=== PATIENT | female | born 1930 | race Caucasian/White ===

== ENCOUNTER → 2016-08-23 | Outpatient (CLI) | payer MEDICARE, OTHER ==
[2016-08-23 08:15] LABS: CH 28.9; CHCM 31.5; HCT 36.3 % (34.0-46.0); HDW 2.61; HGB 11.9 gm/dL (11.4-16.0); Hypochromasia Slight; MCH 30.3 pg (25.0-35.0); MCHC 32.9 g/dL (31.0-37.0); MCV 91.9 fL (80.0-100.0); Mean Platelet Volume 6.8; RBC 3.95 m/uL (3.80-5.40); RDW 15.2 % (11.5-15.5); WBC 8.4 k/uL (3.8-10.6); WBC (Perox) 8.93
[2016-08-23 08:27] LABS: Add Differential Manual Differential
[2016-08-23 08:29] LABS: Manual Review Performed; Nucleated Red Blood Cells 0 /100 WBC (0-0); RBC Morphology Normal; Total Cells Counted 100
[2016-08-23 10:57] LABS: ALT 32 U/L (9-52); AST 32 U/L (14-36); Alkaline Phosphatase 82 U/L (38-126); Anion Gap 11 mmol/L; Blood Urea Nitrogen 17 mg/dL (7-17); Calcium 9.3 mg/dL (8.4-10.2); Carbon Dioxide 30 mmol/L (22-30); Chloride 103 mmol/L (98-107); Cholesterol 184 mg/dL (<200); Creatine Kinase 52 U/L (30-135); Glucose 97 mg/dL (74-99); HDL Cholesterol 43 mg/dL (40-60); Magnesium 2.3 mg/dL (1.6-2.3); Non-African American GFR(MDRD) >60 (>60 ml/min/1.73 sqM); Potassium 4.4 mmol/L (3.5-5.1); Sodium 144 mmol/L (137-145); Total Bilirubin 1.1 mg/dL (0.2-1.3); Total Protein 6.5 g/dL (6.3-8.2); Triglycerides 120 mg/dL (<150)
[2016-08-23 11:48] LABS: Vitamin B12 >1000 pg/mL
[2016-08-23 13:23] LABS: Hemoglobin A1C 5.9 % (4.2-6.1)
== END ==
LOC: LABWHC1 07:39
PROVIDERS: ATTEND Internal Medicine Endocrinology, Diabetes & Metabolism
DX: E06.3 Autoimmune thyroiditis (principal); R73.9 Hyperglycemia, unspecified; I48.2 Chronic atrial fibrillation; E03.9 Hypothyroidism, unspecified; E55.9 Vitamin D deficiency, unspecified; E53.8 Deficiency of other specified B group vitamins; Z13.228 Encounter for screening for other metabolic disorders
CPT/HCPCS: 36415; 80053; 80061; 82306; 82550; 82607; 83036; 83735; 84439; 84443; 85025

== ENCOUNTER → 2017-05-21 | Outpatient (CLI) | payer MEDICARE ==
--- NOTE | 2017-05-23 07:17 | MM ---
Reason for exam: screening (asymptomatic). Last mammogram was performed 3 years and 10 months ago. History: Patient is postmenopausal. Physical Findings: A clinical breast exam by your physician is recommended on an annual basis and results should be correlated with mammographic findings. MG 3D Screening Mammo W/Cad Bilateral CC and MLO view(s) were taken. Prior study comparison: July 08, 2013, bilateral digital screening mammo w/CAD. November 17, 2010, bilateral digital screening mammo w/CAD. There are scattered fibroglandular densities. No significant changes when compared with prior studies. ASSESSMENT: Benign, BI-RAD 2 RECOMMENDATION: Routine screening mammogram of both breasts in 1 year.
== END | disposition home or self-care (01) ==
LOC: RADMAMWWP 15:13
PROVIDERS: ATTEND Family Medicine
DX: Z12.31 Encounter for screening mammogram for malignant neoplasm of breast (principal); N95.1 Menopausal and female climacteric states; M89.9 Disorder of bone, unspecified
CPT/HCPCS: 77063; 77067

== ENCOUNTER → 2017-05-22 | Outpatient (CLI) | payer MEDICARE ==
--- NOTE | 2017-05-22 13:28 | BD ---
EXAMINATION TYPE: MG DEXA axial skeleton. DATE OF EXAM: 05/22/2017 COMPARISON: NONE CLINICAL HISTORY: post menopausal Height: 5'1 2 Weight: 172 FRAX RISK QUESTIONS: Alcohol (3 or more units per day): no Family History (Parent hip fracture): no Glucocorticoids (More than 3mos): no (Ex: prednisone, prednisolone, methylprednisolone, dexamethasone, and hydrocortisone). History of Fracture in Adulthood: yes Secondary Osteoporosis: 1. Type 1 Diabetes: no 2. Hyperthyroidism: no 3. Menopause before 45: no 4. Malnutrition: no 5. Chronic liver disease: no Rheumatoid Arthritis: no Current Tobacco Use: no RISK FACTORS HISTORY OF: Postmenopausal woman: MEDICATIONS: Thyroid Medications: Which medication: Synthroid How Long: age 60 Additional Medications: blood pressure, coumadin, beta lauren Additional History: pacemaker, 2017, 2 heart ablations prior, skin cancer EXAM MEASUREMENTS: Bone mineral densitometry was performed using the [employer] System. Bone mineral density as measured about the Lumbar spine is: ----- L1-L4(G/cm2): 1.558 T Score Values are as follows: ----- L2: 3.4 ----- L3: 4.0 ----- L4: 3.3 ----- L1-L4: 3.1 Bone mineral density about the R hip (g/cm2): 1.082 Bone mineral density about the L hip (g/cm2): 1.158 T Score values are as follows: -----R Neck: 0.3 -----L Neck: 0.8 -----R Total: 0.2 -----L Total: 0.5 IMPRESSION: Normal (Values between +1 and -1 indicate normal bone mass). Consider repeating this study in 5 year s or sooner if there is some new clinical indication. NOTE: T-SCORE=SD OF THE YOUNG ADULT MEAN.
== END ==
LOC: RADBDWWP 12:36
PROVIDERS: ATTEND Family Medicine
DX: N95.1 Menopausal and female climacteric states (principal); M89.9 Disorder of bone, unspecified
CPT/HCPCS: 77080

== ENCOUNTER → 2017-06-05 | Outpatient (CLI) | payer MEDICARE ==
[2017-06-05 08:39] LABS: Blood Urea Nitrogen 25 mg/dL (7-17)
--- NOTE | 2017-06-05 10:21 | CT ---
EXAMINATION TYPE: CT abdomen pelvis w con DATE OF EXAM: 06/05/2017 HISTORY: Hematuria CT DLP: 984.6mGycm Automated Exposure Control for Dose Reduction was Utilized. CONTRAST: CT scan of the abdomen and pelvis is performed with IV Contrast, patient injected with 100 mL of Omni paque 300. COMPARISON: None. FINDINGS: LUNG BASES: Minimal subsegmental bibasilar dependent atelectasis is noted. LIVER/GB: There is minimal intrahepatic biliary ductal dilatation and extra hepatic biliary ductal di latation with surgical absence of the gallbladder. This is likely postoperative in nature. PANCREAS: There is mild pancreatic parenchymal atrophy giving the appearance of ductal prominence alt samanta it only measures 2.7 cm at the pancreatic head on coronal series 7 image 35, within normal limi ts. Pancreatic parenchyma enhances homogeneously. SPLEEN: The spleen is upper limits of normal size approaching criteria for splenomegaly as it measure s 13.6 cm in longitudinal dimension and 12.2 cm in craniocaudal dimension. 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 ADRENALS: No significant abnormality is seen. KIDNEYS: Bilateral extrarenal pelvises sees, right greater than left are incidentally noted. No evide nce of hydronephrosis or ureteral calculus. No gross evidence of nephrolithiasis. The kidneys enhance and excrete symmetrically without focal lesion.. BOWEL: Numerous colonic diverticula are present without significant pericolonic fat stranding or foca l bowel wall thickening appreciated. UTERUS/ADNEXA: Uterus is surgically absent or significantly atrophy and not visualized. LYMPH NODES: No greater than 1cm abdominal or pelvic lymph nodes are appreciated. A single prominent 9 mm short axis pericaval lymph node is seen on image 26 of series 3. These scattered nonenlarged ramiro tral mesenteric lymph nodes are seen on series 3 image 54 measuring up to 5 mm in short axis. OSSEOUS STRUCTURES: Moderate multilevel degenerative changes of the visualized thoracolumbar and lumb osacral spine are noted. There is a mild dextroscoliotic curvature of the lumbar spine. Moderate to s evere bilateral femoral acetabular arthropathy is noted. IMPRESSION: 1. No renal lesion, gross evidence of nephrolithiasis, or ureteral calculus. No hydronephrosis. 2. Urinary bladder is incompletely as contrast has not extended into the urinary bladder. No focal wa ll thickening is appreciated. Ultrasound could be performed for further evaluation of the urinary isiah dder at there is further clinical concern for source of hematuria. 3. Colonic diverticulosis without evidence of diverticulitis. 4. 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
== END | disposition home or self-care (01) ==
LOC: RADCTMAIN 08:07
PROVIDERS: ATTEND Family Medicine
DX: K57.30 Diverticulosis of large intestine without perforation or abscess without bleeding (principal); I72.8 Aneurysm of other specified arteries
CPT/HCPCS: 82565; 84520; 74177; 36415; Q9967

== ENCOUNTER 2017-06-11 03:42 | Emergency (ER) | payer MEDICARE ==
--- NOTE | 2017-06-11 04:11 | ED ---
Chest Pain HPI <William Wilder - Last Filed: 06/11/17 08:43> - General Source: patient Mode of arrival: EMS Limitations: no limitations - History of Present Illness MD Complaint: chest pain Onset/Timin -: days(s) Onset: during rest Pain Location: substernal Pain Radiation: none Severity: moderate Quality: heaviness Consistency: constant Improves With: nothing Worsens With: nothing Anginal Symptoms: nausea, diaphoresis Other Symptoms: cough Treatments Prior to Arrival: aspirin <Johnathan Mckeon - Last Filed: 06/13/17 10:00> - General Chief Complaint: Chest Pain Stated Complaint: Chest pain Time Seen by Provider: 06/11/17 03:55 - Related Data Home Medications Medication Instructions Recorded Confirmed Cyanocobalamin [Vitamin B-12] 500 mcg PO DAILY 12/15/13 06/11/17 Ergocalciferol (Vitamin D2) 50,000 unit PO FR 12/15/13 06/11/17 [Drisdol] Fish Oil/Dha/Epa [Fish Oil 1,200 1 cap PO DAILY 12/15/13 06/11/17 mg Fish Oil] Irbesartan/Hydrochlorothiazide 0.5 tab PO DAILY 12/15/13 06/11/17 [Avalide 150-12.5 mg Tablet] Levothyroxine Sodium [Synthroid] 75 mcg PO DAILY 12/15/13 06/11/17 Bolivar-3 Fatty Acids [Bolivar-3] 1 tab PO DAILY 12/15/13 06/11/17 Ascorbic Acid [Vitamin C] 500 mg PO DAILY 06/11/17 06/11/17 Atenolol [Tenormin] 12.5 mg PO DAILY 06/11/17 06/11/17 Flecainide [Tambocor] 50 mg PO BID 06/11/17 06/11/17 Vit C/E/Zn/Coppr/Lutein/Zeaxan 1 cap PO DAILY 06/11/17 06/11/17 [Preservision Areds 2 Softgel] Warfarin [Coumadin] 7.5 mg PO DAILY 06/11/17 06/11/17 Allergies Allergy/AdvReac Type Severity Reaction Status Date / Time No Known Allergies Allergy Verified 06/11/17 08:11 Review of Systems ROS Other: All systems not noted in ROS Statement are negative. <William Wilder - Last Filed: 06/11/17 08:43> ROS Other: All systems not noted in ROS Statement are negative. Constitutional: Denies: fever, chills Respiratory: Reports: cough. Denies: dyspnea Cardiovascular: Reports: chest pain. Denies: edema, syncope Gastrointestinal: Reports: nausea. Denies: abdominal pain, vomiting, diarrhea Genitourinary: Denies: dysuria, hematuria Musculoskeletal: Denies: back pain Skin: Denies: rash Neurological: Denies: headache, weakness, numbness <MikeJohnathan - Last Filed: 06/13/17 10:00> ROS Statement: Those systems with pertinent positive or pertinent negative responses have been documented in the HPI. EKG Findings - EKG Comments: EKG Findings:: The 12-lead EKG appears to show an underlying rhythm of atrial fibrillation with alternate episodes of paced rhythm. 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 parotid gland removed (tumor stated not cancerous). cataracts. Bilateral knee replacements Past Anesthesia/Blood Transfusion Reactions: No Reported Reaction Past Psychological History: Depression Smoking Status: Former smoker Past Alcohol Use History: None Reported Past Drug Use History: None Reported - Past Family History Mother Family Medical History: Coronary Artery Disease (CAD), CVA/TIA Additional Family Medical History / Comment(s): age 83 of stroke Father Family Medical History: Cancer, Congestive Heart Failure (CHF) Additional Family Medical History / Comment(s): of cancer age 77 <Johnathan Mckeon - Last Filed: 06/13/17 10:00> General Exam Limitations: no limitations General appearance: alert, in no apparent distress Head exam: Present: atraumatic, normocephalic Eye exam: Present: normal appearance Neck exam: Present: normal inspection, full ROM Respiratory exam: Present: normal lung sounds bilaterally. Absent: respiratory distress, wheezes, rales, rhonchi, stridor, chest wall tenderness, accessory muscle use, decreased breath sounds Cardiovascular Exam: Present: regular rate, normal rhythm, normal heart sounds. Absent: systolic murmur, diastolic murmur, rubs, gallop GI/Abdominal exam: Present: soft. Absent: tenderness, guarding, rebound Extremities exam: Present: normal inspection, normal capillary refill. Absent: pedal edema, calf tenderness Neurological exam: Present: alert Skin exam: Present: warm, dry, intact, normal color. Absent: rash <Johnathan Mckeon - Last Filed: 06/13/17 10:00> Vital Signs 06/11/17 06/11/17 06/11/17 03:53 04:04 05:02 Temperature 98.0 F 98.3 F Pulse Rate 70 67 Pulse Rate [ 72 Refuge Worker ] Respiratory 18 18 Rate Blood Pressure 131/57 103/51 O2 Sat by Pulse 99 100 Oximetry 06/11/17 06/11/17 06/11/17 05:57 08:12 08:46 Temperature 97.5 F L Pulse Rate 70 68 83 Pulse Rate [ Refuge Worker ] Respiratory 14 16 16 Rate Blood Pressure 110/54 119/60 140/63 O2 Sat by Pulse 98 95 97 Oximetry 06/11/17 10:12 Temperature Pulse Rate 611 H Pulse Rate [ Refuge Worker ] Respiratory 8 L Rate Blood Pressure 137/63 O2 Sat by Pulse 99 Oximetry Disposition <William Wilder - Last Filed: 06/11/17 08:43> <Johnathan Mckeon - Last Filed: 06/13/17 10:00> Clinical Impression: Chest pain Disposition: HOME SELF-CARE Condition: Good Instructions: Chest Pain (ED) Referrals: Eloise Ma MD [Primary Care Provider] - 1-2 days
[2017-06-11 04:14] LABS: HCT 38.4 % (34.0-46.0); HGB 12.3 gm/dL (11.4-16.0); MCH 28.4 pg (25.0-35.0); MCHC 32.1 g/dL (31.0-37.0); MCV 88.7 fL (80.0-100.0); Mean Platelet Volume 7.1; Platelet Count 118 k/uL (150-450); RBC 4.33 m/uL (3.80-5.40); RDW 15.7 % (11.5-15.5); WBC 12.2 k/uL (3.8-10.6)
[2017-06-11 04:25] LABS: INR 1.8 (<1.2); Prothrombin Time 16.7 sec (9.0-12.0)
[2017-06-11 04:30] LABS: ALT 44 U/L (9-52); AST 41 U/L (14-36); Albumin 3.9 g/dL (3.5-5.0); Alkaline Phosphatase 84 U/L (38-126); Anion Gap 11 mmol/L; Blood Urea Nitrogen 23 mg/dL (7-17); Calcium 9.8 mg/dL (8.4-10.2); Carbon Dioxide 29 mmol/L (22-30); Chloride 101 mmol/L (98-107); Glucose 122 mg/dL (74-99); Magnesium 2.2 mg/dL (1.6-2.3); Sodium 141 mmol/L (137-145); Total Bilirubin 1.2 mg/dL (0.2-1.3); Total Protein 6.2 g/dL (6.3-8.2)
[2017-06-11 04:35] LABS: Creatine Kinase 36 U/L (30-135)
[2017-06-11 04:48] LABS: Creatine Kinase MB 0.5 ng/mL (0.0-2.4); Troponin I <0.012 ng/mL (0.000-0.034)
--- NOTE | 2017-06-11 04:51 | XR ---
INDICATION: Chest pain COMPARISON: CXR 10/19/11 FINDINGS: Single frontal view of the chest is provided. Heart size and pulmonary vascularity are normal. There has been interval placement of a left-sided dual-lead AICD-pacemaker. No airspace consolidation, pleural effusion, or pneumothorax. No evidence of acute osseous abnormality. IMPRESSION: 1. Interval placement of left-sided dual-lead AICD-pacemaker. 2. No evidence of acute cardiopulmonary disease.
[2017-06-11] MEDS ORDERED: RX INFO: IV CONTRAST WAS GIVEN 1 EACH MISC MISCELLANE PRN (06:40)
[2017-06-11 07:52] LABS: Eosinophils # (M) 0.12 k/uL (0-0.7); Lymphocytes # (M) 6.47 k/uL (1.0-4.8); Monocytes # (M) 0.49 k/uL (0-1.0); Neutrophils # (M) 5.12 k/uL (1.3-7.7); Neutrophils % (M) 42 %; Nucleated Red Blood Cells 0 /100 WBC (0-0); Total Cells Counted 100
[2017-06-11 07:53] LABS: Poikilocytosis (M) Present; Toxic Granulation Present
--- NOTE | 2017-06-11 08:15 | CT ---
EXAMINATION TYPE: CT chest angio for PE DATE OF EXAM: 06/11/2017 COMPARISON: CT chest March 17, 2011. HISTORY: Chest pains, history of pulmonary embolism. CT DLP: 580 mGycm. Automated Exposure Control for Dose Reduction was Utilized. CONTRAST: CTA scan of the thorax is performed with IV Contrast, patient injected with 80 mL of Visipaque 320, p ulmonary embolism protocol. MIP Images are created on CT scanner and reviewed. FINDINGS: LUNGS: There is mild underlying emphysematous change. There is stable calcified subpleural 5 mm nodul e superior aspect right lower lobe axial image 68. There are some scattered areas of scarring and/or atelectasis most prominent in the bases near diaphragm redemonstrated. No pleural effusion or pneumot horax is seen bilaterally. No new suspicious parenchymal nodule or mass is present. There is mild to moderate by apical pleural/parenchymal scarring with calcification. There are additional mild areas o f pleural thickening throughout the left lung. MEDIASTINUM: There is satisfactory enhancement of the pulmonary artery and its branches, there is no CT evidence for pulmonary embolism. There are no greater than 1 cm hilar or mediastinal lymph nodes . No significant pericardial effusion is seen. There is cardiomegaly with moderate right atrial dil atation. There is new dual lead pacemaker. Ascending aorta measures up to 3.6 cm in diameter on axial image 61. OTHER: There is moderate to severe multilevel spurring in the thoracic spine. Visualized spleen is up per limits of normal in size but only partially imaged and felt more prominent versus prior. 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 IMPRESSION: 1. No CT evidence for pulmonary embolism on current study. 2. Mild underlying emphysematous change and mild cardiomegaly with mild to moderate scattered fibrosi s throughout the lungs bilaterally. No suspicious acute pulmonary process is seen.
[2017-06-11 08:47] VITALS: TEMP 97.5
[2017-06-11] MEDS ORDERED: SODIUM CHLORIDE 0.9% 1,000 ML IV STA (09:10)
[2017-06-11 10:13] VITALS: BP 137/63; PULSE 611; RESP 8
== END 2017-06-11 10:13 | disposition home or self-care (01) ==
LOC: EC 03:42
DX: R07.89 Other chest pain (principal); R61 Generalized hyperhidrosis; R11.0 Nausea; R05 Cough; I10 Essential (primary) hypertension; Z87.891 Personal history of nicotine dependence; Z79.01 Long term (current) use of anticoagulants; Z79.899 Other long term (current) drug therapy; Z86.711 Personal history of pulmonary embolism; Z86.718 Personal history of other venous thrombosis and embolism; Z82.49 Family history of ischemic heart disease and other diseases of the circulatory system
CPT/HCPCS: 99285; 96360; 36415; 93005; 85379; 80053; 82550; 82553; 83735; 84484; 85025; 85610; 85730; 71045; 71275; Q9967

== ENCOUNTER 2017-06-30 21:30 | Emergency (ER) | payer MEDICARE ==
[2017-06-30 21:40] VITALS: BP 172/77; PULSE 69; RESP 18; TEMP 97.9
--- NOTE | 2017-06-30 22:47 | ED ---
General Adult HPI - General Chief complaint: GI Bleed Stated complaint: Rectal Bleeding Time Seen by Provider: 06/30/17 22:07 Source: patient, RN notes reviewed Mode of arrival: ambulatory Limitations: no limitations - History of Present Illness Initial comments: 86 yo female presents to the ER with cc of bright red blood per rectum. She states that this is happening in between bowel movements. She wipes she was just bright red blood. She states her stool is brown. She denies any pain or discomfort with this. She states happened last night she went to sleep she woke up no issues in the this started again this evening. She denies any lightheadedness or dizziness any pain or discomfort. She denies any history of this in the past. She was concerned due to the blood so she thought that she should be seen. Patient denies any recent fever, chills, shortness of breath, chest pain, back pain, abdominal pain, nausea vomiting, numbness or tingling, dysuria or hematuria, constipation or diarrhea, headaches or visual changes, or any other current symptoms. - Related Data Home Medications Medication Instructions Recorded Confirmed Cyanocobalamin [Vitamin B-12] 500 mcg PO DAILY 12/15/13 06/11/17 Ergocalciferol (Vitamin D2) 50,000 unit PO FR 12/15/13 06/11/17 [Drisdol] Fish Oil/Dha/Epa [Fish Oil 1,200 1 cap PO DAILY 12/15/13 06/11/17 mg Fish Oil] Irbesartan/Hydrochlorothiazide 0.5 tab PO DAILY 12/15/13 06/11/17 [Avalide 150-12.5 mg Tablet] Levothyroxine Sodium [Synthroid] 75 mcg PO DAILY 12/15/13 06/11/17 Drexel-3 Fatty Acids [Drexel-3] 1 tab PO DAILY 12/15/13 06/11/17 Ascorbic Acid [Vitamin C] 500 mg PO DAILY 06/11/17 06/11/17 Atenolol [Tenormin] 12.5 mg PO DAILY 06/11/17 06/11/17 Flecainide [Tambocor] 50 mg PO BID 06/11/17 06/11/17 Vit C/E/Zn/Coppr/Lutein/Zeaxan 1 cap PO DAILY 01/29/18 01/29/18 [Preservision Areds 2 Softgel] Warfarin [Coumadin] 7.5 mg PO DAILY 06/11/17 06/11/17 Previous Rx's Medication Instructions Recorded Phenyleph/Pramoxin/Glycr/W.pet 1 applic RECTAL BID #1 tube 06/30/17 [Preparation H Cream] Allergies Allergy/AdvReac Type Severity Reaction Status Date / Time No Known Allergies Allergy Verified 06/30/17 21:40 Review of Systems ROS Statement: Those systems with pertinent positive or pertinent negative responses have been documented in the HPI. ROS Other: All systems not noted in ROS Statement are negative. Past Medical History Past Medical History: Diabetes Mellitus, Deep Vein Thrombosis (DVT), Hypertension, Pulmonary Embolus (PE), Vascular Disorder Additional Past Medical History / Comment(s): Monoclonal gammopathy of undetermined significance (MGUS). Currently has brain aneurysm (states stable) History of Any Multi-Drug Resistant Organisms: None Reported Past Surgical History: Bowel Resection, Cardiac Ablation, Section, Cholecystectomy, Orthopedic Surgery Additional Past Surgical History / Comment(s): repair left leg from injury. parotid gland removed (tumor stated not cancerous). cataracts. Bilateral knee replacements Past Anesthesia/Blood Transfusion Reactions: No Reported Reaction Past Psychological History: Depression Smoking Status: Former smoker Past Alcohol Use History: Occasional Past Drug Use History: None Reported - Past Family History Mother Family Medical History: Coronary Artery Disease (CAD), CVA/TIA Additional Family Medical History / Comment(s): age 83 of stroke Father Family Medical History: Cancer, Congestive Heart Failure (CHF) Additional Family Medical History / Comment(s): of cancer age 77 General Exam Limitations: no limitations General appearance: alert, in no apparent distress ENT exam: Present: normal exam, mucous membranes moist Neck exam: Present: normal inspection. Absent: tenderness, meningismus, lymphadenopathy Respiratory exam: Present: normal lung sounds bilaterally. Absent: respiratory distress, wheezes, rales, rhonchi, stridor Cardiovascular Exam: Present: regular rate, normal rhythm, normal heart sounds. Absent: systolic murmur, diastolic murmur, rubs, gallop, clicks GI/Abdominal exam: Present: soft, normal bowel sounds. Absent: distended, tenderness, guarding, rebound, rigid Rectal exam: Present: normal rectal tone, hemorrhoids. Absent: fecal impaction , mass, tenderness Extremities exam: Present: normal inspection, full ROM, normal capillary refill. Absent: tenderness, pedal edema, joint swelling, calf tenderness Neurological exam: Present: alert, oriented X3 Psychiatric exam: Present: normal affect, normal mood Skin exam: Present: warm, dry, intact, normal color. Absent: rash Course Vital Signs 06/30/17 21:36 Temperature 97.9 F Pulse Rate 69 Respiratory 18 Rate Blood Pressure 172/77 O2 Sat by Pulse 99 Oximetry Medical Decision Making - Medical Decision Making 86-year-old female presents for what appears to be a hemorrhoid. This time we discussed care for this at home and follow-up with the surgeon. We discussed return parameters all questions. Patient stated that she understood and she is in agreement with this plan. At this time she will be discharged. Disposition Clinical Impression: Bleeding hemorrhoid Disposition: HOME SELF-CARE Condition: Stable Instructions: Hemorrhoids (ED) Additional Instructions: Please use medication as discussed. Please follow up with family doctor if symptoms have not improved over the next two days. Please return to the emergency room if your symptoms increase or worsen or for any other concerns. Prescriptions: Phenyleph/Pramoxin/Glycr/W.pet [Preparation H Cream] 1 applic RECTAL BID #1 tube Referrals: Eloise Ma MD [Primary Care Provider] - 1-2 days Time of Disposition: 22:47
== END 2017-06-30 22:52 | disposition home or self-care (01) ==
LOC: EC 21:30
DX: K64.9 Unspecified hemorrhoids (principal); I10 Essential (primary) hypertension; I67.1 Cerebral aneurysm, nonruptured; Z86.711 Personal history of pulmonary embolism; Z86.718 Personal history of other venous thrombosis and embolism; Z90.49 Acquired absence of other specified parts of digestive tract; Z96.653 Presence of artificial knee joint, bilateral; Z87.891 Personal history of nicotine dependence; Z79.01 Long term (current) use of anticoagulants; Z79.899 Other long term (current) drug therapy
CPT/HCPCS: 99283

== ENCOUNTER 2017-10-05 15:53 | Emergency (ER) | payer MEDICARE ==
[2017-10-05 16:04] VITALS: RESP 18
[2017-10-05] MEDS ORDERED: RX INFO: IV CONTRAST WAS GIVEN 1 EACH MISC MISCELLANE PRN (16:25)
--- NOTE | 2017-10-05 16:39 | ED ---
General Adult HPI - General Chief complaint: Weakness Stated complaint: GAIT OFF, EYES DIALATED PUPILS OFF Time Seen by Provider: 10/05/17 16:08 Source: patient, RN notes reviewed, old records reviewed Mode of arrival: wheelchair Limitations: no limitations - History of Present Illness Initial comments: 86 yo female presenting from primary care's office with concern for unequal pupils. Patient has history of macular degeneration and has been progressively losing sight in her right eye. It was noted over the past 3 days that her right eye became larger than the left. Patient most recently had injections in the side approximately 1-2 months ago. She has no other complaints. No headache. Vision in the left eye is unchanged. Denies slurred speech or facial droop. No extremity weakness. Patient's primary care physician did note some ataxia in the right leg and as patient is currently on Coumadin and she sent the patient for head CT and CT angiography. Patient denies chest pain or shortness of breath. Denies abdominal pain nausea or vomiting. Denies fever or chills. - Related Data Home Medications Medication Instructions Recorded Confirmed Cyanocobalamin [Vitamin B-12] 500 mcg PO DAILY 12/15/13 10/05/17 Ergocalciferol (Vitamin D2) 50,000 unit PO Q7D 12/15/13 10/05/17 [Drisdol] Fish Oil/Dha/Epa [Fish Oil 1,200 1 cap PO BID 12/15/13 10/05/17 mg Fish Oil] Irbesartan/Hydrochlorothiazide 0.5 tab PO DAILY 12/15/13 10/05/17 [Avalide 150-12.5 mg Tablet] Levothyroxine Sodium [Synthroid] 75 mcg PO DAILY 12/15/13 10/05/17 Ascorbic Acid [Vitamin C] 500 mg PO DAILY 06/11/17 10/05/17 Atenolol [Tenormin] 12.5 mg PO DAILY 06/11/17 10/05/17 Flecainide [Tambocor] 50 mg PO BID 06/11/17 10/05/17 Vit C/E/Zn/Coppr/Lutein/Zeaxan 1 cap PO BID 06/11/17 10/05/17 [Preservision Areds 2 Softgel] Warfarin [Coumadin] 7.5 mg PO SUMOTUTHFRSA 06/11/17 10/05/17 Aspirin 81 mg PO DAILY 10/05/17 10/05/17 Calcium Citrate 500 mg PO DAILY 10/05/17 10/05/17 Folic Acid 0.4 mg PO DAILY 10/05/17 10/05/17 Magnesium Oxide [Mag-Ox] 400 mg PO DAILY 10/05/17 10/05/17 Warfarin [Coumadin] 1 mg PO WE 10/05/17 10/05/17 Warfarin [Coumadin] 10 mg PO WE 10/05/17 10/05/17 metFORMIN HCL [Glucophage] 500 mg PO DAILY PRN 10/05/17 10/05/17 Allergies Allergy/AdvReac Type Severity Reaction Status Date / Time No Known Allergies Allergy Verified 10/05/17 16:45 Review of Systems ROS Statement: Those systems with pertinent positive or pertinent negative responses have been documented in the HPI. ROS Other: All systems not noted in ROS Statement are negative. Past Medical History Past Medical History: Diabetes Mellitus, Deep Vein Thrombosis (DVT), Hypertension, Pulmonary Embolus (PE), Vascular Disorder Additional Past Medical History / Comment(s): Monoclonal gammopathy of undetermined significance (MGUS). Currently has brain aneurysm (states stable) macular degneration History of Any Multi-Drug Resistant Organisms: None Reported Past Surgical History: Bowel Resection, Cardiac Ablation, Section, Cholecystectomy, Orthopedic Surgery Additional Past Surgical History / Comment(s): repair left leg from injury. parotid gland removed (tumor stated not cancerous). cataracts. Bilateral knee replacements Past Anesthesia/Blood Transfusion Reactions: No Reported Reaction Past Psychological History: Depression Smoking Status: Former smoker Past Alcohol Use History: Occasional Past Drug Use History: None Reported - Past Family History Mother Family Medical History: Coronary Artery Disease (CAD), CVA/TIA Additional Family Medical History / Comment(s): age 83 of stroke Father Family Medical History: Cancer, Congestive Heart Failure (CHF) Additional Family Medical History / Comment(s): of cancer age 77 General Exam Limitations: no limitations General appearance: alert, in no apparent distress Head exam: Present: atraumatic, normocephalic Eye exam: Present: EOMI. Absent: PERRL (Right pupil is irregular 3-4 mm and reactive. Left pupil is round and 2 mm reactive. Pupils are reactive to ipsilateral and contralateral light reflex) ENT exam: Present: normal exam. Absent: normal oropharynx, mucous membranes dry Neck exam: Present: normal inspection. Absent: tenderness, meningismus Respiratory exam: Present: normal lung sounds bilaterally. Absent: respiratory distress, wheezes Cardiovascular Exam: Present: regular rate, normal rhythm GI/Abdominal exam: Present: soft. Absent: distended, tenderness, guarding Extremities exam: Present: normal inspection, normal capillary refill. Absent: pedal edema Back exam: Present: normal inspection, full ROM Neurological exam: Present: alert, oriented X3, other ([id number] is normal bilaterally, [id number] normal bilaterally). Absent: motor sensory deficit Psychiatric exam: Present: normal affect, normal mood Skin exam: Present: warm, dry, intact. Absent: cyanosis, diaphoretic Course Vital Signs 10/05/17 10/05/17 15:57 17:44 Temperature 97.1 F L 96.9 F L Pulse Rate 62 66 Respiratory 18 18 Rate Blood Pressure 147/67 137/60 O2 Sat by Pulse 98 96 Oximetry Medical Decision Making - Medical Decision Making 86 yo female presenting with unequal pupils. Primary care physician requesting CTA and CT brain. CT brain is negative for intracranial hemorrhage or mass effect. CT angiography negative for aneurysm or acute vascular pathology. Patient's exam is otherwise unremarkable. Nonfocal neurologic exam. Case discussed with Dr. Guzman who is covering for ophthalmology. He does believe this is likely related to her macular degeneration and multiple interventions in this eye. There is no need for any further evaluation or treatment at this time. Patient can follow up with her regular sagger preparer next week as well as her retinal specialist. Patient is eager for discharge. Disposition Clinical Impression: Anisocoria Disposition: HOME SELF-CARE Condition: Fair Instructions: Age-Related Macular Degeneration (ED) Is patient prescribed a controlled substance at d/c from ED?: No Referrals: Eloise Ma MD [Primary Care Provider] - 1-2 days Franky Daniel MD [STAFF PHYSICIAN] - 1-2 days Time of Disposition: 19:32
--- NOTE | 2017-10-05 17:49 | CT ---
EXAMINATION TYPE: CT brain wo con DATE OF EXAM: 10/05/2017 COMPARISON: 10/22/2014 HISTORY: Unsteady gait CT DLP: mGycm Automated exposure control for dose reduction was used. FINDINGS: There is cerebral cortical atrophy. There is no mass effect nor midline shift. There is no sign of in tracranial hemorrhage. The calvarium is intact. IMPRESSION: CEREBRAL ATROPHY. NO ACUTE INTRACRANIAL ABNORMALITY. THERE IS CLEARING OF LEFT FRONTAL SCALP HEMATOMA COMPARED TO OLD EXAM.
--- NOTE | 2017-10-05 17:54 | CT ---
EXAMINATION TYPE: CT angio head neck DATE OF EXAM: 10/05/2017 HISTORY: Unsteady gait, unequal pupils. COMPARISON: NONE CT DLP: 316.9 mGycm. Automated Exposure Control for Dose Reduction was Utilized. TECHNIQUE: CTA scan of the neck is performed with IV Contrast, patient injected with 65 mL of Isovue 370, axial images are obtained, coronal and sagittal reformatted images are reviewed. Three-D recons tructed images are created on an independent workstation and reviewed. FINDINGS: There is normal branching pattern of the great vessels on the aortic arch. There is bilateral arteria l flow in the vertebral arteries which are fairly symmetric. There is minimal plaque formation at the carotid artery bifurcations. There is arterial flow in the vertebrobasilar artery system. There is arterial flow in the anterior m iddle and posterior cerebral arteries. I see no evidence of aneurysm or neovascularity. There is norm al contrast opacification of the venous sinuses. I see no evidence of intracranial arterial stenosis. IMPRESSION: Minimal atherosclerotic disease at the carotid artery bifurcations. Stenosis is estimated less than [address] angiogram of the brain.
[2017-10-05 19:39] VITALS: BP 133/75; PULSE 78; TEMP 97.8
== END 2017-10-05 19:39 | disposition home or self-care (01) ==
LOC: EC 15:53
DX: H57.02 Anisocoria (principal); R27.0 Ataxia, unspecified; H35.30 Unspecified macular degeneration; I10 Essential (primary) hypertension; E11.9 Type 2 diabetes mellitus without complications; Z87.891 Personal history of nicotine dependence; Z79.01 Long term (current) use of anticoagulants; Z79.82 Long term (current) use of aspirin; Z79.84 Long term (current) use of oral hypoglycemic drugs; Z79.899 Other long term (current) drug therapy; Z86.711 Personal history of pulmonary embolism; Z86.718 Personal history of other venous thrombosis and embolism; Z98.890 Other specified postprocedural states; Z96.653 Presence of artificial knee joint, bilateral
CPT/HCPCS: 70496; 70450; 70498; 99285; Q9967

== ENCOUNTER → 2018-08-12 | Outpatient (CLI) | payer MEDICARE ==
[2018-08-12 15:11] LABS: HCT 36.6 % (34.0-46.0); HGB 12.1 gm/dL (11.4-16.0); MCH 29.4 pg (25.0-35.0); Mean Platelet Volume 6.9; Platelet Count 115 k/uL (150-450); RBC 4.12 m/uL (3.80-5.40); RDW 15.2 % (11.5-15.5); WBC 8.1 k/uL (3.8-10.6)
[2018-08-12 19:25] LABS: Anion Gap 11.8 mmol/L (4.00-12.00); Calcium 9.2 mg/dL (8.7-10.3); Carbon Dioxide 27.2 mmol/L (21.6-31.8); Potassium 4.3 mmol/L (3.5-5.5)
== END | disposition home or self-care (01) ==
LOC: LABWHC1 14:07
PROVIDERS: ATTEND Internal Medicine Interventional Cardiology
DX: I10 Essential (primary) hypertension (principal); I48.2 Chronic atrial fibrillation; E11.9 Type 2 diabetes mellitus without complications
CPT/HCPCS: 36415; 80048; 85027

== ENCOUNTER 2018-09-30 11:05 | Day surgery (SDC) | payer MEDICARE ==
[2018-09-30 11:28] VITALS: BP 123/64; PULSE 65; RESP 18; TEMP 97.6
[2018-09-30 11:35] LABS: INR 1.2 (<1.2); Prothrombin Time 12.8 sec (9.0-12.0)
--- NOTE | 2018-09-30 13:15 | XR ---
EXAMINATION TYPE: XR chest 1V portable DATE OF EXAM: 09/30/2018 COMPARISON: 09/27/2018 HISTORY: Postthoracentesis TECHNIQUE: Single frontal view of the chest is obtained. FINDINGS: Bilateral consolidation and small left effusion which is reduced in size. Apical pleural t hickening and calcification along the left apex noted. No sizable pneumothorax. Cardiac device with a therosclerotic changes aorta. Arthropathy of the shoulders with diffuse osteopenia. IMPRESSION: 1. No pneumothorax. 2. Improving left-sided pleural effusion with bilateral subsegmental atelectasis or infiltrate.
--- NOTE | 2018-09-30 15:56 | PCN ---
PROCEDURE NOTE PROCEDURE PERFORMED: Thoracentesis. PREOP DIAGNOSIS: Left-sided pleural effusion. POSTOP DIAGNOSIS: Left side pleural effusion. Indication Pleural effusion. A time-out was completed verifying correct patient, procedure, site, positioning , and implant (s) or special equipment if applicable. Ultrasound guidance was used and appropriate fluid pocket was identified and marked. Patient was positioned, prepped and draped in usual sterile fashion. Lidocaine was used to anesthetize the area. A Thoracentesis catheter was introduced into the pleural space and fluid was removed. Blood loss was none. A chest x-ray was ordered to evaluate for pneumothorax. Total Fluid Removed: 1 L Color of Fluid: Pleural fluid. Fluid was/was not sent for appropriate laboratory tests. Patient tolerated the procedure well and there were no complications. Total of 1 L of pleural fluid was aspirated without any complications. Chest x-ray: No pneumothorax. MMODL / IJN: [id number] /
== END 2018-09-30 13:52 | disposition home or self-care (01) ==
LOC: PROCWHC3 11:05
PROVIDERS: ATTEND Internal Medicine Critical Care Medicine
DX: J90 Pleural effusion, not elsewhere classified (principal); I31.3 Pericardial effusion (noninflammatory); R76.11 Nonspecific reaction to tuberculin skin test without active tuberculosis; I48.91 Unspecified atrial fibrillation; I34.0 Nonrheumatic mitral (valve) insufficiency; I27.21 Secondary pulmonary arterial hypertension; Z95.0 Presence of cardiac pacemaker; I49.5 Sick sinus syndrome; I10 Essential (primary) hypertension; E78.5 Hyperlipidemia, unspecified; E66.9 Obesity, unspecified; Z68.29 Body mass index [BMI] 29.0-29.9, adult; E11.9 Type 2 diabetes mellitus without complications; Z87.891 Personal history of nicotine dependence; H91.90 Unspecified hearing loss, unspecified ear; H35.30 Unspecified macular degeneration; Z79.01 Long term (current) use of anticoagulants; Z79.84 Long term (current) use of oral hypoglycemic drugs; Z79.82 Long term (current) use of aspirin; Z79.890 Hormone replacement therapy; Z79.899 Other long term (current) drug therapy
CPT/HCPCS: 32554; 32555; 36415; 71045; 76604; 82945; 83615; 84157; 85610; 87070; 87075; 87116; 87205; 87206; 88108; 88305; 88341; 88342; 89050

== ENCOUNTER → 2018-09-30 | Outpatient (CLI) | payer MEDICARE ==
--- NOTE | 2018-09-30 11:25 | US ---
EXAMINATION TYPE: US chest DATE OF EXAM: 09/30/2018 COMPARISON: chest x ray CLINICAL HISTORY: J90 Pleural Effusion. TECHNIQUE: Targeted ultrasound of the posterior lower left hemithorax EXAM MEASUREMENTS: Left Pleural Effusion pocket size: 8.6 cm Left skin surface to fluid distance: 2.1 cm Lung seen floating at 3.8 cm. Left side marked for possible thoracentesis outside the dept. Pulmonologists are able to review the images in the patient?s EMR. IMPRESSIONS: Left pleural effusion
[2018-09-30 16:59] LABS: Appearance,BF Bloody; Color,BF Red; Mononuclear WBC,Body Fluid 97 %; Nucleated Cells, Body Fluid 7500 /uL; Polynuclear WBC,Body Fluid 3 %; RBC, Body Fluid 159400 /uL
[2018-09-30 22:01] LABS: Total Protein, Body Fluid 3100 mg/dL
== END | disposition home or self-care (01) ==
LOC: RADUSWWP 10:45
PROVIDERS: ATTEND Internal Medicine Critical Care Medicine
DX: J90 Pleural effusion, not elsewhere classified (principal)
CPT/HCPCS: 76604; 82945; 83615; 84157; 87070; 87075; 87116; 87205; 87206; 89050

== ENCOUNTER → 2018-10-16 | Outpatient (CLI) | payer MEDICARE ==
--- NOTE | 2018-10-16 11:53 | CT ---
EXAMINATION TYPE: CT ChestAbdPelvis w con DATE OF EXAM: 10/16/2018 COMPARISON: CT chest June 11, 2017. CT abdomen and pelvis June 05, 2017. HISTORY: Lymphoma-left side thorax CT DLP: 983.1 mGycm. Automated Exposure Control for Dose Reduction was Utilized. CONTRAST: CT scan of the thorax, abdomen and pelvis is performed with oral and with IV Contrast, patient inject ed with 100 mL of Isovue 300. FINDINGS: LUNGS: There is new moderate size left pleural effusion with associated compressive atelectasis in th e left lung base. Right lung remains clear. No mediastinal shift is present. Stable 5 mm subpleural c alcified nodule or granuloma axial image 34 right lung. Mild underlying emphysematous change redemons trated. Mild biapical pleural/parenchymal scarring is again seen. MEDIASTINUM: There are no greater than 1 cm hilar or mediastinal lymph nodes. No pericardial effusi on is seen. Stable mild cardiomegaly with dual lead pacemaker OTHER: No additional significant abnormality is seen. LIVER/GB: Gallbladder is surgically absent. Stable appearance of extrahepatic biliary system measured upper limits of normal. PANCREAS: No significant abnormality is seen. SPLEEN: Spleen size is persistently prominent felt slightly larger from prior measuring 14.8 cm long axis coronal image 47. There is new low dense tissue adjacent to pancreas just superiorly surrounding and encasing portions of tortuous splenic artery with stable small aneurysm in hilum axial image 66. This tissues also best seen extending anteriorly axial image 69. ADRENALS: No significant abnormality is seen. KIDNEYS: No significant abnormality is seen. BOWEL: No significant abnormality is seen. GENITAL ORGANS: No gross abnormality seen. LYMPH NODES: There are enlarging abnormal retroperitoneal lymph nodes. For reference posterior left p aracaval lymph node measures 2.4 x 1.7 cm axial image 71. There is confluent soft tissue or adenopath y encasing SMA branches in the mid to lower abdomen axial image 83 on current study measuring approxi mately 6.2 cm transversely by 3.6 cm AP diameter. There is asymmetric prominence of the right-sided g roin veins with nodularity mimicking adenopathy axial image 115, this is unchanged from prior study f avoring venous ectasia given there is no new suspicious pelvic adenopathy identified otherwise OSSEOUS STRUCTURES: Spine is straightened on sagittal images there is dextroconvex scoliosis centered L2 level on coronal images. Scoliotic curvature in thoracic spine is also noted. There is multilevel spurring in the thoracolumbar spine. There is marked disc space narrowing lumbosacral junction. Ther e is multilevel facet arthropathy in the lumbar spine effacing thecal sac. There is moderate to sever e narrowing and spurring in both hip joints.. OTHER: There is moderate plaque in abdominal aorta extending into branch vessels. 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 Increasing splenomegaly noted . Recurrence in the perisplenic tissue or hilum is identified. New moderate left-sided pleural effusion noted.
== END | disposition home or self-care (01) ==
LOC: RADCTMAIN 09:16
PROVIDERS: ATTEND Internal Medicine Hematology & Oncology
DX: C85.90 Non-Hodgkin lymphoma, unspecified, unspecified site (principal); R16.1 Splenomegaly, not elsewhere classified; J90 Pleural effusion, not elsewhere classified; C85.10 Unspecified B-cell lymphoma, unspecified site
CPT/HCPCS: 82565; 84520; 71260; 74177; 36415; Q9967 ×2

== ENCOUNTER → 2018-12-04 | Day surgery (SDC) | payer MEDICARE ==
[2018-12-04 13:03] VITALS: BP 159/79; PULSE 78; RESP 16; TEMP 97.9
[2018-12-04 13:25] LABS: INR 1.1 (<1.2); Prothrombin Time 11.4 sec (9.0-12.0)
--- NOTE | 2018-12-04 14:12 | XR ---
EXAMINATION TYPE: XR chest 1V portable DATE OF EXAM: 12/04/2018 COMPARISON: Chest x-ray November 01, 2018. CT October 16, 2018. Chest ultrasound earlier today. HISTORY: Status post left-sided thoracentesis. TECHNIQUE: Single AP portable frontal upright view of the chest is obtained. FINDINGS: There is no left-sided pneumothorax after thoracentesis. Interval improvement in left-side d effusion noted. Right lung remains clear. The cardiac silhouette size remains enlarged with dual le ad pacemaker and atherosclerotic aorta. Underlying scoliosis in lumbar spine is partially imaged. IMPRESSION: No pneumothorax after left-sided thoracentesis. Persistent small left pleural effusion w ith associated left basilar atelectasis and/or infiltrate. Underlying cardiomegaly and chronic parenc hymal change redemonstrated.
--- NOTE | 2018-12-04 18:31 | PCN ---
PROCEDURE NOTE Indication Left side pleural effusion. A time-out was completed verifying correct patient, procedure, site, positioning , and implant (s) or special equipment if applicable. Ultrasound guidance was used and appropriate fluid pocket was identified and marked. Patient was positioned, prepped and draped in usual sterile fashion. Lidocaine was used to anesthetize the area. A Thoracentesis catheter was introduced into the pleural space and fluid was removed. Blood loss was none. A chest x-ray was ordered to evaluate for pneumothorax. Total Fluid Removed: 700 mL Color of Fluid turbid dark red burgundy colored. Fluid was sent for appropriate laboratory tests. Patient tolerated the procedure well and there were no complications. MMODL / IJN: [id number] /
== END ==
LOC: PROCWHC3 12:44
PROVIDERS: ATTEND Internal Medicine Critical Care Medicine
DX: J90 Pleural effusion, not elsewhere classified (principal); I51.7 Cardiomegaly
CPT/HCPCS: 32554; 36415; 71045; 85610

== ENCOUNTER → 2018-12-04 | Outpatient (CLI) | payer MEDICARE ==
--- NOTE | 2018-12-04 11:28 | US ---
EXAMINATION TYPE: US chest DATE OF EXAM: 12/04/2018 COMPARISON: Prior chest ultrasound September 30, 2018. Prior chest CT October 16, 2018. Most recent chest x-ray November 01, 2018 CLINICAL HISTORY: J90 Pleural effusion. Pleural effusion TECHNIQUE: Targeted ultrasound of the posterior lower bilateral hemithoraces EXAM MEASUREMENTS: Right Pleural Effusion pocket size: 0 cm Left Pleural Effusion pocket size: 8.5 cm Left skin surface to fluid distance: 2.6 cm Lung seen within mid portion of fluid pocket Right side NOT MARKED for possible thoracentesis outside the dept. Left side MARKED for possible thoracentesis outside the dept. Pulmonologists are able to review the images in the patient?s EMR. IMPRESSIONS: Recurrent moderate left-sided pleural effusion is seen which correlates with recent CT a nd x-ray likely increased in size from these studies one month earlier.
== END | disposition home or self-care (01) ==
LOC: RADUSWWP 11:01
PROVIDERS: ATTEND Internal Medicine Critical Care Medicine
DX: J90 Pleural effusion, not elsewhere classified (principal)
CPT/HCPCS: 76604

== ENCOUNTER → 2019-02-14 | Outpatient (CLI) | payer MEDICARE ==
[2019-02-14 17:11] LABS: Basophils % (A) 0 %; Eosinophils # (A) 0.1 k/uL (0-0.7); Eosinophils % (A) 1 %; HCT 39.6 % (34.0-46.0); HGB 12.5 gm/dL (11.4-16.0); Lymphocytes # (A) 3.2 k/uL (1.0-4.8); Lymphocytes % (A) 36 %; MCH 29.3 pg (25.0-35.0); MCHC 31.6 g/dL (31.0-37.0); MCV 92.8 fL (80.0-100.0); Mean Platelet Volume 6.9; Monocytes # (A) 0.3 k/uL (0-1.0); Monocytes % (A) 4 %; Neutrophils % (A) 56 %; Platelet Count 116 k/uL (150-450); RBC 4.26 m/uL (3.80-5.40); RDW 15.8 % (11.5-15.5); WBC 8.9 k/uL (3.8-10.6)
[2019-02-14 23:22] LABS: African American GFR (CKD) 76.3 (60.0-200.0); Albumin 4.1 g/dL (3.80-4.90); Albumin/Globulin Ratio 2.73 (1.60-3.17); Globulin 1.5 g/dL (1.6-3.3); Non-African American GFR(CKD) 65.8 (60.0-200.0); Potassium 4.2 mmol/L (3.5-5.5); Total Bilirubin 0.9 mg/dL (0.3-1.2); Total Protein 5.6 g/dL (6.2-8.2)
[2019-02-14 23:30] LABS: T4, Free (Free Thyroxine) 1.5 ng/dL (0.80-1.80)
[2019-02-15 00:31] LABS: Hemoglobin A1C 5.7 % (4.0-6.0)
== END | disposition home or self-care (01) ==
LOC: LABWHC1 16:30
PROVIDERS: ATTEND Internal Medicine Endocrinology, Diabetes & Metabolism
DX: E03.9 Hypothyroidism, unspecified (principal); E78.5 Hyperlipidemia, unspecified; E55.9 Vitamin D deficiency, unspecified; R73.03 Prediabetes
CPT/HCPCS: 36415; 80053; 82306; 83036; 84439; 84443; 85025

== ENCOUNTER → 2019-03-17 | Outpatient (CLI) | payer MEDICARE ==
--- NOTE | 2019-03-17 14:26 | CT ---
EXAMINATION TYPE: CT ChestAbdPelvis w con DATE OF EXAM: 03/17/2019 COMPARISON: 10/16/2018, 06/11/2017, 06/05/2017 HISTORY: 88-year-old female Follow up lymphoma. TECHNIQUE: Contiguous axial scanning of the chest, abdomen, and pelvis performed with IV Contrast, pa tient injected with 100 mL of Isovue 300. Delayed images through the kidneys were obtained. Coronal/s agittal reconstructions performed. CT DLP: 984.6 mGycm Automated exposure control for dose reduction was used. FINDINGS: CHEST: Left anterior chest wall pacemaker generator with right atrial and right ventricular leads. Heart borderline enlarged without pericardial effusion. Mildly ectatic ascending aorta 3.6 cm with mild atherosclerotic arch calcifications and conventional arch vessel branching anatomy. No thoracic lymphadenopathy by CT size criteria. Calcified granuloma peripheral right lower lobe. Patchy posterior right basilar density, probably atelectasis. Continued moderate left pleural effusio n with adjacent atelectasis. Large caliber to the main right and the pulmonary arteries measuring up to 3.0 cm suggesting underlyi ng pulmonary hypertension. ABDOMEN: Mild intrahepatic and extra hepatic biliary ductal dilatation similar to prior with normal distal tap ering. No focal liver lesion. Portal venous system is patent. Gallbladder surgically absent. Adrenal glands, kidneys, and pancreas appear within normal limits. Spleen measures 12.9 cm versus 13.8 cm, previously. Stable 1 cm splenic artery aneurysm. Residual mild soft tissue thickening in the splenic hilum, decreased from prior exam. Retroperitoneal left periaortic lymphadenopathy measuring up to 2.2 x 1.6 cm versus 2.4 x 1.7 cm, pre viously. Soft tissue thickening along the mesenteric vessels extending inferiorly to the mid to lower abdomen similar to minimally improved. Oral contrast progressed to the splenic flexure. Left hemicolonic diverticulosis. No pericolonic infl ammatory change. PELVIS: Bladder distended. Uterus surgically absent. Mild pelvic free fluid. No pelvic lymphadenopathy. BONES: Degenerative changes of the hips. Degenerative disc disease mid to lower lumbar spine with facet art hropathy. Anterior endplate spondylosis mid and lower thoracic spine. IMPRESSION: 1. Relatively stable disease with areas of involvement slightly decreased in size: 2. Left para-aortic lymphadenopathy measuring 2.2 x 1.6 cm (versus 2.4 x 1.7 cm, previously), spleen 12.9 cm (versus 13.8 cm, previously), persistent splenic hilar soft tissue minimally decreased, and p ersistent infiltrative mid and lower mesenteric soft tissue also minimally decreased. 3. Continued moderate left pleural effusion with adjacent atelectasis. 4. Incidental: Borderline heart size, prior granulomatous disease, and underlying pulmonary arterial hypertension.
== END | disposition home or self-care (01) ==
LOC: RADCTMAIN 10:58
PROVIDERS: ATTEND Internal Medicine Medical Oncology
DX: J90 Pleural effusion, not elsewhere classified (principal); J98.11 Atelectasis; I27.20 Pulmonary hypertension, unspecified; M79.89 Other specified soft tissue disorders; R59.0 Localized enlarged lymph nodes
CPT/HCPCS: 71260; 74177; Q9967 ×2

== ENCOUNTER 2019-04-14 16:17 | Inpatient (IN) | payer MEDICARE ==
[2019-04-14] MEDS ORDERED: SODIUM CHLORIDE 0.9% 1,000 ML IV STA ×2 (17:06→18:52)
--- NOTE | 2019-04-14 17:23 | ED ---
General Adult HPI - General Chief complaint: Recheck/Abnormal Lab/Rx Stated complaint: dehydration Time Seen by Provider: 04/14/19 16:56 Source: patient Mode of arrival: ambulatory Limitations: no limitations - History of Present Illness Initial comments: Dictation was produced using [employer] dictation software. please excuse any grammatical, word or spelling errors. Chief Complaint: 88-year-old female past medical history of non-Hodgkin's lymphoma stage IV presents with dry mouth and dehydration. History of Present Illness: Patient is an 80-year-old female. She has multiple comorbidities including atrial fibrillation. Since this morning she's been feeling her mouth is very dry that she is dehydrated. Patient also complaining of sinus infections that she is positive is an adverse effect from the current cancer medication she is taking. She takes Ibrutinib. Her oncologist is out of [place]. She states she is had symptoms like this in the past. Denies any nausea vomiting or diarrhea. She has no pain complaints at this time. She also reports having outpatient By ENT doctor in the area for sinus complaints. The ROS documented in this emergency department record has been reviewed and confirmed by me. Those systems with pertinent positive or negative responses have been documented in the HPI. All other systems are other negative and/or noncontributory. PHYSICAL EXAM: General Impression: Alert and oriented x3, not in acute distress HEENT: Normocephalic atraumatic, extra-ocular movements intact, pupils equal and reactive to light bilaterally, dry mucous membranes Cardiovascular: Heart regular rate and rhythm, S1&S2 audible, no murmurs, rubs or gallops Chest: Lungs clear to auscultation bilaterally, no rhonchi, no wheeze, no rales Abdomen: Bowel sounds present, abdomen soft, non-tender, non-distended, no organomegaly Musculoskeletal: Pulses present and equal in all extremities, no peripheral edema Motor: no focal deficits noted Neurological: CN II-XII grossly intact, no focal motor or sensory deficits noted Skin: Intact with no visualized rashes Psych: Normal affect and mood ED course: 88 old female with chief complaint of dehydration. Signs upon arrival are within acceptable limits. Medications were reviewed. EKGs benign. Physical examination is grossly benign. Laboratory evaluation obtained. Leukocytosis of 11.9, hemoglobin 10.5. Coag panel unremarkable. Metabolic panel shows sodium 127. Lactic acidosis 3.7. Chest x-rays obtained showing no left-sided opacity which may represent effusion versus pneumonia. Patient started on antibiotics. Patient given intravenous fluids. Hemodynamics continued to be stable. Patient's well-appearing. Patient's clinical presentation concerning for early sepsis. Patient given multiple boluses of fluid and started on antibiotics. Discussed patient case with Dr. Galdamez was went except patient's care. EKG interpretation: Ventricular rate 77, A. fib, QRS 90, QTC 42. No FL prolongation, no QTC prolongation, no ST or T-wave changes noted. EKG compared to 06/11/2017 showing no changes. Overall, this EKG is unremarkable - Related Data Home Medications Medication Instructions Recorded Confirmed Cyanocobalamin [Vitamin B-12] 500 mcg PO DAILY 12/15/13 10/05/17 Ergocalciferol (Vitamin D2) 50,000 unit PO Q7D 12/15/13 10/05/17 [Drisdol] Fish Oil/Dha/Epa [Fish Oil 1,200 1 cap PO BID 12/15/13 10/05/17 mg Fish Oil] Irbesartan/Hydrochlorothiazide 0.5 tab PO DAILY 12/15/13 10/05/17 [Avalide 150-12.5 mg Tablet] Levothyroxine Sodium [Synthroid] 75 mcg PO DAILY 12/15/13 10/05/17 Ascorbic Acid [Vitamin C] 500 mg PO DAILY 06/11/17 10/05/17 Atenolol [Tenormin] 12.5 mg PO DAILY 06/11/17 10/05/17 Flecainide [Tambocor] 50 mg PO BID 06/11/17 10/05/17 Vit C/E/Zn/Coppr/Lutein/Zeaxan 1 cap PO BID 06/11/17 10/05/17 [Preservision Areds 2 Softgel] Warfarin [Coumadin] 7.5 mg PO SUMOTUTHFRSA 06/11/17 09/30/18 Aspirin 81 mg PO DAILY 10/05/17 09/30/18 Calcium Citrate 500 mg PO DAILY 10/05/17 10/05/17 Folic Acid 0.4 mg PO DAILY 10/05/17 10/05/17 Magnesium Oxide [Mag-Ox] 400 mg PO DAILY 10/05/17 10/05/17 Warfarin [Coumadin] 2.5 mg PO WE 10/05/17 10/05/17 Warfarin [Coumadin] 5 mg PO WE 10/05/17 10/05/17 metFORMIN HCL [Glucophage] 500 mg PO DAILY PRN 10/05/17 10/05/17 Citalopram Hydrobromide [CeleXA] 10 mg PO DAILY 09/30/18 09/30/18 Furosemide [Lasix] 20 mg PO DAILY 09/30/18 09/30/18 Irbesartan/Hydrochlorothiazide 1 each PO 09/30/18 [Avalide 150-12.5 mg Tablet] Metoprolol Tartrate [Lopressor] 25 mg PO DAILY 09/30/18 09/30/18 Ibrutinib [Imbruvica] 420 mg PO DAILY 12/04/18 12/04/18 Allergies Allergy/AdvReac Type Severity Reaction Status Date / Time No Known Allergies Allergy Verified 04/14/19 16:23 Review of Systems ROS Statement: Those systems with pertinent positive or pertinent negative responses have been documented in the HPI. ROS Other: All systems not noted in ROS Statement are negative. Past Medical History Past Medical History: Cancer, Diabetes Mellitus, Deep Vein Thrombosis (DVT), Hypertension, Pulmonary Embolus (PE), Vascular Disorder Additional Past Medical History / Comment(s): Monoclonal gammopathy of undetermined significance (MGUS). Currently has brain aneurysm (states stable) macular degneration, non hodkins lymphoma History of Any Multi-Drug Resistant Organisms: None Reported Past Surgical History: Bowel Resection, Cardiac Ablation, Section, Chol ecystectomy, Orthopedic Surgery Additional Past Surgical History / Comment(s): repair left leg from injury. parotid gland removed (tumor stated not cancerous). cataracts. Bilateral knee replacements Past Anesthesia/Blood Transfusion Reactions: No Reported Reaction Past Psychological History: Depression Smoking Status: Former smoker Past Alcohol Use History: Occasional Past Drug Use History: None Reported - Past Family History Mother Family Medical History: Coronary Artery Disease (CAD), CVA/TIA Additional Family Medical History / Comment(s): age 83 of stroke Father Family Medical History: Cancer, Congestive Heart Failure (CHF) Additional Family Medical History / Comment(s): of cancer age 77 General Exam Limitations: no limitations Course Vital Signs 04/14/19 16:23 Temperature 99.1 F Pulse Rate 75 Respiratory 18 Rate Blood Pressure 152/66 O2 Sat by Pulse 97 Oximetry Medical Decision Making - Lab Data Result diagrams: 04/14/19 17:15 04/14/19 17:15 Lab Results 04/14/19 04/14/19 04/14/19 Range/Units 17:15 17:15 17:15 WBC 11.9 H (3.8-10.6) k/uL RBC 3.48 L (3.80-5.40) m/uL Hgb 10.5 L (11.4-16.0) gm/dL Hct 31.2 L (34.0-46.0) % MCV 89.5 (80.0-100.0) fL MCH 30.2 (25.0-35.0) pg MCHC 33.8 (31.0-37.0) g/dL RDW 14.7 (11.5-15.5) % Plt Count 100 L (150-450) k/uL Neutrophils % 75 % Lymphocytes % 18 % Monocytes % 6 % Eosinophils % 1 % Basophils % 0 % Neutrophils # 8.9 H (1.3-7.7) k/uL Lymphocytes # 2.2 (1.0-4.8) k/uL Monocytes # 0.7 (0-1.0) k/uL Eosinophils # 0.1 (0-0.7) k/uL Basophils # 0.0 (0-0.2) k/uL PT (9.0-12.0) sec INR (<1.2) APTT (22.0-30.0) sec Sodium 127 L (137-145) mmol/L Potassium 4.2 (3.5-5.1) mmol/L Chloride 91 L (98-107) mmol/L Carbon Dioxide 26 (22-30) mmol/L Anion Gap 10 mmol/L BUN 15 (7-17) mg/dL Creatinine 0.74 (0.52-1.04) mg/dL Est GFR (CKD-EPI)AfAm 84 (>60 ml/min/1.73 sqM) Est GFR (CKD-EPI)NonAf 73 (>60 ml/min/1.73 sqM) Glucose 173 H (74-99) mg/dL Plasma Lactic Acid Amanuel 3.7 H* (0.7-2.0) mmol/L Calcium 8.1 L (8.4-10.2) mg/dL Magnesium 1.7 (1.6-2.3) mg/dL Total Bilirubin 3.4 H (0.2-1.3) mg/dL AST 32 (14-36) U/L ALT 26 (9-52) U/L Alkaline Phosphatase 50 (38-126) U/L Total Protein 5.4 L (6.3-8.2) g/dL Albumin 3.2 L (3.5-5.0) g/dL 04/14/19 Range/Units 17:15 WBC (3.8-10.6) k/uL RBC (3.80-5.40) m/uL Hgb (11.4-16.0) gm/dL Hct (34.0-46.0) % MCV (80.0-100.0) fL MCH (25.0-35.0) pg MCHC (31.0-37.0) g/dL RDW (11.5-15.5) % Plt Count (150-450) k/uL Neutrophils % % Lymphocytes % % Monocytes % % Eosinophils % % Basophils % % Neutrophils # (1.3-7.7) k/uL Lymphocytes # (1.0-4.8) k/uL Monocytes # (0-1.0) k/uL Eosinophils # (0-0.7) k/uL Basophils # (0-0.2) k/uL PT 10.9 (9.0-12.0) sec INR 1.0 (<1.2) APTT 24.4 (22.0-30.0) sec Sodium (137-145) mmol/L Potassium (3.5-5.1) mmol/L Chloride (98-107) mmol/L Carbon Dioxide (22-30) mmol/L Anion Gap mmol/L BUN (7-17) mg/dL Creatinine (0.52-1.04) mg/dL Est GFR (CKD-EPI)AfAm (>60 ml/min/1.73 sqM) Est GFR (CKD-EPI)NonAf (>60 ml/min/1.73 sqM) Glucose (74-99) mg/dL Plasma Lactic Acid Amanuel (0.7-2.0) mmol/L Calcium (8.4-10.2) mg/dL Magnesium (1.6-2.3) mg/dL Total Bilirubin (0.2-1.3) mg/dL AST (14-36) U/L ALT (9-52) U/L Alkaline Phosphatase (38-126) U/L Total Protein (6.3-8.2) g/dL Albumin (3.5-5.0) g/dL Disposition Clinical Impression: Pneumonia Disposition: ADMITTED IP TO THIS [facility] Condition: Fair Referrals: Akosua Apple III, MD [Primary Care Provider] - 1-2 days Decision Time: 18:54
[2019-04-14 17:35] LABS: Basophils % (A) 0 %; Eosinophils # (A) 0.1 k/uL (0-0.7); Eosinophils % (A) 1 %; HCT 31.2 % (34.0-46.0); HGB 10.5 gm/dL (11.4-16.0); Lymphocytes # (A) 2.2 k/uL (1.0-4.8); Lymphocytes % (A) 18 %; MCH 30.2 pg (25.0-35.0); MCHC 33.8 g/dL (31.0-37.0); MCV 89.5 fL (80.0-100.0); Mean Platelet Volume 7.6; Monocytes # (A) 0.7 k/uL (0-1.0); Monocytes % (A) 6 %; Neutrophils # (A) 8.9 k/uL (1.3-7.7); Neutrophils % (A) 75 %; Platelet Count 100 k/uL (150-450); RBC 3.48 m/uL (3.80-5.40); RDW 14.7 % (11.5-15.5); WBC 11.9 k/uL (3.8-10.6)
[2019-04-14 17:44] LABS: Partial Thromboplastin Time 24.4 sec (22.0-30.0); Prothrombin Time 10.9 sec (9.0-12.0)
[2019-04-14 17:51] LABS: Albumin 3.2 g/dL (3.5-5.0); Calcium 8.1 mg/dL (8.4-10.2); Magnesium 1.7 mg/dL (1.6-2.3); Potassium 4.2 mmol/L (3.5-5.1); Total Bilirubin 3.4 mg/dL (0.2-1.3); Total Protein 5.4 g/dL (6.3-8.2)
--- NOTE | 2019-04-14 18:44 | XR ---
EXAMINATION TYPE: XR chest 2V DATE OF EXAM: 04/14/2019 COMPARISON: 12/04/2018 HISTORY: Cough and dehydration TECHNIQUE: Frontal and lateral views of the chest are obtained. FINDINGS: There is a new retrocardiac opacity and patchy right basilar opacity. Cardia mediastinal s ilhouette is obscured. Osseous demineralization is seen. Dual lead cardiac device is noted in the lef t. IMPRESSION: New left-sided opacity likely represents a small left pleural effusion and pneumonia in the proper clinical setting. Patchy right basilar opacity may also represent pneumonia.
[2019-04-14] MEDS ORDERED: PNEUMONIA PROTOCOL UTILIZED 1 EACH MISC PO PRN (18:50)
[2019-04-14] MEDS ORDERED: AZITHROMYCIN 500 MG in SODIUM CHLORIDE 0.9% 250 ML IVPB STA (18:50)
[2019-04-14 19:54] LABS: Appearance,Urine Clear (Clear); Bacteria,Urine Rare /hpf; Bilirubin,Urine Negative (Negative); Blood,Urine Moderate (Negative); Color,Urine Yellow; Glucose,Urine (UA) Negative (Negative); Ketones,Urine Negative (Negative); Leukocyte Esterase,Urine Trace (Negative); Nitrite,Urine Negative (Negative); Protein,Urine Negative (Negative); RBC,Urine 10 /hpf (0-5); Specific Gravity,Urine 1.004 (1.001-1.035); Squamous Epithelial Cell,Urine <1 /hpf (0-4); WBC,Urine 13 /hpf (0-5)
[2019-04-14] MEDS: SODIUM CHLORIDE 0.9% 1,000 ML IV SCH (22:11)
[2019-04-14] MEDS ORDERED: metFORMIN 500 MG TAB PO PRN (22:34)
[2019-04-14] MEDS ORDERED: IPRATROPIUM-ALBUTEROL 3 ML NEB INHALATION PRN (22:35)
[2019-04-14] MEDS ORDERED: ALPRAZolam 0.25 MG TAB PO PRN (22:36)
[2019-04-14] MEDS ORDERED: HYDROcodone/APAP 5-325MG 1 EACH TAB PO PRN (22:36)
[2019-04-14] MEDS ORDERED: ACETAMINOPHEN TAB 500 MG TAB PO PRN (22:36)
--- NOTE | 2019-04-14 23:14 | HP ---
HISTORY AND PHYSICAL DATE OF SERVICE: 04/14/2019 CHIEF COMPLAINT: Shortness of breath and as well as dehydration. HISTORY OF PRESENT ILLNESS: This 88-year-old woman with a past medical history of multiple medical problems including history of diabetes, DVT, pulmonary embolism, history of bowel resection, history of cardiac ablation, being followed by Dr. Apple in the outpatient setting was recently found to have non-Hodgkin lymphoma. The patient was seeing Dr. Cruz in the [place] area. The patient was apparently taking Ibrutinib. The patient currently complains of cough and sputum and shortness of breath for the last couple of days. The illness started on Sunday and increased on Sunday and when the patient spent the whole day in [employer] according to her and because of lack of improvement, increased difficulty, the patient came to [facility] and was admitted for further evaluation and treatment. Chest x-ray showed possible left-sided pneumonia, which is a new opacity. The patient also did have a left pleural effusion which was aspirated by Dr. Pires recently. There is no history of any headache, loss of consciousness, no history any hematochezia or melena at this time. PAST MEDICAL HISTORY: History of non-Hodgkin lymphoma and recently diagnosed diabetes type 2, DVT, hypertension, history of pulmonary embolism, history of bowel resection. History of cardiac ablation, depression. MEDICATIONS: Prior to admission include home medications are: 1. Drisdol [id number] p.o. Sunday. 2. PreserVision 1 p.o. b.i.d. 3. Magnesium oxide 400 mg p.o. daily. 4. Folic acid 0.4 mg daily. 5. Fish oil 1 capsule p.o. b.i.d. 6. Vitamin B12 500 mcg p.o. daily. 7. Calcium citrate 500 mg p.o. daily. 8. Vitamin C 500 mg p.o. daily. 9. Synthroid 75 mcg p.o. daily. 10.Imbruvica 420 mg p.o. daily. 11.Glucophage 500 mg daily p.r.n. 12.Lopressor 50 mg p.o. b.i.d. 13.Avalide 150/12.5 mg 0.5 daily. 14.Lasix 20 mg p.o. daily. ALLERGIES: None. FAMILY HISTORY: History of CAD, CVA, TIA. SOCIAL HISTORY: Previous history of smoking. No history of alcohol intake. REVIEW OF SYSTEMS: ENT: No diminished vision. No diminished hearing. CARDIOVASCULAR: No angina or palpitations. RESPIRATORY: As mentioned earlier. GI no nausea or vomiting. no dysuria. NERVOUS SYSTEM: No numbness or weakness. ALLERGY/IMMUNOLOGY: No asthma or hayfever. MUSCULOSKELETAL as mentioned earlier. HEMATOLOGY/ONCOLOGY: As mentioned earlier. ENDOCRINE as mention earlier. CONSTITUTIONAL: As mentioned earlier. DERMATOLOGY: Negative. RHEUMATOLOGY: As mentioned earlier. PSYCHIATRY: As mentioned earlier. PHYSICAL EXAMINATION: Patient is alert and oriented times three. Pulse 75, blood pressure 158/88, respiration 20, temperature 99.1, pulse ox 97% on 2 L HEENT is conjunctivae normal. Oral mucosa moist. Neck is no jugular venous distention. No lymph nodes. Cardiovascular S1-S2 muffled. Respirations: Breathing efforts are markedly increased. Bilateral scattered rhonchi and crackles. Expiratory wheezing also present. Breathing: The breath sounds are diminished on the respiration in the bases on the left side. ABDOMEN: Soft, nontender. No mass palpable. LEGS: No edema. No swelling. NERVOUS SYSTEM: Higher functions as mentioned earlier. Moves all 4 limbs. No focal motor or sensory deficits. Lymphatics: No lymph nodes palpable in the neck, axillae or groin. SKIN: No ulcer, no rash and no bleeding. JOINTS: No active deforming arthropathy. LABS: WBC 11.2, hemoglobin 10.5, platelets 100. Sodium 127, potassium 4.2. Lactic acid 3.7. ASSESSMENT: 1. Acute left lower pneumonia possibly gram-negative possibly community-acquired, with sepsis present on admission. 2. Increased WBC. 3. Anemia, normocytic secondary to malignancy. 4. Thrombocytopenia secondary to non-Hodgkin's lymphoma and chemotherapy. 5. Hyponatremia. 6. Elevated bilirubin. 7. Diabetes mellitus type 2. 8. History of deep vein thrombosis. 9. Hypertension. 10.History of pulmonary embolism. 11.History of vascular disorder. 12.History of monoclonal gammopathy of undetermined significance. 13.History of brain aneurysm, stable. 14.History of macular degeneration. 15.History of bowel resection. 16.History of cardiac ablation. 17.History of degenerative joint disease. 18.History of depression. 19.Remote history of nicotine dependence. RECOMMENDATIONS AND DISCUSSION: This 88-year-old woman who presented with multiple complex medical issues, we will monitor the patient closely. Continue the current medications, management and symptomatic treatment. Recommend continue the course of bronchodilators, empiric antibiotics, broad-spectrum antibiotics. Obtain the cultures. I would also recommend infectious disease evaluation. Otherwise we will continue to monitor. Guarded prognosis because of multiple complex medical issues. A copy of dictation being forwarded to Dr. Apple who is the primary physician. JIAN / DAVID: [id number] /
[2019-04-14] MEDS: TOBRA-DEXAMET 0.3-0.1% OPHTH DROPS 2.5 ML BTL RIGHT EYE SCH (23:29)
[2019-04-14] MEDS: HEPARIN SODIUM,PORCINE 5,000 UNIT/ML 1 ML VIAL SQ SCH (23:30)
[2019-04-14] MEDS: CEFEPIME 2 GM in SODIUM CHLORIDE 0.9% 100 ML IVPB SCH (23:30)
[2019-04-15 02:24] LABS: VBG PH 7.34 (7.31-7.41)
[2019-04-15] MEDS: TOBRA-DEXAMET 0.3-0.1% OPHTH DROPS 2.5 ML BTL RIGHT EYE SCH ×5 (04:06→21:15)
[2019-04-15] MEDS: LEVOTHYROXINE 75 MCG TAB PO SCH (06:17)
[2019-04-15] MEDS: PANTOPRAZOLE 40 MG TABLET PO SCH (08:07)
[2019-04-15] MEDS: IPRATROPIUM-ALBUTEROL 3 ML NEB INHALATION SCH ×3 (08:16→21:49)
[2019-04-15 08:49] LABS: African American GFR (CKD) >90 (>60 ml/min/1.73 sqM); Anion Gap 5 mmol/L; Blood Urea Nitrogen 12 mg/dL (7-17); Calcium 8.1 mg/dL (8.4-10.2); Carbon Dioxide 30 mmol/L (22-30); Chloride 101 mmol/L (98-107); Glucose 102 mg/dL (74-99); Non-African American GFR(CKD) 79 (>60 ml/min/1.73 sqM); Potassium 3.5 mmol/L (3.5-5.1); Sodium 136 mmol/L (137-145)
[2019-04-15] MEDS ORDERED: NON FORMULARY DRUG (Vit C/E/Zn/Coppr/Lutein/Zeaxan [Preservision Areds 2 Softgel] 1 CAP) PO SCH (09:00)
[2019-04-15] MEDS ORDERED: CALCIUM CITRATE 500 MG PO SCH (09:00)
[2019-04-15] MEDS ORDERED: NON FORMULARY DRUG (Folic Acid [Folic Acid] 0.4 MG) PO SCH (09:00)
[2019-04-15] MEDS ORDERED: NON FORMULARY DRUG (Fish Oil/Dha/Epa [Fish Oil 1,200 Mg Fish Oil] 1 CAP) PO SCH (09:00)
[2019-04-15 09:04] LABS: Basophils % (A) 0 %; Eosinophils # (A) 0.1 k/uL (0-0.7); Eosinophils % (A) 1 %; HGB 9.4 gm/dL (11.4-16.0); Lymphocytes # (A) 1.7 k/uL (1.0-4.8); Lymphocytes % (A) 26 %; MCHC 33.4 g/dL (31.0-37.0); MCV 89.8 fL (80.0-100.0); Mean Platelet Volume 7.1; Monocytes # (A) 0.4 k/uL (0-1.0); Monocytes % (A) 5 %; Neutrophils # (A) 4.4 k/uL (1.3-7.7); Neutrophils % (A) 66 %; RBC 3.12 m/uL (3.80-5.40); RDW 14.5 % (11.5-15.5); WBC 6.7 k/uL (3.8-10.6)
[2019-04-15] MEDS: ASCORBIC ACID 500 MG TAB PO SCH (09:35)
[2019-04-15] MEDS: CYANOCOBALAMIN 500 MCG TAB PO SCH (09:35)
[2019-04-15] MEDS: LOSARTAN 25 MG TAB PO SCH (09:35)
[2019-04-15] MEDS: MAGNESIUM OXIDE 400 MG TAB PO SCH (09:35)
[2019-04-15] MEDS: HYDROCHLOROTHIAZIDE 25 MG TAB PO SCH (09:35)
[2019-04-15] MEDS: FUROSEMIDE 20 MG TAB PO SCH (09:35)
[2019-04-15] MEDS: METOPROLOL TARTRATE 50 MG TAB PO SCH ×2 (09:35→21:16)
[2019-04-15] MEDS: HEPARIN SODIUM,PORCINE 5,000 UNIT/ML 1 ML VIAL SQ SCH ×2 (09:36→21:15)
--- NOTE | 2019-04-15 09:41 | US ---
EXAMINATION TYPE: US chest DATE OF EXAM: 04/15/2019 COMPARISON: Chest x-ray from yesterday. CLINICAL HISTORY: Markings for thoracentesis by pulmonary staff. Left pleural effusion. TECHNIQUE: Targeted ultrasound of the posterior lower left hemithorax EXAM MEASUREMENTS: Left Pleural Effusion pocket size: 10.6 cm lung tissue seen at 4.4cm in fluid pocket. Left skin surface to fluid distance: 2.3 cm Left side marked for possible thoracentesis outside the dept. Pulmonologists are able to review the images in the patient?s EMR. Recurrent moderate size left pleural effusion without significant right pleural effusion noted on 6 i mages saved which correlates with recent x-ray. IMPRESSIONS: As above.
[2019-04-15 11:32] LABS: Platelet Count 81 k/uL (150-450); Poikilocytosis (M) Present
[2019-04-15 11:43] LABS: LDH 388 U/L (313-618); Total Protein 4.8 g/dL (6.3-8.2)
--- NOTE | 2019-04-15 12:31 | XR ---
EXAMINATION TYPE: XR chest 1V portable DATE OF EXAM: 04/15/2019 CLINICAL HISTORY: Status post left-sided thoracentesis. TECHNIQUE: Single AP portable upright view of the chest is obtained. COMPARISON: Chest x-ray from yesterday and older studies. CT chest March 17, 2019 FINDINGS: There is improvement in left-sided effusion after thoracentesis. No pneumothorax is eviden t. Persistent cardiomegaly without sclerotic aorta and dual-lead pacemaker. Background chronic Parenchymal change. Osseous structures are intact. Stable patchy right basilar opacity. IMPRESSION: Persistent but improved left-sided effusion after thoracentesis. No pneumothorax is evide nt.
--- NOTE | 2019-04-15 12:34 | P.CNPUL ---
History of Present Illness Consult date: 04/15/19 Requesting physician: Gemini Galdamez Reason for consult: pleural effusion Chief complaint: Dry mouth and dehydration History of present illness: This is an 88-year-old female with history of stage IV non-Hodgkin's lymphoma, history of chronic and recurrent left-sided pleural effusion, chronic atrial fibrillation, presented to the ER mostly complaining of dry mouth, and felt extremely dehydrated. Patient had a chest x-ray, and it showed a good sized left-sided pleural effusion, hence the patient was admitted, and this consult was initiated. Her last thoracentesis done by Dr. Pires on 11/30/2018, showed positive fluid for lymphoma. Back in September of 2018, patient also had a thoracentesis were in 1 L of fluid was drained. On those 2 separate occasions, patient had positive fluid 4 monotypic B-cell population consistent with CD5 negative B-cell non-Hodgkin's lymphoma. In addition to her non-Hodgkin's lymphoma, patient is known to have history of pacemaker implantation, sick sinus syndrome, monoclonal gammopathy, degenerative disorder of the macula, dyslipidemia, hypertension, chronic atrial fibrillation, recurrent pleural effusion, and type 2 diabetes. Patient denies any cough wheezing, denies any fever or chills, denies any hemoptysis. Denies any chest pain. Review of Systems Patient reports no fever, no night sweats, no significant weight gain, no significant weight loss, and no exercise intolerance; no fever. She reports no frequent nosebleeds, no nose problems, and no sinus problems; nasal drainange. She reports no sore throat but reports no bleeding gums, no snoring, no dry mouth, no mouth ulcers, and no teeth problems; hoarseness. She denies shortness of breath, reports no cough, no wheezing, no coughing up blood, and no sleep apnea. She reports no dry eyes, no vision change, and no irritation. She reports no difficulty hearing and no ear pain. She reports no chest pain, no arm pain on exertion, no shortness of breath when walking, no shortness of breath when lying down, no palpitations, and no known heart murmur. She reports no abdominal pain, no nausea, no vomiting, no constipation, normal appetite, no diarrhea, not vomiting blood, no dyspepsia, and no GERD. She reports no incontinence, no difficulty urinating, no hematuria, and no increased frequency. She reports no muscle aches, no muscle weakness, no arthralgias/joint pain, no back pain, and no swelling in the extremities. She reports no abnormal mole, no jaundice, no rashes, and no laceration. She reports no loss of consciousness, no weakness, no numbness, no seizures, no dizziness, no migraines, no headaches, and no tremor. She reports no depression, no sleep disturbances, feeling safe in a relationship, no alcohol abuse, no anxiety, no hallucinations, and no suicidal thoughts. She reports no fatigue. She reports no swollen glands, no bruising, and no excessive bleeding. She reports no runny nose, no sinus pressure, no itching, no hives, and no frequent sneezing. Past Medical History Past Medical History: Atrial Fibrillation, Cancer, Diabetes Mellitus, Deep Vein Thrombosis (DVT), Hypertension, Pulmonary Embolus (PE), Vascular Disorder Additional Past Medical History / Comment(s): Monoclonal gammopathy of undetermined significance (MGUS). Currently has brain aneurysm (states stable) macular degneration, non hodkins lymphoma History of Any Multi-Drug Resistant Organisms: None Reported Past Surgical History: Bowel Resection, Cardiac Ablation, Section, Cholecystectomy, Orthopedic Surgery Additional Past Surgical History / Comment(s): repair left leg from injury. parotid gland removed (tumor stated not cancerous). cataracts. Bilateral knee replacements Past Anesthesia/Blood Transfusion Reactions: No Reported Reaction Past Psychological History: Depression Additional Psychological History / Comment(s): Situational depression. Takes celexa with improvement. Smoking Status: Former smoker Past Alcohol Use History: Occasional Past Drug Use History: None Reported - Past Family History Mother Family Medical History: Coronary Artery Disease (CAD), CVA/TIA Additional Family Medical History / Comment(s): age 83 of stroke Father Family Medical History: Cancer, Congestive Heart Failure (CHF) Additional Family Medical History / Comment(s): of cancer age 77 Medications and Allergies Home Medications Medication Instructions Recorded Confirmed Type Cyanocobalamin [Vitamin B-12] 500 mcg PO DAILY 12/15/13 04/14/19 History Ergocalciferol (Vitamin D2) 50,000 unit PO FR 12/15/13 04/14/19 History [Drisdol] Fish Oil/Dha/Epa [Fish Oil 1,200 1 cap PO BID 12/15/13 04/14/19 History mg Fish Oil] Irbesartan/Hydrochlorothiazide 0.5 tab PO DAILY 12/15/13 04/14/19 History [Avalide 150-12.5 mg Tablet] Levothyroxine Sodium [Synthroid] 75 mcg PO DAILY 12/15/13 04/14/19 History Ascorbic Acid [Vitamin C] 500 mg PO DAILY 06/11/17 04/14/19 History Vit C/E/Zn/Coppr/Lutein/Zeaxan 1 cap PO BID 06/11/17 04/14/19 History [Preservision Areds 2 Softgel] Calcium Citrate 500 mg PO DAILY 10/05/17 04/14/19 History Folic Acid 0.4 mg PO DAILY 10/05/17 04/14/19 History Magnesium Oxide [Mag-Ox] 400 mg PO DAILY 10/05/17 04/14/19 History metFORMIN HCL [Glucophage] 500 mg PO DAILY PRN 10/05/17 04/14/19 History Furosemide [Lasix] 20 mg PO DAILY 09/30/18 04/14/19 History Ibrutinib [Imbruvica] 420 mg PO DAILY 12/04/18 04/14/19 History Metoprolol Tartrate [Lopressor] 50 mg PO BID 04/14/19 04/14/19 History Allergies Allergy/AdvReac Type Severity Reaction Status Date / Time No Known Allergies Allergy Verified 04/14/19 19:17 Physical Exam Vitals: Vital Signs Temp Pulse Pulse Resp BP BP Pulse Ox 04/15/19 11:48 72 18 121/61 94 L 04/15/19 11:30 68 18 116/58 95 04/15/19 00:00 18 04/14/19 23:00 98.6 F 77 18 132/68 96 04/14/19 20:58 75 20 158/88 97 04/14/19 19:05 80 20 155/60 98 04/14/19 16:23 99.1 F 75 18 152/66 97 Intake and Output 04/14/19 04/15/19 04/15/19 22:59 06:59 14:59 Intake Total 1958 360 Balance 1958 360 Intake: Intake, IV Titration 1479 120 Amount Azithromycin 500 mg In 250 Sodium Chloride 0.9% 250 ml @ 250 mls/hr IVPB ONCE [facility] Rx#:[id number] Cefepime 2 gm In Sodium 100 Chloride 0.9% 100 ml @ 200 mls/hr IVPB Q24H [facility] Rx#:[id number] Sodium Chloride 0.9% 1, 80 120 000 ml @ 20 mls/hr IV . Q24H [facility] Rx#:[id number] Sodium Chloride 0.9% 1, 999 000 ml @ 999 mls/hr IV . Q1H1M [facility] Rx#:[id number] cefTRIAXone 1 gm In 50 Sodium Chloride 0.9% 50 ml @ 100 mls/hr IVPB ONCE [facility] Rx#:[id number] Oral 480 240 Other: # Voids 3 1 Weight 69.853 kg Physical Exam: Revealed 88-year-old female, pleasant, in no distress. Head: Atraumatic normocephalic. HEENT:[Neck is supple.] [No neck masses.] [No thyromegaly.] [No JVD.] Dry mucous membranes. Throat is clear. Chest: [Diminished breath sound on dullness at the left base, right side is relatively clear..] Cardiac Exam: Irregular irregular rhythm. [Normal S1 and S2, no S3 gallop, 2/6 systolic murmur thought the precordium..] Abdomen: [Soft, nontender, no megaly, no rebound, no guarding, normal bowel sounds.] Extremities: [No clubbing, trace of bipedal edema., no cyanosis.] Neurological Exam: [No focal neurologic deficit.] Alert and oriented 3. Psychiatric: Normal mood affect and normal mental status examination. Skin: No rashes. Results - Laboratory Findings CBC and BMP: 04/15/19 07:45 04/15/19 07:45 PT/INR, D-dimer PT 10.9 sec (9.0-12.0) 04/14/19 17:15 INR 1.0 (<1.2) 04/14/19 17:15 Abnormal lab findings: Abnormal Labs 04/14/19 04/14/19 04/14/19 17:15 17:15 17:15 WBC 11.9 H RBC 3.48 L Hgb 10.5 L Hct 31.2 L Plt Count 100 L Neutrophils # 8.9 H Sodium 127 L Chloride 91 L Glucose 173 H Plasma Lactic Acid Amanuel 3.7 H* Calcium 8.1 L Total Bilirubin 3.4 H Total Protein 5.4 L Albumin 3.2 L Urine Blood Ur Leukocyte Esterase Urine RBC Urine WBC Urine Bacteria 04/14/19 04/15/19 04/15/19 19:40 07:45 07:45 WBC RBC 3.12 L Hgb 9.4 L Hct 28.0 L Plt Count 81 L Neutrophils # Sodium 136 L Chloride Glucose 102 H Plasma Lactic Acid Amanuel Calcium 8.1 L Total Bilirubin Total Protein 4.8 L Albumin Urine Blood Moderate H Ur Leukocyte Esterase Trace H Urine RBC 10 H Urine WBC 13 H Urine Bacteria Rare H - Diagnostic Findings Chest x-ray: image reviewed (Left pleural effusion and left lower lobe atelectasis is suspected.) Assessment and Plan Assessment: Impression: Recurrent left-sided pleural effusion secondary to non-Hodgkin's lymphoma. Patient may benefit from therapeutic thoracentesis today. Hence I will arrange for thoracentesis to be done by interventional radiology, since the marketing was placed earlier by ultrasound laterally,, is not the most ideal location to place a thoracentesis catheter. Hence I prefer that is done with direct ultrasound visualization, and I will defer that to radiology. Multiple comorbidities including chronic lymphoid leukemia, history of sick sinus syndrome, history of mitral valve regurgitation, history of secondary pulmonary hypertension, history of pericardial effusion, history of chronic atrial fibrillation, Recommendation: I fully agree with the present treatment plan, we'll arrange for ultrasound-guided thoracentesis by interventional radiology, we will sign off and see the patient on when necessary basis. Consider discharge planning in the next 24 hours. And the patient could have follow-up with Dr. Pires. Time with Patient: Greater than 30
--- NOTE | 2019-04-15 14:15 | US ---
Ultrasound-guided therapeutic and diagnostic thoracentesis DATE OF EXAM: 04/15/2019 CLINICAL HISTORY: Left pleural effusion The procedure was discussed with the patient. The risks, complications, benefits, and alternatives we re discussed and any questions were answered. Informed consent was obtained. The patient was placed supine on the ultrasound table and prepped and draped in the usual sterile fas hion. All elements of maximal barrier and sterile technique were utilized. Under ultrasound guidance, access into the pleural space was obtained, via the thoracentesis catheter system and direct ultrasound guidance. Ap proximately 1.3 liters of serous fluid was removed. The patient was stable throughout the procedure and remained stable upon discharge from Department of Radiology. IMPRESSION: 1. Successful therapeutic and diagnostic thoracentesis under ultrasound guidance.
--- NOTE | 2019-04-15 17:41 | PN ---
PROGRESS NOTE DATE OF SERVICE: 04/15/2019 This 88-year-old woman who was admitted with possible acute pneumonia also had significant pleural effusion. The patient underwent ultrasound-guided thoracocentesis by Radiology on the left side for about 1.3 L. The patient is feeling slightly better. The post-procedure chest x-ray, which was reviewed by me personally, showed significant improvement. Bilateral infiltrates were also suspected. Dr. Izaguirre is following the patient closely. Past medical history reviewed. REVIEW OF SYSTEMS: CARDIOVASCULAR SYSTEM: No angina, palpitations. RESPIRATORY SYSTEM: As mentioned earlier. GI: As mentioned earlier. : No dysuria or retention. NERVOUS SYSTEM: No numbness, weakness. CURRENT MEDICATIONS: Reviewed. They include: 1. Tylenol 500 mg q.6 p.r.n. 2. [place] 5 mg q.6 p.r.n. 3. DuoNeb q.i.d. and p.r.n. 4. Xanax 0.25 t.i.d. 5. Vitamin C 500 mg p.o. daily. 6. Cefepime 2 grams IV daily. 7. Vitamin B12. 8. Lasix. 9. Heparin. 10.HydroDIURIL. 11.Cozaar. 12.Magnesium oxide. 13.Glucophage. 14.Lopressor. 15.Protonix. 16.Tobradex eyedrops. The doses are reviewed. PHYSICAL EXAMINATION: Alert and oriented x3. Pulse 72, blood pressure 121/61, respiration 18, temperature normal, pulse ox 94% on room air. HEENT: Conjunctivae normal. Oral mucosa moist. NECK: No jugular venous distention. No carotid bruit. No lymph node enlargement. CARDIOVASCULAR SYSTEM: S1, S2 muffled. RESPIRATORY SYSTEM: Breath sounds diminished at the bases. A few scattered rhonchi and crackles. Breath sounds are markedly diminished on the left side. ABDOMEN: Soft, nontender. No mass palpable. LEGS: No edema. No swelling. NERVOUS SYSTEM: Higher functions as mentioned earlier. Moves all 4 limbs. No focal motor or sensory deficit. LYMPHATICS: No lymph node palpable in neck, axillae or groin. SKIN: No ulcer, rash, bleeding. JOINTS: No active deforming arthropathy. LABS: WBC 6.7, hemoglobin 9.4, platelets 81. Sodium 136. Influenza is negative. ASSESSMENT: 1. Acute left lower pneumonia, possibly Gram-negative, possibly community-acquired, with sepsis, present on admission. 2. Increased white count. 3. Left pleural effusion, status post thoracocentesis with 1300 mL of hemorrhagic fluid. 4. Anemia, normocytic, secondary to malignancy. 5. Thrombocytopenia secondary to non-Hodgkin lymphoma and chemotherapy. 6. Hyponatremia. 7. Elevated bilirubin. 8. Diabetes mellitus, type 2. 9. History of deep venous thrombosis. 10.Hypertension. 11.History of pulmonary embolism. 12.History of vascular disorder. 13.History of monoclonal gammopathy of undetermined significance. 14.History of brain aneurysm, stable. 15.History of macular degeneration. 16.History of bowel resection. 17.History of cardiac ablation. 18.History of degenerative joint disease. 19.History of depression. 20.Remote history of nicotine dependence. RECOMMENDATIONS AND DISCUSSION: I recommend to continue current medications, continue with the monitoring, symptomatic treatment. Continue the antibiotic. Continue the bronchodilators. I would also recommend following closely with Infectious Disease as well as Pulmonary. Guarded prognosis. Further recommendations to follow. MMODL / IJN: [id number] /
[2019-04-15 17:49] LABS: Appearance,BF Bloody; Color,BF Red; Nucleated Cells, Body Fluid 7800 /uL; RBC, Body Fluid 78200 /uL
[2019-04-15 20:36] LABS: Mononuclear WBC,Body Fluid 87 %; Polynuclear WBC,Body Fluid 13 %
[2019-04-15] MEDS: MELATONIN 3 MG TABLET PO SCH (21:15)
[2019-04-15] MEDS: CEFEPIME 2 GM in SODIUM CHLORIDE 0.9% 100 ML IVPB SCH (22:35)
[2019-04-16] MEDS: TOBRA-DEXAMET 0.3-0.1% OPHTH DROPS 2.5 ML BTL RIGHT EYE SCH ×6 (00:13→21:23)
[2019-04-16] MEDS: SODIUM CHLORIDE 0.9% 1,000 ML IV SCH (00:14)
[2019-04-16 00:54] LABS: Total Protein, Body Fluid 2890 mg/dL
[2019-04-16 01:11] LABS: Glucose, BF Source Pleural Fluid; Glucose, Body Fluid 114 mg/dL; LDH, Body Fluid Source Pleural Fluid
[2019-04-16] MEDS: LEVOTHYROXINE 75 MCG TAB PO SCH (04:59)
[2019-04-16] MEDS: PANTOPRAZOLE 40 MG TABLET PO SCH (08:09)
[2019-04-16] MEDS: ASCORBIC ACID 500 MG TAB PO SCH (08:09)
[2019-04-16] MEDS: CYANOCOBALAMIN 500 MCG TAB PO SCH (08:09)
[2019-04-16] MEDS: FUROSEMIDE 20 MG TAB PO SCH (08:10)
[2019-04-16] MEDS: HYDROCHLOROTHIAZIDE 25 MG TAB PO SCH (08:10)
[2019-04-16] MEDS: MAGNESIUM OXIDE 400 MG TAB PO SCH (08:10)
[2019-04-16] MEDS: METOPROLOL TARTRATE 50 MG TAB PO SCH ×2 (08:10→21:23)
[2019-04-16] MEDS: LOSARTAN 25 MG TAB PO SCH (08:10)
[2019-04-16] MEDS: HEPARIN SODIUM,PORCINE 5,000 UNIT/ML 1 ML VIAL SQ SCH ×2 (08:13→21:23)
[2019-04-16] MEDS: IPRATROPIUM-ALBUTEROL 3 ML NEB INHALATION SCH ×3 (08:49→21:01)
[2019-04-16 10:06] LABS: Basophils % (A) 0 %; Eosinophils # (A) 0.1 k/uL (0-0.7); Eosinophils % (A) 1 %; HCT 29.7 % (34.0-46.0); HGB 9.6 gm/dL (11.4-16.0); Lymphocytes # (A) 1.7 k/uL (1.0-4.8); Lymphocytes % (A) 23 %; MCH 29.2 pg (25.0-35.0); MCHC 32.3 g/dL (31.0-37.0); MCV 90.5 fL (80.0-100.0); Mean Platelet Volume 8.1; Monocytes # (A) 0.4 k/uL (0-1.0); Monocytes % (A) 5 %; Neutrophils # (A) 5.1 k/uL (1.3-7.7); Neutrophils % (A) 70 %; RBC 3.28 m/uL (3.80-5.40); RDW 14.8 % (11.5-15.5); WBC 7.3 k/uL (3.8-10.6)
[2019-04-16 10:08] LABS: Platelet Count 87 k/uL (150-450)
[2019-04-16 10:21] LABS: Calcium 8.2 mg/dL (8.4-10.2); Potassium 3.3 mmol/L (3.5-5.1)
--- NOTE | 2019-04-16 12:38 | P.PN ---
Subjective Progress Note Date: 04/16/19 Principal diagnosis: Recurrent left pleural effusion secondary to non-Hodgkin's lymphoma. This is an 88-year-old female with history of stage IV non-Hodgkin's lymphoma, history of chronic and recurrent left-sided pleural effusion, chronic atrial fibrillation, presented to the ER mostly complaining of dry mouth, and felt extremely dehydrated. Patient had a chest x-ray, and it showed a good sized left-sided pleural effusion, hence the patient was admitted, and this consult wa s initiated. Her last thoracentesis done by Dr. Pires on 11/30/2018, showed positive fluid for lymphoma. Back in September of 2018, patient also had a thoracentesis were in 1 L of fluid was drained. On those 2 separate occasions, patient had positive fluid 4 monotypic B-cell population consistent with CD5 negative B-cell non-Hodgkin's lymphoma. In addition to her non-Hodgkin's lymphoma, patient is known to have history of pacemaker implantation, sick sinus syndrome, monoclonal gammopathy, degenerative disorder of the macula, dyslipidemia, hypertension, chronic atrial fibrillation, recurrent pleural effusion, and type 2 diabetes. Patient denies any cough wheezing, denies any fever or chills, denies any hemoptysis. Denies any chest pain. Patient was reevaluated today on 04/16/2019, underwent uneventful thoracentesis by interventional radiology, patient did well, asymptomatic today, and as far as I'm concerned the patient could be considered for discharge home. She did not have pneumonia, she had mostly pleural effusion and atelectasis. Her clinical history did not point to pneumonia. WBC count today is 7.3 hemoglobin is 9.6, electrolytes were noted low potassium of 3.3 being corrected as per protocol. Objective - Vital Signs Vital signs: Vital Signs Temp 97.8 F 04/16/19 11:30 Pulse 63 04/16/19 11:30 Resp 20 04/16/19 11:30 BP 119/58 04/16/19 11:30 Pulse Ox 92 L 04/16/19 11:30 Intake & Output 04/15/19 04/16/19 04/16/19 18:59 06:59 18:59 Intake Total 240 Balance 240 Intake: Intake, IV Titration 240 Amount Sodium Chloride 0.9% 1, 240 000 ml @ 20 mls/hr IV . Q24H [facility] Rx#:[id number] Other: # Voids 1 1 - Exam Physical Exam: Revealed 88-year-old female, pleasant, in no distress. Head: Atraumatic normocephalic. HEENT:[Neck is supple.] [No neck masses.] [No thyromegaly.] [No JVD.] Dry mucous membranes. Throat is clear. Chest: [Clear bilaterally, no rhonchi and no wheezes. Cardiac Exam: Irregular irregular rhythm. [Normal S1 and S2, no S3 gallop, 2/6 systolic murmur thought the precordium..] Abdomen: [Soft, nontender, no megaly, no rebound, no guarding, normal bowel sounds.] Extremities: [No clubbing, trace of bipedal edema., no cyanosis.] Neurological Exam: [No focal neurologic deficit.] Alert and oriented 3. Psychiatric: Normal mood affect and normal mental status examination. Skin: No rashes - Labs CBC & Chem 7: 04/16/19 09:35 04/16/19 09:35 Labs: Abnormal Lab Results - Last 24 Hours (Table) 04/16/19 04/16/19 Range/Units 09:35 09:35 RBC 3.28 L (3.80-5.40) m/uL Hgb 9.6 L (11.4-16.0) gm/dL Hct 29.7 L (34.0-46.0) % Plt Count 87 L (150-450) k/uL Sodium 133 L (137-145) mmol/L Potassium 3.3 L (3.5-5.1) mmol/L Glucose 171 H (74-99) mg/dL Calcium 8.2 L (8.4-10.2) mg/dL Microbiology - Last 24 Hours (Table) 04/15/19 12:15 Gram Stain - Preliminary Pleural Fluid Body Fluid Culture - Preliminary 04/14/19 14:59 Blood Culture - Preliminary Blood No Growth after 24 hours Assessment and Plan Assessment: Impression: Recurrent left-sided pleural effusion secondary to non-Hodgkin's lymphoma. Status post uneventful left sided thoracentesis. Multiple comorbidities including chronic lymphoid leukemia, history of sick sinus syndrome, history of mitral valve regurgitation, history of secondary pulmonary hypertension, history of pericardial effusion, history of chronic atrial fibrillation, Recommendation: cleared from my perspective for discharge home, follow-up with Dr. Pires on outpatient basis. Time with Patient: Less than 30
[2019-04-16] MEDS ORDERED: LACTULOSE 20 GM/30 ML CUP PO PRN (15:03)
[2019-04-16] MEDS ORDERED: Potassium Replacement Protocol 1 EACH MISC MISCELLANE PRN (18:08)
--- NOTE | 2019-04-16 20:24 | PN ---
PROGRESS NOTE DATE OF SERVICE: 04/16/2019 This 88-year-old woman who was admitted with acute left lower pneumonia, possibly Gram- negative, possibly community-acquired, is being closely monitored. Patient is on broad- spectrum IV antibiotics. Dr. Izaguirre is following the patient. Patient is improving significantly. No chest pain. No palpitation. PHYSICAL EXAMINATION: Alert and oriented x3. The pulse is 63, blood pressure 119/58, respiration 20, temperature 97.8, pulse ox 98% on room air. HEENT: Conjunctivae normal. NECK: No jugular venous distention. CARDIOVASCULAR SYSTEM: S1, S2 muffled. RESPIRATORY SYSTEM: Breath sounds diminished at the bases. Scattered rhonchi and crackles. ABDOMEN: Soft, non-tender. LEGS: No edema. No swelling. NERVOUS SYSTEM: No focal deficit. LAB STUDIES: WBC 7.3, hemoglobin 9.6, sodium 133, potassium 3.3. ASSESSMENT: 1. Acute left lower pneumonia, possibly Gram-negative, possibly community-acquired, with sepsis, present on admission. 2. Increased white count. 3. Left pleural effusion, status post thoracocentesis with 1300 mL hemorrhagic fluid. 4. Anemia, normocytic, secondary to malignancy. 5. Hyponatremia. 6. Hypokalemia. 7. Thrombocytopenia secondary non-Hodgkin lymphoma and chemotherapy. 8. Elevated bilirubin. 9. Diabetes mellitus, type 2. 10.History of deep venous thrombosis. 11.Hypertension. 12.History of pulmonary embolism. 13.History of vascular disorder. 14.History of monoclonal gammopathy of undetermined significance. 15.History of brain aneurysm, stable. 16.History of macular degeneration. 17.History of bowel resection. 18.History of cardiac ablation. 19.History of degenerative joint disease. 20.History of depression. 21.Remote history of nicotine dependence. RECOMMENDATIONS AND DISCUSSION: At this time I recommend to continue current medications, continue with the monitoring, symptomatic treatment. Supplement potassium. Otherwise, we will continue with bronchodilators as well as IV antibiotics. The patient is on IV cefepime. The cultures are negative so far. Guarded prognosis. Further recommendations to follow. Discussed with the patient, who understands and agrees. MMODL / IJN: [id number] /
[2019-04-16] MEDS: DOCUSATE 100 MG CAP PO SCH (21:23)
[2019-04-16] MEDS: MELATONIN 3 MG TABLET PO SCH (21:23)
[2019-04-16] MEDS: CEFEPIME 2 GM in SODIUM CHLORIDE 0.9% 100 ML IVPB SCH (21:30)
[2019-04-17] MEDS: TOBRA-DEXAMET 0.3-0.1% OPHTH DROPS 2.5 ML BTL RIGHT EYE SCH ×5 (00:24→16:28)
[2019-04-17] MEDS: SODIUM CHLORIDE 0.9% 1,000 ML IV SCH (00:26)
[2019-04-17 05:03] VITALS: RESP 18
[2019-04-17] MEDS: LEVOTHYROXINE 75 MCG TAB PO SCH (05:10)
[2019-04-17] MEDS: IPRATROPIUM-ALBUTEROL 3 ML NEB INHALATION SCH ×2 (07:59→12:30)
[2019-04-17] MEDS: HEPARIN SODIUM,PORCINE 5,000 UNIT/ML 1 ML VIAL SQ SCH (09:08)
[2019-04-17] MEDS: METOPROLOL TARTRATE 50 MG TAB PO SCH (09:08)
[2019-04-17] MEDS: DOCUSATE 100 MG CAP PO SCH (09:08)
[2019-04-17] MEDS: PANTOPRAZOLE 40 MG TABLET PO SCH (09:08)
[2019-04-17] MEDS: LOSARTAN 25 MG TAB PO SCH (09:09)
[2019-04-17] MEDS: CYANOCOBALAMIN 500 MCG TAB PO SCH (09:09)
[2019-04-17] MEDS: MAGNESIUM OXIDE 400 MG TAB PO SCH (09:09)
[2019-04-17] MEDS: HYDROCHLOROTHIAZIDE 25 MG TAB PO SCH (09:09)
[2019-04-17] MEDS: FUROSEMIDE 20 MG TAB PO SCH (09:09)
[2019-04-17] MEDS: ASCORBIC ACID 500 MG TAB PO SCH (09:09)
[2019-04-17 09:52] LABS: African American GFR (CKD) >90 (>60 ml/min/1.73 sqM); Anion Gap 7 mmol/L; Blood Urea Nitrogen 11 mg/dL (7-17); Carbon Dioxide 23 mmol/L (22-30); Chloride 108 mmol/L (98-107); Glucose 103 mg/dL (74-99); Non-African American GFR(CKD) 83 (>60 ml/min/1.73 sqM); Potassium 2.8 mmol/L (3.5-5.1); Sodium 138 mmol/L (137-145)
[2019-04-17 09:57] LABS: Basophils % (A) 1 %; Eosinophils # (A) 0.1 k/uL (0-0.7); Eosinophils % (A) 1 %; HCT 27.7 % (34.0-46.0); HGB 8.9 gm/dL (11.4-16.0); Hypochromasia Moderate; Lymphocytes # (A) 1.5 k/uL (1.0-4.8); Lymphocytes % (A) 25 %; MCH 30.1 pg (25.0-35.0); MCHC 32.1 g/dL (31.0-37.0); MCV 93.8 fL (80.0-100.0); Mean Platelet Volume 7.2; Monocytes # (A) 0.2 k/uL (0-1.0); Monocytes % (A) 4 %; Neutrophils % (A) 68 %; RBC 2.95 m/uL (3.80-5.40); RDW 14.3 % (11.5-15.5); WBC 5.9 k/uL (3.8-10.6)
[2019-04-17 10:20] LABS: Platelet Count 80 k/uL (150-450)
[2019-04-17] MEDS ORDERED: POTASSIUM CHLORIDE ER 20 MEQ TAB.ER PO STA (11:32)
[2019-04-17] MEDS ORDERED: POTASSIUM CHLORIDE ER 20 MEQ TAB.ER PO SCH (12:00)
[2019-04-17 12:11] VITALS: BP 103/67; PULSE 61; TEMP 97.5
[2019-04-17] MEDS: POTASSIUM CHLORIDE 10 MEQ in WATER FOR INJECTION 1 100ML.BAG IVPB SCH ×3 (13:06→16:24)
[2019-04-17] MEDS: POTASSIUM CHLORIDE ER 20 MEQ TAB.ER PO SCH ×2 (14:35→16:23)
--- NOTE | 2019-04-18 07:06 | DS ---
DISCHARGE SUMMARY DATE OF SERVICE: 04/17/2019. FINAL DIAGNOSES: 1. Acute left lower lobe pneumonia possibly gram-negative, possibly community- acquired, with sepsis present on admission. 2. Increased WBC. 3. Left pleural effusion status post thoracocentesis with 1300 mL hemorrhagic fluid. 4. Anemia, normocytic and secondary to malignancy. 5. Hyponatremia. 6. Hypokalemia. 7. Thrombocytopenia secondary to non-Hodgkin lymphoma and chemotherapy. 8. Elevated bilirubin. 9. Diabetes mellitus type 2. 10.History of deep vein thrombosis. 11.Hypertension. 12.History of pulmonary embolism. 13.History of vascular disorder. 14.History of monoclonal gammopathy of undetermined significance. 15.History of brain aneurysm, stable. 16.History of macular degeneration. 17.History of bowel resection. 18.History of cardiac ablation. 19.History of degenerative joint disease. 20.History of depression. 21.Remote history of nicotine dependence. DISCHARGE DISPOSITION: The patient will be discharged in stable condition with guarded prognosis. Total time taken 35 minutes. HISTORY OF PRESENT ILLNESS: This 88-year-old woman with a past medical history of multiple medical problems, being followed by Dr. Apple in the outpatient setting was admitted with pneumonia and multiple other medical issues as stated above. Patient treated with antibiotics. Patient improved significantly. Patient also on bronchodilators as well. Patient was seen by Dr. Izaguirre during the hospitalization. Care was coordinated. On exam, vitals are stable. Cardiovascular: S1, S2 [id number]. Respiratory: A few scattered rhonchi. Abdomen soft. Nervous system: No focal deficits. Hemoglobin is 8.9. Potassium is 2.8. Being corrected. Once the potassium is corrected, patient could be discharged home with the following advice and medication: 1. Diet is cardiac diet. 2. Activity limited until followup. 3. Follow up with Dr. Apple 2-3 days. DISCHARGE MEDICATIONS: 1. Avalide 150/12.5 mg daily. 2. Calcium citrate 500 mg p.o. daily. 3. Drisdol [id number] p.o. Sunday. 4. Fish oil 1.2 p.o. b.i.d. 5. Folic acid 0.4 daily. 6. Glucophage 500 mg daily p.r.n. 7. Lasix 20 mg p.o. daily. 8. Lopressor 50 mg p.o. b.i.d. 9. Magnesium oxide 400 mg p.o. daily. 10.PreserVision 1 capsule p.o. b.i.d. 11.Synthroid 75 mcg p.o. daily. 12.Vitamin B12 500 mcg p.o. daily. 13.Vitamin C 500 mg p.o. daily. 14.Augmentin 875 mg 1 p.o. b.i.d. 15.Lactulose 30 g p.o. b.i.d. 16.Colace 100 mg p.o. b.i.d. 17.Ibrutinib per Oncology. 18.ProAir 2 puffs q.8h. 19.Protonix 40 mg. 20.Tobrex eye drops. 21.Tylenol p.r.n. Once again the patient is being discharged in stable condition with guarded prognosis. MMODL / IJN: [id number] /
[2019-04-18] MEDS ORDERED: ERGOCALCIFEROL 50,000 UNIT CAP PO SCH (09:00)
== END 2019-04-17 18:40 | disposition home or self-care (01) | DRG 871 ==
LOC: EC 16:17 → 3NMEDONC 18:50
PROVIDERS: ADMIT Hospitalist; ATTEND Hospitalist
PROC: 0W9B3ZX Drainage of Left Pleural Cavity, Percutaneous Approach, Diagnostic (ICD-10-PCS; principal; 2019-04-15)
DX: A41.9 Sepsis, unspecified organism (principal); J15.6 Pneumonia due to other Gram-negative bacteria; E87.2 Acidosis; I48.20 Chronic atrial fibrillation, unspecified; C85.10 Unspecified B-cell lymphoma, unspecified site; J91.0 Malignant pleural effusion; E87.1 Hypo-osmolality and hyponatremia; C91.10 Chronic lymphocytic leukemia of B-cell type not having achieved remission; I67.1 Cerebral aneurysm, nonruptured; D69.59 Other secondary thrombocytopenia; I27.29 Other secondary pulmonary hypertension; E86.0 Dehydration; I49.5 Sick sinus syndrome; D47.2 Monoclonal gammopathy; D63.0 Anemia in neoplastic disease; I34.0 Nonrheumatic mitral (valve) insufficiency; E11.9 Type 2 diabetes mellitus without complications; E87.6 Hypokalemia; E80.7 Disorder of bilirubin metabolism, unspecified; I10 Essential (primary) hypertension; F43.21 Adjustment disorder with depressed mood; E78.5 Hyperlipidemia, unspecified; H35.30 Unspecified macular degeneration; M19.90 Unspecified osteoarthritis, unspecified site; Z79.890 Hormone replacement therapy; Z79.84 Long term (current) use of oral hypoglycemic drugs; Z79.899 Other long term (current) drug therapy; Z86.79 Personal history of other diseases of the circulatory system; Z87.891 Personal history of nicotine dependence; Z86.718 Personal history of other venous thrombosis and embolism; Z86.711 Personal history of pulmonary embolism; Z90.49 Acquired absence of other specified parts of digestive tract; Z98.891 History of uterine scar from previous surgery; Z98.890 Other specified postprocedural states; Z98.42 Cataract extraction status, left eye; Z98.41 Cataract extraction status, right eye; Z96.653 Presence of artificial knee joint, bilateral; Z95.0 Presence of cardiac pacemaker; Z82.3 Family history of stroke; Z82.49 Family history of ischemic heart disease and other diseases of the circulatory system; Z80.9 Family history of malignant neoplasm, unspecified
CPT/HCPCS: 32555; 36415; 71045; 71046; 76604; 80048; 80053; 81001; 82803; 82945; 83605; 83615; 83735; 84132; 84155; 84157; 85025; 85610; 85730; 87040; 87070; 87205; 87502; 88108; 88305; 89050; 93005; 94640; 96360; 96361; 99285

== ENCOUNTER 2019-06-09 11:48 | Day surgery (SDC) | payer MEDICARE ==
[2019-06-09 12:11] VITALS: RESP 20; TEMP 97.3
[2019-06-09 12:53] VITALS: BP 141/68; PULSE 71
--- NOTE | 2019-06-09 13:18 | XR ---
EXAMINATION TYPE: XR chest 1V portable DATE OF EXAM: 06/09/2019 COMPARISON: 04/15/2019 HISTORY: Status post left-sided thoracentesis TECHNIQUE: Single frontal view of the chest is obtained. FINDINGS: The pleural calcification along the left lung apex appears unchanged from 04/15/2019. No ne w displacement. Trace residual left pleural effusion layers dependently. Associated left basilar airs pace disease is likely atelectasis. Right lung is well aerated. Cardiomediastinal silhouette is enlar ged with dual lead left-sided cardiac device. Diffuse osseous demineralization. IMPRESSION: Stable left apical calcific pleural plaquing. No new displacement to suggest postprocedu re pneumothorax. Trace residual left pleural effusion and probable left basilar atelectasis.
--- NOTE | 2019-06-09 13:35 | PCN ---
PROCEDURE NOTE PROCEDURE: Thoracentesis. PREOPERATIVE DIAGNOSIS: Left-sided pleural effusion. POSTOPERATIVE DIAGNOSIS: Left-sided pleural effusion. Indication Pleural effusion. A time-out was completed verifying correct patient, procedure, site, positioning , and implant (s) or special equipment if applicable. Ultrasound guidance was not used and appropriate fluid pocket was identified and marked. Patient was positioned, prepped and draped in usual sterile fashion. Lidocaine was used to anesthetize the area. A Thoracentesis catheter was introduced into the pleural space and fluid was removed. Blood loss was none. A chest x-ray was ordered to evaluate for pneumothorax. Total Fluid Removed: 1.2 L Color of Fluid: Turbid, dark yellowish pleural effusion. Fluid was not sent for appropriate laboratory tests. Patient tolerated the procedure well and there were no complications. Chest x-rays to follow. MMODL / IJN: [id number] / MTDD
== END 2019-06-09 16:28 | disposition home or self-care (01) ==
LOC: PROCWHC3 11:48
PROVIDERS: ATTEND Internal Medicine Critical Care Medicine
DX: J90 Pleural effusion, not elsewhere classified (principal)
CPT/HCPCS: 32554; 71045

== ENCOUNTER → 2019-08-04 | Day surgery (SDC) | payer MEDICARE ==
[2019-08-04 11:45] VITALS: RESP 16; TEMP 97.8
[2019-08-04 12:14] VITALS: BP 108/53; PULSE 68
--- NOTE | 2019-08-04 12:31 | XR ---
EXAMINATION TYPE: XR chest 1V portable DATE OF EXAM: 08/04/2019 COMPARISON: 06/09/2019 HISTORY: Status post left-sided thoracentesis. TECHNIQUE: Single frontal view of the chest is obtained. FINDINGS: Left apical pleural calcifications are unchanged in position in comparison to the prior of 06/09/2019. Skinfold overlies the more medial left lung. Cardiomediastinal silhouette is enlarged. Du al lead left-sided cardiac device is seen. Minimal pulmonary vascular congestion is present. Improved left pleural effusion, now trace blunting the costophrenic angle with associated left basilar airspa ce disease. Diffuse osseous demineralization is seen. IMPRESSION: No sizable pneumothorax status post left-sided thoracentesis. Improved left pleural effu kamaljit, now trace with associated left basilar airspace disease. Normal pulmonary vascular congestion i s also seen.
--- NOTE | 2019-08-04 12:53 | PCN ---
PROCEDURE NOTE PROCEDURE: Thoracentesis. PREOPERATIVE DIAGNOSIS: Recurrent left-sided pleural effusion. POSTOPERATIVE DIAGNOSIS: Recurrent left-sided pleural effusion. Indication Pleural effusion. A time-out was completed verifying correct patient, procedure, site, positioning, and implant (s) or special equipment if applicable. Ultrasound guidance was not used and appropriate fluid pocket was identified and marked. Patient was positioned, prepped and draped in usual sterile fashion. Lidocaine was used to anesthetize the area. A Thoracentesis catheter was introduced into the pleural space and fluid was removed. Blood loss was none. A chest x-ray was ordered to evaluate for pneumothorax. Total Fluid Removed: 1.1 L Color of Fluid: Burgundy, it was cloudy. Fluid was sent for appropriate laboratory tests. Patient tolerated the procedure well and there were no complications. No ultrasound markings were obtained. The fluid was burgundy in color. It was cloudy. Total amount of fluid drained was 1.1 liters. No bedside complications. Chest x-ray is to follow. MMODL / IJN: [id number] / MTDMackenzie
== END ==
LOC: PROCWHC3 11:34
PROVIDERS: ATTEND Internal Medicine Critical Care Medicine
DX: J90 Pleural effusion, not elsewhere classified (principal); C91.10 Chronic lymphocytic leukemia of B-cell type not having achieved remission; D63.0 Anemia in neoplastic disease; D69.6 Thrombocytopenia, unspecified; Z87.898 Personal history of other specified conditions; I49.5 Sick sinus syndrome; Z95.0 Presence of cardiac pacemaker; I34.0 Nonrheumatic mitral (valve) insufficiency; I27.21 Secondary pulmonary arterial hypertension; I31.3 Pericardial effusion (noninflammatory); I48.20 Chronic atrial fibrillation, unspecified; D47.2 Monoclonal gammopathy; H35.30 Unspecified macular degeneration; E78.5 Hyperlipidemia, unspecified; I10 Essential (primary) hypertension; E11.9 Type 2 diabetes mellitus without complications; H91.90 Unspecified hearing loss, unspecified ear; E66.9 Obesity, unspecified; Z68.29 Body mass index [BMI] 29.0-29.9, adult; Z79.899 Other long term (current) drug therapy; Z79.84 Long term (current) use of oral hypoglycemic drugs; Z79.890 Hormone replacement therapy; Z87.891 Personal history of nicotine dependence; Z98.890 Other specified postprocedural states; Z90.89 Acquired absence of other organs
CPT/HCPCS: 32554; 71045

== ENCOUNTER → 2019-10-17 | Outpatient (CLI) | payer MEDICARE ==
--- NOTE | 2019-10-17 15:26 | CT ---
EXAMINATION TYPE: CT ChestAbdPelvis w con DATE OF EXAM: 10/17/2019 COMPARISON: Prior CT March 27, 2019 and older CTs HISTORY: non hodgkins lymphoma progress study. CT DLP: 1844 mGycm. Automated Exposure Control for Dos e Reduction was Utilized. CONTRAST: CT scan of the thorax, abdomen and pelvis is performed with IV Contrast, patient injected with 100 ml mL of Isovue 300. FINDINGS: Slightly suboptimal study as twice as twice I asked for coronal reconstructed images and t echnologist unable to provide. LUNGS: Persistent small to moderate-sized left pleural effusion with associated compressive atelectas is. Scattered right basilar linear and dependent atelectasis. Stable calcified 6 mm subpleural nodule or granuloma axial image 36. The tracheobronchial tree is patent. No pneumothorax bilaterally. No n ew suspicious noncalcified nodules or masses. MEDIASTINUM: There are no greater than 1 cm hilar or mediastinal lymph nodes. No pericardial effusi on is seen. Poor enhancement of pulmonary arteries which remain enlarged, CT findings consistent wit h underlying pulmonary hypertension. Heart size stable and upper limits of normal with multi lead pac emaker device. Suspect some pericardial calcification along the posterior aspect of the left atrium s imilar to prior OTHER: Thyroid gland atrophic or small in size. LIVER/GB: Gallbladder not seen and presumed surgically absent. PANCREAS: No significant abnormality is seen. SPLEEN: Persistent mild splenomegaly at 13.0 cm long axis axial image 68. Persistent calcified spleni c artery aneurysms. Persistent increased soft tissue in the hilum axial image 66 for reference ADRENALS: No significant abnormality is seen. KIDNEYS: No significant abnormality is seen. BOWEL: Diverticula throughout the left colon redemonstrated. Mild adjacent fluid again seen. No new i nflammatory change. Colonic fecal prominence. Oral contrast only reaches level of the right colon. No suspicious small bowel dilatation. GENITAL ORGANS: Uterus surgically absent or markedly atrophic. Oral contrast extends to level of the cecum. No suspicious small or large bowel dilatation.. LYMPH NODES: Persistent abnormal retroperitoneal lymph nodes. For reference posterior left periaortic lymph node measures 1.9 x 1.2 cm upper pole left kidney axial image 71 versus 1.9 x 1.4 cm prior claire dy axial image 35. There is persistent abnormal confluent soft tissue surrounding smaller mesenteric vessels in the mid to lower abdomen difficult to actually measure as appears isodense relative to adj acent bowel loops but reference seen axial image 83 extending inferiorly past the iliac bifurcation. OSSEOUS STRUCTURES: No significant abnormality is seen. OTHER: Aneurysmal change right groin at common femoral artery bifurcation. IMPRESSION: Suboptimal study, no significant interval change is present. Stable mild splenomegaly and intra-abdominal and upper pelvic lymphoma involvement.
== END | disposition home or self-care (01) ==
LOC: RADCTMAIN 11:22
PROVIDERS: ATTEND Internal Medicine Medical Oncology
DX: C85.90 Non-Hodgkin lymphoma, unspecified, unspecified site (principal); R16.1 Splenomegaly, not elsewhere classified; C95.90 Leukemia, unspecified not having achieved remission; J90 Pleural effusion, not elsewhere classified; R07.0 Pain in throat
CPT/HCPCS: 71260; 74177; Q9967

== ENCOUNTER 2019-11-03 14:44 | Emergency (ER) | payer MEDICARE ==
[2019-11-03 14:51] VITALS: TEMP 98.2
[2019-11-03] MEDS ORDERED: SODIUM CHLORIDE 0.9% 1,000 ML IV STA (15:17)
--- NOTE | 2019-11-03 15:23 | ED ---
General Adult HPI - General Chief complaint: Syncope Stated complaint: Syncope Time Seen by Provider: 11/03/19 14:47 Source: patient, EMS, RN notes reviewed Mode of arrival: EMS Limitations: no limitations - History of Present Illness Initial comments: Patient is a pleasant 88-year-old female presenting to the emergency department with syncopal episode 2. Patient did go for thoracentesis this morning. Patient has non-Hodgkin's lymphoma and has this done every couple of months. Patient's blood pressure was low and they did give some fluids. Patient had a syncopal episode prior to arrival and a second one when EMS arrived. Each episode lasted around 15 seconds. Patient states she felt lightheaded before injuring. EMS reported blood pressure of 80/40. Patient is symptom-free at this time and has no complaints. No headache or confusion. No chest pain or dyspnea. No abdominal pain. - Related Data Home Medications Medication Instructions Recorded Confirmed Ergocalciferol (Vitamin D2) 50,000 unit PO FR 12/15/13 11/03/19 [Drisdol] Irbesartan/Hydrochlorothiazide 1 tab PO DAILY 12/15/13 11/03/19 [Avalide 150-12.5 mg Tablet] Levothyroxine Sodium [Synthroid] 75 mcg PO DAILY 12/15/13 11/03/19 Ascorbic Acid [Vitamin C] 500 mg PO DAILY 06/11/17 11/03/19 Vit C/E/Zn/Coppr/Lutein/Zeaxan 1 cap PO BID 06/11/17 11/03/19 [Preservision Areds 2 Softgel] Magnesium Oxide [Mag-Ox] 500 mg PO DAILY 10/05/17 11/03/19 metFORMIN HCL [Glucophage] 500 mg PO BID 10/05/17 11/03/19 Furosemide [Lasix] 20 mg PO DAILY 09/30/18 11/03/19 Metoprolol Tartrate [Lopressor] 25 mg PO BID 04/14/19 11/03/19 Citalopram Hydrobromide [CeleXA] 10 mg PO DAILY 06/09/19 11/03/19 Multivit-Min/FA/Lycopen/Lutein 1 each PO DAILY 11/03/19 11/03/19 [Centrum Silver Tablet] Previous Rx's Medication Instructions Recorded Acetaminophen Tab [Tylenol] 500 mg PO Q6HR PRN tab 04/17/19 Albuterol Sulfate [Proair Hfa] 2 puff INHALATION Q8HR #1 inhaler 04/17/19 Ibrutinib [Imbruvica] 420 mg PO DAILY #0 04/17/19 Allergies Allergy/AdvReac Type Severity Reaction Status Date / Time No Known Allergies Allergy Verified 11/03/19 14:51 Review of Systems ROS Statement: Those systems with pertinent positive or pertinent negative responses have been documented in the HPI. ROS Other: All systems not noted in ROS Statement are negative. Constitutional: Denies: fever Eyes: Denies: eye pain ENT: Denies: ear pain Respiratory: Denies: cough, dyspnea Cardiovascular: Denies: chest pain Endocrine: Denies: fatigue Gastrointestinal: Denies: abdominal pain Genitourinary: Denies: dysuria Musculoskeletal: Denies: back pain Skin: Denies: rash Neurological: Denies: headache, weakness, confusion Past Medical History Past Medical History: Atrial Fibrillation, Cancer, Diabetes Mellitus, Deep Vein Thrombosis (DVT), Hypertension, Pulmonary Embolus (PE), Vascular Disorder Additional Past Medical History / Comment(s): Monoclonal gammopathy of undetermined significance (MGUS). Currently has brain aneurysm (states stable) macular degneration, non hodkins lymphoma History of Any Multi-Drug Resistant Organisms: None Reported Past Surgical History: Bowel Resection, Cardiac Ablation, Section, Cholecystectomy, Orthopedic Surgery Additional Past Surgical History / Comment(s): repair left leg from injury. parotid gland removed (tumor stated not cancerous). cataracts. Bilateral knee replacements Past Anesthesia/Blood Transfusion Reactions: No Reported Reaction Past Psychological History: Depression Smoking Status: Former smoker Past Alcohol Use History: Occasional Past Drug Use History: None Reported - Past Family History Mother Family Medical History: Coronary Artery Disease (CAD), CVA/TIA Additional Family Medical History / Comment(s): age 83 of stroke Father Family Medical History: Cancer, Congestive Heart Failure (CHF) Additional Family Medical History / Comment(s): of cancer age 77 General Exam Limitations: no limitations General appearance: alert, in no apparent distress Head exam: Present: normocephalic Eye exam: Present: normal appearance, EOMI, other (Right pupil sluggish, patient has had previous cataract surgery) ENT exam: Present: normal oropharynx Neck exam: Present: normal inspection Respiratory exam: Present: normal lung sounds bilaterally Cardiovascular Exam: Present: regular rate, normal rhythm GI/Abdominal exam: Present: soft. Absent: tenderness Extremities exam: Present: normal inspection Neurological exam: Present: alert, oriented X3, CN II-XII intact. Absent: motor sensory deficit Expanded Neurological exam: Present: protecting the airway Patient oriented to: Present: person, place, time Speech: Present: fluid speech Cranial nerves: EOM's Intact: Normal Motor strength exam: RUE: 5, LUE: 5, RLE: 5, LLE: 5 Eye Response: (4) open spontaneously Motor Response: (6) obeys commands Verbal Response: (5) oriented Psychiatric exam: Present: normal affect, normal mood Course Vital Signs 11/03/19 11/03/19 11/03/19 14:45 16:00 16:30 Temperature 98.2 F Pulse Rate 60 61 61 Respiratory 16 14 29 H Rate Blood Pressure 124/72 124/81 113/61 O2 Sat by Pulse 95 95 96 Oximetry 11/03/19 17:00 Temperature Pulse Rate 59 L Respiratory 15 Rate Blood Pressure 123/60 O2 Sat by Pulse 96 Oximetry EKG Findings - EKG Comments: EKG Findings:: Paced rhythm with rate of 61. QRS 164. QT 516. QTC 519. Left axis. Wide QRS complex limb leads. No acute ST change. Medical Decision Making - Medical Decision Making Patient reevaluated and resting comfortably in bed. Patient remained symptom- free at this time. Patient did get up and use the restroom without any difficulty. Dr. Pires did come evaluate the patient. Case was discussed with Dr. Pink who is agreeable for admission. Patient is made aware of lab abnormalities including change with hemoglobin and dehydration. Patient is made aware also of concern for possible arrhythmia. Despite this patient refuses admission and will leave AGAINST MEDICAL ADVICE. Patient does demonstrate medical decision making. Son is present. Patient denies any black or tarry stools or any bleeding. - Lab Data Result diagrams: 11/03/19 15:17 11/03/19 15:17 Lab Results 11/03/19 11/03/19 11/03/19 Range/Units 15:17 15:17 15:17 WBC 6.6 (3.8-10.6) k/uL RBC 3.38 L (3.80-5.40) m/uL Hgb 9.9 L D (11.4-16.0) gm/dL Hct 29.8 L (34.0-46.0) % MCV 88.2 (80.0-100.0) fL MCH 29.4 (25.0-35.0) pg MCHC 33.4 (31.0-37.0) g/dL RDW 15.6 H (11.5-15.5) % Plt Count 75 L (150-450) k/uL Neutrophils % 72 % Lymphocytes % 20 % Monocytes % 5 % Eosinophils % 1 % Basophils % 0 % Neutrophils # 4.7 (1.3-7.7) k/uL Lymphocytes # 1.3 (1.0-4.8) k/uL Monocytes # 0.3 (0-1.0) k/uL Eosinophils # 0.1 (0-0.7) k/uL Basophils # 0.0 (0-0.2) k/uL Hypochromasia Slight PT 10.9 (9.0-12.0) sec INR 1.1 (<1.2) APTT 22.1 (22.0-30.0) sec Sodium 134 L (137-145) mmol/L Potassium 3.9 (3.5-5.1) mmol/L Chloride 98 (98-107) mmol/L Carbon Dioxide 26 (22-30) mmol/L Anion Gap 10 mmol/L BUN 31 H (7-17) mg/dL Creatinine 0.86 (0.52-1.04) mg/dL Est GFR (CKD-EPI)AfAm 70 (>60 ml/min/1.73 sqM) Est GFR (CKD-EPI)NonAf 61 (>60 ml/min/1.73 sqM) Glucose 141 H (74-99) mg/dL Calcium 8.6 (8.4-10.2) mg/dL Magnesium 2.1 (1.6-2.3) mg/dL Total Bilirubin 1.5 H (0.2-1.3) mg/dL AST 24 (14-36) U/L ALT 14 (4-34) U/L Alkaline Phosphatase 46 (38-126) U/L Creatine Kinase 22 L (30-135) U/L Troponin I (0.000-0.034) ng/mL Total Protein 5.3 L (6.3-8.2) g/dL Albumin 3.2 L (3.5-5.0) g/dL 11/03/19 Range/Units 15:17 WBC (3.8-10.6) k/uL RBC (3.80-5.40) m/uL Hgb (11.4-16.0) gm/dL Hct (34.0-46.0) % MCV (80.0-100.0) fL MCH (25.0-35.0) pg MCHC (31.0-37.0) g/dL RDW (11.5-15.5) % Plt Count (150-450) k/uL Neutrophils % % Lymphocytes % % Monocytes % % Eosinophils % % Basophils % % Neutrophils # (1.3-7.7) k/uL Lymphocytes # (1.0-4.8) k/uL Monocytes # (0-1.0) k/uL Eosinophils # (0-0.7) k/uL Basophils # (0-0.2) k/uL Hypochromasia PT (9.0-12.0) sec INR (<1.2) APTT (22.0-30.0) sec Sodium (137-145) mmol/L Potassium (3.5-5.1) mmol/L Chloride (98-107) mmol/L Carbon Dioxide (22-30) mmol/L Anion Gap mmol/L BUN (7-17) mg/dL Creatinine (0.52-1.04) mg/dL Est GFR (CKD-EPI)AfAm (>60 ml/min/1.73 sqM) Est GFR (CKD-EPI)NonAf (>60 ml/min/1.73 sqM) Glucose (74-99) mg/dL Calcium (8.4-10.2) mg/dL Magnesium (1.6-2.3) mg/dL Total Bilirubin (0.2-1.3) mg/dL AST (14-36) U/L ALT (4-34) U/L Alkaline Phosphatase (38-126) U/L Creatine Kinase (30-135) U/L Troponin I <0.012 (0.000-0.034) ng/mL Total Protein (6.3-8.2) g/dL Albumin (3.5-5.0) g/dL - Radiology Data Radiology results: report reviewed (Computed tomography scan of the brain reveals no acute process), image reviewed (Chest x-ray shows left pleural effusion/infiltrate unchanged or slightly increased compared to exam 3 hours prior. Tiny left apical pneumothorax unchanged.) Disposition Clinical Impression: Syncope Disposition: Left Against Medical Advice Instructions (If sedation given, give patient instructions): Syncope (ED) Additional Instructions: Please follow-up with primary care physician in the next day or 2 for recheck. Return for passing out, chest pain or difficulty breathing, weakness, confusion, worsening symptoms or any other concerns. You are leaving AGAINST MEDICAL ADVICE. You should have blood work including hemoglobin rechecked within the next couple of days as well. Is patient prescribed a controlled substance at d/c from ED?: No Referrals: Satish Pink MD [Primary Care Provider] - 1-2 days Time of Disposition: 17:37
[2019-11-03 15:52] LABS: Basophils % (A) 0 %; Eosinophils # (A) 0.1 k/uL (0-0.7); Eosinophils % (A) 1 %; HCT 29.8 % (34.0-46.0); Hypochromasia Slight; Lymphocytes # (A) 1.3 k/uL (1.0-4.8); Lymphocytes % (A) 20 %; MCH 29.4 pg (25.0-35.0); MCHC 33.4 g/dL (31.0-37.0); MCV 88.2 fL (80.0-100.0); Mean Platelet Volume 8.6; Monocytes # (A) 0.3 k/uL (0-1.0); Monocytes % (A) 5 %; Neutrophils # (A) 4.7 k/uL (1.3-7.7); Neutrophils % (A) 72 %; RBC 3.38 m/uL (3.80-5.40); RDW 15.6 % (11.5-15.5); WBC 6.6 k/uL (3.8-10.6)
[2019-11-03 15:55] LABS: Albumin 3.2 g/dL (3.5-5.0); Calcium 8.6 mg/dL (8.4-10.2); Magnesium 2.1 mg/dL (1.6-2.3); Potassium 3.9 mmol/L (3.5-5.1); Total Bilirubin 1.5 mg/dL (0.2-1.3); Total Protein 5.3 g/dL (6.3-8.2)
[2019-11-03 15:57] LABS: HGB 9.9 gm/dL (11.4-16.0)
[2019-11-03 15:59] LABS: Platelet Count 75 k/uL (150-450)
--- NOTE | 2019-11-03 16:00 | P.PCN ---
Date of Procedure: 11/03/19 Preoperative Diagnosis: Left-sided pleural effusion Postoperative Diagnosis: Left-sided pleural effusion Procedure(s) Performed: Thoracentesis Anesthesia: local Surgeon: Jenniffer Pires Estimated Blood Loss (ml): 0 Pathology: none sent Condition: stable Disposition: same day Operative Findings: A time out was performed and the chest x-ray was reviewed, the appropriate side was confirmed and marked. My hands were washed immediately prior to the procedure. I wore a surgical cap, mask with protective eyewear, sterile gown and sterile gloves throughout the procedure. The patient was prepped and draped in a sterile manner using chlorhexidine scrub after the appropriate level was percussed and confirmed by ultrasound. 1% lidocaine was used to anesthesize the skin, subcutaneous tissue, superior aspect of the rib periosteum and parietal pleura. A finder needle was then introduced over the superior aspect of the rib to locate the pleural fluid; DARK YELLOW colored fluid was aspirated at a depth of approximately 2 cm. A 10-blade scalpel was used to yony the skin at the inse rtion site. The Mcof-z-[id number] needle was then introduced through the skin incision into the pleural space using negative aspiration pressure and the red colometric indicator to confirm appropriate positioning of the needle. The thoracentesis catheter was then threaded without difficulty. 900 ml of DARK YELLOWcolored fluid was removed without difficulty. The catheter was then removed. No immediate complications were noted during the procedure. A post- procedure chest x-ray is pending at the time of this note. The fluid will be sent for studies. Estimated blood loss is 0ml.
[2019-11-03 16:09] LABS: INR 1.1 (<1.2); Partial Thromboplastin Time 22.1 sec (22.0-30.0); Prothrombin Time 10.9 sec (9.0-12.0)
--- NOTE | 2019-11-03 16:26 | CT ---
EXAMINATION TYPE: CT brain wo con DATE OF EXAM: 11/03/2019 COMPARISON: 10/05/2017 INDICATION: syncope DLP: 1066.4 mGycm, Automated exposure control for dose reduction was used. CONTRAST: None CT of the brain is performed utilizing 3 mm thick sections through the posterior fossa and 3 mm thick sections through the remaining calvarium. Study is performed within 24 hours of arrival to the hosp ital. No abnormal hyperdensity is present to suggest an acute intracranial hemorrhage. No mass lesion is evident. No acute infarcts are evident. Minimal periventricular white matter hypodensity is present, likely on the basis of chronic white matter ischemic changes. Ventricles and sulci are mildly prominent for the patient age. Paranasal sinuses and mastoid air cells within the [id number] are clear. IMPRESSIONS: 1. No acute intracranial process.
--- NOTE | 2019-11-03 16:42 | XR ---
EXAMINATION TYPE: XR chest 2V DATE OF EXAM: 11/03/2019 COMPARISON: 11/03/2019 HISTORY: Left-sided thoracentesis. Syncope. TECHNIQUE: 2 views FINDINGS: There is blunting left costophrenic angle and infiltrate left lower lobe. Right lung is rel atively clear. There is no heart failure. Thoracic aorta is atheromatous. There are chest leads. Ther e is left axillary pacemaker. There is evidence of a tiny apical pneumothorax less than 3%. IMPRESSION: Left pleural effusion and left lower lobe infiltrate unchanged or slightly increased comp ared to exam 3 hours no pneumothorax. Ago. Tiny left apical pneumothorax unchanged.
[2019-11-03 18:25] VITALS: BP 124/68; PULSE 63; RESP 14
== END 2019-11-03 18:25 | disposition left against medical advice (07) ==
LOC: EC 14:44
DX: R55 Syncope and collapse (principal); J90 Pleural effusion, not elsewhere classified; I48.91 Unspecified atrial fibrillation; E11.9 Type 2 diabetes mellitus without complications; I10 Essential (primary) hypertension; F32.9 Major depressive disorder, single episode, unspecified; Z79.84 Long term (current) use of oral hypoglycemic drugs; Z79.899 Other long term (current) drug therapy; Z79.890 Hormone replacement therapy; Z96.653 Presence of artificial knee joint, bilateral; Z87.891 Personal history of nicotine dependence; Z86.718 Personal history of other venous thrombosis and embolism; Z86.711 Personal history of pulmonary embolism
CPT/HCPCS: 32554; 36415; 70450; 71046; 80053; 82550; 83735; 84484; 85025; 85610; 85730; 93005; 96360; 96361; 99285

== ENCOUNTER → 2019-11-03 | Day surgery (SDC) | payer MEDICARE ==
[~2019-11-03] MED LIST: SODIUM CHLORIDE 0.9% 500 ML 500 ML in EMPTY BAG 1 BAG IV PRN
[2019-11-03 12:10] VITALS: RESP 16; TEMP 98.4
--- NOTE | 2019-11-03 13:18 | XR ---
EXAMINATION TYPE: XR chest 1V portable DATE OF EXAM: 11/03/2019 COMPARISON: NONE HISTORY: thoracentesis. TECHNIQUE: Single frontal view of the chest is obtained. FINDINGS: Cardiac device seen. Bibasilar infiltrate and small effusion. Biapical pleural thickening. Atherosclerotic change aorta. Hyperinflation suggests COPD. There is a small left apical pneumothora x. IMPRESSION: 1. Small left apical pneumothorax similar to the prior exam measuring approximately 5% 2. Bibasilar infiltrate with small effusion greater on the left. 3. Cardiomegaly.
[2019-11-03 15:23] VITALS: BP 114/79; PULSE 61
--- NOTE | 2019-11-06 12:13 | P.PCN ---
Date of Procedure: 11/03/19 Preoperative Diagnosis: Left-sided pleural effusion Postoperative Diagnosis: Left-sided pleural effusion Procedure(s) Performed: Thoracentesis Anesthesia: local Surgeon: Jenniffer Pires Estimated Blood Loss (ml): 0 Pathology: none sent Condition: stable Disposition: same day Operative Findings: A time out was performed and the chest x-ray was reviewed, the appropriate side was confirmed and marked. My hands were washed immediately prior to the procedure. I wore a surgical cap, mask with protective eyewear, sterile gown and sterile gloves throughout the procedure. The patient was prepped and draped in a sterile manner using chlorhexidine scrub after the appropriate level was percussed and confirmed by ultrasound. 1% lidocaine was used to anesthesize the skin, subcutaneous tissue, superior aspect of the rib periosteum and parietal pleura. A finder needle was then introduced over the superior aspect of the rib to locate the pleural fluid; DARK YELLOW colored fluid was aspirated at a depth of approximately 2 cm. A 10-blade scalpel was used to yony the skin at the inse rtion site. The [id number]-Piccdncf needle was then introduced through the skin incision into the pleural space using negative aspiration pressure and the red colometric indicator to confirm appropriate positioning of the needle. The thoracentesis catheter was then threaded without difficulty. 900 ml of DARK YELLOWcolored fluid was removed without difficulty. The catheter was then removed. No immediate complications were noted during the procedure. A post- procedure chest x-ray is pending at the time of this note. The fluid will be sent for studies. Estimated blood loss is 0ml.
== END ==
LOC: PROCWHC3 11:39
PROVIDERS: ATTEND Internal Medicine Critical Care Medicine
DX: J90 Pleural effusion, not elsewhere classified (principal)
CPT/HCPCS: 32554; 71045

== ENCOUNTER 2019-11-05 02:04 | Inpatient (IN) | payer MEDICARE ==
[2019-11-05] MEDS ORDERED: SODIUM CHLORIDE 0.9% 500 ML 500 ML IV STA (02:09)
[2019-11-05] MEDS ORDERED: SODIUM CHLORIDE 0.9% 1,000 ML IV STA (02:09)
--- NOTE | 2019-11-05 02:11 | ED ---
Weakness HPI - General Stated complaint: Dizziness Time Seen by Provider: 11/05/19 02:09 Source: EMS, RN notes reviewed, old records reviewed Mode of arrival: EMS Limitations: no limitations - History of Present Illness Initial comments: This is a 89-year-old female DF for evaluation patient Dese for evaluation regards to recurrent syncopal event. Patient is syncopal event yesterday came to the emergency room with yesterday was evaluated had left pleural effusion evacuated felt better went home patient had another syncopal event at home tonight is complaints of mild chest pain. MD Complaint: generalized weakness -: days(s) Location: generalized Severity: moderate Quality: aching Consistency: constant Improves with: none Context: recent surgery (Left thoracentesis), history of similar Associated Symptoms: chest pain - Related Data Home Medications Medication Instructions Recorded Confirmed Ergocalciferol (Vitamin D2) 50,000 unit PO FR 12/15/13 11/05/19 [Drisdol] Irbesartan/Hydrochlorothiazide 0.5 tab PO HS 12/15/13 11/05/19 [Avalide 150-12.5 mg Tablet] Levothyroxine Sodium [Synthroid] 75 mcg PO DAILY 12/15/13 11/05/19 Vit C/E/Zn/Coppr/Lutein/Zeaxan 1 cap PO BID 06/11/17 11/05/19 [Preservision Areds 2 Softgel] Magnesium Oxide [Mag-Ox] 500 mg PO DAILY 10/05/17 11/05/19 metFORMIN HCL [Glucophage] 500 mg PO DAILY 10/05/17 11/05/19 Furosemide [Lasix] 20 mg PO DAILY 09/30/18 11/05/19 Citalopram Hydrobromide [CeleXA] 10 mg PO DAILY 06/09/19 11/05/19 Multivit-Min/FA/Lycopen/Lutein 1 tab PO DAILY 11/03/19 11/05/19 [Centrum Silver Tablet] Albuterol Sulfate [Proair Hfa] 2 puff INHALATION RT-TID PRN 11/05/19 11/05/19 Diphenoxylate HCl/Atropine 1 tab PO QID PRN 11/05/19 11/05/19 [Lomotil 2.5-0.025 mg Tablet] Fluticasone Nasal [place] [Flonase 1 spray EA NOSTRIL BID PRN 11/05/19 11/05/19 Nasal Turin] Ibrutinib [Imbruvica] 280 mg PO DAILY 11/05/19 11/05/19 Metoprolol Tartrate 25 mg PO BID 11/05/19 11/05/19 Tobramycin/Dexamethasone [Tobradex 1 drop BOTH EYES Q6H PRN 11/05/19 11/05/19 Ophth Susp] Previous Rx's Medication Instructions Recorded Acetaminophen Tab [Tylenol] 500 mg PO Q6HR PRN tab 04/17/19 Allergies Allergy/AdvReac Type Severity Reaction Status Date / Time No Known Allergies Allergy Verified 11/05/19 07:52 Review of Systems ROS Statement: Those systems with pertinent positive or pertinent negative responses have been documented in the HPI. ROS Other: All systems not noted in ROS Statement are negative. Past Medical History Past Medical History: Atrial Fibrillation, Cancer, Diabetes Mellitus, Deep Vein Thrombosis (DVT), Hypertension, Pulmonary Embolus (PE), Vascular Disorder Additional Past Medical History / Comment(s): Monoclonal gammopathy of undetermined significance (MGUS). Currently has brain aneurysm (states stable) macular degneration, non hodkins lymphoma History of Any Multi-Drug Resistant Organisms: None Reported Past Surgical History: Bowel Resection, Cardiac Ablation, Section, Cholecystectomy, Orthopedic Surgery Additional Past Surgical History / Comment(s): repair left leg from injury. parotid gland removed (tumor stated not cancerous). cataracts. Bilateral knee replacements Past Anesthesia/Blood Transfusion Reactions: No Reported Reaction Past Psychological History: Depression Smoking Status: Former smoker Past Alcohol Use History: Occasional Past Drug Use History: None Reported - Past Family History Mother Family Medical History: Coronary Artery Disease (CAD), CVA/TIA Additional Family Medical History / Comment(s): age 83 of stroke Father Family Medical History: Cancer, Congestive Heart Failure (CHF) Additional Family Medical History / Comment(s): of cancer age 77 Brother(s) Additional Family Medical History / Comment(s): Patient had 1 brother that passed from a stroke. She does not have any sisters. Patient has 3 children 2 girls and one son. Son has history of hypertension. Other children have no major medical problems. General Exam Limitations: no limitations General appearance: alert, in no apparent distress, anxious Head exam: Present: atraumatic, normocephalic, normal inspection Eye exam: Present: normal appearance, PERRL, EOMI. Absent: scleral icterus, conjunctival injection, periorbital swelling ENT exam: Present: normal exam, mucous membranes moist Neck exam: Present: normal inspection. Absent: tenderness, meningismus, lymphadenopathy Respiratory exam: Present: normal lung sounds bilaterally, other (Diminished breath sounds left side). Absent: respiratory distress, wheezes, rales, rhonchi, stridor Cardiovascular Exam: Present: regular rate, normal rhythm, normal heart sounds. Absent: systolic murmur, diastolic murmur, rubs, gallop, clicks GI/Abdominal exam: Present: soft, normal bowel sounds. Absent: distended, tend erness, guarding, rebound, rigid Extremities exam: Present: normal inspection, full ROM, normal capillary refill. Absent: tenderness, pedal edema, joint swelling, calf tenderness Back exam: Present: normal inspection Neurological exam: Present: alert, oriented X3, CN II-XII intact Psychiatric exam: Present: normal affect, normal mood Skin exam: Present: warm, dry, intact, normal color. Absent: rash Course Vital Signs 11/05/19 11/05/19 11/05/19 02:06 06:47 08:43 Temperature 97.8 F Pulse Rate 66 68 78 Pulse Rate [ Pulse Oximetery ] Respiratory 17 16 20 Rate Blood Pressure 106/60 127/62 114/67 Blood Pressure [Left Arm] O2 Sat by Pulse 95 92 L 97 Oximetry 11/05/19 11/05/19 11/05/19 10:14 11:34 13:05 Temperature Pulse Rate 65 73 63 Pulse Rate [ Pulse Oximetery ] Respiratory 16 16 16 Rate Blood Pressure 117/57 140/76 163/72 Blood Pressure [Left Arm] O2 Sat by Pulse 98 98 99 Oximetry 11/05/19 11/05/19 11/05/19 13:54 16:00 16:06 Temperature Pulse Rate 68 Pulse Rate [ 70 78 Pulse Oximetery ] Respiratory 16 16 20 Rate Blood Pressure 163/87 Blood Pressure 121/69 135/77 [Left Arm] O2 Sat by Pulse 99 96 96 Oximetry 11/05/19 11/05/19 11/05/19 16:35 16:45 17:00 Temperature Pulse Rate Pulse Rate [ 71 70 68 Pulse Oximetery ] Respiratory 16 16 16 Rate Blood Pressure Blood Pressure 131/79 132/50 115/63 [Left Arm] O2 Sat by Pulse 95 95 95 Oximetry 11/05/19 11/05/19 11/05/19 17:15 17:30 17:45 Temperature Pulse Rate Pulse Rate [ 71 70 66 Pulse Oximetery ] Respiratory 16 16 Rate Blood Pressure Blood Pressure 107/70 93/51 121/42 [Left Arm] O2 Sat by Pulse 100 100 Oximetry 11/05/19 11/05/19 11/05/19 17:55 18:26 18:36 Temperature 98.3 F 98.4 F Pulse Rate 70 68 Pulse Rate [ 68 Pulse Oximetery ] Respiratory 16 16 16 Rate Blood Pressure 112/87 109/44 Blood Pressure [Left Arm] O2 Sat by Pulse 100 100 Oximetry 11/05/19 11/05/19 18:48 18:53 Temperature 97.4 F L 98.4 F Pulse Rate 69 70 Pulse Rate [ Pulse Oximetery ] Respiratory 16 16 Rate Blood Pressure 115/43 121/66 Blood Pressure [Left Arm] O2 Sat by Pulse 99 100 Oximetry - Reevaluation(s) Reevaluation #1: Medical records reviewed Patient having some chest pain weakness dizziness and did have another syncopal episode today - Consultations Consultation #1: Spoke with Dr. Pires he is aware, patient will be admitted EKG Findings - EKG Comments: EKG Findings:: EKG shows rhythm of 63, QRS 96 QTc 413 Medical Decision Making - Medical Decision Making 89 female DF for evaluation significantly early recurrent pleural effusion likely hemothorax, patient will be admitted that she is losing hemoglobin weak and dizzy at a syncopal event. Patient be admitted for likely need for transfusion - Lab Data Result diagrams: 11/07/19 04:40 11/07/19 04:40 Lab Results 11/05/19 11/05/19 11/05/19 Range/Units 02:21 02:22 02:22 WBC 8.7 (3.8-10.6) k/uL RBC 2.89 L (3.80-5.40) m/uL Hgb 8.4 L D (11.4-16.0) gm/dL Hct 25.2 L (34.0-46.0) % MCV 87.3 (80.0-100.0) fL MCH 29.0 (25.0-35.0) pg MCHC 33.3 (31.0-37.0) g/dL RDW 15.9 H (11.5-15.5) % Plt Count 77 L (150-450) k/uL Neutrophils % 80 % Lymphocytes % 13 % Monocytes % 5 % Eosinophils % 1 % Basophils % 0 % Neutrophils # 6.9 (1.3-7.7) k/uL Lymphocytes # 1.1 (1.0-4.8) k/uL Monocytes # 0.5 (0-1.0) k/uL Eosinophils # 0.1 (0-0.7) k/uL Basophils # 0.0 (0-0.2) k/uL Manual Slide Review Performed Polychromasia Present Anisocytosis (manual) Present PT 10.8 (9.0-12.0) sec INR 1.0 (<1.2) APTT 23.8 (22.0-30.0) sec Sodium (137-145) mmol/L Potassium (3.5-5.1) mmol/L Chloride (98-107) mmol/L Carbon Dioxide (22-30) mmol/L Anion Gap mmol/L BUN (7-17) mg/dL Creatinine (0.52-1.04) mg/dL Est GFR (CKD-EPI)AfAm (>60 ml/min/1.73 sqM) Est GFR (CKD-EPI)NonAf (>60 ml/min/1.73 sqM) Glucose (74-99) mg/dL Plasma Lactic Acid Amanuel (0.7-2.0) mmol/L Calcium (8.4-10.2) mg/dL Phosphorus (2.5-4.5) mg/dL Magnesium (1.6-2.3) mg/dL Total Bilirubin (0.2-1.3) mg/dL AST (14-36) U/L ALT (4-34) U/L Alkaline Phosphatase (38-126) U/L Creatine Kinase (30-135) U/L Troponin I (0.000-0.034) ng/mL Total Protein (6.3-8.2) g/dL Albumin (3.5-5.0) g/dL Urine Color Urine Appearance (Clear) Urine pH (5.0-8.0) Ur Specific Dalton (1.001-1.035) Urine Protein (Negative) Urine Glucose (UA) (Negative) Urine Ketones (Negative) Urine Blood (Negative) Urine Nitrite (Negative) Urine Bilirubin (Negative) Urine Urobilinogen (<2.0) mg/dL Ur Leukocyte Esterase (Negative) Urine RBC (0-5) /hpf Urine WBC (0-5) /hpf Ur Squamous Epith Cells (0-4) /hpf Hyaline Casts (0-2) /lpf Blood Type O Positive Blood Type Confirm Blood Type Recheck No Previous Record Bld Type Recheck Status CABO Indicated Antibody Screen NEGATIVE Crossmatch See Detail Spec Expiration Date 11/08/2019 - 232011/05/19 11/05/19 11/05/19 Range/Units 02:22 02:22 02:22 WBC (3.8-10.6) k/uL RBC (3.80-5.40) m/uL Hgb (11.4-16.0) gm/dL Hct (34.0-46.0) % MCV (80.0-100.0) fL MCH (25.0-35.0) pg MCHC (31.0-37.0) g/dL RDW (11.5-15.5) % Plt Count (150-450) k/uL Neutrophils % % Lymphocytes % % Monocytes % % Eosinophils % % Basophils % % Neutrophils # (1.3-7.7) k/uL Lymphocytes # (1.0-4.8) k/uL Monocytes # (0-1.0) k/uL Eosinophils # (0-0.7) k/uL Basophils # (0-0.2) k/uL Manual Slide Review Polychromasia Anisocytosis (manual) PT (9.0-12.0) sec INR (<1.2) APTT (22.0-30.0) sec Sodium 128 L (137-145) mmol/L Potassium 3.8 (3.5-5.1) mmol/L Chloride 95 L (98-107) mmol/L Carbon Dioxide 25 (22-30) mmol/L Anion Gap 8 mmol/L BUN 24 H (7-17) mg/dL Creatinine 0.76 (0.52-1.04) mg/dL Est GFR (CKD-EPI)AfAm 82 (>60 ml/min/1.73 sqM) Est GFR (CKD-EPI)NonAf 71 (>60 ml/min/1.73 sqM) Glucose 149 H (74-99) mg/dL Plasma Lactic Acid Amanuel 1.3 (0.7-2.0) mmol/L Calcium 8.1 L (8.4-10.2) mg/dL Phosphorus 3.6 (2.5-4.5) mg/dL Magnesium 2.1 (1.6-2.3) mg/dL Total Bilirubin 1.5 H (0.2-1.3) mg/dL AST 22 (14-36) U/L ALT 11 (4-34) U/L Alkaline Phosphatase 45 (38-126) U/L Creatine Kinase 27 L (30-135) U/L Troponin I <0.012 (0.000-0.034) ng/mL Total Protein 5.1 L (6.3-8.2) g/dL Albumin 3.0 L (3.5-5.0) g/dL Urine Color Urine Appearance (Clear) Urine pH (5.0-8.0) Ur Specific Dalton (1.001-1.035) Urine Protein (Negative) Urine Glucose (UA) (Negative) Urine Ketones (Negative) Urine Blood (Negative) Urine Nitrite (Negative) Urine Bilirubin (Negative) Urine Urobilinogen (<2.0) mg/dL Ur Leukocyte Esterase (Negative) Urine RBC (0-5) /hpf Urine WBC (0-5) /hpf Ur Squamous Epith Cells (0-4) /hpf Hyaline Casts (0-2) /lpf Blood Type Blood Type Confirm Blood Type Recheck Bld Type Recheck Status Antibody Screen Crossmatch Spec Expiration Date 11/05/19 11/05/19 Range/Units 02:22 02:44 WBC (3.8-10.6) k/uL RBC (3.80-5.40) m/uL Hgb (11.4-16.0) gm/dL Hct (34.0-46.0) % MCV (80.0-100.0) fL MCH (25.0-35.0) pg MCHC (31.0-37.0) g/dL RDW (11.5-15.5) % Plt Count (150-450) k/uL Neutrophils % % Lymphocytes % % Monocytes % % Eosinophils % % Basophils % % Neutrophils # (1.3-7.7) k/uL Lymphocytes # (1.0-4.8) k/uL Monocytes # (0-1.0) k/uL Eosinophils # (0-0.7) k/uL Basophils # (0-0.2) k/uL Manual Slide Review Polychromasia Anisocytosis (manual) PT (9.0-12.0) sec INR (<1.2) APTT (22.0-30.0) sec Sodium (137-145) mmol/L Potassium (3.5-5.1) mmol/L Chloride (98-107) mmol/L Carbon Dioxide (22-30) mmol/L Anion Gap mmol/L BUN (7-17) mg/dL Creatinine (0.52-1.04) mg/dL Est GFR (CKD-EPI)AfAm (>60 ml/min/1.73 sqM) Est GFR (CKD-EPI)NonAf (>60 ml/min/1.73 sqM) Glucose (74-99) mg/dL Plasma Lactic Acid Amanuel (0.7-2.0) mmol/L Calcium (8.4-10.2) mg/dL Phosphorus (2.5-4.5) mg/dL Magnesium (1.6-2.3) mg/dL Total Bilirubin (0.2-1.3) mg/dL AST (14-36) U/L ALT (4-34) U/L Alkaline Phosphatase (38-126) U/L Creatine Kinase (30-135) U/L Troponin I (0.000-0.034) ng/mL Total Protein (6.3-8.2) g/dL Albumin (3.5-5.0) g/dL Urine Color Yellow Urine Appearance Clear (Clear) Urine pH 5.5 (5.0-8.0) Ur Specific Dalton 1.018 (1.001-1.035) Urine Protein Negative (Negative) Urine Glucose (UA) Negative (Negative) Urine Ketones Negative (Negative) Urine Blood Small H (Negative) Urine Nitrite Negative (Negative) Urine Bilirubin Negative (Negative) Urine Urobilinogen <2.0 (<2.0) mg/dL Ur Leukocyte Esterase Trace H (Negative) Urine RBC 4 (0-5) /hpf Urine WBC 4 (0-5) /hpf Ur Squamous Epith Cells <1 (0-4) /hpf Hyaline Casts 1 (0-2) /lpf Blood Type Blood Type Confirm O Positive Blood Type Recheck Bld Type Recheck Status Antibody Screen Crossmatch Spec Expiration Date - Radiology Data Radiology results: report reviewed (Chest x-ray shows significant left pleural effusion CT chest does show likely hemothorax), image reviewed Critical Care Time Critical Care Time: Yes Total Critical Care Time: 31 Disposition Clinical Impression: Dehydration, Syncope, Anemia, Pleural effusion, left, Hemothorax, left Disposition: ADMITTED IP TO THIS HOSP Condition: Serious Is patient prescribed a controlled substance at d/c from ED?: No
--- NOTE | 2019-11-05 03:06 | XR ---
EXAMINATION TYPE: XR chest 2V DATE OF EXAM: 11/05/2019 COMPARISON: 11/03/2019 HISTORY: Syncope short of breath TECHNIQUE: FINDINGS: The heart is enlarged. There is no obvious heart failure. There is large left pleural effus ion. The right lung is fairly clear. There is left axillary pacemaker. IMPRESSION: Cardiomegaly with left lower lobe consolidation and left pleural effusion increased jeff red to recent exam. There is no obvious heart failure.
[2019-11-05 03:12] LABS: Appearance,Urine Clear (Clear); Bilirubin,Urine Negative (Negative); Blood,Urine Small (Negative); Color,Urine Yellow; Glucose,Urine (UA) Negative (Negative); Hyaline Casts,Urine 1 /lpf (0-2); Ketones,Urine Negative (Negative); Leukocyte Esterase,Urine Trace (Negative); Nitrite,Urine Negative (Negative); PH, Urine 5.5 (5.0-8.0); Protein,Urine Negative (Negative); RBC,Urine 4 /hpf (0-5); Specific Gravity,Urine 1.018 (1.001-1.035); Squamous Epithelial Cell,Urine <1 /hpf (0-4); Urobilinogen,Urine <2.0 mg/dL (<2.0); WBC,Urine 4 /hpf (0-5)
[2019-11-05 03:21] LABS: Basophils % (A) 0 %; Eosinophils # (A) 0.1 k/uL (0-0.7); Eosinophils % (A) 1 %; HCT 25.2 % (34.0-46.0); Lymphocytes # (A) 1.1 k/uL (1.0-4.8); Lymphocytes % (A) 13 %; MCHC 33.3 g/dL (31.0-37.0); MCV 87.3 fL (80.0-100.0); Mean Platelet Volume 8.4; Monocytes # (A) 0.5 k/uL (0-1.0); Monocytes % (A) 5 %; Neutrophils # (A) 6.9 k/uL (1.3-7.7); Neutrophils % (A) 80 %; Partial Thromboplastin Time 23.8 sec (22.0-30.0); Prothrombin Time 10.8 sec (9.0-12.0); RBC 2.89 m/uL (3.80-5.40); RDW 15.9 % (11.5-15.5); WBC 8.7 k/uL (3.8-10.6)
[2019-11-05 03:33] LABS: Calcium 8.1 mg/dL (8.4-10.2); Magnesium 2.1 mg/dL (1.6-2.3); Phosphorus 3.6 mg/dL (2.5-4.5); Potassium 3.8 mmol/L (3.5-5.1); Total Bilirubin 1.5 mg/dL (0.2-1.3); Total Protein 5.1 g/dL (6.3-8.2)
[2019-11-05 03:40] LABS: HGB 8.4 gm/dL (11.4-16.0)
[2019-11-05] MEDS ORDERED: PANTOPRAZOLE 40 MG/10 ML VIAL IVP STA (04:01)
[2019-11-05 04:07] LABS: Anisocytosis (M) Present; Polychromasia Present
[2019-11-05 04:08] LABS: Platelet Count 77 k/uL (150-450)
[2019-11-05] MEDS ORDERED: RX INFO: IV CONTRAST WAS GIVEN 1 EACH MISC MISCELLANE PRN (07:21)
--- NOTE | 2019-11-05 08:36 | CT ---
EXAMINATION TYPE: CT chest w con DATE OF EXAM: 11/05/2019 COMPARISON: 10/17/2019 HISTORY: 88-year-old female pleural effusion TECHNIQUE: Contiguous axial scanning of the chest after the administration of 100 mL of Isovue 300. Coronal/sagittal reconstructions performed. CT DLP: 326.2mGycm. Automatic exposure control utilized for a dose reduction. FINDINGS: Heart upper limits of normal in size without pericardial effusion. Left anterior chest wall pacemaker generator with right atrial and right ventricular leads. Aorta normal caliber with mild atherosclerotic arch calcifications and conventional branching anatomy . Large caliber to the main right and left pulmonary arteries at 3.1 and 2.6 cm, respectively, suggesti ng underlying pulmonary arterial hypertension. Couple lymph nodes right subcarinal and right infrahilar measuring 1.3 and 0.9 cm appear slightly lar [place] from 1.0 and 0.4 cm, previously. These may be reactive or could represent lymphomatous involvemen t. A calcified pleural plaque posterior right upper lung. Dependent atelectasis on the right side with s ome reticular changes dorsal right lung base with mild bronchiolectasis. There is now a large left pleural effusion. The superior segment of the left lower lobe remains aerat ed. There is compressive atelectasis of the lingula. Patchy opacity within the superior lingula and l eft upper lobe. Areas of admixed high density are present within the large pleural effusion with attenuation of up to 60 Hounsfield units. There are also foci of air within the effusion towards the lung base. The effus ion has mass effect pushing the hemidiaphragm inferiorly. Visualized upper abdomen shows trace perisplenic ascites and some soft tissue encasement remains gem g the splenic vasculature at its hilum. Bones: Mild to moderate degenerative disc disease throughout. IMPRESSION: 1. Now a large left pleural effusion that shows admixed high density material suggestive of hemothora x. Query any recent procedure. There are also foci of air within the effusion towards the lung base. Correlate for iatrogenic air from a recent procedure versus superinfection. 2. Note that the large left pleural effusion has mass effect pressing down on the left hemidiaphragm and also collapsing the basilar left lower lobe and inferior lingula. Patchy opacity throughout the r emaining left lung could represent additional areas of atelectasis or developing pneumonia. Clinicall y correlate. 3. A couple lymph nodes right infrahilar and right subcarinal are slightly larger from 10/17/2019, [place] uring up to 1.3 cm. These may be reactive or could reflect lymphomatous involvement. 4. Pulmonary arterial hypertension, new trace perisplenic ascites.
[2019-11-05] MEDS: INSULIN ASPART (NovoLOG) 100 UNIT/ML VIAL SQ SCH ×4 (09:09→21:06)
[2019-11-05 10:05] LABS: Anisocytosis Slight; Basophils % (A) 0 %; Eosinophils % (A) 0 %; HCT 23.6 % (34.0-46.0); HGB 7.4 gm/dL (11.4-16.0); Lymphocytes # (A) 0.9 k/uL (1.0-4.8); Lymphocytes % (A) 15 %; MCH 27.9 pg (25.0-35.0); MCHC 31.3 g/dL (31.0-37.0); MCV 88.9 fL (80.0-100.0); Mean Platelet Volume 9.5; Monocytes # (A) 0.4 k/uL (0-1.0); Monocytes % (A) 6 %; Neutrophils # (A) 4.7 k/uL (1.3-7.7); Neutrophils % (A) 78 %; RBC 2.66 m/uL (3.80-5.40); RDW 16.1 % (11.5-15.5); WBC 6.1 k/uL (3.8-10.6)
[2019-11-05] MEDS: SODIUM CHLORIDE 0.9% 1,000 ML IV SCH (10:12)
[2019-11-05] MEDS ORDERED: FLUTICASONE 50MCG/SPRAY NASAL 16GM EA NOSTRIL PRN (10:22)
[2019-11-05] MEDS ORDERED: ALBUTEROL NEBULIZED 2.5 MG/3 ML INHALATION PRN (10:22)
[2019-11-05] MEDS ORDERED: TOBRA-DEXAMET 0.3-0.1% OPHTH DROPS 2.5 ML BTL BOTH EYES PRN (10:22)
[2019-11-05] MEDS ORDERED: DIPHENOX-ATROP 2.5-0.025 MG 1 EACH TAB PO PRN (10:22)
[2019-11-05 10:31] LABS: Platelet Count 65 k/uL (150-450)
--- NOTE | 2019-11-05 10:31 | P.HPIM ---
History of Present Illness H&P Date: 11/05/19 Chief Complaint: Difficulty breathing This is an 88-year-old female patient of Dr. Pink with past medical history of stage IV non-Hodgkin's lymphoma, history of chronic and recurrent left-sided pleural effusion, chronic atrial fibrillation PE and DVT, history of brain aneurysm, macular degeneration. The patient has recurrent left-sided pleural effusions. She had last thoracentesis in June 09. She states she usually can go 2-3 months before refills and it Needs to be done. On November 02, she came into third floor [facility] underwent a left thoracentesis with Dr. Pires with removal of 900 mL of fluid at 9 in the morning. She then presented to [facility] emergency center for evaluation after having 2 syncopal episodes. Performed in the emergency center showed cardiomegaly with left lower lobe consolidation and left pleural effusion increased compared to recent exam. No obvious heart failure. CAT scan of the chest revealed a large left pleural effusion that shows admixed high-density material suggestive hemothorax. There is also foci of air within the effusion towards the lung bases. Correlate for iatrogenic air from recent procedure versus superinfection. Large left pleural effusion has mass effect pressing down on the left diaphragm and also collapsing the basilar left lower lobe and inferior lingula. Patchy opacities throughout the remaining left lung could represent additional areas of atelectasis and/or developing pneumonia. A couple lymph nodes right infrahilar and right subcarinal are slightly larger from October 16 measuring up to 1.3 cm. These may be reactive or could reflect lymphomatosis involvement. Pulmonary artery hypertension due to trace. Splenic ascites. She was afebrile, heart rate 78, blood pressure 114/67, pulse ox 97% on 2 L nasal cannula. WBC 8.7, hemoglobin 8.4, platelet count 77. Sodium 128, potassium 3.8, chloride 95, CO2 25, BUN 24 and creatinine 0.67. Blood sugar 149. Patient complains of significant shortness of breath with very minimal moving such itching as sitting up on the stretcher. She denies having any fevers but she states she feels clammy. She states she was to see a physician at [facility] for catheter placement for the left pleural effusion on November 26. Patient admitted to the hospital and consult with Dr. Pires. Review of Systems Constitutional: Reports fatigue, Reports poor appetite, Reports sweats, Reports weakness, Denies chills, Denies fever, Denies malaise Eyes: denies blurred vision, denies pain Ears, nose, mouth and throat: Denies dysphagia, Denies nasal congestion, Denies nasal discharge, Denies vertigo Cardiovascular: Reports decreased exercise tolerance, Reports dyspnea on exertion, Reports syncope, Denies chest pain, Denies edema, Denies leg edema, Denies shortness of breath Respiratory: Reports dyspnea, Denies cough, Denies cough with sputum, Denies excessive sputum, Denies hemoptysis, Denies home oxygen, Denies respiratory infections, Denies wheezing Gastrointestinal: Denies abdominal pain, Denies diarrhea, Denies nausea, Denies vomiting Genitourinary: Denies dysuria, Denies hematuria, Denies urgency, Denies urinary frequency Musculoskeletal: Reports muscle weakness, Denies frequent falls, Denies gait dysfunction, Denies myalgias Integumentary: Denies pruritus, Denies rash, Denies wounds Neurological: Denies change in mentation, Denies change in speech, Denies numbness, Denies seizures, Denies weakness Psychiatric: Denies anxiety, Denies depression Endocrine: Denies fatigue, Denies weight change Past Medical History Past Medical History: Atrial Fibrillation, Cancer, Diabetes Mellitus, Deep Vein Thrombosis (DVT), Hypertension, Pulmonary Embolus (PE), Vascular Disorder Additional Past Medical History / Comment(s): Monoclonal gammopathy of undetermined significance (MGUS). Currently has brain aneurysm (states stable) macular degneration, non hodkins lymphoma History of Any Multi-Drug Resistant Organisms: None Reported Past Surgical History: Bowel Resection, Cardiac Ablation, Section, Cholecystectomy, Orthopedic Surgery Additional Past Surgical History / Comment(s): repair left leg from injury. parotid gland removed (tumor stated not cancerous). cataracts. Bilateral knee replacements Past Anesthesia/Blood Transfusion Reactions: No Reported Reaction Past Psychological History: Depression Smoking Status: Former smoker Past Alcohol Use History: Occasional Additional Past Alcohol Use History / Comment(s): Patient was a smoker for 20 years and quit at age 40. She denies any alcohol use, marijuana or street drug use. Past Drug Use History: None Reported - Past Family History Mother Family Medical History: Coronary Artery Disease (CAD), CVA/TIA Additional Family Medical History / Comment(s): Mother age 83 of stroke. Father Family Medical History: Cancer, Congestive Heart Failure (CHF) Additional Family Medical History / Comment(s): of cancer age 77 Brother(s) Additional Family Medical History / Comment(s): Patient had 1 brother that passed from a stroke. She does not have any sisters. Patient has 3 children 2 girls and one son. Son has history of hypertension. Other children have no major medical problems. Medications and Allergies Home Medications Medication Instructions Recorded Confirmed Type Ergocalciferol (Vitamin D2) 50,000 unit PO FR 12/15/13 11/05/19 History [Drisdol] Irbesartan/Hydrochlorothiazide 0.5 tab PO HS 12/15/13 11/05/19 History [Avalide 150-12.5 mg Tablet] Levothyroxine Sodium [Synthroid] 75 mcg PO DAILY 12/15/13 11/05/19 History Vit C/E/Zn/Coppr/Lutein/Zeaxan 1 cap PO BID 06/11/17 11/05/19 History [Preservision Areds 2 Softgel] Magnesium Oxide [Mag-Ox] 500 mg PO DAILY 10/05/17 11/05/19 History metFORMIN HCL [Glucophage] 500 mg PO DAILY 10/05/17 11/05/19 History Furosemide [Lasix] 20 mg PO DAILY 09/30/18 11/05/19 History Acetaminophen Tab [Tylenol] 500 mg PO Q6HR PRN tab 04/17/19 11/05/19 Rx Citalopram Hydrobromide [CeleXA] 10 mg PO DAILY 06/09/19 11/05/19 History Multivit-Min/FA/Lycopen/Lutein 1 tab PO DAILY 11/03/19 11/05/19 History [Centrum Silver Tablet] Albuterol Sulfate [Proair Hfa] 2 puff INHALATION RT-TID PRN 11/05/19 11/05/19 History Diphenoxylate HCl/Atropine 1 tab PO QID PRN 11/05/19 11/05/19 History [Lomotil 2.5-0.025 mg Tablet] Fluticasone Nasal [place] [Flonase 1 spray EA NOSTRIL BID PRN 11/05/19 11/05/19 History Nasal [place]] Ibrutinib [Imbruvica] 280 mg PO DAILY 11/05/19 11/05/19 History Metoprolol Tartrate 25 mg PO BID 11/05/19 11/05/19 History Tobramycin/Dexamethasone [Tobradex 1 drop BOTH EYES Q6H PRN 11/05/19 11/05/19 History Ophth Susp] Allergies Allergy/AdvReac Type Severity Reaction Status Date / Time No Known Allergies Allergy Verified 11/05/19 07:52 Physical Exam Vitals: Vital Signs Temp Pulse Resp BP Pulse Ox 11/05/19 06:47 68 16 127/62 92 L 11/05/19 02:06 97.8 F 66 17 106/60 95 Intake and Output 11/04/19 11/05/19 11/05/19 22:59 06:59 14:59 Other: Weight 73.936 kg Physical Examination Gen: This is an 88-year-old obese female. She is resting on the ER stretcher. Dyspneic with minimal movement on stretcher. Daughter is at bedside HEENT: Head is atraumatic, normocephalic. Pupils equal, round. Sclerae is anicteric. NECK: Supple. No JVD. No lymphadenopathy. No thyromegaly. LUNGS: Diminished with dullness on half of left side. Mild intercostal retractions. HEART: Irregularly irregular rhythm. 2/6 murmur. ABDOMEN: Soft. Bowel sounds are present. No masses. No tenderness. EXTREMITIES: Trace pedal edema. No calf tenderness. Dorsalis pedis +2 bilaterally. NEUROLOGICAL: Patient is awake, alert and oriented x3. Cranial nerves 2 through 12 are grossly intact. Results CBC & Chem 7: 11/05/19 09:42 11/05/19 02:22 Labs: Abnormal Lab Results - Last 24 Hours (Table) 11/05/19 11/05/19 11/05/19 Range/Units 02:22 02:22 02:44 RBC 2.89 L (3.80-5.40) m/uL Hgb 8.4 L D (11.4-16.0) gm/dL Hct 25.2 L (34.0-46.0) % RDW 15.9 H (11.5-15.5) % Plt Count 77 L (150-450) k/uL Sodium 128 L (137-145) mmol/L Chloride 95 L (98-107) mmol/L BUN 24 H (7-17) mg/dL Glucose 149 H (74-99) mg/dL Calcium 8.1 L (8.4-10.2) mg/dL Total Bilirubin 1.5 H (0.2-1.3) mg/dL Creatine Kinase 27 L (30-135) U/L Total Protein 5.1 L (6.3-8.2) g/dL Albumin 3.0 L (3.5-5.0) g/dL Urine Blood Small H (Negative) Ur Leukocyte Esterase Trace H (Negative) Thrombosis Risk Factor Assmnt - DVT/VTE Prophylaxis DVT/VTE Prophylaxis: Pharmacologic Prophylaxis ordered Assessment and Plan Plan: 1. Recurring left-sided pleural effusion secondary to non-Hodgkin's lymphoma. Consult with Dr. Pires. Patient does have an appointment November 23 at [facility] for catheter placement. Patient may need evaluation by cardiothoracic surgery while here. IV fluids to KVO. Continue Lasix at home dose 20 mg daily. 2. Chronic atrial fibrillation. Continue Lopressor 25 mg twice daily. 3. Diabetes mellitus type 2. Hold metformin. Continue NovoLog scale before meals and at bedtime. 4. Hypertension. Continue Lopressor, Lasix. 5. Hypothyroidism. Continue levothyroxine 75 g daily. 6. Hyponatremia. Monitor lab work. 7. Anemia of chronic disease. 8. History of PE and DVT, stable. 9. Macular degeneration. Continue eyedrops and vitamins. 10. Sick sinus syndrome Status post pacemaker. 11. DVT prophylaxis. SCDs and ESTHER hose. 12. GI prophylaxis. Protonix. 13. COVID-19 testing in process. Patient will be admitted to the hospital for a minimum of 2 night stay. Discharge plan: To be determined. Impression and plan of care have been directed as dictated by the signing physician. Zeny Perez nurse practitioner acting as scribe for signing physician.
[2019-11-05] MEDS: FUROSEMIDE 20 MG TAB PO SCH (11:25)
[2019-11-05] MEDS: LEVOTHYROXINE 75 MCG TAB PO SCH (11:28)
[2019-11-05] MEDS: METOPROLOL TARTRATE 25 MG TAB PO SCH ×2 (11:28→21:06)
[2019-11-05] MEDS: PANTOPRAZOLE 40 MG/10 ML VIAL IVP SCH (11:30)
--- NOTE | 2019-11-05 15:32 | P.CNPUL ---
History of Present Illness Consult date: 11/05/19 Reason for consult: dyspnea, pleural effusion History of present illness: An 88-year-old female patient with known history of non-Hodgkin's lymphoma/CLL is currently receiving Imbruvica. The patient has had recurrent malignant left- sided pleural effusion requiring episodic thoracentesis. Note that we were seeking also a Pleurx catheter insertion in this patient and she has an appointment with a thoracic surgeon off [facility] to undergo this. She came to my office and she was requesting another thoracentesis for palliative reasons the patient was getting short of breath. At that point, I performed the procedure yesterday and a total of 900 mL of fluid was removed without any major difficulties. She came briefly an hour after the procedure to the emergency department having some dizziness and presyncope. Her x-ray was s table and there was no evidence of any pneumothorax. She was hemodynamically stable. She was released home. She came back this morning with similar symptoms of feeling weak and tired and short of breath and having another episode of presyncope. The patient at that point had a chest x-ray that showed a reaccumulation of the left-sided pleural effusion. The hemoglobin had dropped down to 8.4 and a CAT scan of the chest was done that showed a left-sided pleural effusion, possibly a pneumothorax postthoracentesis. Note that the subsequent hemoglobin dropped down to 7.4. The patient has a thrombocytopenia with a platelet count of 65. Her sodium level is up down to 128. At this point the patient is hospitalized. I discussed the case with thoracic surgery. We thought with better off with draining this patient with a pigtail catheter to evaluate the left-sided pleural effusion prior to making further commitment regarding either chest tube or later on a Pleurx catheter insertion. The patient opted to stay in the hospital for the above-mentioned reasons. Based on underlying thrombocytopenia, I'm going to give her a platelet transfusion followed by a interventional radiology to insert a pigtail catheter into the left hemithorax to optimize her breathing status. She is currently on 2 L of oxygen by nasal cannula. She is normotensive. BP is 160/87. No significant tachycardia. No chest pain. She is experiencing some slight worsening shortness of breath on clinical basis. No trauma. No fall. No trauma to the chest area. Review of Systems Constitutional: Reports fatigue, Reports poor appetite, Reports sweats, Reports weakness, Denies chills, Denies fever, Denies malaise Eyes: denies blurred vision, denies pain Ears, nose, mouth and throat: Denies dysphagia, Denies nasal congestion, Denies nasal discharge, Denies vertigo Cardiovascular: Reports decreased exercise tolerance, Reports dyspnea on exertion, Reports syncope, Denies chest pain, Denies edema, Denies leg edema, Denies shortness of breath Respiratory: Reports dyspnea, Denies cough, Denies cough with sputum, Denies excessive sputum, Denies hemoptysis, Denies home oxygen, Denies respiratory infections, Denies wheezing Gastrointestinal: Denies abdominal pain, Denies diarrhea, Denies nausea, Denies vomiting Genitourinary: Denies dysuria, Denies hematuria, Denies urgency, Denies urinary frequency Musculoskeletal: Reports muscle weakness, Denies frequent falls, Denies gait dysfunction, Denies myalgias Integumentary: Denies pruritus, Denies rash, Denies wounds Neurological: Denies change in mentation, Denies change in speech, Denies numbness, Denies seizures, Denies weakness Psychiatric: Denies anxiety, Denies depression Endocrine: Denies fatigue, Denies weight change Past Medical History Past Medical History: Atrial Fibrillation, Cancer, Diabetes Mellitus, Deep Vein Thrombosis (DVT), Hypertension, Pulmonary Embolus (PE), Vascular Disorder Additional Past Medical History / Comment(s): Monoclonal gammopathy of undetermined significance (MGUS). Currently has brain aneurysm (states stable) macular degneration, non hodkins lymphoma/CLL, recurrent left-sided pleural effusion, previous history of pulmonary embolism, diabetes mellitus, previous history of DVT, hypertension, chronic atrial fibrillation, degenerative arthritis History of Any Multi-Drug Resistant Organisms: None Reported Past Surgical History: Bowel Resection, Cardiac Ablation, Section, Cholecystectomy, Orthopedic Surgery Additional Past Surgical History / Comment(s): repair left leg from injury. parotid gland removed (tumor stated not cancerous). cataracts. Bilateral knee replacements Past Anesthesia/Blood Transfusion Reactions: No Reported Reaction Past Psychological History: Depression Smoking Status: Former smoker Past Alcohol Use History: Occasional Additional Past Alcohol Use History / Comment(s): Patient was a smoker for 20 years and quit at age 40. She denies any alcohol use, marijuana or street drug use. Past Drug Use History: None Reported - Past Family History Mother Family Medical History: Coronary Artery Disease (CAD), CVA/TIA Additional Family Medical History / Comment(s): Mother age 83 of stroke. Father Family Medical History: Cancer, Congestive Heart Failure (CHF) Additional Family Medical History / Comment(s): of cancer age 77 Brother(s) Additional Family Medical History / Comment(s): Patient had 1 brother that passed from a stroke. She does not have any sisters. Patient has 3 children 2 girls and one son. Son has history of hypertension. Other children have no major medical problems. Medications and Allergies Home Medications Medication Instructions Recorded Confirmed Type Ergocalciferol (Vitamin D2) 50,000 unit PO FR 12/15/13 11/05/19 History [Drisdol] Irbesartan/Hydrochlorothiazide 0.5 tab PO HS 12/15/13 11/05/19 History [Avalide 150-12.5 mg Tablet] Levothyroxine Sodium [Synthroid] 75 mcg PO DAILY 12/15/13 11/05/19 History Vit C/E/Zn/Coppr/Lutein/Zeaxan 1 cap PO BID 06/11/17 11/05/19 History [Preservision Areds 2 Softgel] Magnesium Oxide [Mag-Ox] 500 mg PO DAILY 10/05/17 11/05/19 History metFORMIN HCL [Glucophage] 500 mg PO DAILY 10/05/17 11/05/19 History Furosemide [Lasix] 20 mg PO DAILY 09/30/18 11/05/19 History Acetaminophen Tab [Tylenol] 500 mg PO Q6HR PRN tab 04/17/19 11/05/19 Rx Citalopram Hydrobromide [CeleXA] 10 mg PO DAILY 06/09/19 11/05/19 History Multivit-Min/FA/Lycopen/Lutein 1 tab PO DAILY 11/03/19 11/05/19 History [Centrum Silver Tablet] Albuterol Sulfate [Proair Hfa] 2 puff INHALATION RT-TID PRN 11/05/19 11/05/19 History Diphenoxylate HCl/Atropine 1 tab PO QID PRN 11/05/19 11/05/19 History [Lomotil 2.5-0.025 mg Tablet] Fluticasone Nasal [place] [Flonase 1 spray EA NOSTRIL BID PRN 11/05/19 11/05/19 History Nasal [place]] Ibrutinib [Imbruvica] 280 mg PO DAILY 11/05/19 11/05/19 History Metoprolol Tartrate 25 mg PO BID 11/05/19 11/05/19 History Tobramycin/Dexamethasone [Tobradex 1 drop BOTH EYES Q6H PRN 11/05/19 11/05/19 History Ophth Susp] Allergies Allergy/AdvReac Type Severity Reaction Status Date / Time No Known Allergies Allergy Verified 11/05/19 07:52 Physical Exam Vitals: Vital Signs Temp Pulse Resp BP Pulse Ox 11/05/19 13:54 68 16 163/87 99 11/05/19 13:05 63 16 163/72 99 11/05/19 11:34 73 16 140/76 98 11/05/19 10:14 65 16 117/57 98 11/05/19 08:43 78 20 114/67 97 11/05/19 06:47 68 16 127/62 92 L 11/05/19 02:06 97.8 F 66 17 106/60 95 Intake and Output 11/05/19 11/05/19 11/05/19 06:59 14:59 22:59 Other: Weight 73.936 kg Gen: This is an 88-year-old obese female. She is resting on the ER stretcher. Dyspneic with minimal movement on stretcher. Daughter is at bed side. She is not using accessory muscles of breathing. She is able to speak in full sentences. Head exam was generally normal. There was no scleral icterus or corneal arcus. Mucous membranes were moist. Neck was supple and without jugular venous distension, thyromegaly, or carotid bruits. Carotids were easily palpable bilaterally. There was no adenopathy. LUNGS: Diminished with dullness on half of left side. Mild intercostal retractions. HEART: Irregularly irregular rhythm. 2/6 murmur. ABDOMEN: Soft. Bowel sounds are present. No masses. No tenderness. EXTREMITIES: Trace pedal edema. No calf tenderness. Dorsalis pedis +2 bilaterally. NEUROLOGICAL: Patient is awake, alert and oriented x3. Cranial nerves 2 through 12 are grossly intact. Results - Laboratory Findings CBC and BMP: 11/05/19 09:42 11/05/19 02:22 PT/INR, D-dimer PT 10.8 sec (9.0-12.0) 11/05/19 02:22 INR 1.0 (<1.2) 11/05/19 02:22 Abnormal lab findings: Abnormal Labs 11/05/19 11/05/19 11/05/19 02:22 02:22 02:44 RBC 2.89 L Hgb 8.4 L D Hct 25.2 L RDW 15.9 H Plt Count 77 L Lymphocytes # Sodium 128 L Chloride 95 L BUN 24 H Glucose 149 H Calcium 8.1 L Total Bilirubin 1.5 H Creatine Kinase 27 L Total Protein 5.1 L Albumin 3.0 L Urine Blood Small H Ur Leukocyte Esterase Trace H 11/05/19 09:42 RBC 2.66 L Hgb 7.4 L Hct 23.6 L RDW 16.1 H Plt Count 65 L Lymphocytes # 0.9 L Sodium Chloride BUN Glucose Calcium Total Bilirubin Creatine Kinase Total Protein Albumin Urine Blood Ur Leukocyte Esterase - Diagnostic Findings Chest x-ray: image reviewed CT scan - chest: image reviewed Assessment and Plan Plan: 1 chronic and recurrent left-sided pleural effusion post multiple thoracentesis, last procedure was done on 11/01/2019 with possible complication including either a bloody pleural effusion development or hemothorax as the patient has developed hemoglobin down to 7.4 and she had rapid a combination of the left- sided pleural effusion following thoracentesis. CAT scan also indicates possibility of bloody pleural effusion/pneumothorax. 2 shortness of breath secondary to above 3 history of non-Hodgkin's lymphoma/chronic lymphocytic leukemia maintained on Imbruvica 4 chronic thrombocytopenia 5 chronic edema with interval drop in hemoglobin down to 7.4, probably secondary to above and a hemoglobin needs to be monitored 6 chronic atrial fibrillation 7 diabetes mellitus 8 hypertension 9 hypothyroidism 10 previous history of DVT and pulmonary embolism 11 history of macular degeneration 12 history of sick sinus syndrome post pacemaker insertion Plan Monitor hemoglobin Discussed the case with cardiac surgery and discussed the case with interventional radiology. We'll try to put in a pigtail catheter drain the left-sided pleural effusion and we'll analyze the characteristics of the fluids. I'm hoping that she may not need a thoracoscopy or VATS and will be able to d rain this bloody effusion with a pigtail catheter. Ultimately plan is still to give this patient a Pleurx catheter. Meanwhile, we'll give the patient platelet transfusion. He will possibly the effect of the transfusion depending on her hemoglobin. Give the patient incentive spirometer. We'll continue to follow.
[2019-11-05 17:00] LABS: Glucose,Whole Blood 135 mg/dL (75-99)
--- NOTE | 2019-11-05 18:26 | P.GSCN ---
History of Present Illness Consult date: 11/05/19 Reason for Consult: Recurrent left malignant pleural effusion Requesting physician: Jenniffer Pires History of present illness: This is an 88-year-old female patient who is followed by Dr. Satish Pink on an outpatient basis. She has a past medical history significant for non-Hodgkin's lymphoma/CLL which she is currently receiving treatment of Imbruvica, recurrent left sided malignant pleural effusions, hypothyroidism, chronic atrial fibrillation with history of 2 heart ablations, sick sinus syndrome status post pacemaker placement type 2 diabetes mellitus, history of deep vein thrombosis, hypertension, history of pulmonary embolus, history of skin cancer, remote history of tobacco abuse, brain aneurysm and peripheral vascular disease. The patient underwent a left-sided thoracentesis on 11/03/2019 with 900 mL of dark yellow-colored fluid drained. The patient was discharged home and presented back to the emergency department later that day with complaints of syncopal episode. A repeat chest x-ray at that time was completed which demonstrated a tiny left apical pneumothorax. She was hemodynamically stable and subsequently discharged home and was to follow-up with her primary care physician over the next couple of days. This morning around 1:30 AM the patient reports that she was getting up to go to to use the restroom and complained of lightheadedness, felt like she was going to pass out and was short of breath. She denies any fever, chills, nausea, vomiting, diarrhea, recent trauma, headache or syncope. In the emergency room a chest x-ray was completed which demonstrated cardiomegaly with left lower lobe consolidation and recurrent left pleural effusion. A 12-lead EKG was completed which demonstrated atrial fibrillation with a heart rate of 63 BPM. For further evaluation a computed tomography scan of her chest was completed which showed a left-sided pleural effusion with admixed high-density material suggestive of hemothorax, a couple lymph nodes right infrahilar and right subcarinal measuring up to 1.3 cm and a trace parasplenic ascites. The patient's initial laboratory results showed a WBC count 8.7, hemoglobin 8.4, hematocrit 25.2, platelets 77, BUN 24 and crea tinine 0.76. A repeat CBC showed her hemoglobin trending down at 7.4. Due to the patient's recurrent left malignant pleural effusion and suspected hemothorax a consult was placed to interventional radiology and she underwent a pigtail catheter insertion. The left pigtail catheter is to low continuous wall suction -20 cm H2O. Small air leak is present and it is draining serosanguineous drainage with 2 L of output since the pigtail catheter has been placed. A consult was also placed to Dr. Morgan Price from cardiothoracic surgery to follow for a possible Pleurx catheter placement. Review of Systems A 14 point review of systems was completed and was negative except as mentioned in the HPI. Past Medical History Past Medical History: Atrial Fibrillation, Cancer, Diabetes Mellitus, Deep Vein Thrombosis (DVT), Hypertension, Pulmonary Embolus (PE), Vascular Disorder Additional Past Medical History / Comment(s): Monoclonal gammopathy of undetermined significance (MGUS). Currently has brain aneurysm (states stable) macular degneration, non hodkins lymphoma/CLL, recurrent left-sided pleural effusion, previous history of pulmonary embolism, diabetes mellitus, previous history of DVT, hypertension, chronic atrial fibrillation, degenerative arthritis History of Any Multi-Drug Resistant Organisms: None Reported Past Surgical History: Bowel Resection, Cardiac Ablation, Section, Cholecystectomy, Orthopedic Surgery, Pacemaker Additional Past Surgical History / Comment(s): repair left leg from injury. parotid gland removed (tumor stated not cancerous). cataracts. Bilateral knee replacements Past Anesthesia/Blood Transfusion Reactions: No Reported Reaction Type of Cardiac Device: Permanent Pacemaker (Placed for sick sinus syndrome) Past Psychological History: Depression Smoking Status: Former smoker Past Alcohol Use History: Occasional Additional Past Alcohol Use History / Comment(s): Patient was a smoker for 20 years and quit at age 40. She denies any alcohol use, marijuana or street drug use. Past Drug Use History: None Reported - Past Family History Mother Family Medical History: Coronary Artery Disease (CAD), CVA/TIA Additional Family Medical History / Comment(s): Mother age 83 of stroke. Father Family Medical History: Cancer, Congestive Heart Failure (CHF) Additional Family Medical History / Comment(s): of cancer age 77 Brother(s) Additional Family Medical History / Comment(s): Patient had 1 brother that passed from a stroke. She does not have any sisters. Patient has 3 children 2 girls and one son. Son has history of hypertension. Other children have no major medical problems. Medications and Allergies Home Medications Medication Instructions Recorded Confirmed Type Ergocalciferol (Vitamin D2) 50,000 unit PO FR 12/15/13 11/05/19 History [Drisdol] Irbesartan/Hydrochlorothiazide 0.5 tab PO HS 12/15/13 11/05/19 History [Avalide 150-12.5 mg Tablet] Levothyroxine Sodium [Synthroid] 75 mcg PO DAILY 12/15/13 11/05/19 History Vit C/E/Zn/Coppr/Lutein/Zeaxan 1 cap PO BID 06/11/17 11/05/19 History [Preservision Areds 2 Softgel] Magnesium Oxide [Mag-Ox] 500 mg PO DAILY 10/05/17 11/05/19 History metFORMIN HCL [Glucophage] 500 mg PO DAILY 10/05/17 11/05/19 History Furosemide [Lasix] 20 mg PO DAILY 09/30/18 11/05/19 History Acetaminophen Tab [Tylenol] 500 mg PO Q6HR PRN tab 04/17/19 11/05/19 Rx Citalopram Hydrobromide [CeleXA] 10 mg PO DAILY 06/09/19 11/05/19 History Multivit-Min/FA/Lycopen/Lutein 1 tab PO DAILY 11/03/19 11/05/19 History [Centrum Silver Tablet] Albuterol Sulfate [Proair Hfa] 2 puff INHALATION RT-TID PRN 11/05/19 11/05/19 History Diphenoxylate HCl/Atropine 1 tab PO QID PRN 11/05/19 11/05/19 History [Lomotil 2.5-0.025 mg Tablet] Fluticasone Nasal Patrick [Flonase 1 spray EA NOSTRIL BID PRN 11/05/19 11/05/19 History Nasal Patrick] Ibrutinib [Imbruvica] 280 mg PO DAILY 11/05/19 11/05/19 History Metoprolol Tartrate 25 mg PO BID 11/05/19 11/05/19 History Tobramycin/Dexamethasone [Tobradex 1 drop BOTH EYES Q6H PRN 11/05/19 11/05/19 History Ophth Susp] Allergies Allergy/AdvReac Type Severity Reaction Status Date / Time No Known Allergies Allergy Verified 11/05/19 07:52 Surgical - Exam Vital Signs Temp Pulse Resp BP Pulse Ox 97.8 F 66 17 106/60 95 11/05/19 02:06 11/05/19 02:06 11/05/19 02:06 11/05/19 02:06 11/05/19 02:06 This is a pleasant 88-year-old female patient who is resting comfortably in bed in the emergency department. She is awake, alert and oriented 3 and is in no apparent acute distress. Oxygen saturations are 100% on 2 L nasal cannula. - General well developed, well nourished, no distress, no pain, chronically ill, obese - Eyes PERRL, normal ocular movement - ENT normal pinna, normal nares, normal mucosa, no hearing loss, no congestion - Neck Neck is supple, no lymphadenopathy. no masses, no bruits, trachea midline, no venous distension - Respiratory Lungs sounds essentially clear to her bilateral upper lobes, few scattered crackles to her bilateral bases left greater than right. Respirations are symmetrical and nonlabored. Oxygen saturation is 100% on 2 L nasal cannula. Achieving 1000 mL on her incentive spirometry. Left pleural chest pigtail catheter in place to low continuous wall suction -20 cm H2O. Intermittent air leak is present. Draining serosanguineous drainage with 2 L of fluid drained since insertion. - Cardiovascular Irregular rhythm with controlled rate. S1 and S2 present, negative for S3 or gallop. Positive 2/6 systolic murmur heard best to her left sternal border. No edema present. - Abdomen Abdomen is soft, nontender and nondistended. Normal bowel sounds. No guarding or rigidity. No organomegaly appreciated. - Genitourinary Deferred - Rectum Deferred - Integumentary no rash, no growths - Neurologic normal coordination, normal sensation - Musculoskeletal Generalized weakness. Strength equal bilaterally. - Psychiatric oriented to time, oriented to person, oriented to place, speech is normal, memory intact Results - Labs 11/05/19 09:42 11/05/19 02:22 Abnormal Lab Results - Last 24 Hours (Table) 11/05/19 11/05/19 11/05/19 Range/Units 02:21 02:22 02:22 RBC 2.89 L (3.80-5.40) m/uL Hgb 8.4 L D (11.4-16.0) gm/dL Hct 25.2 L (34.0-46.0) % RDW 15.9 H (11.5-15.5) % Plt Count 77 L (150-450) k/uL Lymphocytes # (1.0-4.8) k/uL Sodium 128 L (137-145) mmol/L Chloride 95 L (98-107) mmol/L BUN 24 H (7-17) mg/dL Glucose 149 H (74-99) mg/dL POC Glucose (mg/dL) (75-99) mg/dL Calcium 8.1 L (8.4-10.2) mg/dL Total Bilirubin 1.5 H (0.2-1.3) mg/dL Creatine Kinase 27 L (30-135) U/L Total Protein 5.1 L (6.3-8.2) g/dL Albumin 3.0 L (3.5-5.0) g/dL Urine Blood (Negative) Ur Leukocyte Esterase (Negative) Crossmatch See Detail 11/05/19 11/05/19 11/05/19 Range/Units 02:44 09:42 16:57 RBC 2.66 L (3.80-5.40) m/uL Hgb 7.4 L (11.4-16.0) gm/dL Hct 23.6 L (34.0-46.0) % RDW 16.1 H (11.5-15.5) % Plt Count 65 L (150-450) k/uL Lymphocytes # 0.9 L (1.0-4.8) k/uL Sodium (137-145) mmol/L Chloride (98-107) mmol/L BUN (7-17) mg/dL Glucose (74-99) mg/dL POC Glucose (mg/dL) 135 H (75-99) mg/dL Calcium (8.4-10.2) mg/dL Total Bilirubin (0.2-1.3) mg/dL Creatine Kinase (30-135) U/L Total Protein (6.3-8.2) g/dL Albumin (3.5-5.0) g/dL Urine Blood Small H (Negative) Ur Leukocyte Esterase Trace H (Negative) Crossmatch Diabetes panel 11/05/19 Range/Units 02:22 Sodium 128 L (137-145) mmol/L Potassium 3.8 (3.5-5.1) mmol/L Chloride 95 L (98-107) mmol/L Carbon Dioxide 25 (22-30) mmol/L BUN 24 H (7-17) mg/dL Creatinine 0.76 (0.52-1.04) mg/dL Glucose 149 H (74-99) mg/dL Calcium 8.1 L (8.4-10.2) mg/dL AST 22 (14-36) U/L ALT 11 (4-34) U/L Alkaline Phosphatase 45 (38-126) U/L Total Protein 5.1 L (6.3-8.2) g/dL Albumin 3.0 L (3.5-5.0) g/dL Calcium panel 11/05/19 Range/Units 02:22 Calcium 8.1 L (8.4-10.2) mg/dL Phosphorus 3.6 (2.5-4.5) mg/dL Albumin 3.0 L (3.5-5.0) g/dL Pituitary panel 11/05/19 Range/Units 02:22 Sodium 128 L (137-145) mmol/L Potassium 3.8 (3.5-5.1) mmol/L Chloride 95 L (98-107) mmol/L Carbon Dioxide 25 (22-30) mmol/L BUN 24 H (7-17) mg/dL Creatinine 0.76 (0.52-1.04) mg/dL Glucose 149 H (74-99) mg/dL Calcium 8.1 L (8.4-10.2) mg/dL Adrenal panel 11/05/19 Range/Units 02:22 Sodium 128 L (137-145) mmol/L Potassium 3.8 (3.5-5.1) mmol/L Chloride 95 L (98-107) mmol/L Carbon Dioxide 25 (22-30) mmol/L BUN 24 H (7-17) mg/dL Creatinine 0.76 (0.52-1.04) mg/dL Glucose 149 H (74-99) mg/dL Calcium 8.1 L (8.4-10.2) mg/dL Total Bilirubin 1.5 H (0.2-1.3) mg/dL AST 22 (14-36) U/L ALT 11 (4-34) U/L Alkaline Phosphatase 45 (38-126) U/L Total Protein 5.1 L (6.3-8.2) g/dL Albumin 3.0 L (3.5-5.0) g/dL - Imaging Chest x-ray: report reviewed, image reviewed CT scan - chest: report reviewed, image reviewed EKG: report reviewed Assessment and Plan Assessment: 1. Recurrent left-sided malignant pleural effusion, status post multiple thoracentesis, status post left pigtail pleural catheter placement 2. Acute blood loss anemia, secondary to hemothorax hemoglobin is 7.4 3. Shortness of breath secondary to above 4. History of non-Hodgkin's lymphoma/chronic lymphocytic leukemia currently treated with Imbruvica 5. Chronic thrombocytopenia, current platelet count 65,000 6. Type 2 diabetes mellitus 7. Hypertension 8. Hypothyroidism 9. History of DVT 10. History of pulmonary embolism 11. History of sick sinus syndrome status post pacemaker insertion 12. History of chronic atrial fibrillation, status post multiple ablations 13. History of macular degeneration Plan: Patient was seen and examined at her bedside in the emergency department. Her chart and diagnostic were reviewed. Dr. Price reviewed the results of the chest x-ray and computed tomography scan of her chest. Dr. Price also discussed and reviewed the findings on the computed tomography scan of the chest with Dr. Pires. Recommendations are for interventional radiology to place a left pigtail catheter which has already been completed. Type and screen. Encourage use of her incentive spirometry 10 times every hour while awake. We will continue to follow the patient and further recommendations to follow regarding timing of placement of the Pleurx catheter. Medical management per primary care service and pulmonary critical care. We will continue to follow her daily chest x-rays. Keep left pleural chest tube to low continuous wall suction -20 cm H2O. Thank you Dr. Pires for this consult and we will look forward to working with you in the care of this patient. Time with Patient: Greater than 30
[2019-11-05] MEDS: ACETAMINOPHEN TAB 500 MG TAB PO PRN (18:40)
[2019-11-05 19:06] LABS: Glucose,Whole Blood 166 mg/dL (75-99)
--- NOTE | 2019-11-05 19:37 | XR ---
EXAMINATION TYPE: XR chest 1V portable DATE OF EXAM: 11/05/2019 CLINICAL HISTORY: Post chest tube insertion for pleural effusion.. TECHNIQUE: Single AP portable frontal view of the chest is obtained. COMPARISON: Chest x-ray and Chest CT from earlier today. FINDINGS: New left midlung pigtail pleural drainage catheter with improved left lung opacification. Background chronic emphysematous change. Right lung remains clear. Persisting cardiomegaly with dual lead pacemaker. Osseous structures remain demineralized. IMPRESSION: Improved left lung aeration and pleural effusion after pleural pigtail drainage catheter insertion.
[2019-11-05 20:52] LABS: Glucose,Whole Blood 176 mg/dL (75-99)
[2019-11-05] MEDS: MELATONIN 5 MG TABLET PO SCH (21:06)
[2019-11-05] MEDS: VIT A,C & E-LUTEIN-MINERALS 1 EACH TAB PO SCH (22:07)
[2019-11-06 03:00] LABS: Anisocytosis Slight; Basophils % (A) 0 %; Eosinophils # (A) 0.1 k/uL (0-0.7); Eosinophils % (A) 1 %; HCT 24.1 % (34.0-46.0); HGB 7.9 gm/dL (11.4-16.0); Lymphocytes # (A) 0.8 k/uL (1.0-4.8); Lymphocytes % (A) 19 %; MCH 28.4 pg (25.0-35.0); MCHC 32.6 g/dL (31.0-37.0); MCV 87.2 fL (80.0-100.0); Mean Platelet Volume 8.8; Monocytes # (A) 0.3 k/uL (0-1.0); Monocytes % (A) 7 %; Neutrophils # (A) 3.2 k/uL (1.3-7.7); Neutrophils % (A) 72 %; RBC 2.77 m/uL (3.80-5.40); RDW 16.1 % (11.5-15.5); WBC 4.4 k/uL (3.8-10.6)
[2019-11-06 03:03] LABS: Platelet Count 85 k/uL (150-450)
[2019-11-06 03:17] LABS: Calcium 7.8 mg/dL (8.4-10.2); Potassium 3.4 mmol/L (3.5-5.1)
[2019-11-06] MEDS: POTASSIUM CHLORIDE ER 20 MEQ TAB.ER PO SCH ×2 (03:59→06:58)
[2019-11-06 06:57] LABS: Glucose,Whole Blood 106 mg/dL (75-99)
[2019-11-06] MEDS: INSULIN ASPART (NovoLOG) 100 UNIT/ML VIAL SQ SCH ×4 (06:57→21:05)
[2019-11-06] MEDS: SODIUM CHLORIDE 0.9% 1,000 ML IV SCH (06:58)
[2019-11-06] MEDS: LEVOTHYROXINE 75 MCG TAB PO SCH (06:58)
--- NOTE | 2019-11-06 07:40 | XR ---
EXAMINATION TYPE: XR chest 1V portable DATE OF EXAM: 11/06/2019 COMPARISON: 11/05/2019 INDICATION: Recurrent left malignant pleural effusions TECHNIQUE: Single frontal view of the chest is obtained. FINDINGS: The heart size is normal. The pulmonary vasculature is normal. Small left pleural effusion is present. This is diminished from comparison left lower lobe infiltrate is present. Pacemaker overlies left chest. IMPRESSION: 1. Diminished left pleural effusion with left lower lobe infiltrate.
[2019-11-06] MEDS ORDERED: MAGNESIUM OXIDE 400 MG TAB PO SCH (09:00)
--- NOTE | 2019-11-06 09:03 | CT ---
EXAMINATION TYPE: CT chest tube insertion DATE OF EXAM: 11/05/2019 COMPARISON: 11/05/2019 HISTORY: chest tube placement by dr liudmila SCHAEFER DLP: 808 mGycm The procedure is discussed with the patient, the risks, complications, benefits and alternatives, wer e discussed and any questions were answered. Informed consent was obtained. The patient is placed b ilateral on the CT table, prepped and draped in the usual sterile fashion. Utilizing a 22-gauge Chiba needle access into the left pleural space was achieved and there was passa ge of an open 18 guidewire. There was conversion to 0.035 system, subsequent serial dilation 8 Stateless and placement of an 8.5 Stateless drainage catheter. Repeat imaging demonstrated ideal placement of cat heter. All elements of maximal barrier technique were utilized. The patient remained stable throughout the procedure with no immediate postprocedural complication. IMPRESSION: 1. Successful CT guided fine chest tube insertion for pneumothorax
[2019-11-06] MEDS: FUROSEMIDE 20 MG TAB PO SCH (09:59)
[2019-11-06] MEDS: METOPROLOL TARTRATE 25 MG TAB PO SCH ×2 (10:00→20:07)
[2019-11-06] MEDS: VIT A,C & E-LUTEIN-MINERALS 1 EACH TAB PO SCH ×2 (10:00→20:07)
[2019-11-06] MEDS: MULTIVITAMINS, THERA 1 EACH TAB PO SCH (10:00)
[2019-11-06] MEDS: PANTOPRAZOLE 40 MG/10 ML VIAL IVP SCH (10:00)
--- NOTE | 2019-11-06 10:18 | P.PN ---
Subjective Progress Note Date: 11/06/19 This is an 88-year-old female patient of Dr. Pink with past medical history of stage IV non-Hodgkin's lymphoma, history of chronic and recurrent left-sided pleural effusion, chronic atrial fibrillation PE and DVT, history of brain aneurysm, macular degeneration. The patient has recurrent left-sided pleural effusions. She had last thoracentesis in June 09. She states she usually can go 2-3 months before refills and it Needs to be done. On November 02, she came into third floor [facility] underwent a left thoracentesis with Dr. Pires with removal of 900 mL of fluid at 9 in the morning. She then presented to [facility] emergency center for evaluation after having 2 syncopal episodes. Performed in the emergency center showed cardiomegaly with left lower lobe consolidation and left pleural effusion increased compared to recent exam. No obvious heart failure. CAT scan of the chest revealed a large left pleural effusion that shows admixed high-density material suggestive hemothorax. There is also foci of air within the effusion towards the lung bases. Correlate for iatrogenic air from recent procedure versus superinfection. Large left pleural effusion has mass effect pressing down on the left diaphragm and also collapsing the basilar left lower lobe and inferior lingula. Patchy opacities throughout the remaining left lung could represent additional areas of atelectasis and/or developing pneumonia. A couple lymph nodes right infrahilar and right subcarinal are slightly larger from October 16 measuring up to 1.3 cm. These may be reactive or could reflect lymphomatosis involvement. Pulmonary artery hypertension due to trace. Splenic ascites. She was afebrile, heart rate 78, blood pressure 114/67, pulse ox 97% on 2 L nasal cannula. WBC 8.7, hemoglobin 8.4, platelet count 77. Sodium 128, potassium 3.8, chloride 95, CO2 25, BUN 24 and creatinine 0.67. Blood sugar 149. Patient complains of significant shortness of breath with very minimal moving such itching as sitting up on the stretcher. She denies having any fevers but she states she feels clammy. She states she was to see a physician at [facility] for catheter placement for the left pleural effusion on November 26. Patient admitted to the hospital and consult with Dr. Pires. 11/05: Yesterday, patient underwent pigtail catheter insertion by interventional radiologist, currently too low continuous suction. There has been return of serosanguineous drainage initially 2 L and patient is status post 1 unit packed RBCs and 2 units of platelets. As morning, lab work reveals WBC 4.4, hemoglobin 7.9, platelet count 85. Sodium 139, potassium 3.9, BUN 17 and creatinine 0.76. Blood sugars running between 92 and 176. Repeat chest x-ray this morning reveals diminished left pleural effusion with left lower lobe infiltrate. Patient has been seen by cardiothoracic surgery following for Pleurx catheter placement. patient monitor is atrial fibrillation with ventricular pacing. Patient is afebrile, heart rate 69, blood pressure 116/99, pulse ox and 94% on room air. Patient states that she is feeling much better from yesterday. Breathing is stable. Her mood is improved. The patient is very comfortable while at rest. Patient has had a good appetite and eating well. No nausea vomiting. She is passing gas but has not had a bowel movement. She plans to ge t up to the bathroom today and expects to have a bowel movement. Objective - Vital Signs Vital signs: Vital Signs Temp 98.5 F 11/06/19 04:00 Pulse 70 11/06/19 07:00 Resp 13 11/06/19 07:00 BP 105/63 11/06/19 07:00 Pulse Ox 94 L 11/06/19 07:00 Intake & Output 11/05/19 11/06/19 11/06/19 18:59 06:59 18:59 Intake Total 291 527 Output Total 1999 1865 60 Balance -4339 -2258 -60 Weight 73.936 kg 78.3 kg Intake: Blood Product 291 527 Platelet Irr Pheresis 2 291 Acda Unit [id number] Platelet Irr Pheresis 3 0 217 Acda Unit [id number] Rc Pheresis 2 As3 Unit 310 [id number] Output: Chest Tube Drainage 1999 740 60 Chest Tube Left 1999 740 60 Urine 1125 Other: Voiding Method Bedpan - Exam Review of Systems Constitutional: Reports fatigue, Reports poor appetite, denies sweats, Reports weakness, Denies chills, Denies fever, Denies malaise Eyes: denies blurred vision, denies pain Ears, nose, mouth and throat: Denies dysphagia, Denies nasal congestion, Denies nasal discharge, Denies vertigo Cardiovascular: Reports decreased exercise tolerance, denies dyspnea on exertion, denies syncope, Denies chest pain, Denies edema, Denies leg edema, Denies shortness of breath Respiratory: denies dyspnea, Denies cough, Denies cough with sputum, Denies excessive sputum, Denies hemoptysis, Denies home oxygen, Denies respiratory i nfections, Denies wheezing Gastrointestinal: Denies abdominal pain, Denies diarrhea, Denies nausea, Denies vomiting Genitourinary: Denies dysuria, Denies hematuria, Denies urgency, Denies urinary frequency Musculoskeletal: Reports muscle weakness, Denies frequent falls, Denies gait dysfunction, Denies myalgias Integumentary: Denies pruritus, Denies rash, Denies wounds Neurological: Denies change in mentation, Denies change in speech, Denies numbness, Denies seizures, Denies weakness Psychiatric: Denies anxiety, Denies depression Endocrine: Denies fatigue, Denies weight change Physical Examination Gen: This is an 88-year-old obese female. She is resting in the ICU bed. At rest, patient appears to be comfortable and in no acute distress. HEENT: Head is atraumatic, normocephalic. Pupils equal, round. Sclerae is anicteric. NECK: Supple. No JVD. No lymphadenopathy. No thyromegaly. LUNGS: Diminished left lower lobe. No intercostal retractions. HEART: Irregularly irregular rhythm. 2/6 systolic murmur. ABDOMEN: Soft. Bowel sounds are present. No masses. No tenderness. EXTREMITIES: Trace pedal edema. No calf tenderness. Dorsalis pedis +2 bilaterally. NEUROLOGICAL: Patient is awake, alert and oriented x3. Cranial nerves 2 through 12 are grossly intact. - Labs CBC & Chem 7: 11/06/19 02:39 11/06/19 08:10 Labs: Abnormal Lab Results - Last 24 Hours (Table) 11/05/19 11/05/19 11/05/19 Range/Units 02:21 09:42 16:57 RBC 2.66 L (3.80-5.40) m/uL Hgb 7.4 L (11.4-16.0) gm/dL Hct 23.6 L (34.0-46.0) % RDW 16.1 H (11.5-15.5) % Plt Count 65 L (150-450) k/uL Lymphocytes # 0.9 L (1.0-4.8) k/uL Sodium (137-145) mmol/L Potassium (3.5-5.1) mmol/L POC Glucose (mg/dL) 135 H (75-99) mg/dL Calcium (8.4-10.2) mg/dL Crossmatch See Detail 11/05/19 11/05/19 11/06/19 Range/Units 19:05 20:50 02:39 RBC 2.77 L (3.80-5.40) m/uL Hgb 7.9 L (11.4-16.0) gm/dL Hct 24.1 L (34.0-46.0) % RDW 16.1 H (11.5-15.5) % Plt Count 85 L (150-450) k/uL Lymphocytes # 0.8 L (1.0-4.8) k/uL Sodium (137-145) mmol/L Potassium (3.5-5.1) mmol/L POC Glucose (mg/dL) 166 H 176 H (75-99) mg/dL Calcium (8.4-10.2) mg/dL Crossmatch 11/06/19 11/06/19 Range/Units 02:39 06:56 RBC (3.80-5.40) m/uL Hgb (11.4-16.0) gm/dL Hct (34.0-46.0) % RDW (11.5-15.5) % Plt Count (150-450) k/uL Lymphocytes # (1.0-4.8) k/uL Sodium 129 L (137-145) mmol/L Potassium 3.4 L (3.5-5.1) mmol/L POC Glucose (mg/dL) 106 H (75-99) mg/dL Calcium 7.8 L (8.4-10.2) mg/dL Crossmatch Assessment and Plan Plan: 1. Recurring left-sided pleural effusion secondary to non-Hodgkin's lymphoma. Consult with Dr. Pires. Status post pigtail catheter placement. Cardiothoracic surgery consult appreciated. IV fluids to KVO. Continue Lasix 20 mg daily. 2. Hemothorax status post pigtail catheter placement. Patient is status post transfusion 1 unit packed RBCs and 2 units of platelets. 3. Chronic thrombocytopenia secondary to non-Hodgkin's lymphoma. Patient is status post transfusion of 2 units platelets. 4. Chronic atrial fibrillation. Continue Lopressor 25 mg twice daily. 5. Diabetes mellitus type 2. Hold metformin. Continue NovoLog scale before meals and at bedtime. Consistent carb diet. 6. Hypertension. Continue Lopressor, Lasix. 7. Hypothyroidism. Continue levothyroxine 75 g daily. 8. Hyponatremia. Monitor lab work. 9. Anemia of chronic disease. 10. History of PE and DVT, stable. 11. Macular degeneration. Continue eyedrops and vitamins. 12. Sick sinus syndrome Status post pacemaker. 13. DVT prophylaxis. SCDs and ESTHER hose. 14. GI prophylaxis. Protonix. 15. COVID-19 infection not present. Discharge plan: To be determined. PT consult added. Impression and plan of care have been directed as dictated by the signing physician. Zeny Perez nurse practitioner acting as scribe for signing ph ysician.
[2019-11-06] MEDS: ACETAMINOPHEN TAB 500 MG TAB PO PRN ×2 (10:40→19:17)
[2019-11-06] MEDS: CITALOPRAM HYDROBROMIDE 10 MG TAB PO SCH (10:41)
[2019-11-06 11:50] LABS: Anisocytosis Slight; Basophils % (A) 0 %; Eosinophils # (A) 0.1 k/uL (0-0.7); Eosinophils % (A) 1 %; HCT 26.3 % (34.0-46.0); HGB 8.4 gm/dL (11.4-16.0); Hypochromasia Slight; Lymphocytes # (A) 0.7 k/uL (1.0-4.8); Lymphocytes % (A) 14 %; MCH 28.5 pg (25.0-35.0); MCV 89.1 fL (80.0-100.0); Mean Platelet Volume 9.2; Monocytes # (A) 0.3 k/uL (0-1.0); Monocytes % (A) 5 %; Neutrophils # (A) 3.9 k/uL (1.3-7.7); Neutrophils % (A) 79 %; RBC 2.95 m/uL (3.80-5.40); RDW 16.3 % (11.5-15.5); WBC 4.9 k/uL (3.8-10.6)
[2019-11-06 11:51] LABS: Platelet Count 78 k/uL (150-450)
--- NOTE | 2019-11-06 12:07 | P.PN ---
Subjective Progress Note Date: 11/06/19 An 88-year-old female patient with known history of non-Hodgkin's lymphoma/CLL is currently receiving Imbruvica. The patient has had recurrent malignant left- sided pleural effusion requiring episodic thoracentesis. Note that we were seeking also a Pleurx catheter insertion in this patient and she has an appointment with a thoracic surgeon off [facility] to undergo this. She came to my office and she was requesting another thoracentesis for palliative reasons the patient was getting short of breath. At that point, I performed the procedure yesterday and a total of 900 mL of fluid was removed without any major difficulties. She came briefly an hour after the procedure to the emergency department having some dizziness and presyncope. Her x-ray was stable and there was no evidence of any pneumothorax. She was hemodynamically stable. She was released home. She came back this morning with similar symptoms of feeling weak and tired and short of breath and having another episode of presyncope. The patient at that point had a chest x-ray that showed a reaccumulation of the left-sided pleural effusion. The hemoglobin had dropped down to 8.4 and a CAT scan of the chest was done that showed a left-sided pleural effusion, possibly a pneumothorax postthoracentesis. Note that the subsequent hemoglobin dropped down to 7.4. The patient has a thrombocytopenia with a platelet count of 65. Her sodium level is up down to 128. At this point the patient is hospitalized. I discussed the case with thoracic surgery. We thought with better off with draining this patient with a pigtail catheter to evaluate the left-sided pleural effusion prior to making further commitment regarding either chest tube or later on a Pleurx catheter insertion. The patien t opted to stay in the hospital for the above-mentioned reasons. Based on underlying thrombocytopenia, I'm going to give her a platelet transfusion followed by a interventional radiology to insert a pigtail catheter into the left hemithorax to optimize her breathing status. She is currently on 2 L of oxygen by nasal cannula. She is normotensive. BP is 160/87. No significant tachycardia. No chest pain. She is experiencing some slight worsening shortness of breath on clinical basis. No trauma. No fall. No trauma to the chest area. On today's evaluation of 11/06/2019, I'm seeing the patient for a follow-up. She is doing well and she is less short of breath compared to yesterday. A pigtail catheter was inserted yesterday and immediately there was approximately 2 L of bloody effusion. Overnight the patient is a 700 mL an slowed down and output is being monitored very closely. The patient received a total of 2 units of platelets and 1 unit of packed RBC. No significant air leak around the chest tube. She is using incentive spirometer. CBC is being monitored and the patien t was given a unit of packed RBC for hemoglobin of 7.4. No tachycardia. No hypotension. She is hemodynamically stable. She is not having any chest pain cough sputum production chest tightness or wheezing. No confusion. No altered mentation. Objective - Vital Signs Vital signs: Vital Signs Temp 98.3 F 11/06/19 08:00 Pulse 70 11/06/19 11:00 Resp 11 L 11/06/19 11:00 BP 124/79 11/06/19 11:00 Pulse Ox 94 L 11/06/19 11:00 Intake & Output 11/05/19 11/06/19 11/06/19 18:59 06:59 18:59 Intake Total 291 527 250 Output Total 1999 1865 290 Balance -1709 -1338 -40 Weight 73.936 kg 78.3 kg Intake: Oral 250 Blood Product 291 527 Platelet Irr Pheresis 2 291 Acda Unit [id number] Platelet Irr Pheresis 3 0 217 Acda Unit [id number] Rc Pheresis 2 As3 Unit 310 [id number] Output: Chest Tube Drainage 2000 740 290 Chest Tube Left 1999 740 290 Urine 1125 0 Other: Voiding Method Bedpan Bedside Commode # Voids 1 - Exam Gen: This is an 88-year-old obese female. She is resting on the ER stretcher. Dyspneic with minimal movement on stretcher. Daughter is at bedside. She is not using accessory muscles of breathing. She is able to speak in full sentences. Head exam was generally normal. There was no scleral icterus or corneal arcus. Mucous membranes were moist. Neck was supple and without jugular venous distension, thyromegaly, or carotid bruits. Carotids were easily palpable bilaterally. There was no adenopathy. LUNGS: Diminished with dullness on half of left side. Mild intercostal retractions. The patient has a pigtail catheter in her left chest area and output is being monitored very closely. HEART: Irregularly irregular rhythm. 2/6 murmur. ABDOMEN: Soft. Bowel sounds are present. No masses. No tenderness. EXTREMITIES: Trace pedal edema. No calf tenderness. Dorsalis pedis +2 bilaterally. NEUROLOGICAL: Patient is awake, alert and oriented x3. Cranial nerves 2 through 12 are grossly intact. - Labs CBC & Chem 7: 11/06/19 08:10 11/06/19 08:10 Labs: Abnormal Lab Results - Last 24 Hours (Table) 11/05/19 11/05/19 11/05/19 Range/Units 02:21 16:57 19:05 RBC (3.80-5.40) m/uL Hgb (11.4-16.0) gm/dL Hct (34.0-46.0) % RDW (11.5-15.5) % Plt Count (150-450) k/uL Lymphocytes # (1.0-4.8) k/uL Sodium (137-145) mmol/L Potassium (3.5-5.1) mmol/L POC Glucose (mg/dL) 135 H 166 H (75-99) mg/dL Calcium (8.4-10.2) mg/dL Crossmatch See Detail 11/05/19 11/06/19 11/06/19 Range/Units 20:50 02:39 02:39 RBC 2.77 L (3.80-5.40) m/uL Hgb 7.9 L (11.4-16.0) gm/dL Hct 24.1 L (34.0-46.0) % RDW 16.1 H (11.5-15.5) % Plt Count 85 L (150-450) k/uL Lymphocytes # 0.8 L (1.0-4.8) k/uL Sodium 129 L (137-145) mmol/L Potassium 3.4 L (3.5-5.1) mmol/L POC Glucose (mg/dL) 176 H (75-99) mg/dL Calcium 7.8 L (8.4-10.2) mg/dL Crossmatch 11/06/19 11/06/19 Range/Units 06:56 08:10 RBC 2.95 L (3.80-5.40) m/uL Hgb 8.4 L (11.4-16.0) gm/dL Hct 26.3 L (34.0-46.0) % RDW 16.3 H (11.5-15.5) % Plt Count 78 L (150-450) k/uL Lymphocytes # 0.7 L (1.0-4.8) k/uL Sodium (137-145) mmol/L Potassium (3.5-5.1) mmol/L POC Glucose (mg/dL) 106 H (75-99) mg/dL Calcium (8.4-10.2) mg/dL Crossmatch Assessment and Plan Plan: 1 chronic and recurrent left-sided pleural effusion post multiple thoracentesis, last procedure was done on 11/01/2019 subsequent complication of a hemorrhagic left-sided pleural effusion and drop in hemoglobin down to 7.4. The patient a pigtail catheter inserted yesterday and approximately 3 L of pleural fluid was drained from the left lung and the output was bloody. Hemoglobin minimal dropped onto as low as 7.4 and the patient was given a unit of packed RBC. The patient was also given 2 units of platelets. 2 shortness of breath secondary to above, improved 3 history of non-Hodgkin's lymphoma/chronic lymphocytic leukemia maintained on Imbruvica 4 chronic thrombocytopenia 5 chronic edema with interval drop in hemoglobin down to 7.4, and the patient was transfused with a subsequent hemoglobin level up to 8.4 6 chronic atrial fibrillation 7 diabetes mellitus 8 hypertension 9 hypothyroidism 10 previous history of DVT and pulmonary embolism 11 history of macular degeneration 12 history of sick sinus syndrome post pacemaker insertion Plan Monitor hemoglobin Monitor platelet count Monitor the output from the left-sided pigtail catheter Chest x-ray from today shows adequate expansion of the left lung and there is no evidence of any pneumothorax. There is near complete drainage of the left-sided pleural effusion. Cardiothoracic surgery is on the case. Ultimately plan is to put the Pleurx catheter in this patient regarding her recurrent left-sided pleural effusion and this will be done later stage I the catheter was removed and possibly on outpatient basis. We'll continue to follow.
--- NOTE | 2019-11-06 12:20 | P.PN ---
Subjective Progress Note Date: 11/06/19 Principal diagnosis: This is an 88-year-old female patient who is followed by Dr. Satish Pink on an outpatient basis. She has a past medical history significant for non-Hodgkin's lymphoma/CLL which she is currently receiving treatment of Imbruvica, recurrent left sided malignant pleural effusions, hypothyroidism, chronic atrial fibrillation with history of 2 heart ablations, sick sinus syndrome status post pacemaker placement type 2 diabetes mellitus, history of deep vein thrombosis, hypertension, history of pulmonary embolus, history of skin cancer, remote history of tobacco abuse, brain aneurysm and peripheral vascular disease. The patient underwent a left-sided thoracentesis on 11/03/2019 with 900 mL of dark yellow-colored fluid drained. The patient was discharged home and presented back to the emergency department later that day with complaints of syncopal episode. A repeat chest x-ray at that time was completed which demonstrated a tiny left apical pneumothorax. She was hemodynamically stable and subsequently discharged home and was to follow-up with her primary care physician over the next couple of days. This morning around 1:30 AM the patient reports that she was getting up to go to to use the restroom and complained of lightheadedness, felt like she was going to pass out and was short of breath. She denies any fever, chills, nausea, vomiting, diarrhea, recent trauma, headache or syncope. In the emergency room a chest x-ray was completed which demonstrated cardiomegaly with left lower lobe consolidation and recurrent left pleural effusion. A 12-lead EKG was completed which demonstrated atrial fibrillation with a heart rate of 63 BPM. For further evaluation a computed tomography scan of her chest was completed which showed a left-sided pleural effusion with admixed high-density material suggestive of hemothorax, a couple lymph nodes right infrahilar and right subcarinal measuring up to 1.3 cm and a trace parasplenic ascites. The patient's initial laboratory results showed a WBC count 8.7, hemoglobin 8.4, hematocrit 25.2, platelets 77, BUN 24 and creatinine 0.76. A repeat CBC showed her hemoglobin trending down at 7.4. Due to the patient's recurrent left malignant pleural effusion and suspected hemothorax a consult was placed to interventional radiology and she underwent a pigtail catheter insertion. The left pigtail catheter is to low continuous wall suction -20 cm H2O. Small air leak is present and it is draining serosanguineous drainage with 2 L of output since the pigtail catheter has been placed. A consult was also placed to Dr. Morgan Price from cardiothoracic surgery to follow for a possible Pleurx catheter placement. The patient's currently sitting up in a recliner in no acute distress. Denies pain, shortness of breath. Left-sided pigtail catheter present with serosanguineous drainage still present. The patient is wanting to go home so she is anxious to have this catheter removed. She has been ambulatory in her room. No new concerns. Objective - Vital Signs Vital signs: Vital Signs Temp 98.3 F 11/06/19 08:00 Pulse 70 11/06/19 11:00 Resp 11 L 11/06/19 11:00 BP 124/79 11/06/19 11:00 Pulse Ox 94 L 11/06/19 11:00 Intake & Output 11/05/19 11/06/19 11/06/19 18:59 06:59 18:59 Intake Total 291 527 250 Output Total 1999 1865 290 Balance -1709 -1338 -40 Weight 73.936 kg 78.3 kg Intake: Oral 250 Blood Product 291 527 Platelet Irr Pheresis 2 291 Acda Unit [id number] Platelet Irr Pheresis 3 0 217 Acda Unit [id number] Rc Pheresis 2 As3 Unit 310 [id number] Output: Chest Tube Drainage 1999 740 290 Chest Tube Left 1999 740 290 Urine 1125 0 Other: Voiding Method Bedpan Bedside Commode # Voids 1 - Constitutional General appearance: Present: cooperative, no acute distress, obese - Respiratory Details: Lungs sounds diminished bilaterally, fine scattered crackles at the bases. Respirations even, nonlabored. Currently on room air with oxygen saturation 94%. Left pleural pigtail catheter present to wall suction, 555 mL serosanguineous drainage overnight, 800 mL last 24 hours, no air leak present. - Cardiovascular Details: S1, S2 present. Regular rate and rhythm, atrial fibrillation on telemetry. Palpable peripheral pulses bilaterally. No edema present. No calf pain or tenderness noted. - Gastrointestinal Gastrointestinal Comment(s): Abdomen soft, nontender, nondistended. Active bowel sounds present 4 quadrants. Tolerating diet. - Genitourinary Genitourinary Comment(s): Continues to void - Integumentary Integumentary Comment(s): Skin is warm and dry with evidence of good perfusion - Neurologic Neurologic: Present: CNII-XII intact - Musculoskeletal Musculoskeletal: Present: gait normal, strength equal bilaterally - Psychiatric Psychiatric: Present: A&O x's 3, appropriate affect, intact judgment & insight - Allied health notes Allied health notes reviewed: nursing - Labs CBC & Chem 7: 11/06/19 08:10 11/06/19 08:10 Labs: Abnormal Lab Results - Last 24 Hours (Table) 11/05/19 11/05/19 11/05/19 Range/Units 02:21 16:57 19:05 RBC (3.80-5.40) m/uL Hgb (11.4-16.0) gm/dL Hct (34.0-46.0) % RDW (11.5-15.5) % Plt Count (150-450) k/uL Lymphocytes # (1.0-4.8) k/uL Sodium (137-145) mmol/L Potassium (3.5-5.1) mmol/L POC Glucose (mg/dL) 135 H 166 H (75-99) mg/dL Calcium (8.4-10.2) mg/dL Crossmatch See Detail 11/05/19 11/06/19 11/06/19 Range/Units 20:50 02:39 02:39 RBC 2.77 L (3.80-5.40) m/uL Hgb 7.9 L (11.4-16.0) gm/dL Hct 24.1 L (34.0-46.0) % RDW 16.1 H (11.5-15.5) % Plt Count 85 L (150-450) k/uL Lymphocytes # 0.8 L (1.0-4.8) k/uL Sodium 129 L (137-145) mmol/L Potassium 3.4 L (3.5-5.1) mmol/L POC Glucose (mg/dL) 176 H (75-99) mg/dL Calcium 7.8 L (8.4-10.2) mg/dL Crossmatch 11/06/19 11/06/19 Range/Units 06:56 08:10 RBC 2.95 L (3.80-5.40) m/uL Hgb 8.4 L (11.4-16.0) gm/dL Hct 26.3 L (34.0-46.0) % RDW 16.3 H (11.5-15.5) % Plt Count 78 L (150-450) k/uL Lymphocytes # 0.7 L (1.0-4.8) k/uL Sodium (137-145) mmol/L Potassium (3.5-5.1) mmol/L POC Glucose (mg/dL) 106 H (75-99) mg/dL Calcium (8.4-10.2) mg/dL Crossmatch - Imaging and Cardiology Chest x-ray: report reviewed, image reviewed Assessment and Plan Assessment: 1. Recurrent left-sided malignant pleural effusion, status post multiple thoracentesis, status post left pigtail pleural catheter placement 2. Acute blood loss anemia, secondary to hemothorax 3. Shortness of breath secondary to above 4. History of non-Hodgkin's lymphoma/chronic lymphocytic leukemia currently treated with Imbruvica 5. Chronic thrombocytopenia 6. Type 2 diabetes mellitus 7. Hypertension 8. Hypothyroidism 9. History of DVT 10. History of pulmonary embolism 11. History of sick sinus syndrome status post pacemaker insertion 12. History of chronic atrial fibrillation, status post multiple ablations 13. History of macular degeneration Plan: 1. Continue to monitor drainage from pigtail catheter 2. Will monitor daily chest x-rays 3. Encourage incentive spirometry use 10 times every hour while awake 4. Increase activity, ambulate as tolerated 5. Pain control per medication regimen 6. Management of other comorbidities per primary care service 7. We will be happy to place Pleurx catheter for patient when appropriate and patient is agreeable 8. More recommendations to follow Time with Patient: Greater than 30
[2019-11-06 12:37] LABS: Glucose,Whole Blood 113 mg/dL (75-99)
[2019-11-06 15:44] LABS: Anisocytosis Slight; HCT 26.1 % (34.0-46.0); HGB 8.7 gm/dL (11.4-16.0); Hypochromasia Slight; MCHC 33.3 g/dL (31.0-37.0); MCV 89.9 fL (80.0-100.0); Mean Platelet Volume 8.7; Poikilocytosis Slight; RDW 16.3 % (11.5-15.5); WBC 5.1 k/uL (3.8-10.6)
[2019-11-06 15:47] LABS: Platelet Count 83 k/uL (150-450)
[2019-11-06 17:01] LABS: Glucose,Whole Blood 127 mg/dL (75-99)
[2019-11-06 20:03] LABS: Glucose,Whole Blood 175 mg/dL (75-99)
[2019-11-06] MEDS: MELATONIN 5 MG TABLET PO SCH (20:07)
[2019-11-06] MEDS: MAGNESIUM OXIDE 400 MG TAB PO SCH (20:07)
[2019-11-06 21:02] LABS: Glucose,Whole Blood 135 mg/dL (75-99)
[2019-11-07 05:23] LABS: Anisocytosis Slight; Basophils % (A) 0 %; Eosinophils # (A) 0.1 k/uL (0-0.7); Eosinophils % (A) 1 %; HCT 25.8 % (34.0-46.0); HGB 8.5 gm/dL (11.4-16.0); Lymphocytes # (A) 0.7 k/uL (1.0-4.8); Lymphocytes % (A) 16 %; MCH 29.2 pg (25.0-35.0); MCHC 32.9 g/dL (31.0-37.0); MCV 88.6 fL (80.0-100.0); Mean Platelet Volume 7.8; Monocytes # (A) 0.3 k/uL (0-1.0); Monocytes % (A) 7 %; Neutrophils # (A) 3.2 k/uL (1.3-7.7); Neutrophils % (A) 74 %; RBC 2.92 m/uL (3.80-5.40); RDW 16.4 % (11.5-15.5); WBC 4.3 k/uL (3.8-10.6)
[2019-11-07 05:33] LABS: Platelet Count 79 k/uL (150-450)
[2019-11-07 05:55] LABS: Calcium 8.2 mg/dL (8.4-10.2)
[2019-11-07] MEDS: INSULIN ASPART (NovoLOG) 100 UNIT/ML VIAL SQ SCH ×5 (06:00→21:09)
[2019-11-07] MEDS: LEVOTHYROXINE 75 MCG TAB PO SCH (06:29)
[2019-11-07] MEDS: SODIUM CHLORIDE 0.9% 1,000 ML IV SCH (06:29)
--- NOTE | 2019-11-07 07:37 | XR ---
EXAMINATION TYPE: XR chest 1V portable DATE OF EXAM: 11/07/2019 COMPARISON: 11/06/2019 INDICATION: Effusion TECHNIQUE: Single frontal view of the chest is obtained. FINDINGS: The heart size is normal. The pulmonary vasculature is normal. Small left pleural effusion may be present. Mild adjacent infiltrate is present. Findings are worseni ng over the interval. This may be overlies left chest. Left-sided chest tube is present. A very subtl e left apical pneumothorax may be present. IMPRESSION: 1. Slight increase in small left pleural effusion. 2. Very subtle stable left apical pneumothorax.
--- NOTE | 2019-11-07 08:22 | P.PN ---
Subjective Progress Note Date: 11/07/19 Principal diagnosis: Recurrent left-sided malignant pleural effusion, status post multiple thoracentesis, status post left pigtail pleural catheter placement, acute blood loss anemia, shortness of breath. Previous medical history of non-Hodgkin's lymphoma/chronic lymphocytic leukemia currently treated with Imbruvica, chronic thrombocytopenia, type 2 diabetes mellitus, hypertension, hypothyroidism, DVT, pulmonary embolism, sick sinus syndrome status post pacemaker insertion, chronic atrial fibrillation status post multiple ablations, and macular degeneration The patient's currently sitting up in bed in no acute distress. Denies pain, shortness of breath. Left-sided pigtail catheter present with present with 550 mL thin serosanguineous drainage in the last 24 hours. She has been ambulatory in her room, and was up in the chair most of yesterday. No new concerns. Objective - Vital Signs Vital signs: Vital Signs Temp 97.4 F L 11/07/19 04:00 Pulse 66 11/07/19 07:00 Resp 18 11/07/19 07:00 BP 129/55 11/07/19 07:00 Pulse Ox 95 11/07/19 07:00 Intake & Output 11/06/19 11/07/19 11/07/19 18:59 06:59 18:59 Intake Total 700 600 480 Output Total 510 1330 Balance 190 -730 480 Weight 78 kg Intake: Oral 500 600 480 Blood Product 200 Output: Chest Tube Drainage 510 55 Chest Tube Left 510 55 Urine 0 1275 Other: Voiding Method Bedside Commode Bedside Commode # Voids 1 1 # Bowel Movements 1 - Constitutional General appearance: Present: cooperative, no acute distress, obese - Respiratory Details: Lungs sounds diminished bilaterally. Respirations even, nonlabored. Currently on room air with oxygen saturation 96%. Able to achieve 1000 mL on her incentive spirometer. Left pleural pigtail catheter present to waterseal, 85 mL thin serosanguineous drainage overnight, 550 mL last 24 hours, no air leak present. - Cardiovascular Details: S1, S2 present. Irregular rate and rhythm, atrial fibrillation on telemetry. Palpable peripheral pulses bilaterally. No edema present. No calf pain or tenderness noted. - Gastrointestinal Gastrointestinal Comment(s): Abdomen soft, nontender, nondistended. Active bowel sounds present 4 quad rants. Tolerating diet. - Genitourinary Genitourinary Comment(s): Continues to void - Integumentary Integumentary Comment(s): Skin is warm and dry with evidence of good perfusion - Neurologic Neurologic: Present: CNII-XII intact - Musculoskeletal Musculoskeletal: Present: gait normal, strength equal bilaterally - Psychiatric Psychiatric: Present: A&O x's 3, appropriate affect, intact judgment & insight - Allied health notes Allied health notes reviewed: nursing - Labs CBC & Chem 7: 11/07/19 04:40 11/07/19 04:40 Labs: Abnormal Lab Results - Last 24 Hours (Table) 11/06/19 11/06/19 11/06/19 Range/Units 08:10 12:35 15:20 RBC 2.95 L 2.90 L (3.80-5.40) m/uL Hgb 8.4 L 8.7 L (11.4-16.0) gm/dL Hct 26.3 L 26.1 L (34.0-46.0) % RDW 16.3 H 16.3 H (11.5-15.5) % Plt Count 78 L 83 L (150-450) k/uL Lymphocytes # 0.7 L (1.0-4.8) k/uL Sodium (137-145) mmol/L POC Glucose (mg/dL) 113 H (75-99) mg/dL Calcium (8.4-10.2) mg/dL 11/06/19 11/06/19 11/06/19 Range/Units 17:00 20:02 21:01 RBC (3.80-5.40) m/uL Hgb (11.4-16.0) gm/dL Hct (34.0-46.0) % RDW (11.5-15.5) % Plt Count (150-450) k/uL Lymphocytes # (1.0-4.8) k/uL Sodium (137-145) mmol/L POC Glucose (mg/dL) 127 H 175 H 135 H (75-99) mg/dL Calcium (8.4-10.2) mg/dL 11/07/19 11/07/19 Range/Units 04:40 04:40 RBC 2.92 L (3.80-5.40) m/uL Hgb 8.5 L (11.4-16.0) gm/dL Hct 25.8 L (34.0-46.0) % RDW 16.4 H (11.5-15.5) % Plt Count 79 L (150-450) k/uL Lymphocytes # 0.7 L (1.0-4.8) k/uL Sodium 132 L (137-145) mmol/L POC Glucose (mg/dL) (75-99) mg/dL Calcium 8.2 L (8.4-10.2) mg/dL - Imaging and Cardiology Chest x-ray: report reviewed, image reviewed Assessment and Plan Assessment: 1. Recurrent left-sided malignant pleural effusion, status post multiple thor acentesis, status post left pigtail pleural catheter placement 2. Acute blood loss anemia, secondary to hemothorax 3. Shortness of breath secondary to above 4. History of non-Hodgkin's lymphoma/chronic lymphocytic leukemia currently treated with Imbruvica 5. Chronic thrombocytopenia 6. Type 2 diabetes mellitus 7. Hypertension 8. Hypothyroidism 9. History of DVT 10. History of pulmonary embolism 11. History of sick sinus syndrome status post pacemaker insertion 12. History of chronic atrial fibrillation, status post multiple ablations 13. History of macular degeneration Plan: 1. Continue to monitor drainage from pigtail catheter, catheter to waterseal 2. Will monitor daily chest x-rays 3. Encourage incentive spirometry use 10 times every hour while awake 4. Increase activity, ambulate as tolerated 5. Pain control per medication regimen 6. Management of other comorbidities per primary care service 7. We will be happy to place Pleurx catheter for patient when appropriate and patient is agreeable 8. More recommendations to follow Time with Patient: Greater than 30
[2019-11-07] MEDS: PANTOPRAZOLE 40 MG/10 ML VIAL IVP SCH (10:01)
[2019-11-07] MEDS: MAGNESIUM OXIDE 400 MG TAB PO SCH (10:01)
[2019-11-07] MEDS: METOPROLOL TARTRATE 25 MG TAB PO SCH ×2 (10:02→21:06)
[2019-11-07] MEDS: MULTIVITAMINS, THERA 1 EACH TAB PO SCH (10:02)
[2019-11-07] MEDS: FUROSEMIDE 20 MG TAB PO SCH (10:02)
[2019-11-07] MEDS: VIT A,C & E-LUTEIN-MINERALS 1 EACH TAB PO SCH ×2 (10:03→21:09)
[2019-11-07] MEDS: CITALOPRAM HYDROBROMIDE 10 MG TAB PO SCH (10:03)
--- NOTE | 2019-11-07 11:07 | P.PN ---
Subjective Progress Note Date: 11/07/19 This is an 88-year-old female patient of Dr. Pink with past medical history of stage IV non-Hodgkin's lymphoma, history of chronic and recurrent left-sided pleural effusion, chronic atrial fibrillation PE and DVT, history of brain aneurysm, macular degeneration. The patient has recurrent left-sided pleural effusions. She had last thoracentesis in June 09. She states she usually can go 2-3 months before refills and it Needs to be done. On November 02, she came into third floor [facility] underwent a left thoracentesis with Dr. Pires with removal of 900 mL of fluid at 9 in the morning. She then presented to [facility] emergency center for evaluation after having 2 syncopal episodes. Performed in the emergency center showed cardiomegaly with left lower lobe consolidation and left pleural effusion increased compared to recent exam. No obvious heart failure. CAT scan of the chest revealed a large left pleural effusion that shows admixed high-density material suggestive hemothorax. There is also foci of air within the effusion towards the lung bases. Correlate for iatrogenic air from recent procedure versus superinfection. Large left pleural effusion has mass effect pressing down on the left diaphragm and also collapsing the basilar left lower lobe and inferior lingula. Patchy opacities throughout the remaining left lung could represent additional areas of atelectasis and/or developing pneumonia. A couple lymph nodes right infrahilar and right subcarinal are slightly larger from October 16 measuring up to 1.3 cm. These may be reactive or could reflect lymphomatosis involvement. Pulmonary artery hypertension due to trace. Splenic ascites. She was afebrile, heart rate 78, blood pressure 114/67, pulse ox 97% on 2 L nasal cannula. WBC 8.7, hemoglobin 8.4, platelet count 77. Sodium 128, potassium 3.8, chloride 95, CO2 25, BUN 24 and creatinine 0.67. Blood sugar 149. Patient complains of significant shortness of breath with very minimal moving such itching as sitting up on the stretcher. She denies having any fevers but she states she feels clammy. She states she was to see a physician at [facility] for catheter placement for the left pleural effusion on November 26. Patient admitted to the hospital and consult with Dr. Pires. 11/05: Yesterday, patient underwent pigtail catheter insertion by interventional radiologist, currently too low continuous suction. There has been return of serosanguineous drainage initially 2 L and patient is status post 1 unit packed RBCs and 2 units of platelets. As morning, lab work reveals WBC 4.4, hemoglobin 7.9, platelet count 85. Sodium 139, potassium 3.9, BUN 17 and creatinine 0.76. Blood sugars running between 92 and 176. Repeat chest x-ray this morning reveals diminished left pleural effusion with left lower lobe infiltrate. Patient has been seen by cardiothoracic surgery following for Pleurx catheter placement. budder is atrial fibrillation with ventricular pacing. Patient is afebrile, heart rate 69, blood pressure 116/99, pulse ox and 94% on room air. Patient states that she is feeling much better from yesterday. Breathing is stable. Her mood is improved. The patient is very comfortable while at rest. Patient has had a good appetite and eating well. No nausea vomiting. She is passing gas but has not had a bowel movement. She plans to ge t up to the bathroom today and expects to have a bowel movement. 11/06: Patient states that last night was the first night that she slept well and has been up since 4:30 this morning. Her breathing remains improved. She does have some pain in the left chest area. She states that she has decided that she will see Dr. Bartlett at [facility] perform permanent catheter placement. She continues to have a sailors drainage from the chest tube with 550 ML's with past 24 hours. She has been afebrile, heart rate in the 60s, blood pressure 129/55, pulse ox 95% on room air. Repeat blood work reveals WBC 4.3, hemoglobin 8.5, platelet count 79. Sodium 132, creatinine 0.84. Blood sugar running between 93 and 175. Repeat chest x-ray reveals slight increase and small left pleural effusion. Subtle stable left apical pneumothorax. Objective - Vital Signs Vital signs: Vital Signs Temp 97.4 F L 11/07/19 04:00 Pulse 66 11/07/19 07:00 Resp 18 11/07/19 07:00 BP 129/55 11/07/19 07:00 Pulse Ox 95 11/07/19 07:00 Intake & Output 11/06/19 11/07/19 11/07/19 18:59 06:59 18:59 Intake Total 700 600 480 Output Total 510 1330 Balance 190 -730 480 Weight 78 kg Intake: Oral 500 600 480 Blood Product 200 Output: Chest Tube Drainage 510 55 Chest Tube Left 510 55 Urine 0 1275 Other: Voiding Method Bedside Commode Bedside Commode # Voids 1 1 # Bowel Movements 1 - Exam Review of Systems Constitutional: Reports fatigue, denies poor appetite, denies sweats, Reports weakness, Denies chills, Denies fever, Denies malaise Eyes: denies blurred vision, denies pain Ears, nose, mouth and throat: Denies dysphagia, Denies nasal congestion, Denies nasal discharge, Denies vertigo Cardiovascular: Reports decreased exercise tolerance, denies dyspnea on exertion, denies syncope, Denies chest pain, Denies edema, Denies leg edema, Denies shortness of breath Respiratory: denies dyspnea, Denies cough, Denies cough with sputum, Denies excessive sputum, Denies hemoptysis, Denies home oxygen, Denies respiratory infections, Denies wheezing Gastrointestinal: Denies abdominal pain, Denies diarrhea, Denies nausea, Denies vomiting Genitourinary: Denies dysuria, Denies hematuria, Denies urgency, Denies urinary frequency Musculoskeletal: Reports muscle weakness, Denies frequent falls, Denies gait dysfunction, Denies myalgias Integumentary: Denies pruritus, Denies rash, Denies wounds Neurological: Denies change in mentation, Denies change in speech, Denies num bness, Denies seizures, Denies weakness Psychiatric: Denies anxiety, Denies depression Endocrine: Denies fatigue, Denies weight change Physical Examination Gen: This is an 88-year-old obese female. She is resting in the ICU bed. At rest, patient appears to be comfortable and in no acute distress. HEENT: Head is atraumatic, normocephalic. Pupils equal, round. Sclerae is anicteric. NECK: Supple. No JVD. No lymphadenopathy. No thyromegaly. LUNGS: Diminished left lower lobe. No intercostal retractions. Left-sided pigtail chest tube in place attached to waterseal with continuous suction. HEART: Irregularly irregular rhythm. 2/6 systolic murmur. ABDOMEN: Soft. Bowel sounds are present. No masses. No tenderness. EXTREMITIES: Trace pedal edema. No calf tenderness. Dorsalis pedis +2 bilaterally. NEUROLOGICAL: Patient is awake, alert and oriented x3. Cranial nerves 2 through 12 are grossly intact. - Labs CBC & Chem 7: 11/07/19 04:40 11/07/19 04:40 Labs: Abnormal Lab Results - Last 24 Hours (Table) 11/06/19 11/06/19 11/06/19 Range/Units 08:10 12:35 15:20 RBC 2.95 L 2.90 L (3.80-5.40) m/uL Hgb 8.4 L 8.7 L (11.4-16.0) gm/dL Hct 26.3 L 26.1 L (34.0-46.0) % RDW 16.3 H 16.3 H (11.5-15.5) % Plt Count 78 L 83 L (150-450) k/uL Lymphocytes # 0.7 L (1.0-4.8) k/uL Sodium (137-145) mmol/L POC Glucose (mg/dL) 113 H (75-99) mg/dL Calcium (8.4-10.2) mg/dL 11/06/19 11/06/19 11/06/19 Range/Units 17:00 20:02 21:01 RBC (3.80-5.40) m/uL Hgb (11.4-16.0) gm/dL Hct (34.0-46.0) % RDW (11.5-15.5) % Plt Count (150-450) k/uL Lymphocytes # (1.0-4.8) k/uL Sodium (137-145) mmol/L POC Glucose (mg/dL) 127 H 175 H 135 H (75-99) mg/dL Calcium (8.4-10.2) mg/dL 11/07/19 11/07/19 Range/Units 04:40 04:40 RBC 2.92 L (3.80-5.40) m/uL Hgb 8.5 L (11.4-16.0) gm/dL Hct 25.8 L (34.0-46.0) % RDW 16.4 H (11.5-15.5) % Plt Count 79 L (150-450) k/uL Lymphocytes # 0.7 L (1.0-4.8) k/uL Sodium 132 L (137-145) mmol/L POC Glucose (mg/dL) (75-99) mg/dL Calcium 8.2 L (8.4-10.2) mg/dL Assessment and Plan Plan: 1. Recurring left-sided pleural effusion secondary to non-Hodgkin's lymphoma. Consult with Dr. Pires appreciated. Status post pigtail catheter placement. Cardiothoracic surgery consult appreciated. IV fluids to KVO. Continue Lasix 20 mg daily. 2. Hemothorax status post pigtail catheter placement. Patient is status post transfusion 1 unit packed RBCs and 2 units of platelets. 3. Acute blood loss anemia secondary to hemothorax status post transfusion of 1 unit of packed RBCs. 4. Chronic thrombocytopenia secondary to non-Hodgkin's lymphoma. Patient is status post transfusion of 2 units platelets. 5. Chronic atrial fibrillation. Continue Lopressor 25 mg twice daily. 6. Diabetes mellitus type 2. Hold metformin. Continue NovoLog scale before meals and at bedtime. Consistent carb diet. 7. Hypertension. Continue Lopressor, Lasix. 8. Hypothyroidism. Continue levothyroxine 75 g daily. 9. Hyponatremia. Monitor lab work. 10. Anemia of chronic disease. 11. History of PE and DVT, stable. 12. Macular degeneration. Continue eyedrops and vitamins. 13. Sick sinus syndrome Status post pacemaker. 14. DVT prophylaxis. SCDs and ESTHER hose. 15. GI prophylaxis. Protonix. 16. COVID-19 infection not present. Discharge plan: Home with [facility]NA. PT consult added. Impression and plan of care have been directed as dictated by the signing physician. Zeny Perez nurse practitioner acting as scribe for signing physician.
--- NOTE | 2019-11-07 13:12 | P.PN ---
Subjective Progress Note Date: 11/07/19 Principal diagnosis: Chronic and recurrent left-sided pleural effusion post multiple thoracentesis status post pigtail chest tube insertion An 88-year-old female patient with known history of non-Hodgkin's lymphoma/CLL is currently receiving Imbruvica. The patient has had recurrent malignant left- sided pleural effusion requiring episodic thoracentesis. Note that we were seek ing also a Pleurx catheter insertion in this patient and she has an appointment with a thoracic surgeon off [facility] to undergo this. She came to my office and she was requesting another thoracentesis for palliative reasons the patient was getting short of breath. At that point, I performed the procedure yesterday and a total of 900 mL of fluid was removed without any major difficulties. She came briefly an hour after the procedure to the emergency department having some dizziness and presyncope. Her x-ray was stable and there was no evidence of any pneumothorax. She was hemodynamically stable. She was released home. She came back this morning with similar symptoms of feeling weak and tired and short of breath and having another episode of presyncope. The patient at that point had a chest x-ray that showed a reaccumulation of the left-sided pleural effusion. The hemoglobin had dropped down to 8.4 and a CAT scan of the chest was done that showed a left-sided pleural effusion, possibly a pneumothorax postthoracentesis. Note that the subsequent hemoglobin dropped do wn to 7.4. The patient has a thrombocytopenia with a platelet count of 65. Her sodium level is up down to 128. At this point the patient is hospitalized. I discussed the case with thoracic surgery. We thought with better off with draining this patient with a pigtail catheter to evaluate the left-sided pleural effusion prior to making further commitment regarding either chest tube or later on a Pleurx catheter insertion. The patient opted to stay in the hospital for the above-mentioned reasons. Based on underlying thrombocytopenia, I'm going to give her a platelet transfusion followed by a interventional radiology to insert a pigtail catheter into the left hemithorax to optimize her breathing status. She is currently on 2 L of oxygen by nasal cannula. She is normotensive. BP is 160/87. No significant tachycardia. No chest pain. She is experiencing some slight worsening shortness of breath on clinical basis. No trauma. No fall. No trauma to the chest area. On today's evaluation of 11/06/2019, I'm seeing the patient for a follow-up. She is doing well and she is less short of breath compared to yesterday. A pigtail catheter was inserted yesterday and immediately there was approximately 2 L of bloody effusion. Overnight the patient is a 700 mL an slowed down and ou tput is being monitored very closely. The patient received a total of 2 units of platelets and 1 unit of packed RBC. No significant air leak around the chest tube. She is using incentive spirometer. CBC is being monitored and the patient was given a unit of packed RBC for hemoglobin of 7.4. No tachycardia. No hypotension. She is hemodynamically stable. She is not having any chest pain cough sputum production chest tightness or wheezing. No confusion. No altered mentation. On 11/07/2019 patient seen in follow-up in the intensive care unit, she is awake and alert, in no acute distress, left-sided pigtail chest tube catheter put out 550 ML of serosanguineous output in the last 24 hours, and 55 ML in the last 12 hours, today's chest x-ray shows slight increase in small left plural effusion. Subtle stable left apical pneumothorax, CT surgery is following, and case was discussed with them, possible removal of the pigtail chest tube catheter tomorrow, and discharge home after, with outpatient follow-up for follow-up chest x-ray in the office with Dr. Osei. Patient will likely need placement of a Pleurx catheter. Otherwise patient has remained stable, no specific complaints, today's hemoglobin is 8.5, no signs are stable, renal profile within normal limits, sodium has improved to 132, the rest of electrolytes are within normal limits. Objective - Vital Signs Vital signs: Vital Signs Temp 98.8 F 11/07/19 08:00 Pulse 71 11/07/19 11:00 Resp 21 11/07/19 11:00 BP 130/61 11/07/19 11:00 Pulse Ox 96 11/07/19 11:00 Intake & Output 11/06/19 11/07/19 11/07/19 18:59 06:59 18:59 Intake Total 700 600 820 Output Total 510 1330 500 Balance 190 -730 320 Weight 78 kg Intake: Oral 500 600 820 Blood Product 200 Output: Chest Tube Drainage 510 55 Chest Tube Left 510 55 Urine 0 1275 500 Other: Voiding Method Bedside Commode Bedside Commode Bedside Commode # Voids 1 1 1 # Bowel Movements 1 - Exam GENERAL EXAM: Alert, very pleasant, 88-year-old white female comfortable in no apparent distress. HEAD: Normocephalic/atraumatic. EYES: Normal reaction of pupils, equal size. Conjunctiva pink, sclera white. NOSE: Clear with pink turbinates. THROAT: No erythema or exudates. NECK: No masses, no JVD, no thyroid enlargement, no adenopathy. CHEST: No chest wall deformity. Symmetrical expansion. Left chest pigtail chest tube connected to Pleur-evac, with serosanguineous thin output LUNGS: Equal air entry with no crackles, wheeze, rhonchi or dullness. CVS: Regular rate and rhythm, normal S1 and S2, no gallops, no murmurs, no rubs ABDOMEN: Soft, nontender. No hepatosplenomegaly, normal bowel sounds, no guarding or rigidity. EXTREMITIES: No clubbing, no edema, no cyanosis, 2+ pulses and upper and lower extremities. MUSCULOSKELETAL: Muscle strength and tone normal. SPINE: No scoliosis or deformity SKIN: No rashes CENTRAL NERVOUS SYSTEM: Alert and oriented -3. No focal deficits, tone is normal in all 4 extremities. PSYCHIATRIC: Alert and oriented -3. Appropriate affect. Intact judgment and insight. - Labs CBC & Chem 7: 11/07/19 04:40 11/07/19 04:40 Labs: Abnormal Lab Results - Last 24 Hours (Table) 11/06/19 11/06/19 11/06/19 Range/Units 15:20 17:00 20:02 RBC 2.90 L (3.80-5.40) m/uL Hgb 8.7 L (11.4-16.0) gm/dL Hct 26.1 L (34.0-46.0) % RDW 16.3 H (11.5-15.5) % Plt Count 83 L (150-450) k/uL Lymphocytes # (1.0-4.8) k/uL Sodium (137-145) mmol/L POC Glucose (mg/dL) 127 H 175 H (75-99) mg/dL Calcium (8.4-10.2) mg/dL 11/06/19 11/07/19 11/07/19 Range/Units 21:01 04:40 04:40 RBC 2.92 L (3.80-5.40) m/uL Hgb 8.5 L (11.4-16.0) gm/dL Hct 25.8 L (34.0-46.0) % RDW 16.4 H (11.5-15.5) % Plt Count 79 L (150-450) k/uL Lymphocytes # 0.7 L (1.0-4.8) k/uL Sodium 132 L (137-145) mmol/L POC Glucose (mg/dL) 135 H (75-99) mg/dL Calcium 8.2 L (8.4-10.2) mg/dL Assessment and Plan Plan: Assessment: 1 chronic and recurrent left-sided pleural effusion post multiple thoracentesis, last procedure was done on 11/01/2019 subsequent complication of a hemorrhagic left-sided pleural effusion and drop in hemoglobin down to 7.4. The patient a pigtail catheter inserted yesterday and approximately 3 L of pleural fluid was d rained from the left lung and the output was bloody. Hemoglobin minimal dropped onto as low as 7.4 and the patient was given a unit of packed RBC. The patient was also given 2 units of platelets. 2 shortness of breath secondary to above, improved 3 history of non-Hodgkin's lymphoma/chronic lymphocytic leukemia maintained on Imbruvica 4 chronic thrombocytopenia 5 chronic edema with interval drop in hemoglobin down to 7.4, and the patient was transfused with a subsequent hemoglobin level up to 8.4 6 chronic atrial fibrillation 7 diabetes mellitus 8 hypertension 9 hypothyroidism 10 previous history of DVT and pulmonary embolism 11 history of macular degeneration 12 history of sick sinus syndrome post pacemaker insertion Plan: Keep the pigtail catheter another 24 hours, there has been 550 mL of output from the chest tube in the last 24 hours, hemodynamically stable, no dyspnea, patient is on room air, today's chest x-ray has been reviewed showing small left pleural effusion. No acute events overnight, encourage deep breathing and coughing, may transfer out of intensive care unit, anticipate discontinuing the pigtail catheter tomorrow at the bedside. Will likely discharge home in the next 24 hours with outpatient follow-up with Dr. Pires in the office for follow-up chest x-ray next week, and if there is significant fluid buildup in the left lung, will have patient follow up with Dr. Ma for placement of Pleurx catheter I performed a history & physical examination of the patient and discussed their management with my nurse practitioner, Kristan Castillo. I reviewed the nurse practitioner's note and agree with the documented findings and plan of care. Patrizia ng sounds are positive for diminished breath sounds. The findings and the impression was discussed with the patient. I attest to the documentation by the nurse practitioner. Time with Patient: Less than 30
[2019-11-07 13:27] LABS: Glucose,Whole Blood 99 mg/dL (75-99)
[2019-11-07 16:50] LABS: Glucose,Whole Blood 134 mg/dL (75-99)
[2019-11-07 20:05] LABS: Glucose,Whole Blood 132 mg/dL (75-99)
[2019-11-07] MEDS: MELATONIN 5 MG TABLET PO SCH (21:06)
[2019-11-08 01:37] VITALS: RESP 18
[2019-11-08] MEDS: LEVOTHYROXINE 75 MCG TAB PO SCH (06:19)
[2019-11-08 07:25] VITALS: BP 109/65; PULSE 66; TEMP 98.2
[2019-11-08 07:25] LABS: Glucose,Whole Blood 104 mg/dL (75-99)
[2019-11-08] MEDS: INSULIN ASPART (NovoLOG) 100 UNIT/ML VIAL SQ SCH ×2 (07:33→12:45)
[2019-11-08] MEDS: PANTOPRAZOLE 40 MG/10 ML VIAL IVP SCH (08:25)
[2019-11-08] MEDS: MULTIVITAMINS, THERA 1 EACH TAB PO SCH (08:26)
[2019-11-08] MEDS: CITALOPRAM HYDROBROMIDE 10 MG TAB PO SCH (08:27)
[2019-11-08] MEDS: FUROSEMIDE 20 MG TAB PO SCH (08:27)
[2019-11-08] MEDS: SODIUM CHLORIDE 0.9% 1,000 ML IV SCH (08:27)
[2019-11-08] MEDS: MAGNESIUM OXIDE 400 MG TAB PO SCH (08:27)
[2019-11-08] MEDS: VIT A,C & E-LUTEIN-MINERALS 1 EACH TAB PO SCH (08:27)
[2019-11-08] MEDS: METOPROLOL TARTRATE 25 MG TAB PO SCH (08:27)
--- NOTE | 2019-11-08 09:43 | P.PN ---
Subjective Progress Note Date: 11/08/19 This is an 88-year-old female patient of Dr. Pink with past medical history of stage IV non-Hodgkin's lymphoma, history of chronic and recurrent left-sided pleural effusion, chronic atrial fibrillation PE and DVT, history of brain aneurysm, macular degeneration. The patient has recurrent left-sided pleural effusions. She had last thoracentesis in June 09. She states she usually can go 2-3 months before refills and it Needs to be done. On November 02, she came into third floor [facility] underwent a left thoracentesis with Dr. Pires with removal of 900 mL of fluid at 9 in the morning. She then presented to [facility] emergency center for evaluation after having 2 syncopal episodes. Performed in the emergency center showed cardiomegaly with left lower lobe consolidation and left pleural effusion increased compared to recent exam. No obvious heart failure. CAT scan of the chest revealed a large left pleural effusion that shows admixed high-density material suggestive hemothorax. There is also foci of air within the effusion towards the lung bases. Correlate for iatrogenic air from recent procedure versus superinfection. Large left pleural effusion has mass effect pressing down on the left diaphragm and also collapsing the basilar left lower lobe and inferior lingula. Patchy opacities throughout the remaining left lung could represent additional areas of atelectasis and/or developing pneumonia. A couple lymph nodes right infrahilar and right subcarinal are slightly larger from October 16 measuring up to 1.3 cm. These may be reactive or could reflect lymphomatosis involvement. Pulmonary artery hypertension due to trace. Splenic ascites. She was afebrile, heart rate 78, blood pressure 114/67, pulse ox 97% on 2 L nasal cannula. WBC 8.7, hemoglobin 8.4, platelet count 77. Sodium 128, potassium 3.8, chloride 95, CO2 25, BUN 24 and creatinine 0.67. Blood sugar 149. Patient complains of significant shortness of breath with very minimal moving such itching as sitting up on the stretcher. She denies having any fevers but she states she feels clammy. She states she was to see a physician at [facility] for catheter placement for the left pleural effusion on November 26. Patient admitted to the hospital and consult with Dr. Pires. 11/05: Yesterday, patient underwent pigtail catheter insertion by interventional radiologist, currently too low continuous suction. There has been return of serosanguineous drainage initially 2 L and patient is status post 1 unit packed RBCs and 2 units of platelets. As morning, lab work reveals WBC 4.4, hemoglobin 7.9, platelet count 85. Sodium 139, potassium 3.9, BUN 17 and creatinine 0.76. Blood sugars running between 92 and 176. Repeat chest x-ray this morning reveals diminished left pleural effusion with left lower lobe infiltrate. Patient has been seen by cardiothoracic surgery following for Pleurx catheter placement. box person is atrial fibrillation with ventricular pacing. Patient is afebrile, heart rate 69, blood pressure 116/99, pulse ox and 94% on room air. Patient states that she is feeling much better from yesterday. Breathing is stable. Her mood is improved. The patient is very comfortable while at rest. Patient has had a good appetite and eating well. No nausea vomiting. She is passing gas but has not had a bowel movement. She plans to ge t up to the bathroom today and expects to have a bowel movement. 11/06: Patient states that last night was the first night that she slept well and has been up since 4:30 this morning. Her breathing remains improved. She does have some pain in the left chest area. She states that she has decided that she will see Dr. Bartlett at [facility] perform permanent catheter placement. She continues to have a sailors drainage from the chest tube with 550 ML's with past 24 hours. She has been afebrile, heart rate in the 60s, blood pressure 129/55, pulse ox 95% on room air. Repeat blood work reveals WBC 4.3, hemoglobin 8.5, platelet count 79. Sodium 132, creatinine 0.84. Blood sugar running between 93 and 175. Repeat chest x-ray reveals slight increase and small left pleural effusion. Subtle stable left apical pneumothorax. 11/07: Patient is sitting up in a recliner and apparent distress she complains of some soreness where the pigtail catheter is in, she has not had increased drainage from the chest tube site, she has no fever or chills, she has no abdominal pain, she has a very good appetite, she seems to be doing very well. Objective - Vital Signs Vital signs: Vital Signs Temp 98.2 F 11/08/19 05:00 Pulse 66 11/08/19 05:00 Resp 18 11/08/19 05:00 BP 109/65 11/08/19 05:00 Pulse Ox 95 11/08/19 05:00 Intake & Output 11/07/19 11/08/19 11/08/19 18:59 06:59 18:59 Intake Total 1900 500 Output Total 1000 100 Balance 900 500 -100 Intake: Intake, IV Titration 120 Amount Sodium Chloride 0.9% 1, 120 000 ml @ 20 mls/hr IV . Q24H [facility] Rx#:[id number] Oral 1780 500 Output: Chest Tube Drainage 100 Chest Tube Left 100 Urine 1000 Other: Voiding Method Bedside Commode Bedside Commode # Voids 4 2 # Bowel Movements 1 0 - Exam - Exam Review of Systems Constitutional: Reports fatigue, denies poor appetite, denies sweats, Reports weakness, Denies chills, Denies fever, Denies malaise Eyes: denies blurred vision, denies pain Ears, nose, mouth and throat: Denies dysphagia, Denies nasal congestion, Denies nasal discharge, Denies vertigo Cardiovascular: Reports decreased exercise tolerance, denies dyspnea on exertion, denies syncope, Denies chest pain, Denies edema, Denies leg edema, Denies shortness of breath Respiratory: denies dyspnea, Denies cough, Denies cough with sputum, Denies excessive sputum, Denies hemoptysis, Denies home oxygen, Denies respiratory infections, Denies wheezing Gastrointestinal: Denies abdominal pain, Denies diarrhea, Denies nausea, Denies vomiting Genitourinary: Denies dysuria, Denies hematuria, Denies urgency, Denies urinary frequency Musculoskeletal: Reports muscle weakness, Denies frequent falls, Denies gait dysfunction, Denies myalgias Integumentary: Denies pruritus, Denies rash, Denies wounds Neurological: Denies change in mentation, Denies change in speech, Denies numbness, Denies seizures, Denies weakness Psychiatric: Denies anxiety, Denies depression Endocrine: Denies fatigue, Denies weight change Physical Examination Gen: This is an 88-year-old obese female. She is resting in the ICU bed. At rest, patient appears to be comfortable and in no acute distress. HEENT: Head is atraumatic, normocephalic. Pupils equal, round. Sclerae is anic teric. NECK: Supple. No JVD. No lymphadenopathy. No thyromegaly. LUNGS: Diminished left lower lobe. No intercostal retractions. Left-sided pigtail chest tube in place attached to waterseal with continuous suction. HEART: Irregularly irregular rhythm. 2/6 systolic murmur. ABDOMEN: Soft. Bowel sounds are present. No masses. No tenderness. EXTREMITIES: Trace pedal edema. No calf tenderness. Dorsalis pedis +2 bilaterally. NEUROLOGICAL: Patient is awake, alert and oriented x3. Cranial nerves 2 through 12 are grossly intact. - Labs CBC & Chem 7: 11/07/19 04:40 11/07/19 04:40 Labs: Abnormal Lab Results - Last 24 Hours (Table) 11/07/19 11/07/19 11/08/19 Range/Units 16:49 20:03 07:23 POC Glucose (mg/dL) 134 H 132 H 104 H (75-99) mg/dL Assessment and Plan Assessment: Assessment and Plan Plan: 1. Recurring left-sided pleural effusion secondary to non-Hodgkin's lymphoma. Consult with Dr. Pires appreciated. Status post pigtail catheter placement. Cardiothoracic surgery consult appreciated. IV fluids to KVO. Continue Lasix 20 mg daily. 2. Hemothorax status post pigtail catheter placement. Patient is status post transfusion 1 unit packed RBCs and 2 units of platelets. 3. Acute blood loss anemia secondary to hemothorax status post transfusion of 1 unit of packed RBCs. 4. Chronic thrombocytopenia secondary to non-Hodgkin's lymphoma. Patient is status post transfusion of 2 units platelets. 5. Chronic atrial fibrillation. Continue Lopressor 25 mg twice daily. 6. Diabetes mellitus type 2. Hold metformin. Continue NovoLog scale before meals and at bedtime. Consistent carb diet. 7. Hypertension. Continue Lopressor, Lasix. 8. Hypothyroidism. Continue levothyroxine 75 g daily. 9. Hyponatremia. Monitor lab work. 10. Anemia of chronic disease. 11. History of PE and DVT, stable. 12. Macular degeneration. Continue eyedrops and vitamins. 13. Sick sinus syndrome Status post pacemaker. 14. DVT prophylaxis. SCDs and ESTHER hose. 15. GI prophylaxis. Protonix. 16. COVID-19 infection not present. Discharge plan: Home with [facility]. PT consult added.
--- NOTE | 2019-11-08 10:12 | P.PN ---
Subjective Progress Note Date: 11/08/19 Principal diagnosis: Recurrent left-sided malignant pleural effusion, status post multiple thoracentesis, status post left pigtail pleural catheter placement, acute blood loss anemia, shortness of breath. Previous medical history of non-Hodgkin's lymphoma/chronic lymphocytic leukemia currently treated with Imbruvica, chronic thrombocytopenia, type 2 diabetes mellitus, hypertension, hypothyroidism, DVT, pulmonary embolism, sick sinus syndrome status post pacemaker insertion, chronic atrial fibrillation status post multiple ablations, and macular degeneration The patient's currently sitting up in a recliner on the medical oncology unit in no acute distress. Denies pain, shortness of breath. Left-sided pigtail catheter present with present with 200 mL thin serosanguineous drainage in the last 24 hours. She has been ambulatory in her room without difficulty. No new concerns. Objective - Vital Signs Vital signs: Vital Signs Temp 98.2 F 11/08/19 05:00 Pulse 66 11/08/19 05:00 Resp 18 11/08/19 05:00 BP 109/65 11/08/19 05:00 Pulse Ox 95 11/08/19 05:00 Intake & Output 11/07/19 11/08/19 11/08/19 18:59 06:59 18:59 Intake Total 1900 500 Output Total 1000 100 Balance 900 500 -100 Intake: Intake, IV Titration 120 Amount Sodium Chloride 0.9% 1, 120 000 ml @ 20 mls/hr IV . Q24H [facility] Rx#:[id number] Oral 1780 500 Output: Chest Tube Drainage 100 Chest Tube Left 100 Urine 1000 Other: Voiding Method Bedside Commode Bedside Commode Bedside Commode # Voids 4 2 # Bowel Movements 1 0 - Constitutional General appearance: Present: cooperative, no acute distress - Respiratory Details: Lungs sounds diminished bilaterally. Respirations even, nonlabored. Currently on room air with oxygen saturation 95%. Able to achieve 1000 mL on her incentive spirometer. Left pleural pigtail catheter present to waterseal, 200 mL thin serosanguineous drainage in the last 24 hours, no air leak present. - Cardiovascular Details: S1, S2 present. Irregular rate and rhythm. Palpable peripheral pulses bilaterally. No edema present. No calf pain or tenderness noted. - Gastrointestinal Gastrointestinal Comment(s): Abdomen soft, nontender, nondistended. Active bowel sounds present 4 quadrants. Tolerating diet. - Genitourinary Genitourinary Comment(s): Continues to void - Integumentary Integumentary Comment(s): Skin is warm and dry with evidence of good perfusion - Neurologic Neurologic: Present: CNII-XII intact - Musculoskeletal Musculoskeletal: Present: gait normal, strength equal bilaterally - Psychiatric Psychiatric: Present: A&O x's 3, appropriate affect, intact judgment & insight - Allied health notes Allied health notes reviewed: nursing - Labs CBC & Chem 7: 11/07/19 04:40 11/07/19 04:40 Labs: Abnormal Lab Results - Last 24 Hours (Table) 11/07/19 11/07/19 11/08/19 Range/Units 16:49 20:03 07:23 POC Glucose (mg/dL) 134 H 132 H 104 H (75-99) mg/dL Assessment and Plan Assessment: 1. Recurrent left-sided malignant pleural effusion, status post multiple thoracentesis, status post left pigtail pleural catheter placement 2. Acute blood loss anemia, secondary to hemothorax 3. Shortness of breath secondary to above 4. History of non-Hodgkin's lymphoma/chronic lymphocytic leukemia currently treated with Imbruvica 5. Chronic thrombocytopenia 6. Type 2 diabetes mellitus 7. Hypertension 8. Hypothyroidism 9. History of DVT 10. History of pulmonary embolism 11. History of sick sinus syndrome status post pacemaker insertion 12. History of chronic atrial fibrillation, status post multiple ablations 13. History of macular degeneration Plan: 1. Pigtail catheter removed. 2. Encourage incentive spirometry use 10 times every hour while awake 3. Increase activity, ambulate as tolerated 4. Pain control per medication regimen 5. Management of other comorbidities per primary care service 6. Patient may be discharged to home from cardiothoracic surgery standpoint. She should follow up in the pulmonology office this week for chest x-ray, once there is enough effusion built back up we will schedule patient for Pleurx catheter placement. This plan has been discussed in detail with the patient and the pulmonology and all are in agreement. Time with Patient: Greater than 30
--- NOTE | 2019-11-08 12:13 | P.PN ---
Subjective Progress Note Date: 11/08/19 Principal diagnosis: Chronic and recurrent left-sided pleural effusion post multiple thoracentesis status post pigtail chest insertion and subsequent removal The patient is seen today 11/08/2019 in follow-up on the regular medical floor. She is sitting up in a chair at the bedside. Awake and alert in no acute distress. Breathing easier today compared to yesterday. Left-sided pigtail catheter removed this morning. She's been up ambulating with assistance in no acute distress. She is maintaining good O2 saturation in the mid 90s on room air. She's been afebrile. Hemodynamically stable. Objective - Vital Signs Vital signs: Vital Signs Temp 98.2 F 11/08/19 05:00 Pulse 66 11/08/19 05:00 Resp 18 11/08/19 05:00 BP 109/65 11/08/19 05:00 Pulse Ox 95 11/08/19 05:00 Intake & Output 11/07/19 11/08/19 11/08/19 18:59 06:59 18:59 Intake Total 1900 500 Output Total 1000 100 Balance 900 500 -100 Intake: Intake, IV Titration 120 Amount Sodium Chloride 0.9% 1, 120 000 ml @ 20 mls/hr IV . Q24H [facility] Rx#:[id number] Oral 1780 500 Output: Chest Tube Drainage 100 Chest Tube Left 100 Urine 1000 Other: Voiding Method Bedside Commode Bedside Commode Bedside Commode # Voids 4 2 # Bowel Movements 1 0 - Exam GENERAL EXAM: Alert, very pleasant, 88-year-old white female, on room air, comfortable in no apparent distress. HEAD: Normocephalic/atraumatic. EYES: Normal reaction of pupils, equal size. Conjunctiva pink, sclera white. NOSE: Clear with pink turbinates. THROAT: No erythema or exudates. NECK: No masses, no JVD, no thyroid enlargement, no adenopathy. CHEST: No chest wall deformity. Symmetrical expansion. Left chest pigtail catheter discontinued LUNGS: Equal air entry with crackles in left base, diminished CVS: Regular rate and rhythm, normal S1 and S2, no gallops, no murmurs, no rubs ABDOMEN: Soft, nontender. No hepatosplenomegaly, normal bowel sounds, no guarding or rigidity. EXTREMITIES: No clubbing, no edema, no cyanosis, 2+ pulses and upper and lower extremities. MUSCULOSKELETAL: Muscle strength and tone normal. SPINE: No scoliosis or deformity SKIN: No rashes CENTRAL NERVOUS SYSTEM: No focal deficits, tone is normal in all 4 extremities. PSYCHIATRIC: Alert and oriented -3. Appropriate affect. Intact judgment and insight. - Labs CBC & Chem 7: 11/07/19 04:40 11/07/19 04:40 Labs: Abnormal Lab Results - Last 24 Hours (Table) 11/07/19 11/07/19 11/08/19 Range/Units 16:49 20:03 07:23 POC Glucose (mg/dL) 134 H 132 H 104 H (75-99) mg/dL Assessment and Plan Assessment: 1 chronic and recurrent left-sided pleural effusion post multiple thoracentesis, last procedure was done on 11/01/2019 subsequent complication of a hemorrhagic left-sided pleural effusion and drop in hemoglobin down to 7.4. The patient a pigtail catheter inserted yesterday and approximately 3 L of pleural fluid was drained from the left lung and the output was bloody. Hemoglobin minimal dropped onto as low as 7.4 and the patient was given a unit of packed RBC. The patient was also given 2 units of platelets. Left-sided pigtail catheter removed on 11/08/2019. 2 shortness of breath secondary to above, improved, on room air 3 history of non-Hodgkin's lymphoma/chronic lymphocytic leukemia maintained on Imbruvica 4 chronic thrombocytopenia 5 chronic edema with interval drop in hemoglobin down to 7.4, and the patient was transfused with a subsequent hemoglobin level up to 8.4 6 chronic atrial fibrillation 7 diabetes mellitus 8 hypertension 9 hypothyroidism 10 previous history of DVT and pulmonary embolism 11 history of macular degeneration 12 history of sick sinus syndrome post pacemaker insertion Plan: The patient was seen and evaluated by Dr. Pires Pigtail catheter removed Cleared for discharge from pulmonary standpoint Follow-up in the office on November 10 for repeat chest x-ray If fluid re-accumulates in the future the plan is for Pleurx catheter placement by CT services I, the cosigning physician, performed a history & physical examination of the patient. Lungs sounds are clear. Maintaining good O2 saturations in the 90s on room air. I discussed the assessment and plan of care with my nurse practitioner, Sandra Saravia. I attest to the above note as dictated by her.
[2019-11-08 12:54] LABS: Glucose,Whole Blood 105 mg/dL (75-99)
--- NOTE | 2019-11-09 10:05 | P.DS ---
Providers Date of admission: 11/05/19 04:03 Expected date of discharge: 11/08/19 Attending physician: Satish Pink Consults: 11/05/19 03:59 Consult Physician Routine Consulting Provider: Jenniffer Pires Consult Reason/Comments: known Do you want consulting provider notified?: Yes 11/05/19 14:15 Consult Physician Routine Consulting Provider: Morgan Price Consult Reason/Comments: recurrent right pleural effusion, possible hemothor ax Do you want consulting provider notified?: Yes Primary care physician: Satish Pink [facility] Course: This is an 88-year-old female patient of Dr. Pink with past medical history of stage IV non-Hodgkin's lymphoma, history of chronic and recurrent left-sided pleural effusion, chronic atrial fibrillation PE and DVT, history of brain aneurysm, macular degeneration. The patient has recurrent left-sided pleural effusions. She had last thoracentesis in June 09. She states she usually can go 2-3 months before refills and it Needs to be done. On November 02, she came into third floor [facility] underwent a left thoracentesis with Dr. Pires with removal of 900 mL of fluid at 9 in the morning. She then presented to [facility] emergency center for evaluation after having 2 syncopal episodes. Performed in the emergency center showed cardiomegaly with left lower lobe consolidation and left pleural effusion increased compared to recent exam. No obvious heart failure. CAT scan of the chest revealed a large left pleural effusion that shows admixed high-density material suggestive hemothorax. There is also foci of air within the effusion towards the lung bases. Correlate for iatrogenic air from recent procedure versus superinfection. Large left pleural effusion has mass effect pressing down on the left diaphragm and also collapsing the basilar left lower lobe and inferior lingula. Patchy opacities throughout the remaining left lung could represent additional areas of atelectasis and/or developing pneumonia. A couple lymph nodes right infrahilar and right subcarinal are slightly larger from October 16 measuring up to 1.3 cm. These may be reactive or could reflect lymphomatosis involvement. Pulmonary artery hypertension due to trace. Splenic ascites. She was afebrile, heart rate 78, blood pressure 114/67, pulse ox 97% on 2 L nasal cannula. WBC 8.7, hemoglobin 8.4, platelet count 77. Sodium 128, potassium 3.8, chloride 95, CO2 25, BUN 24 and creatinine 0.67. Blood sugar 149. Patient complains of significant shortness of breath with very minimal moving such itching as sitting up on the stretcher. She denies having any fevers but she states she feels clammy. She states she was to see a physician at [facility] for catheter placement for the left pleural effusion on November 26. Patient admitted to the hospital and consult with Dr. Pires. 11/05: Yesterday, patient underwent pigtail catheter insertion by interventional radiologist, currently too low continuous suction. There has been return of serosanguineous drainage initially 2 L and patient is status post 1 unit packed RBCs and 2 units of platelets. As morning, lab work reveals WBC 4.4, hemoglobin 7.9, platelet count 85. Sodium 139, potassium 3.9, BUN 17 and creatinine 0.76. Blood sugars running between 92 and 176. Repeat chest x-ray this morning reveals diminished left pleural effusion with left lower lobe infiltrate. Patient has been seen by cardiothoracic surgery following for Pleurx catheter placement. quality assurance monitor final is atrial fibrillation with ventricular pacing. Patient is afebrile, heart rate 69, blood pressure 116/99, pulse ox and 94% on room air. Patient states that she is feeling much better from yesterday. Breathing is stable. Her mood is improved. The patient is very comfortable while at rest. Patient has had a good appetite and eating well. No nausea vomiting. She is passing gas but has not had a bowel movement. She plans to get up to the bathroom today and expects to have a bowel movement. 11/06: Patient states that last night was the first night that she slept well and has been up since 4:30 this morning. Her breathing remains improved. She does have some pain in the left chest area. She states that she has decided that she will see Dr. Bartlett at [facility] perform permanent catheter placement. She continues to have a sailors drainage from the chest tube with 550 ML's with past 24 hours. She has been afebrile, heart rate in the 60s, blood pressure 129/55, pulse ox 95% on room air. Repeat blood work reveals WBC 4.3, hemoglobin 8.5, platelet count 79. Sodium 132, creatinine 0.84. Blood sugar running between 93 and 175. Repeat chest x-ray reveals slight increase and small left pleural effusion. Subtle stable left apical pneumothorax. 11/07: Patient is sitting up in a recliner and apparent distress she complains of some soreness where the pigtail catheter is in, she has not had increased drainage from the chest tube site, she has no fever or chills, she has no abdominal pain, she has a very good appetite, she seems to be doing very well. discharge diagnoses: 1. Recurring left-sided pleural effusion secondary to non-Hodgkin's lymphoma. Consult with Dr. Lexis carter. Status post pigtail catheter placement and removal. 2. Hemothorax status post pigtail catheter placement. Patient is status post transfusion 1 unit packed RBCs and 2 units of platelets. 3. Acute blood loss anemia secondary to hemothorax status post transfusion of 1 unit of packed RBCs. 4. Chronic thrombocytopenia secondary to non-Hodgkin's lymphoma. 5. Chronic atrial fibrillation. 6. Diabetes mellitus type 2. 7. Hypertension. 8. Hypothyroidism. 9. Hyponatremia. 10. Anemia of chronic disease. 11. History of PE and DVT. 12. Macular degeneration. 13. Sick sinus syndrome Status post pacemaker. Patient Condition at Discharge: Serious Plan - Discharge Summary Discharge Rx Participant: No New Discharge Prescriptions: No Action Levothyroxine Sodium [Synthroid] 75 mcg PO DAILY Irbesartan/Hydrochlorothiazide [Avalide 150-12.5 mg Tablet] 0.5 tab PO HS Ergocalciferol (Vitamin D2) [Drisdol] 50,000 unit PO FR Vit C/E/Zn/Coppr/Lutein/Zeaxan [Preservision Areds 2 Softgel] 1 cap PO BID Magnesium Oxide [Mag-Ox] 500 mg PO DAILY metFORMIN HCL [Glucophage] 500 mg PO DAILY Furosemide [Lasix] 20 mg PO DAILY Acetaminophen Tab [Tylenol] 500 mg PO Q6HR PRN tab PRN Reason: Fever And/ Or Pain Citalopram Hydrobromide [CeleXA] 10 mg PO DAILY Multivit-Min/FA/Lycopen/Lutein [Centrum Silver Tablet] 1 tab PO DAILY Albuterol Sulfate [Proair Hfa] 2 puff INHALATION RT-TID PRN PRN Reason: Shortness Of Breath Tobramycin/Dexamethasone [Tobradex Ophth Susp] 1 drop BOTH EYES Q6H PRN PRN Reason: PINK EYE Fluticasone Nasal [place] [Flonase Nasal [place]] 1 spray EA NOSTRIL BID PRN PRN Reason: Allergy Symptoms Diphenoxylate HCl/Atropine [Lomotil 2.5-0.025 mg Tablet] 1 tab PO QID PRN PRN Reason: Diarrhea Ibrutinib [Imbruvica] 280 mg PO DAILY Metoprolol Tartrate 25 mg PO BID Discharge Medication List Ergocalciferol (Vitamin D2) [Drisdol] 50,000 unit PO FR 12/15/13 [History] Irbesartan/Hydrochlorothiazide [Avalide 150-12.5 mg Tablet] 0.5 tab PO HS 12/15/13 [History] Levothyroxine Sodium [Synthroid] 75 mcg PO DAILY 12/15/13 [History] Vit C/E/Zn/Coppr/Lutein/Zeaxan [Preservision Areds 2 Softgel] 1 cap PO BID 06/11/17 [History] Magnesium Oxide [Mag-Ox] 500 mg PO DAILY 10/05/17 [History] metFORMIN HCL [Glucophage] 500 mg PO DAILY 10/05/17 [History] Furosemide [Lasix] 20 mg PO DAILY 09/30/18 [History] Acetaminophen Tab [Tylenol] 500 mg PO Q6HR PRN tab 04/17/19 [Rx] Citalopram Hydrobromide [CeleXA] 10 mg PO DAILY 06/09/19 [History] Multivit-Min/FA/Lycopen/Lutein [Centrum Silver Tablet] 1 tab PO DAILY 11/03/19 [History] Albuterol Sulfate [Proair Hfa] 2 puff INHALATION RT-TID PRN 11/05/19 [History] Diphenoxylate HCl/Atropine [Lomotil 2.5-0.025 mg Tablet] 1 tab PO QID PRN 11/05/19 [History] Fluticasone Nasal [place] [Flonase Nasal [place]] 1 spray EA NOSTRIL BID PRN 11/05/19 [History] Ibrutinib [Imbruvica] 280 mg PO DAILY 11/05/19 [History] Metoprolol Tartrate 25 mg PO BID 11/05/19 [History] Tobramycin/Dexamethasone [Tobradex Ophth Susp] 1 drop BOTH EYES Q6H PRN 11/05/19 [History] Follow up Appointment(s)/Referral(s): Satish Pink MD [Primary Care Provider] - 1 Week (Patient to make own appt. Office closed at time of discharge. ) Morgan Price MD [STAFF PHYSICIAN] - 1 Week (Follow Dr. Chapman recommendations about follow-up appt. with Dr. Price for insertion of Pigtail catheter for recurrent Pleural Effusion. ) Jenniffer Pires MD [STAFF PHYSICIAN] - 11/12/19 (Patient to make own appt for Tuesday November 12, 2019. Office closed at time of discharge. ) [facility] Visiting Nurse, [NON-STAFF] - 1-2 Days Patient Instructions/Handouts: Type 2 Diabetes in Adults: New Diagnosis (DC), Pleural Effusion (DC), Anemia (DC) Activity/Diet/Wound Care/Special Instructions: Activity limited until follow-up appt. Consistent Carbohydrate diet.
== END 2019-11-08 14:05 | disposition home health service (06) | DRG 841 ==
LOC: EC 02:04 → 1SOBS 04:03 → OBSVTOIN 04:03 → 3SCARD 11:42 → 2SICU 16:48 → 5NMEDONC 11-07 12:24
PROVIDERS: ADMIT Internal Medicine; ATTEND Internal Medicine
PROC: 0W9B30Z Drainage of Left Pleural Cavity with Drainage Device, Percutaneous Approach (ICD-10-PCS; principal; 2019-11-05)
PROC: 30233R1 Transfusion of Nonautologous Platelets into Peripheral Vein, Percutaneous Approach (ICD-10-PCS; 2019-11-05)
PROC: 30233N1 Transfusion of Nonautologous Red Blood Cells into Peripheral Vein, Percutaneous Approach (ICD-10-PCS; 2019-11-05)
DX: C85.90 Non-Hodgkin lymphoma, unspecified, unspecified site (principal); J91.0 Malignant pleural effusion; J95.830 Postprocedural hemorrhage of a respiratory system organ or structure following a respiratory system procedure; D62 Acute posthemorrhagic anemia; E87.1 Hypo-osmolality and hyponatremia; I48.20 Chronic atrial fibrillation, unspecified; J93.82 Other air leak; R18.8 Other ascites; C91.10 Chronic lymphocytic leukemia of B-cell type not having achieved remission; J94.2 Hemothorax; I67.1 Cerebral aneurysm, nonruptured; I27.21 Secondary pulmonary arterial hypertension; I49.5 Sick sinus syndrome; D63.8 Anemia in other chronic diseases classified elsewhere; D69.59 Other secondary thrombocytopenia; E03.9 Hypothyroidism, unspecified; E11.9 Type 2 diabetes mellitus without complications; E86.0 Dehydration; F32.9 Major depressive disorder, single episode, unspecified; Z11.59 Encounter for screening for other viral diseases; H35.30 Unspecified macular degeneration; I10 Essential (primary) hypertension; D47.2 Monoclonal gammopathy; E66.9 Obesity, unspecified; Z68.31 Body mass index [BMI] 31.0-31.9, adult; M19.90 Unspecified osteoarthritis, unspecified site; Z79.84 Long term (current) use of oral hypoglycemic drugs; Z79.890 Hormone replacement therapy; Z79.899 Other long term (current) drug therapy; Z87.891 Personal history of nicotine dependence; Z86.718 Personal history of other venous thrombosis and embolism; Z95.0 Presence of cardiac pacemaker; Z86.711 Personal history of pulmonary embolism; Z96.653 Presence of artificial knee joint, bilateral; Z85.828 Personal history of other malignant neoplasm of skin; Z98.42 Cataract extraction status, left eye; Z98.41 Cataract extraction status, right eye; Z82.3 Family history of stroke; Z82.49 Family history of ischemic heart disease and other diseases of the circulatory system; Y84.4 Aspiration of fluid as the cause of abnormal reaction of the patient, or of later complication, without mention of misadventure at the time of the procedure
CPT/HCPCS: 32551; 36415; 71045; 71046; 71260; 77012; 80048; 80053; 81001; 82550; 83605; 83735; 84100; 84132; 84484; 85025; 85027; 85610; 85730; 86850; 86900; 86901; 86920; 93005; 96361; 96374; 96376; 99285

== ENCOUNTER → 2019-11-12 | Outpatient (CLI) | payer MEDICARE ==
[2019-11-12 11:46] LABS: Anisocytosis Slight; Basophils % (A) 0 %; Eosinophils # (A) 0.1 k/uL (0-0.7); Eosinophils % (A) 1 %; HCT 28.4 % (34.0-46.0); HGB 9.1 gm/dL (11.4-16.0); Hypochromasia Moderate; Lymphocytes # (A) 0.9 k/uL (1.0-4.8); Lymphocytes % (A) 14 %; MCH 28.9 pg (25.0-35.0); MCHC 31.9 g/dL (31.0-37.0); MCV 90.6 fL (80.0-100.0); Mean Platelet Volume 7.6; Monocytes # (A) 0.3 k/uL (0-1.0); Monocytes % (A) 5 %; Neutrophils # (A) 4.7 k/uL (1.3-7.7); Neutrophils % (A) 78 %; Platelet Count 114 k/uL (150-450); Poikilocytosis Slight; RBC 3.14 m/uL (3.80-5.40); WBC 6.1 k/uL (3.8-10.6)
[2019-11-12 11:55] LABS: ALT 24 U/L (4-34); AST 38 U/L (14-36); African American GFR (CKD) 90 (>60 ml/min/1.73 sqM); Albumin 3.1 g/dL (3.5-5.0); Albumin/Globulin Ratio 1.2; Alkaline Phosphatase 68 U/L (38-126); Anion Gap 8 mmol/L; Blood Urea Nitrogen 14 mg/dL (7-17); Calcium 8.6 mg/dL (8.4-10.2); Carbon Dioxide 28 mmol/L (22-30); Chloride 93 mmol/L (98-107); Globulin 2.5 g/dL; Glucose 113 mg/dL (74-99); Non-African American GFR(CKD) 78 (>60 ml/min/1.73 sqM); Potassium 4.2 mmol/L (3.5-5.1); Sodium 129 mmol/L (137-145); Total Protein 5.6 g/dL (6.3-8.2)
== END | disposition home or self-care (01) ==
LOC: LABWHC1 09:47
PROVIDERS: ATTEND Internal Medicine Critical Care Medicine
DX: J90 Pleural effusion, not elsewhere classified (principal)
CPT/HCPCS: 36415; 80053; 85025

== ENCOUNTER 2019-11-17 12:28 | Day surgery (SDC) | payer MEDICARE ==
[2019-11-13 11:16] VITALS: BMI 30.7
[~2019-11-17 12:28] MED LIST changes: +HEPARIN SODIUM,PORCINE 5,000 UNIT/ML 1 ML VIAL SQ ONE; -SODIUM CHLORIDE 0.9% 500 ML 500 ML in EMPTY BAG 1 BAG IV PRN
[2019-11-17] MEDS ORDERED: LACTATED RINGERS 1,000 ML IV ONE (12:40)
[2019-11-17] MEDS ORDERED: LIDOCAINE 1% (10MG/ML) FOR IV START INTRADERMA ONE (12:40)
[2019-11-17] MEDS ORDERED: HEPARIN SODIUM,PORCINE 5,000 UNIT/ML 1 ML VIAL ONE (12:42)
[2019-11-17 12:44] VITALS: TEMP 98
[2019-11-17 12:51] LABS: Glucose,Whole Blood 96 mg/dL (75-99)
[2019-11-17] MEDS ORDERED: MIDAZOLAM 2 MG/2 ML VIAL ONE (12:54)
[2019-11-17] MEDS ORDERED: fentaNYL (PF) 50 MCG/ML 2 ML AMP ONE (12:54)
[2019-11-17] MEDS ORDERED: LIDOCAINE 1% INJ 10MG/ML (20 ML MDV) SQ ONE (13:11)
[2019-11-17] MEDS ORDERED: LIDOCAINE 1% INJ 10MG/ML (10 ML MDV) SQ ONE ×2 (13:11)
[2019-11-17] MEDS ORDERED: LIDOCAINE 2% (PF) 20 MG/ML 5 ML VIAL SQ ONE (13:11)
--- NOTE | 2019-11-17 13:32 | P.OP ---
Date of Procedure: 11/17/19 Preoperative Diagnosis: Recurrent left pleural effusion Postoperative Diagnosis: Same Procedure(s) Performed: Insertion left Pleurx catheter with fluoroscopy Implants: Pleurx catheter Anesthesia: MAC Surgeon: Kevin Laura Police Captain Senior #1: Hernan Ford Estimated Blood Loss (ml): 1 IV fluids (ml): 700 Pathology: other (Left pleural fluid for cytology) Condition: stable Disposition: PACU Indications for Procedure: 89-year-old female with recurrent left pleural effusion and shortness of breath Operative Findings: Over 1 L of serous fluid was drained from the left pleural space Description of Procedure: The patient was brought to the operating room, placed supine on the operating table, IV sedation was administered. The left anterior and lateral chest and left upper quadrant were sterilely prepped and draped. One percent lidocaine was used to anesthetize an area overlying the seventh rib in the anterior axillary line and skinny needle used to confirm pleural fluid beneath this. Pleural space was then punctured with an 18-gauge needle and a guidewire threaded under fluoroscopic guidance into the pleural space. Entry incision was made at below the costal verge in the adjacent area of the left upper quadrant after administration of further local anesthesia. This was less than a centimeter. The wire puncture site was enlarged to just over a centimeter incision. Pleurx catheter was tunneled from the left upper quadrant incision to the left chest incision and the cuff left just under the skin. Introducer and dilator were placed over the wire under fluoroscopy. Dilator and wire were removed and the catheter introduced into the left pleural space through the introducer sheath. Catheter was connected to suction and pleural fluid collected. Catheter was secured at the exit site with a 2-0 silk. The entry site incision was closed with 2 layers of 4-0 Vicryl. Once we had complete finish draining the left pleural space, catheter was capped and a standard Pleurx dressing applied. Skin glue was applied at the entry site and a Band-Aid dressing applied there. Patient was transferred to recovery in stable condition. Plan - Discharge Summary Discharge Rx Participant: No New Discharge Prescriptions: No Action Levothyroxine Sodium [Synthroid] 75 mcg PO DAILY Irbesartan/Hydrochlorothiazide [Avalide 150-12.5 mg Tablet] 0.5 tab PO HS Ergocalciferol (Vitamin D2) [Drisdol] 50,000 unit PO FR Vit C/E/Zn/Coppr/Lutein/Zeaxan [Preservision Areds 2 Softgel] 1 cap PO BID Magnesium Oxide [Mag-Ox] 500 mg PO DAILY Furosemide [Lasix] 20 mg PO DAILY Acetaminophen Tab [Tylenol] 500 mg PO Q6HR PRN tab PRN Reason: Fever And/ Or Pain Citalopram Hydrobromide [CeleXA] 10 mg PO DAILY Multivit-Min/FA/Lycopen/Lutein [Centrum Silver Tablet] 1 tab PO DAILY Albuterol Sulfate [Proair Hfa] 2 puff INHALATION RT-TID PRN PRN Reason: Shortness Of Breath Fluticasone Nasal [place] [Flonase Nasal [place]] 1 spray EA NOSTRIL BID PRN PRN Reason: Allergy Symptoms Diphenoxylate HCl/Atropine [Lomotil 2.5-0.025 mg Tablet] 1 tab PO QID PRN PRN Reason: Diarrhea Ibrutinib [Imbruvica] 280 mg PO DAILY Metoprolol Tartrate 25 mg PO BID Discharge Medication List Ergocalciferol (Vitamin D2) [Drisdol] 50,000 unit PO FR 12/15/13 [History] Irbesartan/Hydrochlorothiazide [Avalide 150-12.5 mg Tablet] 0.5 tab PO HS 12/15/13 [History] Levothyroxine Sodium [Synthroid] 75 mcg PO DAILY 12/15/13 [History] Vit C/E/Zn/Coppr/Lutein/Zeaxan [Preservision Areds 2 Softgel] 1 cap PO BID 06/11/17 [History] Magnesium Oxide [Mag-Ox] 500 mg PO DAILY 10/05/17 [History] Furosemide [Lasix] 20 mg PO DAILY 09/30/18 [History] Acetaminophen Tab [Tylenol] 500 mg PO Q6HR PRN tab 04/17/19 [Rx] Citalopram Hydrobromide [CeleXA] 10 mg PO DAILY 06/09/19 [History] Multivit-Min/FA/Lycopen/Lutein [Centrum Silver Tablet] 1 tab PO DAILY 11/03/19 [History] Albuterol Sulfate [Proair Hfa] 2 puff INHALATION RT-TID PRN 11/05/19 [History] Diphenoxylate HCl/Atropine [Lomotil 2.5-0.025 mg Tablet] 1 tab PO QID PRN 11/05/19 [History] Fluticasone Nasal [place] [Flonase Nasal [place]] 1 spray EA NOSTRIL BID PRN 11/05/19 [History] Ibrutinib [Imbruvica] 280 mg PO DAILY 11/05/19 [History] Metoprolol Tartrate 25 mg PO BID 11/05/19 [History]
[2019-11-17] MEDS ORDERED: ACETAMINOPHEN TAB 500 MG TAB PO PRN (13:34)
[2019-11-17 13:58] VITALS: RESP 18
[2019-11-17 14:03] VITALS: BP 101/67; PULSE 68
--- NOTE | 2019-11-17 14:11 | XR ---
EXAMINATION TYPE: XR chest 1V portable DATE OF EXAM: 11/07/2019 HISTORY: Pleural Catheter placement COMPARISON: None. TECHNIQUE: Single view of the chest is submitted. FINDINGS: Left basilar chest tube noted. No evidence for pneumothorax. Left basilar infiltrate or atelectasis persists with small effusion. The heart is stable. Hilar and mediastinal structures are within normal limits. Degenerative changes are seen of the dorsal spine. IMPRESSION: 1. Left basilar chest tube noted. No evidence for pneumothorax. Left basilar infiltrate or atelectasis persists with small effusion.
--- NOTE | 2019-11-17 14:13 | FL ---
Fluoroscopy History: PLEURX CATH LEFT SIDE 23 SEC FLUORO. PLEURX CATH. DR. SYED.
== END 2019-11-17 15:07 | disposition home health service (06) ==
LOC: OR 12:28
PROVIDERS: ATTEND Thoracic Surgery (Cardiothoracic Vascular Surgery)
DX: C85.90 Non-Hodgkin lymphoma, unspecified, unspecified site (principal); J91.0 Malignant pleural effusion; I48.20 Chronic atrial fibrillation, unspecified; I49.5 Sick sinus syndrome; D69.6 Thrombocytopenia, unspecified; D62 Acute posthemorrhagic anemia; I73.9 Peripheral vascular disease, unspecified; I67.1 Cerebral aneurysm, nonruptured; E03.9 Hypothyroidism, unspecified; E11.9 Type 2 diabetes mellitus without complications; D47.2 Monoclonal gammopathy; F32.9 Major depressive disorder, single episode, unspecified; Z95.0 Presence of cardiac pacemaker; Z85.828 Personal history of other malignant neoplasm of skin; Z87.891 Personal history of nicotine dependence; Z86.711 Personal history of pulmonary embolism; Z98.49 Cataract extraction status, unspecified eye; Z96.653 Presence of artificial knee joint, bilateral; Z98.890 Other specified postprocedural states; Z90.49 Acquired absence of other specified parts of digestive tract; Z86.718 Personal history of other venous thrombosis and embolism; Z82.49 Family history of ischemic heart disease and other diseases of the circulatory system; Z80.9 Family history of malignant neoplasm, unspecified; Z82.3 Family history of stroke; Z79.890 Hormone replacement therapy; Z79.84 Long term (current) use of oral hypoglycemic drugs; Z79.899 Other long term (current) drug therapy
CPT/HCPCS: 32550; 88108; 88305; 71045; J2250; J1644; J0690; J2001; J3010

== ENCOUNTER 2020-02-06 16:01 | Inpatient (IN) | payer MEDICARE ==
--- NOTE | 2020-02-06 16:27 | ED ---
General Adult HPI - General Chief complaint: Weakness Stated complaint: Dehydrated Time Seen by Provider: 02/06/20 16:09 Source: patient, RN notes reviewed, old records reviewed Mode of arrival: ambulatory Limitations: no limitations - History of Present Illness Initial comments: 89-year-old female presenting for evaluation generalized weakness, fatigue, dyspnea. Patient has history of stage IV non-Hodgkin's lymphoma. She was concerned that she may be dehydrated. She's had 2 episodes of diarrhea, first episode was on Sunday of this week, second episode was today. There is no rectal bleeding or blood in her diarrhea. No vomiting. She has been eating and drinking. No reported fevers. She does report significant dyspnea has history of recurrent left-sided pleural effusion. She does have left-sided chest wall catheter for drainage which is treated by home care nursing. She's had 0 output over the past one month. - Related Data Home Medications Medication Instructions Recorded Confirmed Ergocalciferol (Vitamin D2) 50,000 unit PO FR 12/15/13 02/06/20 [Drisdol] Levothyroxine Sodium [Synthroid] 75 mcg PO DAILY 12/15/13 02/06/20 Vit C/E/Zn/Coppr/Lutein/Zeaxan 1 cap PO BID 06/11/17 02/06/20 [Preservision Areds 2 Softgel] Furosemide [Lasix] 20 mg PO DAILY 09/30/18 02/06/20 Citalopram Hydrobromide [CeleXA] 10 mg PO DAILY 06/09/19 02/06/20 Multivit-Min/FA/Lycopen/Lutein 1 tab PO DAILY 11/03/19 02/06/20 [Centrum Silver Tablet] Albuterol Sulfate [Proair Hfa] 2 puff INHALATION RT-TID PRN 11/05/19 02/06/20 Diphenoxylate HCl/Atropine 1 tab PO BID PRN 11/05/19 02/06/20 [Lomotil 2.5-0.025 mg Tablet] Ibrutinib [Imbruvica] 280 mg PO DAILY 11/05/19 02/06/20 Metoprolol Tartrate 50 mg PO DAILY 11/05/19 02/06/20 Cyanocobalamin (Vitamin B-12) 1,000 mcg PO DAILY 02/06/20 02/06/20 [Vitamin B-12] Ferrous Sulfate [Feosol] 325 mg PO HS 02/06/20 02/06/20 Magnesium Oxide [Mag-Ox] 250 mg PO HS 02/06/20 02/06/20 Metoprolol Tartrate [Lopressor] 25 mg PO HS 02/06/20 02/06/20 metFORMIN HCL [Glucophage] 500 mg PO DAILY 02/06/20 02/06/20 Previous Rx's Medication Instructions Recorded Acetaminophen Tab [Tylenol] 500 mg PO Q6HR PRN tab 04/17/19 Allergies Allergy/AdvReac Type Severity Reaction Status Date / Time No Known Allergies Allergy Verified 02/06/20 17:11 Review of Systems ROS Statement: Those systems with pertinent positive or pertinent negative responses have been documented in the HPI. ROS Other: All systems not noted in ROS Statement are negative. Past Medical History Past Medical History: Atrial Fibrillation, Cancer, Diabetes Mellitus, Deep Vein Thrombosis (DVT), Eye Disorder, Hypertension, Pulmonary Embolus (PE), Thyroid Disorder, Vascular Disorder Additional Past Medical History / Comment(s): Monoclonal gammopathy of undetermined significance (MGUS). Currently has brain aneurysm lt posterior eye (states stable), macular degneration - gets injections, non hodkins lymphoma stage IV - on po chemo 11/2018. Incontinance. Varicose veins. Pleural effusion, recurrent History of Any Multi-Drug Resistant Organisms: None Reported Past Surgical History: Bowel Resection, Cardiac Ablation, Section, Cholecystectomy, Hysterectomy, Orthopedic Surgery, Pacemaker Additional Past Surgical History / Comment(s): Colostomy, later reversal. Cardiac ablation x2. C-S x3, Repair left leg injury. 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 Cataracts. Bilateral knee replacements. Past Anesthesia/Blood Transfusion Reactions: No Reported Reaction Type of Cardiac Device: Permanent Pacemaker Device Placement Date:: 2015 Past Psychological History: Depression Smoking Status: Never smoker Past Alcohol Use History: Rare Past Drug Use History: None Reported - Past Family History Mother Family Medical History: Coronary Artery Disease (CAD), CVA/TIA Additional Family Medical History / Comment(s): age 83 of stroke Father Family Medical History: Cancer, Congestive Heart Failure (CHF) Additional Family Medical History / Comment(s): of cancer age 77 (colon cancer, bone cancer) Brother(s) Family Medical History: Congestive Heart Failure (CHF), CVA/TIA Additional Family Medical History / Comment(s): Patient had 1 brother that passed from a stroke. She does not have any sisters. Patient has 3 children 2 girls and one son. Son has history of hypertension. Other children have no major medical problems. General Exam Limitations: no limitations General appearance: alert, in distress (Mild respiratory distress) Head exam: Present: atraumatic, normocephalic Eye exam: Present: normal appearance, PERRL ENT exam: Present: normal exam Neck exam: Present: normal inspection. Absent: tenderness, meningismus Respiratory exam: Present: respiratory distress, rales, decreased breath sounds Cardiovascular Exam: Present: regular rate, normal rhythm GI/Abdominal exam: Present: soft. Absent: distended, tenderness, guarding, rebound Extremities exam: Present: pedal edema (trace) Neurological exam: Present: alert, oriented X3, CN II-XII intact. Absent: motor sensory deficit Psychiatric exam: Present: normal affect, normal mood Skin exam: Present: warm, dry, intact. Absent: cyanosis, diaphoretic Course Vital Signs 02/06/20 02/06/20 02/06/20 16:04 16:39 17:52 Temperature 98.2 F Pulse Rate 64 66 60 Respiratory 20 22 16 Rate Blood Pressure 159/100 175/89 142/87 O2 Sat by Pulse 97 98 Oximetry EKG Findings - EKG Comments: EKG Findings:: EKG: Atrial fibrillation with demand pacer, narrow complex intr insic rhythm, no ST segment elevation, rate of 67, QRS complex is 90, QTC 407 Medical Decision Making - Medical Decision Making 89-year-old female presenting for concerns of dehydration, diarrhea, and dyspnea. Patient is dyspneic on exam, unable to speak in complete sentences. She has decreased breath sounds on the left as well as bilateral Rales. She did have 2 episodes of diarrhea however this was over the course of 4 days. She has chronic anemia which is improved from baseline at 11.1. She has from cytopenia 77. She has normal kidney function, normal lactic acid, relatively normal electrolytes. She does have a mildly elevated BNP at 2000. Chest x-ray showing a left-sided pleural effusion, and some perihilar and left lower inf iltrate. She does report a cough although she states this is chronic. There is no fever. Case is discussed with Dr. Pink who is familiar with this patient. She will be admitted for consultation with both cardiothoracic surgery given her left-sided pleural catheter. Pulmonology placed on consult. She is covered with antibiotics in the emergency department. - Lab Data Result diagrams: 02/06/20 16:36 02/06/20 16:36 Lab Results 02/06/20 02/06/20 02/06/20 Range/Units 16:36 16:36 16:36 WBC 5.8 (3.8-10.6) k/uL RBC 4.07 (3.80-5.40) m/uL Hgb 11.1 L (11.4-16.0) gm/dL Hct 35.1 (34.0-46.0) % MCV 86.1 (80.0-100.0) fL MCH 27.3 (25.0-35.0) pg MCHC 31.7 (31.0-37.0) g/dL RDW 18.1 H (11.5-15.5) % Plt Count 77 L (150-450) k/uL Neutrophils % 74 % Lymphocytes % 17 % Monocytes % 6 % Eosinophils % 1 % Basophils % 0 % Neutrophils # 4.4 (1.3-7.7) k/uL Lymphocytes # 1.0 (1.0-4.8) k/uL Monocytes # 0.3 (0-1.0) k/uL Eosinophils # 0.1 (0-0.7) k/uL Basophils # 0.0 (0-0.2) k/uL Manual Slide Review Performed Polychromasia Present Hypochromasia Moderate Poikilocytosis (manual Present Anisocytosis Slight Stomatocytes Present PT 10.5 (9.0-12.0) sec INR 1.0 (<1.2) APTT 23.9 (22.0-30.0) sec Sodium 131 L (137-145) mmol/L Potassium 4.1 (3.5-5.1) mmol/L Chloride 96 L (98-107) mmol/L Carbon Dioxide 26 (22-30) mmol/L Anion Gap 9 mmol/L BUN 14 (7-17) mg/dL Creatinine 0.85 (0.52-1.04) mg/dL Est GFR (CKD-EPI)AfAm 71 (>60 ml/min/1.73 sqM) Est GFR (CKD-EPI)NonAf 61 (>60 ml/min/1.73 sqM) Glucose 122 H (74-99) mg/dL Plasma Lactic Acid Amanuel (0.7-2.0) mmol/L Calcium 8.5 (8.4-10.2) mg/dL Magnesium 2.2 (1.6-2.3) mg/dL Total Bilirubin 2.4 H (0.2-1.3) mg/dL AST 36 (14-36) U/L ALT 19 (4-34) U/L Alkaline Phosphatase 48 (38-126) U/L NT-Pro-B Natriuret Pep pg/mL Total Protein 6.3 (6.3-8.2) g/dL Albumin 4.0 (3.5-5.0) g/dL Urine Color Urine Appearance (Clear) Urine pH (5.0-8.0) Ur Specific [place] (1.001-1.035) Urine Protein (Negative) Urine Glucose (UA) (Negative) Urine Ketones (Negative) Urine Blood (Negative) Urine Nitrite (Negative) Urine Bilirubin (Negative) Urine Urobilinogen (<2.0) mg/dL Ur Leukocyte Esterase (Negative) Urine RBC (0-5) /hpf Urine WBC (0-5) /hpf Ur Squamous Epith Cells (0-4) /hpf Hyaline Casts (0-2) /lpf Urine Mucus (None) /hpf 02/06/20 02/06/20 02/06/20 Range/Units 16:36 16:36 16:45 WBC (3.8-10.6) k/uL RBC (3.80-5.40) m/uL Hgb (11.4-16.0) gm/dL Hct (34.0-46.0) % MCV (80.0-100.0) fL MCH (25.0-35.0) pg MCHC (31.0-37.0) g/dL RDW (11.5-15.5) % Plt Count (150-450) k/uL Neutrophils % % Lymphocytes % % Monocytes % % Eosinophils % % Basophils % % Neutrophils # (1.3-7.7) k/uL Lymphocytes # (1.0-4.8) k/uL Monocytes # (0-1.0) k/uL Eosinophils # (0-0.7) k/uL Basophils # (0-0.2) k/uL Manual Slide Review Polychromasia Hypochromasia Poikilocytosis (manual Anisocytosis Stomatocytes PT (9.0-12.0) sec INR (<1.2) APTT (22.0-30.0) sec Sodium (137-145) mmol/L Potassium (3.5-5.1) mmol/L Chloride (98-107) mmol/L Carbon Dioxide (22-30) mmol/L Anion Gap mmol/L BUN (7-17) mg/dL Creatinine (0.52-1.04) mg/dL Est GFR (CKD-EPI)AfAm (>60 ml/min/1.73 sqM) Est GFR (CKD-EPI)NonAf (>60 ml/min/1.73 sqM) Glucose (74-99) mg/dL Plasma Lactic Acid Amanuel 1.7 (0.7-2.0) mmol/L Calcium (8.4-10.2) mg/dL Magnesium (1.6-2.3) mg/dL Total Bilirubin (0.2-1.3) mg/dL AST (14-36) U/L ALT (4-34) U/L Alkaline Phosphatase (38-126) U/L NT-Pro-B Natriuret Pep 2640 pg/mL Total Protein (6.3-8.2) g/dL Albumin (3.5-5.0) g/dL Urine Color Yellow Urine Appearance Clear (Clear) Urine pH 5.5 (5.0-8.0) Ur Specific [place] 1.016 (1.001-1.035) Urine Protein Trace H (Negative) Urine Glucose (UA) Negative (Negative) Urine Ketones Negative (Negative) Urine Blood Large H (Negative) Urine Nitrite Negative (Negative) Urine Bilirubin Negative (Negative) Urine Urobilinogen <2.0 (<2.0) mg/dL Ur Leukocyte Esterase Negative (Negative) Urine RBC 54 H (0-5) /hpf Urine WBC 2 (0-5) /hpf Ur Squamous Epith Cells <1 (0-4) /hpf Hyaline Casts 3 H (0-2) /lpf Urine Mucus Rare H (None) /hpf Disposition Clinical Impression: Pneumonia, Pleural effusion, left Disposition: ADMITTED IP TO THIS HOSP Condition: Stable Is patient prescribed a controlled substance at d/c from ED?: No Referrals: Satish Pink MD [Primary Care Provider] - 1-2 days Decision to Admit Reason: Admit from EC Decision Date: 02/06/20 Decision Time: 18:03
[2020-02-06] MEDS ORDERED: MORPHINE SULFATE 4 MG/ML SYRINGE IVP STA (16:34)
[2020-02-06 16:48] LABS: Anisocytosis Slight; Basophils % (A) 0 %; Eosinophils # (A) 0.1 k/uL (0-0.7); Eosinophils % (A) 1 %; HCT 35.1 % (34.0-46.0); HGB 11.1 gm/dL (11.4-16.0); Hypochromasia Moderate; Lymphocytes % (A) 17 %; MCH 27.3 pg (25.0-35.0); MCHC 31.7 g/dL (31.0-37.0); MCV 86.1 fL (80.0-100.0); Mean Platelet Volume 8.3; Monocytes # (A) 0.3 k/uL (0-1.0); Monocytes % (A) 6 %; Neutrophils # (A) 4.4 k/uL (1.3-7.7); Neutrophils % (A) 74 %; RBC 4.07 m/uL (3.80-5.40); RDW 18.1 % (11.5-15.5); WBC 5.8 k/uL (3.8-10.6)
[2020-02-06 16:52] LABS: Appearance,Urine Clear (Clear); Bilirubin,Urine Negative (Negative); Blood,Urine Large (Negative); Color,Urine Yellow; Glucose,Urine (UA) Negative (Negative); Hyaline Casts,Urine 3 /lpf (0-2); Ketones,Urine Negative (Negative); Leukocyte Esterase,Urine Negative (Negative); Mucus,Urine Rare /hpf; Nitrite,Urine Negative (Negative); PH, Urine 5.5 (5.0-8.0); Protein,Urine Trace (Negative); RBC,Urine 54 /hpf (0-5); Specific Gravity,Urine 1.016 (1.001-1.035); Squamous Epithelial Cell,Urine <1 /hpf (0-4); Urobilinogen,Urine <2.0 mg/dL (<2.0); WBC,Urine 2 /hpf (0-5)
[2020-02-06 16:53] LABS: Potassium 4.1 mmol/L (3.5-5.1)
[2020-02-06 16:54] LABS: Calcium 8.5 mg/dL (8.4-10.2); Magnesium 2.2 mg/dL (1.6-2.3); Total Bilirubin 2.4 mg/dL (0.2-1.3); Total Protein 6.3 g/dL (6.3-8.2)
[2020-02-06 16:58] LABS: Partial Thromboplastin Time 23.9 sec (22.0-30.0); Prothrombin Time 10.5 sec (9.0-12.0)
--- NOTE | 2020-02-06 17:07 | XR ---
EXAMINATION TYPE: XR chest 2V DATE OF EXAM: 02/06/2020 COMPARISON: 11/17/2019 INDICATION: Weakness dehydration TECHNIQUE: Frontal and lateral views of the chest are obtained. FINDINGS: The heart size is prominent. Pacemaker overlies left chest.. The pulmonary vasculature is normal. Mild perihilar infiltrate is present. Small left pleural effusion may be present. IMPRESSION: 1. Cardiomegaly with mild left perihilar infiltrate. Follow-up is recommended.
[2020-02-06 17:12] LABS: Platelet Count 77 k/uL (150-450); Poikilocytosis (M) Present; Polychromasia Present; Stomatocytes Present
[2020-02-06] MEDS ORDERED: AZITHROMYCIN 500 MG in SODIUM CHLORIDE 0.9% 250 ML IVPB STA (17:59)
[2020-02-06] MEDS ORDERED: ACETAMINOPHEN TAB 325 MG TAB PO PRN (17:59)
[2020-02-06] MEDS ORDERED: MORPHINE SULFATE 4 MG/ML SYRINGE IV PRN (17:59)
[2020-02-06] MEDS ORDERED: NALOXONE 0.4 MG/ML 1 ML VIAL IV PRN (17:59)
[2020-02-06] MEDS ORDERED: cefTRIAXone IN SWFI 1,000 MG/10 ML SYRINGE IVP STA (17:59)
[2020-02-06] MEDS: SODIUM CHLORIDE 0.9% 1,000 ML IV SCH (19:24)
--- NOTE | 2020-02-07 09:16 | US ---
EXAMINATION TYPE: US chest DATE OF EXAM: 02/07/2020 COMPARISON: X-ray yesterday CLINICAL HISTORY: Markings for thoracentesis by pulmonary staff. TECHNIQUE: Targeted ultrasound of the posterior lower bilateral hemithoraces EXAM MEASUREMENTS: Right Pleural Effusion pocket size: 2.5 cm Right skin surface to fluid distance: 2.1 cm Left Pleural Effusion pocket size: 2.2 cm Left skin surface to fluid distance: 2.0 cm Right side NOT marked for possible thoracentesis outside the dept. Left side NOT marked for possible thoracentesis outside the dept. Pulmonologists are able to review the images in the patient?s EMR. Tiny bilateral pleural effusions on images saved corresponding to x-ray one day earlier. IMPRESSIONS: As above.
[2020-02-07] MEDS ORDERED: DIPHENOX-ATROP 2.5-0.025 MG 1 EACH TAB PO PRN (09:35)
[2020-02-07] MEDS ORDERED: LEVOFLOXACIN 500MG-D5W PMX 500 MG in DEXTROSE/WATER 1 100ML.BAG IVPB ONE (09:45)
[2020-02-07] MEDS ORDERED: MENTHOL (NICE) LOZENGE MUCOUS MEM PRN (09:58)
[2020-02-07] MEDS ORDERED: BENZONATATE 100 MG CAP PO PRN (09:59)
--- NOTE | 2020-02-07 10:06 | P.GSCN ---
History of Present Illness Consult date: 02/07/20 Reason for Consult: Left pleural effusion Requesting physician: Eulogio Donato History of present illness: This is an 89-year-old female patient who follows on an outpatient basis with Dr. Pink. She has a previous medical history of non-Hodgkin's lymphoma/CLL currently treated with Imbruvica, chronic anemia and thrombocytopenia, recurrent left-sided malignant pleural effusion status post multiple thoracentesis and Pleurx catheter placement 11/17/2019, chronic atrial fibrillation status post ablation 2 not currently on any anticoagulation, sick sinus syndrome status post permanent pacemaker, hypothyroid, type 2 diabetes mellitus, DVT/PE, hypertension, previous tobacco dependence, peripheral vascular disease, and brain aneurysm. She presented to [facility] emergency room last night with complaints of generalized weakness, fatigue, shortness of breath, and concern for dehydration. She reports 2 episodes of diarrhea without any fever, nausea, or vomiting. She also reports chronic shortness of breath despite Pleurx catheter which has not drained anything significant, and in fact patient is being considered for removal of Pleurx catheter. Chest x-ray completed in the emergency room demonstrated cardiomegaly with mild (heart R infiltrate and possible small left pleural effusion. EKG demonstrated atrial fibrillation with heart rate 67 bpm. WBC 5.8, hemoglobin 11.1, platelet count 77, creatinine 0.85, lactic acid 1.7, BNP 2640. She was afebrile, vital signs are stable, and she has maintained oxygen saturations in the low 90s on room air. She was initiated on antibiotics and admitted for evaluation and treatment with consultation placed to pulmonology and cardiothoracic surgery regarding left-sided pleural effusion. Of note a chest ultrasound was completed this morning at the request of Dr. Izaguirre demonstrating tiny bilateral effusions with fluid pocket 2.5 cm on the right and 2.2 cm on the left. Review of Systems Review of systems was completed and was negative except as noted - Constitutional Reports as per HPI, Reports fatigue, Reports lethargy, Reports weakness - Respiratory Reports as per HPI, Reports cough, Reports dyspnea - Gastrointestinal Reports as per HPI, Reports diarrhea 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 Varicose veins. Pleural effusion, recurrent. History of Any Multi-Drug Resistant Organisms: None Reported Past Surgical History: Bowel Resection, Cardiac Ablation, Section, Cholecystectomy, Hysterectomy, Orthopedic Surgery, Pacemaker Additional Past Surgical History / Comment(s): Colostomy, later reversal. Cardiac ablation x2. C-S x3, Repair left leg injury. 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 Cataracts. Bilateral knee replacements. Left-sided Pleurx catheter placed 11/17/2019 Past Anesthesia/Blood Transfusion Reactions: No Reported Reaction Type of Cardiac Device: Permanent Pacemaker Device Placement Date:: 2015 Past Psychological History: Depression Additional Psychological History / Comment(s): Pt resides alone. She uses a walker prn. She has a nebulizer. Smoking Status: Never smoker Past Alcohol Use History: Rare Additional Past Alcohol Use History / Comment(s): Smoker for 20 years, quit at age 40. No alcohol use in past year. Past Drug Use History: None Reported - Past Family History Mother Family Medical History: Coronary Artery Disease (CAD), CVA/TIA Additional Family Medical History / Comment(s): age 83 of stroke Father Family Medical History: Cancer, Congestive Heart Failure (CHF) Additional Family Medical History / Comment(s): of cancer age 77 (colon cancer, bone cancer) Brother(s) Family Medical History: Congestive Heart Failure (CHF), CVA/TIA Additional Family Medical History / Comment(s): Patient had 1 brother that passed from a stroke. She does not have any sisters. Patient has 3 children 2 girls and one son. Son has history of hypertension. Other children have no major medical problems. Medications and Allergies Home Medications Medication Instructions Recorded Confirmed Type Ergocalciferol (Vitamin D2) 50,000 unit PO FR 12/15/13 02/06/20 History [Drisdol] Levothyroxine Sodium [Synthroid] 75 mcg PO DAILY 12/15/13 02/06/20 History Vit C/E/Zn/Coppr/Lutein/Zeaxan 1 cap PO BID 06/11/17 02/06/20 History [Preservision Areds 2 Softgel] Furosemide [Lasix] 20 mg PO DAILY 09/30/18 02/06/20 History Acetaminophen Tab [Tylenol] 500 mg PO Q6HR PRN tab 04/17/19 02/06/20 Rx Citalopram Hydrobromide [CeleXA] 10 mg PO DAILY 06/09/19 02/06/20 History Multivit-Min/FA/Lycopen/Lutein 1 tab PO DAILY 11/03/19 02/06/20 History [Centrum Silver Tablet] Albuterol Sulfate [Proair Hfa] 2 puff INHALATION RT-TID PRN 11/05/19 02/06/20 History Diphenoxylate HCl/Atropine 1 tab PO BID PRN 11/05/19 02/06/20 History [Lomotil 2.5-0.025 mg Tablet] Ibrutinib [Imbruvica] 280 mg PO DAILY 11/05/19 02/06/20 History Metoprolol Tartrate 50 mg PO DAILY 11/05/19 02/06/20 History Cyanocobalamin (Vitamin B-12) 1,000 mcg PO DAILY 02/06/20 02/06/20 History [Vitamin B-12] Ferrous Sulfate [Feosol] 325 mg PO HS 02/06/20 02/06/20 History Magnesium Oxide [Mag-Ox] 250 mg PO HS 02/06/20 02/06/20 History Metoprolol Tartrate [Lopressor] 25 mg PO HS 02/06/20 02/06/20 History metFORMIN HCL [Glucophage] 500 mg PO DAILY 02/06/20 02/06/20 History Allergies Allergy/AdvReac Type Severity Reaction Status Date / Time No Known Allergies Allergy Verified 02/06/20 17:11 Surgical - Exam Vital Signs Temp Pulse Resp BP Pulse Ox 98.2 F 64 20 159/100 97 02/06/20 16:04 02/06/20 16:04 02/06/20 16:04 02/06/20 16:04 02/06/20 16:04 - General well developed, well nourished, no pain - Eyes normal ocular movement - ENT no hearing loss - Neck no masses, no bruits, trachea midline - Respiratory Lungs sounds diminished bilaterally. Respirations even, slightly labored. Currently on room air with oxygen saturation 92%. No chest wall deformities. No clubbing or cyanosis present. Left chest wall Pleurx catheter in place under occlusive dressing - Cardiovascular S1, S2 present. Irregular rate and rhythm, controlled atrial fibrillation on EKG. Palpable peripheral pulses bilaterally. No edema present. No calf pain or tenderness noted. - Abdomen Abdomen: soft, non tender, bowel sounds - Genitourinary Deferred - Rectum Deferred - Integumentary no rash, no growths - Neurologic normal coordination, normal sensation - Musculoskeletal normal posture - Psychiatric oriented to time, oriented to person, oriented to place, speech is normal, memory intact Results - Labs 02/06/20 16:36 02/06/20 16:36 Abnormal Lab Results - Last 24 Hours (Table) 02/06/20 02/06/20 02/06/20 Range/Units 16:36 16:36 16:45 Hgb 11.1 L (11.4-16.0) gm/dL RDW 18.1 H (11.5-15.5) % Plt Count 77 L (150-450) k/uL Sodium 131 L (137-145) mmol/L Chloride 96 L (98-107) mmol/L Glucose 122 H (74-99) mg/dL Total Bilirubin 2.4 H (0.2-1.3) mg/dL Urine Protein Trace H (Negative) Urine Blood Large H (Negative) Urine RBC 54 H (0-5) /hpf Hyaline Casts 3 H (0-2) /lpf Urine Mucus Rare H (None) /hpf Diabetes panel 02/06/20 Range/Units 16:36 Sodium 131 L (137-145) mmol/L Potassium 4.1 (3.5-5.1) mmol/L Chloride 96 L (98-107) mmol/L Carbon Dioxide 26 (22-30) mmol/L BUN 14 (7-17) mg/dL Creatinine 0.85 (0.52-1.04) mg/dL Glucose 122 H (74-99) mg/dL Calcium 8.5 (8.4-10.2) mg/dL AST 36 (14-36) U/L ALT 19 (4-34) U/L Alkaline Phosphatase 48 (38-126) U/L Total Protein 6.3 (6.3-8.2) g/dL Albumin 4.0 (3.5-5.0) g/dL Calcium panel 02/06/20 Range/Units 16:36 Calcium 8.5 (8.4-10.2) mg/dL Albumin 4.0 (3.5-5.0) g/dL Pituitary panel 02/06/20 Range/Units 16:36 Sodium 131 L (137-145) mmol/L Potassium 4.1 (3.5-5.1) mmol/L Chloride 96 L (98-107) mmol/L Carbon Dioxide 26 (22-30) mmol/L BUN 14 (7-17) mg/dL Creatinine 0.85 (0.52-1.04) mg/dL Glucose 122 H (74-99) mg/dL Calcium 8.5 (8.4-10.2) mg/dL Adrenal panel 02/06/20 Range/Units 16:36 Sodium 131 L (137-145) mmol/L Potassium 4.1 (3.5-5.1) mmol/L Chloride 96 L (98-107) mmol/L Carbon Dioxide 26 (22-30) mmol/L BUN 14 (7-17) mg/dL Creatinine 0.85 (0.52-1.04) mg/dL Glucose 122 H (74-99) mg/dL Calcium 8.5 (8.4-10.2) mg/dL Total Bilirubin 2.4 H (0.2-1.3) mg/dL AST 36 (14-36) U/L ALT 19 (4-34) U/L Alkaline Phosphatase 48 (38-126) U/L Total Protein 6.3 (6.3-8.2) g/dL Albumin 4.0 (3.5-5.0) g/dL - Imaging Chest x-ray: report reviewed, image reviewed EKG: image reviewed Assessment and Plan Assessment: 1. Shortness of breath with history recurrent left-sided malignant pleural effusion, S/P multiple thoracentesis,S/P left Pleurx catheter placement 11/17/2019 with no drainage lately 2. Reported diarrhea, last episode 3. History of non-Hodgkin's lymphoma/chronic lymphocytic leukemia currently treated with Imbruvica 4. Chronic anemia, thrombocytopenia 5. Type 2 diabetes mellitus 6. Hypertension 4. Hypothyroidism 5. History of DVT, pulmonary embolism 6. History of sick sinus syndrome status post pacemaker insertion 7. History of chronic atrial fibrillation, status post multiple ablations, not currently on anticoagulation 8. History of macular degeneration Plan: The patient was seen and examined at the bedside. Chart/diagnostics were reviewed. The case was discussed with Dr. Price. No recommendations for surgical intervention at this point. Agree with echocardiogram. Increase activity, ambulate as tolerated. The patient may follow up with Dr. Laura upon discharge for discussion regarding removal of Pleurx catheter, our office will call her with an appointment. Medical management for the comorbidities per primary care service, pulmonology. Thank you for this consult. Please call us with any further questions. Time with Patient: Greater than 30
[2020-02-07] MEDS ORDERED: CITALOPRAM HYDROBROMIDE 10 MG TAB PO STA (10:34)
[2020-02-07] MEDS ORDERED: CYANOCOBALAMIN 500 MCG TAB PO ONE (10:35)
[2020-02-07] MEDS ORDERED: FUROSEMIDE 20 MG TAB PO STA (10:36)
[2020-02-07] MEDS ORDERED: metFORMIN 500 MG TAB PO STA (10:38)
[2020-02-07] MEDS ORDERED: METOPROLOL TARTRATE 50 MG TAB PO STA (10:39)
[2020-02-07] MEDS ORDERED: IBRUTINIB 280 MG PO ONE (10:40)
[2020-02-07] MEDS ORDERED: MULTIVITAMINS, THERA 1 EACH TAB PO ONE (10:45)
--- NOTE | 2020-02-07 10:58 | P.HPIM ---
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 Laura back in 11/17/2019, patient has been having her catheter drained by the home healthcare nurse on a regular basis she was just seen on Sunday and not much fluid were able to drain from the catheter, patient contacted me on Sunday stated that she feels a bit dehydrated and she is a bit short of breath, she was drinking too much liquid after she developed to have a significant diarrhea 2 days prior to that thought to be due to her Imbruvica that she has been maintained on for the stage IV non-Hodgkin lymphoma, patient eventually decided come to the emergency room for evaluation of shortness breath and possible dehydration patient underwent chest x-ray in the ER that showed a right sided pleural effusion as well as left-sided perfusion possible infiltrate versus atelectasis, and mild cardio megaly, he shouldn't was admitted to the hospital she did receive a dose of Rocephin and dose of Zithromax thoracic surgery consultation was obtained from Dr. Laura as well as Pulmicort consultation from Dr. Pires, and the cardiology consultation for possible heart failure. Review of Systems Constitutional: Reports anorexia, Reports fatigue, Reports weakness, Reports weight loss, Denies chronic headaches, Denies chronic pain Eyes: bilateral blurred vision, bilateral decreased vision, denies bulging eye Ears, nose, mouth and throat: Denies dysphagia, Denies neck lump, Denies sore throat Cardiovascular: Reports decreased exercise tolerance, Reports dyspnea on exertion, Reports shortness of breath, Denies chest pain, Denies lightheadedness, Denies orthopnea, Denies rapid heart beat, Denies syncope Respiratory: Reports cough, Reports cough with sputum, Reports dyspnea, Denies congestion, Denies home oxygen, Denies sleep apnea, Denies snoring, Denies wheezing Gastrointestinal: Reports bloating, Reports loss of appetite, Denies abdominal pain, Denies BRBPR, Denies excessive gas, Denies heartburn, Denies melena, Denies nausea, Denies vomiting Genitourinary: Reports nocturia, Denies dysuria Menstruation: Reports postmenopausal Musculoskeletal: Denies myalgias Musculoskeletal: absent: ankle pain, ankle stiffness, ankle swelling, elbow pain, elbow stiffness, elbow swelling, foot pain, foot stiffness, foot swelling, hand pain, hand stiffness, hand swelling, hip pain, hip stiffness, hip swelling, knee pain, knee stiffness, knee swelling, shoulder pain, shoulder stiffness, shoulder swelling, wrist pain, wrist stiffness, wrist swelling Integumentary: Reports unusual bruising Neurological: Reports balance difficulties, Reports gait dysfunction, Reports weakness, Reports visual changes Psychiatric: Denies anxiety, Denies depression Endocrine: Denies fatigue, Denies weight change 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 Varicose veins. Pleural effusion, recurrent. History of Any Multi-Drug Resistant Organisms: None Reported Past Surgical History: Bowel Resection, Cardiac Ablation, Section, Cholecystectomy, Hysterectomy, Orthopedic Surgery, Pacemaker Additional Past Surgical History / Comment(s): Colostomy, later reversal. Cardiac ablation x2. C-S x3, Repair left leg injury. 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 Cataracts. Bilateral knee replacements. Past Anesthesia/Blood Transfusion Reactions: No Reported Reaction Type of Cardiac Device: Permanent Pacemaker Device Placement Date:: 2015 Past Psychological History: Depression Additional Psychological History / Comment(s): Pt resides alone. She uses a walker prn. She has a nebulizer. Smoking Status: Never smoker Past Alcohol Use History: Rare Additional Past Alcohol Use History / Comment(s): Smoker for 20 years, quit at age 40. No alcohol use in past year. Past Drug Use History: None Reported - Past Family History Mother Family Medical History: Coronary Artery Disease (CAD), CVA/TIA Additional Family Medical History / Comment(s): age 83 of stroke Father Family Medical History: Cancer, Congestive Heart Failure (CHF) Additional Family Medical History / Comment(s): of cancer age 77 (colon cancer, bone cancer) Brother(s) Family Medical History: Congestive Heart Failure (CHF), CVA/TIA Additional Family Medical History / Comment(s): Patient had 1 brother that passed from a stroke. She does not have any sisters. Patient has 3 children 2 girls and one son. Son has history of hypertension. Other children have no major medical problems. Medications and Allergies Home Medications Medication Instructions Recorded Confirmed Type Ergocalciferol (Vitamin D2) 50,000 unit PO FR 12/15/13 02/06/20 History [Drisdol] Levothyroxine Sodium [Synthroid] 75 mcg PO DAILY 12/15/13 02/06/20 History Vit C/E/Zn/Coppr/Lutein/Zeaxan 1 cap PO BID 06/11/17 02/06/20 History [Preservision Areds 2 Softgel] Furosemide [Lasix] 20 mg PO DAILY 09/30/18 02/06/20 History Acetaminophen Tab [Tylenol] 500 mg PO Q6HR PRN tab 04/17/19 02/06/20 Rx Citalopram Hydrobromide [CeleXA] 10 mg PO DAILY 06/09/19 02/06/20 History Multivit-Min/FA/Lycopen/Lutein 1 tab PO DAILY 11/03/19 02/06/20 History [Centrum Silver Tablet] Albuterol Sulfate [Proair Hfa] 2 puff INHALATION RT-TID PRN 11/05/19 02/06/20 History Diphenoxylate HCl/Atropine 1 tab PO BID PRN 11/05/19 02/06/20 History [Lomotil 2.5-0.025 mg Tablet] Ibrutinib [Imbruvica] 280 mg PO DAILY 11/05/19 02/06/20 History Metoprolol Tartrate 50 mg PO DAILY 11/05/19 02/06/20 History Cyanocobalamin (Vitamin B-12) 1,000 mcg PO DAILY 02/06/20 02/06/20 History [Vitamin B-12] Ferrous Sulfate [Feosol] 325 mg PO HS 02/06/20 02/06/20 History Magnesium Oxide [Mag-Ox] 250 mg PO HS 02/06/20 02/06/20 History Metoprolol Tartrate [Lopressor] 25 mg PO HS 02/06/20 02/06/20 History metFORMIN HCL [Glucophage] 500 mg PO DAILY 02/06/20 02/06/20 History Allergies Allergy/AdvReac Type Severity Reaction Status Date / Time No Known Allergies Allergy Verified 02/06/20 17:11 Physical Exam Vitals: Vital Signs Temp Pulse Pulse Resp BP BP Pulse Ox 02/07/20 07:00 98.7 F 64 16 136/65 91 L 02/07/20 01:03 97.6 F 71 141/67 92 L 02/06/20 19:55 96.2 F L 66 125/65 95 02/06/20 19:27 60 18 141/74 98 02/06/20 17:52 60 16 142/87 98 02/06/20 16:39 66 22 175/89 02/06/20 16:04 98.2 F 64 20 159/100 97 Intake and Output 02/06/20 02/07/20 02/07/20 22:59 06:59 14:59 Other: Voiding Method Toilet # Voids 1 2 Weight 72.575 kg Physical examination: HEENT: Head is atraumatic, normocephalic, pupils were equal round reactive to light and accommodation, extraocular muscle movement were intact, sclera nonicteric conjunctiva was slightly pale, mucous membranes of the mouth are somewhat dry. Neck: Supple, no JVP, decreased carotid upstroke. Chest: Decreased breath sounds at bases, there is decreased tactile fremitus at the lower thirds of both lung garcia, there is a Pleurx catheter on the left side. Heart: First heart sound is depressed, second heart sound is normal, irregularly irregular, there is systolic ejection murmur 2/6 located in the left sternal border, there is permanent pacemaker located in the left upper precordium. Abdomen: Soft, full, nontender, positive bowel sounds. Extremities: Trace edema, no calf tenderness, dorsalis pedis +1 bilaterally. Neurologic examination: Patient is awake alert and oriented 3, cranial nerves III-12 appear grossly intact, muscle power 4 out of 5 in upper extremities 3 out of 5 in bilateral lower extremities, deep tendon reflexes were depressed bilaterally. Results CBC & Chem 7: 02/06/20 16:36 02/06/20 16:36 Labs: Abnormal Lab Results - Last 24 Hours (Table) 02/06/20 02/06/20 02/06/20 Range/Units 16:36 16:36 16:45 Hgb 11.1 L (11.4-16.0) gm/dL RDW 18.1 H (11.5-15.5) % Plt Count 77 L (150-450) k/uL Sodium 131 L (137-145) mmol/L Chloride 96 L (98-107) mmol/L Glucose 122 H (74-99) mg/dL Total Bilirubin 2.4 H (0.2-1.3) mg/dL Urine Protein Trace H (Negative) Urine Blood Large H (Negative) Urine RBC 54 H (0-5) /hpf Hyaline Casts 3 H (0-2) /lpf Urine Mucus Rare H (None) /hpf Thrombosis Risk Factor Assmnt - DVT/VTE Prophylaxis DVT/VTE Prophylaxis: Pharmacologic Prophylaxis ordered, Mechanical Prophylaxis ordered - Choose All That Apply Any of the Below Risk Factors Present?: No Other Risk Factors: Yes Each Risk Factor Represents 3 Points: Age 75 years or older Other congenital or acquired thrombophilia - If yes, enter type in comment: No Thrombosis Risk Factor Assessment Total Risk Factor Score: 3 Thrombosis Risk Factor Assessment Level: Moderate Risk Assessment and Plan Assessment: Assessment and plan: 1. Bilateral pleural effusion right slightly more than left with possible atelectasis versus infiltrate. Patient was seen in consultation by pulmonary medicine ultrasound of the chest showed 2 small pocket 2.5 cm on the right side 2.2 cm on the left side, patient is not requiring oxygen at this point in time, she did receive Rocephin and Zithromax in the ER we will start her on Levaquin 500 mg IV piggyback every 24 hours, start the patient on Tessalon Perles 100 mg orally 3 times every day as needed, oxygen the patient very closely, echocardiogram will be obtained for evaluation of LV function along with cardiology consultation, the Pleurx catheter appears to be stable at this time she was seen already by thoracic surgery was recommended to keep her appointment Dr. Laura for February 18 for discussion of possible removal of the catheter. 2. Recurrent left-sided malignant pleural effusion post multiple thoracentesis currently has a Pleurx catheter in place. Stable at this time. 3. Stage IV non-Hodgkin lymphoma. Continue patient on Imbruvica 280 mg orally once every day. 4. Chronic atrial fibrillation. Continue metoprolol 50 mg in the morning and 25 mg in the evening, patient was taken off her anticoagulation. 5. Diabetes mellitus type 2. We will continue patient on metformin 500 mg orally once every day, continue patient Accu-Chek before each meal and bedtime along with a slight scale insulin. 6. Hypertension and hypertensive cardiovascular disease. Continue patient on metoprolol 50 mg orally in the morning and 25 mg the evening she was taken off Avalide by her coordinate measuring equipment operator. 7. Hypothyroidism. Continue levothyroxine 75 g daily. 8. Hyponatremia. Could be related to hypovolemia monitor the patient CMP. 9. Anemia of chronic disease. Appears to be better at this time 10. History of PE and DVT, stable. 11. Macular degeneration. Continue eyedrops and vitamins. 12. Sick sinus syndrome Status post pacemaker. 13. DVT prophylaxis. SCDs and ESTHER vinson, heparin 5000 units subcutaneously every 12 hours. 14. GI prophylaxis. Protonix 40 mg orally once every day. 15. Admit to inpatient. Estimate a length of stay 2 midnights.
--- NOTE | 2020-02-07 11:28 | P.CNPUL ---
History of Present Illness Consult date: 02/07/20 Requesting physician: Satish Pink Reason for consult: dyspnea, abnormal CXR/CT Chief complaint: Shortness of breath, cough, diarrhea History of present illness: This is a very pleasant 89-year-old female patient who follows with Dr. Pink as her primary care provider. She has a history of sick sinus syndrome status post permanent pacemaker implantation, macular degeneration, DVT/PE, hypothyroidism, hypertension, diabetes mellitus, chronic atrial fibrillation, chronic anemia, chronic thrombocytopenia, stage IV non-Hodgkin's lymphoma/chronic lymphocytic leukemia. She is currently on Imbruvica. She has also had recurrent left-sided pleural effusions and is status post multiple thoracentesis. She subsequently had a Pleurx catheter placed in November 2019. It remains in place. She's had mi nimal output and the plan was for removal of the Pleurx catheter on 02/19/[address] Laura. She presented here to the emergency room yesterday with complaints of generalized weakness, fatigue, shortness of breath. He also had some episodes of diarrhea and felt dehydrated. Chest x-ray revealed evidence of cardiomegaly with mild left perihilar infiltrate. PleurX is catheter in place. Ultrasound of the chest reveals a small 2.5 cm pocket on the right and a 2.2 cm pocket on the left. She is seen today in consultation on the regular medical floor. She is awake and alert in no acute distress. Maintaining O2 saturation in the low 90s on room air. She's afebrile. Hemodynamically stable. White count 5.8. Hemoglobin 11.1. Platelet count 77,000. Sodium 131. Potassium 4.1. Creatinine 0.85. ProBNP 2640. Echocardiogram pending. Review of Systems REVIEW OF SYSTEMS: CONSTITUTIONAL: Weakness, fatigue. Denies any recent significant weight loss or weight gain. EYES: Denies change in vision. EARS, NOSE, MOUTH, THROAT: Denies headaches, denies sore throat. CARDIOVASCULAR: Denies chest pain, palpitations or syncopal episodes. RESPIRATORY: Positive for shortness of breath, cough, congestion no hemoptysis. GASTROINTESTINAL: Positive for diarrhea GENITOURINARY: Denies hematuria, denies infections. MUSKULOSKELETAL: Denies pain, denies swelling. INTEGUMENTARY: Denies rash, denies eczema. NEUROLOGICAL: Denies recent memory loss, no recent seizure activity. PSYCHIATRIC: Denies anxiety, denies depression. HEMATOLOGIC/LYMPHATIC: Denies anemia, denies enlarged lymph nodes. 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 Varicose veins. Pleural effusion, recurrent. History of Any Multi-Drug Resistant Organisms: None Reported Past Surgical History: Bowel Resection, Cardiac Ablation, Section, Cholecystectomy, Hysterectomy, Orthopedic Surgery, Pacemaker Additional Past Surgical History / Comment(s): Colostomy, later reversal. Cardiac ablation x2. C-S x3, Repair left leg injury. 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 Cataracts. Bilateral knee replacements. Past Anesthesia/Blood Transfusion Reactions: No Reported Reaction Type of Cardiac Device: Permanent Pacemaker Device Placement Date:: 2015 Past Psychological History: Depression Additional Psychological History / Comment(s): Pt resides alone. She uses a walker prn. She has a nebulizer. Smoking Status: Never smoker Past Alcohol Use History: Rare Additional Past Alcohol Use History / Comment(s): Smoker for 20 years, quit at age 40. No alcohol use in past year. Past Drug Use History: None Reported - Past Family History Mother Family Medical History: Coronary Artery Disease (CAD), CVA/TIA Additional Family Medical History / Comment(s): age 83 of stroke Father Family Medical History: Cancer, Congestive Heart Failure (CHF) Additional Family Medical History / Comment(s): of cancer age 77 (colon cancer, bone cancer) Brother(s) Family Medical History: Congestive Heart Failure (CHF), CVA/TIA Additional Family Medical History / Comment(s): Patient had 1 brother that passed from a stroke. She does not have any sisters. Patient has 3 children 2 girls and one son. Son has history of hypertension. Other children have no major medical problems. Medications and Allergies Home Medications Medication Instructions Recorded Confirmed Type Ergocalciferol (Vitamin D2) 50,000 unit PO FR 12/15/02/06/20 History [Drisdol] Levothyroxine Sodium [Synthroid] 75 mcg PO DAILY 12/15/13 02/06/20 History Vit C/E/Zn/Coppr/Lutein/Zeaxan 1 cap PO BID 06/11/17 02/06/20 History [Preservision Areds 2 Softgel] Furosemide [Lasix] 20 mg PO DAILY 09/30/18 02/06/20 History Acetaminophen Tab [Tylenol] 500 mg PO Q6HR PRN tab 04/17/19 02/06/20 Rx Citalopram Hydrobromide [CeleXA] 10 mg PO DAILY 06/09/19 02/06/20 History Multivit-Min/FA/Lycopen/Lutein 1 tab PO DAILY 11/03/19 02/06/20 History [Centrum Silver Tablet] Albuterol Sulfate [Proair Hfa] 2 puff INHALATION RT-TID PRN 11/05/19 02/06/20 History Diphenoxylate HCl/Atropine 1 tab PO BID PRN 11/05/19 02/06/20 History [Lomotil 2.5-0.025 mg Tablet] Ibrutinib [Imbruvica] 280 mg PO DAILY 11/05/19 02/06/20 History Metoprolol Tartrate 50 mg PO DAILY 11/05/19 02/06/20 History Cyanocobalamin (Vitamin B-12) 1,000 mcg PO DAILY 02/06/20 02/06/20 History [Vitamin B-12] Ferrous Sulfate [Feosol] 325 mg PO HS 02/06/20 02/06/20 History Magnesium Oxide [Mag-Ox] 250 mg PO HS 02/06/20 02/06/20 History Metoprolol Tartrate [Lopressor] 25 mg PO HS 02/06/20 02/06/20 History metFORMIN HCL [Glucophage] 500 mg PO DAILY 02/06/20 02/06/20 History Allergies Allergy/AdvReac Type Severity Reaction Status Date / Time No Known Allergies Allergy Verified 02/06/20 17:11 Physical Exam Vitals: Vital Signs Temp Pulse Pulse Resp BP BP Pulse Ox 02/07/20 07:00 98.7 F 64 16 136/65 91 L 02/07/20 01:03 97.6 F 71 141/67 92 L 02/06/20 19:55 96.2 F L 66 125/65 95 02/06/20 19:27 60 18 141/74 98 02/06/20 17:52 60 16 142/87 98 02/06/20 16:39 66 22 175/89 02/06/20 16:04 98.2 F 64 20 159/100 97 Intake and Output 02/06/20 02/07/20 02/07/20 22:59 06:59 14:59 Other: Voiding Method Toilet # Voids 1 2 Weight 72.575 kg GENERAL EXAM: Alert, very pleasant 89-year-old female patient, pale, on room air, comfortable in no apparent distress. HEAD: Normocephalic. EYES: Normal reaction of pupils, equal size. NOSE: Clear with pink turbinates. THROAT: No erythema or exudates. NECK: No masses, no JVD. CHEST: No chest wall deformity. LUNGS: Equal air entry with faint crackles in the posterior bases. CVS: S1 and S2 normal with no audible murmur, regular rhythm. ABDOMEN: No hepatosplenomegaly, normal bowel sounds, no guarding or rigidity. SPINE: No scoliosis or deformity SKIN: No rashes CENTRAL NERVOUS SYSTEM: No focal deficits, tone is normal in all 4 extremities. EXTREMITIES: There is no peripheral edema. No clubbing, no cyanosis. Peripheral pulses are intact. Results - Laboratory Findings CBC and BMP: 02/06/20 16:36 02/06/20 16:36 PT/INR, D-dimer PT 10.5 sec (9.0-12.0) 02/06/20 16:36 INR 1.0 (<1.2) 02/06/20 16:36 Abnormal lab findings: Abnormal Labs 02/06/20 02/06/20 02/06/20 16:36 16:36 16:45 Hgb 11.1 L RDW 18.1 H Plt Count 77 L Sodium 131 L Chloride 96 L Glucose 122 H Total Bilirubin 2.4 H Urine Protein Trace H Urine Blood Large H Urine RBC 54 H Hyaline Casts 3 H Urine Mucus Rare H - Diagnostic Findings Chest x-ray: image reviewed Assessment and Plan Assessment: 1 Generalized fatigue, weakness, diarrhea with secondary dehydration 2 History of chronic and recurrent left-sided pleural effusion post multiple thoracentesis, status post Pleurx catheter placed in November 2019, minimal drainage in the past several weeks 3 History of non-Hodgkin's lymphoma/chronic lymphocytic leukemia maintained on Imbruvica 4 Chronic thrombocytopenia, currently 77,000 5 Chronic anemia, currently 11.1 6 Chronic atrial fibrillation 7 Diabetes mellitus 8 Hypertension 9 Hypothyroidism 10 Previous history of DVT and pulmonary embolism 11 History of macular degeneration 12 History of sick sinus syndrome post pacemaker insertion Lang: The patient was seen and evaluated by Dr. Izaguirre Chest x-ray, labs and ultrasound reviewed Procalcitonin pending Currently on Levaquin Echocardiogram pending Minimal drainage from Pleurx, plan is to remove 02/19/20 We will continue to follow make further recommendations based on her clinical status I, the cosigning physician, performed a history & physical examination of the patient. Lungs sounds with crackles in the posterior bases. Maintaining good O2 saturations in the 90s on room air. I discussed the assessment and plan of care with my nurse practitioner, Sandra Saravia. I attest to the above consultation as dictated by her. Time with Patient: Greater than 30
[2020-02-07 12:22] LABS: Glucose,Whole Blood 103 mg/dL (75-99)
[2020-02-07] MEDS: IBRUTINIB 280 MG PO SCH (12:24)
[2020-02-07] MEDS: INSULIN ASPART (NovoLOG) 100 UNIT/ML VIAL SQ SCH ×3 (12:34→20:02)
--- NOTE | 2020-02-07 13:31 | ECHOF ---
Referral Reason:bilat pleural effusions/chf MEASUREMENTS -------- HEIGHT: 157.5 cm WEIGHT: 72.6 kg BP: RVIDd: 3.4 cm (< 3.3) IVSd: 1.3 cm (0.6 - 1.1) LVIDd: 4.3 cm (3.9 - 5.3) LVPWd: 1.2 cm (0.6 - 1.1) IVSs: 1.6 cm LVIDs: 2.8 cm LVPWs: 1.6 cm LA Diam: 3.9 cm (2.7 - 3.8) Ao Diam: 3.0 cm (2.0 - 3.7) AV Cusp: 1.5 cm (1.5 - 2.6) MV EXCURSION: 16.312 mm (> 18.000) MV EF SLOPE: 45 mm/s (70 - 150) AV maxP.76 mmHg AV meanP.30 mmHg RAP: 5.00 mmHg RVSP: 90.87 mmHg FINDINGS -------- Paced rhythm. This was a technically good study. The left ventricular size is normal. There is moderate concentric left ventricular hypertrophy. O verall left ventricular systolic function is low-normal with, an EF between 50 - 55 %. The right ventricle is normal in size. The left atrium is mildly dilated. The right atrial size is normal. There is mild aortic stenosis present. Peak/mean gradient across the Aortic Valve is 14.76mmHg / 8. 30mmHg. Mild mitral annular calcification present. Mild mitral regurgitation is present. Moderate to severe tricuspid regurgitation present. There is severe pulmonary hypertension. There is no pulmonic regurgitation present. The aortic root size is normal. There is a small, generalized pericardial effusion present. CONCLUSIONS -------- 1. The left ventricular size is normal. 2. There is moderate concentric left ventricular hypertrophy. 3. Overall left ventricular systolic function is low-normal with, an EF between 50 - 55 %. 4. The right ventricle is normal in size. 5. The left atrium is mildly dilated. 6. The right atrial size is normal. 7. There is mild aortic stenosis present. 8. Peak/mean gradient across the Aortic Valve is 14.76mmHg / 8.30mmHg. 9. Mild mitral annular calcification present. 10. Mild mitral regurgitation is present. 11. Moderate to severe tricuspid regurgitation present. 12. There is severe pulmonary hypertension. 13. There is no pulmonic regurgitation present. 14. There is a small, generalized pericardial effusion present. NET PROGRAMMER: Belen Tavarez RDCS
[2020-02-07] MEDS: SODIUM CHLORIDE 0.9% 1,000 ML IV SCH (18:14)
[2020-02-07 20:03] LABS: Glucose,Whole Blood 103 mg/dL (75-99)
[2020-02-07] MEDS: MAGNESIUM OXIDE 400 MG TAB PO SCH (20:07)
[2020-02-07] MEDS: FERROUS SULFATE 325 MG TAB PO SCH (20:08)
[2020-02-07] MEDS: HEPARIN SODIUM,PORCINE 5,000 UNIT/ML 1 ML VIAL SQ SCH (20:08)
[2020-02-07] MEDS: VIT A,C & E-LUTEIN-MINERALS 1 EACH TAB PO SCH (20:08)
[2020-02-07] MEDS: MELATONIN 3 MG TABLET PO SCH (20:10)
[2020-02-07] MEDS ORDERED: METOPROLOL TARTRATE 25 MG TAB PO SCH (21:00)
[2020-02-08] MEDS: LEVOTHYROXINE 75 MCG TAB PO SCH (05:48)
[2020-02-08 07:01] LABS: Glucose,Whole Blood 97 mg/dL (75-99)
[2020-02-08 07:27] LABS: Anisocytosis Slight; Basophils % (A) 0 %; Eosinophils # (A) 0.1 k/uL (0-0.7); Eosinophils % (A) 1 %; HCT 29.6 % (34.0-46.0); Hypochromasia Moderate; Lymphocytes % (A) 26 %; MCH 27.3 pg (25.0-35.0); MCHC 31.6 g/dL (31.0-37.0); MCV 86.5 fL (80.0-100.0); Mean Platelet Volume 8.4; Monocytes # (A) 0.3 k/uL (0-1.0); Monocytes % (A) 7 %; Neutrophils # (A) 2.6 k/uL (1.3-7.7); Neutrophils % (A) 64 %; RBC 3.42 m/uL (3.80-5.40); RDW 18.3 % (11.5-15.5)
[2020-02-08 07:58] LABS: HGB 9.3 gm/dL (11.4-16.0); Platelet Count 63 k/uL (150-450)
[2020-02-08 08:19] LABS: ALT 15 U/L (4-34); AST 23 U/L (14-36); African American GFR (CKD) 59 (>60 ml/min/1.73 sqM); Albumin 3.1 g/dL (3.5-5.0); Albumin/Globulin Ratio 1.5; Alkaline Phosphatase 41 U/L (38-126); Anion Gap 7 mmol/L; Blood Urea Nitrogen 15 mg/dL (7-17); Calcium 8.4 mg/dL (8.4-10.2); Carbon Dioxide 26 mmol/L (22-30); Chloride 104 mmol/L (98-107); Globulin 2.1 g/dL; Glucose 83 mg/dL (74-99); Non-African American GFR(CKD) 51 (>60 ml/min/1.73 sqM); Potassium 3.7 mmol/L (3.5-5.1); Sodium 137 mmol/L (137-145); Total Bilirubin 2.1 mg/dL (0.2-1.3); Total Protein 5.2 g/dL (6.3-8.2)
[2020-02-08] MEDS ORDERED: IBRUTINIB 280 MG PO SCH ×2 (09:00)
[2020-02-08] MEDS ORDERED: FUROSEMIDE 20 MG TAB PO SCH (09:00)
[2020-02-08] MEDS: INSULIN ASPART (NovoLOG) 100 UNIT/ML VIAL SQ SCH ×4 (09:34→20:09)
[2020-02-08] MEDS: metFORMIN 500 MG TAB PO SCH (09:48)
[2020-02-08] MEDS: METOPROLOL TARTRATE 50 MG TAB PO SCH (09:48)
[2020-02-08] MEDS: MULTIVITAMINS, THERA 1 EACH TAB PO SCH (09:48)
[2020-02-08] MEDS: VIT A,C & E-LUTEIN-MINERALS 1 EACH TAB PO SCH ×2 (09:48→20:26)
[2020-02-08] MEDS: HEPARIN SODIUM,PORCINE 5,000 UNIT/ML 1 ML VIAL SQ SCH ×2 (09:48→20:09)
[2020-02-08] MEDS: CITALOPRAM HYDROBROMIDE 10 MG TAB PO SCH (09:49)
[2020-02-08] MEDS: PANTOPRAZOLE 40 MG TABLET PO SCH (09:49)
[2020-02-08] MEDS: CYANOCOBALAMIN 500 MCG TAB PO SCH (09:49)
[2020-02-08] MEDS: IBRUTINIB 280 MG PO SCH (09:49)
[2020-02-08] MEDS: HYDROcodone/APAP 5-325MG 1 EACH TAB PO PRN ×2 (10:15→22:22)
--- NOTE | 2020-02-08 10:28 | P.CRDCN ---
History of Present Illness Consult date: 02/08/20 Chief complaint: Generalized weakness History of present illness: This is a very pleasant 89-year-old female patient who sees Dr. Amos in the of critical access hospital on regular basis with a past medical history significant for permanent atrial fibrillation currently the patient is not on any oral anticoagulation, sick sinus syndrome status post permanent pacemaker implantation, stage IV non- Hodgkin lymphoma as well as multiple comorbid conditions. The patient was admitted to the hospital because she was not feeling well. For the last few weeks she has been feeling tired and fatigued and also she developed increasing in her shortness of breath with exertion and also mild bilateral lower extremities edema. She did not have any symptoms of chest pain or chest discomfort. No dizziness or lightheadedness or heart racing or fluttering or syncope. The patient does have history of recurrent left-sided pleural effusion and she underwent chest tube placement in November 2019. Currently she is residing at home with a visiting nurse. She was seen by the pulmonary service and also by the surgical service. We consulted to see the patient for further evaluation of possible congestive heart failure. When the patient presented to the hospital she was experiencing increasing in the shortness of breath with exertion but she has no orthopnea nor PND. She developed mild bilateral lower extremities edema but she did not have any change in her weight and she did not gain any weight. No history of congestive heart failure in the past. The chest x-ray did not show any evidence of heart failure. The EKG showed atrial fibrillation with ventricular paced rhythm. Currently the patient is on Lasix 20 mg by mouth daily beach she underwent an echocardiogram which revealed normal left ventricular systolic function was evidence of mild aortic stenosis. She underwent an ultrasound of the chest which revealed only 2.5 cm pocket on the right as well as the left. It was felt by the pulmonary service that the amount of fluid is not enough to perform thoracentesis on her. When she was seen and examined this morning she does have some JVD. No lower extremities edema. She does have diminished breathing sounds bilaterally and also bilateral rhonchi. 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 Varicose veins. Pleural effusion, recurrent. History of Any Multi-Drug Resistant Organisms: None Reported Past Surgical History: Bowel Resection, Cardiac Ablation, Section, Cholecystectomy, Hysterectomy, Orthopedic Surgery, Pacemaker Additional Past Surgical History / Comment(s): Colostomy, later reversal. Cardiac ablation x2. C-S x3, Repair left leg injury. 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 Cataracts. Bilateral knee replacements. Past Anesthesia/Blood Transfusion Reactions: No Reported Reaction Type of Cardiac Device: Permanent Pacemaker Device Placement Date:: 2015 Past Psychological History: Depression Additional Psychological History / Comment(s): Pt resides alone. She uses a walker prn. She has a nebulizer. Smoking Status: Never smoker Past Alcohol Use History: Rare Additional Past Alcohol Use History / Comment(s): Smoker for 20 years, quit at age 40. No alcohol use in past year. Past Drug Use History: None Reported - Past Family History Mother Family Medical History: Coronary Artery Disease (CAD), CVA/TIA Additional Family Medical History / Comment(s): age 83 of stroke Father Family Medical History: Cancer, Congestive Heart Failure (CHF) Additional Family Medical History / Comment(s): of cancer age 77 (colon cancer, bone cancer) Brother(s) Family Medical History: Congestive Heart Failure (CHF), CVA/TIA Additional Family Medical History / Comment(s): Patient had 1 brother that passed from a stroke. She does not have any sisters. Patient has 3 children 2 girls and one son. Son has history of hypertension. Other children have no major medical problems. Medications and Allergies Home Medications Medication Instructions Recorded Confirmed Type Ergocalciferol (Vitamin D2) 50,000 unit PO FR 12/15/13 02/06/20 History [Drisdol] Levothyroxine Sodium [Synthroid] 75 mcg PO DAILY 12/15/13 02/06/20 History Vit C/E/Zn/Coppr/Lutein/Zeaxan 1 cap PO BID 06/11/17 02/06/20 History [Preservision Areds 2 Softgel] Furosemide [Lasix] 20 mg PO DAILY 09/30/18 02/06/20 History Acetaminophen Tab [Tylenol] 500 mg PO Q6HR PRN tab 04/17/19 02/06/20 Rx Citalopram Hydrobromide [CeleXA] 10 mg PO DAILY 06/09/19 02/06/20 History Multivit-Min/FA/Lycopen/Lutein 1 tab PO DAILY 11/03/19 02/06/20 History [Centrum Silver Tablet] Albuterol Sulfate [Proair Hfa] 2 puff INHALATION RT-TID PRN 11/05/19 02/06/20 History Diphenoxylate HCl/Atropine 1 tab PO BID PRN 11/05/19 02/06/20 History [Lomotil 2.5-0.025 mg Tablet] Ibrutinib [Imbruvica] 280 mg PO DAILY 11/05/19 02/06/20 History Metoprolol Tartrate 50 mg PO DAILY 11/05/19 02/06/20 History Cyanocobalamin (Vitamin B-12) 1,000 mcg PO DAILY 02/06/20 02/06/20 History [Vitamin B-12] Ferrous Sulfate [Feosol] 325 mg PO HS 02/06/20 02/06/20 History Magnesium Oxide [Mag-Ox] 250 mg PO HS 02/06/20 02/06/20 History Metoprolol Tartrate [Lopressor] 25 mg PO HS 02/06/20 02/06/20 History metFORMIN HCL [Glucophage] 500 mg PO DAILY 02/06/20 02/06/20 History Allergies Allergy/AdvReac Type Severity Reaction Status Date / Time No Known Allergies Allergy Verified 02/06/20 17:11 Physical Exam Vitals: Vital Signs Temp Pulse Resp BP Pulse Ox 02/08/20 07:24 97.6 F 64 16 137/78 92 L 02/08/20 01:01 98.3 F 62 18 138/69 94 L 02/07/20 19:31 98.6 F 68 18 154/68 93 L 02/07/20 15:00 98.8 F 65 16 130/78 92 L Intake and Output 02/07/20 02/08/20 02/08/20 22:59 06:59 14:59 Other: Voiding Method Toilet Toilet # Voids 1 2 - Constitutional General appearance: no acute distress - Respiratory Respiratory: bilateral: diminished, rhonchi - Cardiovascular Rhythm: irregularly irregular Heart sounds: normal: S1, S2 Abnormal Heart Sounds: systolic murmur Results 02/08/20 06:28 02/08/20 06:28 Cardiac Enzymes 02/08/20 Range/Units 06:28 AST 23 (14-36) U/L CBC 02/08/20 Range/Units 06:28 WBC 4.0 (3.8-10.6) k/uL RBC 3.42 L (3.80-5.40) m/uL Hgb 9.3 L D (11.4-16.0) gm/dL Hct 29.6 L (34.0-46.0) % Plt Count 63 L (150-450) k/uL Comprehensive Metabolic Panel 02/08/20 Range/Units 06:28 Sodium 137 (137-145) mmol/L Potassium 3.7 (3.5-5.1) mmol/L Chloride 104 (98-107) mmol/L Carbon Dioxide 26 (22-30) mmol/L BUN 15 (7-17) mg/dL Creatinine 0.98 (0.52-1.04) mg/dL Glucose 83 (74-99) mg/dL Calcium 8.4 (8.4-10.2) mg/dL AST 23 (14-36) U/L ALT 15 (4-34) U/L Alkaline Phosphatase 41 (38-126) U/L Total Protein 5.2 L (6.3-8.2) g/dL Albumin 3.1 L (3.5-5.0) g/dL Current Medications Generic Name Dose Route Start Last Admin Trade Name Freq PRN Reason Stop Dose Admin Acetaminophen 650 mg 02/06/20 17:59 02/07/20 15:36 Acetaminophen Tab 325 Mg Tab PO 650 mg Q6HR PRN Administration Mild Pain or Fever > 100.5 Hydrocodone Bitart/Acetaminophen 1 each 02/06/20 17:59 02/08/20 10:15 Hydrocodone/Apap 5-325mg 1 Each Tab PO 1 each Q4HR PRN Administration Moderate Pain Benzonatate 100 mg 02/07/20 09:59 Benzonatate 100 Mg Cap PO TID PRN Cough Citalopram Hydrobromide 10 mg 02/08/20 09:00 02/08/20 09:49 Citalopram Hydrobromide 10 Mg Tab PO 10 mg DAILY EDYTA Administration Cyanocobalamin 1,000 mcg 02/08/20 09:00 02/08/20 09:49 Cyanocobalamin 500 Mcg Tab PO 1,000 mcg DAILY EDYTA Administration Diphenoxylate HCl/Atropine 1 each 02/07/20 09:35 Diphenox-Atrop 2.5-0.025 Mg 1 Each Tab PO BID PRN Diarrhea Ergocalciferol 50,000 unit 02/13/20 09:00 Ergocalciferol 50,000 Unit Cap PO FR EDYTA Ferrous Sulfate 325 mg 02/07/20 21:00 02/07/20 20:08 Ferrous Sulfate 325 Mg Tab PO 325 mg HS EDYTA Administration Furosemide 20 mg 02/08/20 21:00 Furosemide 20 Mg Tab PO BID EDYTA Heparin Sodium (Porcine) 5,000 unit 02/07/20 21:00 02/08/20 09:48 Heparin Sodium,Porcine 5,000 Unit/Ml 1 Ml Vial SQ 5,000 unit Q12HR EDYTA Administration Sodium Chloride 1,000 mls @ 20 mls/hr 02/06/20 18:00 02/07/20 18:14 Saline 0.9% IV 20 mls/hr .Q24H EDYTA Administration Levofloxacin/Dextrose 250 mg/ 50 mls @ 50 mls/hr 02/08/20 11:00 IV Solution IVPB Q24H EDYTA Insulin Aspart 0 unit 02/07/20 12:30 02/08/20 09:34 Insulin Aspart (Novolog) 100 Unit/Ml Vial SQ Not Given ACHS [facility] Protocol Levothyroxine Sodium 75 mcg 02/08/20 06:30 02/08/20 05:48 Levothyroxine 75 Mcg Tab PO 75 mcg 0630 EDYTA Administration Levothyroxine Sodium 75 mcg 02/08/20 10:37 02/08/20 10:13 Levothyroxine 75 Mcg Tab PO 02/08/20 10:38 Not Given ONCE ONE Magnesium Oxide 400 mg 02/07/20 21:00 02/07/20 20:07 Magnesium Oxide 400 Mg Tab PO 400 mg HS EDYTA Administration Melatonin 6 mg 02/07/20 21:00 02/07/20 20:10 Melatonin 3 Mg Tablet PO 6 mg HS EDYTA Administration Menthol 1 each 02/07/20 09:58 Menthol (Nice) Lozenge MUCOUS MEM Q4H PRN Sore Throat Metformin HCl 500 mg 02/08/20 09:00 02/08/20 09:48 Metformin 500 Mg Tab PO 500 mg DAILY EDYTA Administration Metoprolol Tartrate 25 mg 02/07/20 21:00 02/07/20 20:08 Metoprolol Tartrate 25 Mg Tab PO 25 mg HS EDYTA Administration Metoprolol Tartrate 50 mg 02/08/20 09:00 02/08/20 09:48 Metoprolol Tartrate 50 Mg Tab PO 50 mg DAILY EDYTA Administration Morphine Sulfate 4 mg 02/06/20 17:59 Morphine Sulfate 4 Mg/Ml Syringe IV Q4HR PRN Severe Pain Multivitamins 1 each 02/08/20 09:00 02/08/20 09:48 Multivitamins, Thera 1 Each Tab PO 1 each DAILY EDYTA Administration Multivitamins/Minerals 1 each 02/07/20 21:00 02/08/20 09:48 Vit A,C & D-Jedxam-[id number] 1 Each Tab PO 1 each BID EDYTA Administration Naloxone HCl 0.2 mg 02/06/20 17:59 Naloxone 0.4 Mg/Ml 1 Ml Vial IV Q2M PRN Opioid Reversal Patient's Own ( 280 mg 02/07/20 11:00 02/08/20 09:49 Ibrutinib [Imbruvica PO 280 mg ] 280 Mg Tablet) DAILY EDYTA Administration Pantoprazole Sodium 40 mg 02/08/20 07:30 02/08/20 09:49 Pantoprazole 40 Mg Tablet PO 40 mg [id number] EDYTA Administration Intake and Output 02/07/20 02/08/20 02/08/20 22:59 06:59 14:59 Other: Voiding Method Toilet Toilet # Voids 1 2 02/08/20 06:28 02/08/20 06:28 Assessment and Plan Assessment: Assessment #1 nonspecific symptoms of generalized weakness and fatigue #2 shortness of breath which is likely to be multifactorial #3 bilateral pleural effusion #4 permanent atrial fibrillation #5 permanent pacemaker implantation #6 non-Hodgkin lymphoma Plan #1 I would increase the dose of Lasix at 20 mg by mouth twice a day #2 shortness of breath is multifactorial with a component of mild heart failure #3 the echo was reviewed and showed normal left ventricular systolic function was mild aortic stenosis #4 for definitive diagnosis and confirmation she might benefit from right heart catheterization but the patient is an 89-year-old #5 she possibly can be discharged home
[2020-02-08] MEDS ORDERED: LEVOTHYROXINE 75 MCG TAB PO ONE (10:37)
[2020-02-08] MEDS ORDERED: LEVOFLOXACIN 250MG-D5W PMX 250 MG in DEXTROSE/WATER 1 50ML.BAG IVPB SCH (11:00)
--- NOTE | 2020-02-08 11:03 | XR ---
EXAMINATION TYPE: XR chest 2V DATE OF EXAM: 02/08/2020 COMPARISON: 02/06/2020 INDICATION: Follow-up TECHNIQUE: Frontal and lateral views of the chest are obtained. FINDINGS: The heart size is normal. The pulmonary vasculature is normal. There is a left lower lobe infiltrate. Small left pleural effusion is present. Minimal right pleural effusion is present. IMPRESSION: 1. Small bilateral pleural effusions
[2020-02-08 11:53] LABS: Glucose,Whole Blood 109 mg/dL (75-99)
--- NOTE | 2020-02-08 12:50 | P.PN ---
Subjective Progress Note Date: 02/08/20 Principal diagnosis: Chronic fatigue, weakness, diarrhea secondary to dehydration This is a very pleasant 89-year-old female patient who follows with Dr. Pink as her primary care provider. She has a history of sick sinus syndrome status post permanent pacemaker implantation, macular degeneration, DVT/PE, hypothyroidism, hypertension, diabetes mellitus, chronic atrial fibrillation, chronic anemia, chronic thrombocytopenia, stage IV non-Hodgkin's lymphoma/chronic lymphocytic leukemia. She is currently on Imbruvica. She has also had recurrent left-sided pleural effusions and is status post multiple thoracentesis. She subsequently had a Pleurx catheter placed in November 2019. It remains in place. She's had minimal output and the plan was for removal of the Pleurx catheter on 02/19/[address] Laura. She presented here to the emergency room yesterday with complaints of generalized weakness, fatigue, shortness of breath. He also had some episodes of diarrhea and felt dehydrated. Chest x-ray revealed evidence of cardiomegaly with mild left perihilar infiltrate. PleurX is catheter in place. Ultrasound of the chest reveals a small 2.5 cm pocket on the right and a 2.2 cm pocket on the left. She is seen today in consultation on the regular medical floor. She is awake and alert in no acute distress. Maintaining O2 saturation in the low 90s on room air. She's afebrile. Hemodynamically stable. White count 5.8. Hemoglobin 11.1. Platelet count 77,000. Sodium 131. Potassium 4.1. Creatinine 0.85. ProBNP 2640. Echocardiogram pending. The patient is seen today 02/08/2020 in follow-up on the regular medical floor. She is currently resting comfortably in bed. Awake and alert in no acute distress. She is having continued shortness of breath with exertion. Mostly comfortable at rest. O2 saturations in the 90s on room air. She's been afebrile. Hemodynamically stable. White count 4. 0. Hemoglobin 9.3. Platelet count 63,000. Sodium 137. Potassium 3.7. Creatinine 0.8. ProBNP 3750. Echocardiogram revealed preserved left ventricular systolic function with ejection fraction 50-55%. Moderate to severe tricuspid regurgitation. Severe pulmonary hypertension. Chest x-ray shows small left and minimal right effusion. Currently on Lasix 20 mg twice a day. Objective - Vital Signs Vital signs: Vital Signs Temp 97.6 F 02/08/20 07:24 Pulse 64 02/08/20 07:24 Resp 16 02/08/20 07:24 BP 137/78 02/08/20 07:24 Pulse Ox 92 L 02/08/20 07:24 Intake & Output 02/07/20 02/08/20 02/08/20 18:59 06:59 18:59 Intake Total 200 Balance 200 Intake: Oral 200 Other: Voiding Method Toilet # Voids 2 2 - Exam GENERAL EXAM: Alert, very pleasant 89-year-old female patient, pale, on room a ir, comfortable in no apparent distress. HEAD: Normocephalic. EYES: Normal reaction of pupils, equal size. NOSE: Clear with pink turbinates. THROAT: No erythema or exudates. NECK: No masses, no JVD. CHEST: No chest wall deformity. LUNGS: Equal air entry with faint crackles in the posterior bases. CVS: S1 and S2 normal with no audible murmur, regular rhythm. ABDOMEN: No hepatosplenomegaly, normal bowel sounds, no guarding or rigidity. SPINE: No scoliosis or deformity SKIN: No rashes CENTRAL NERVOUS SYSTEM: No focal deficits, tone is normal in all 4 extremities. EXTREMITIES: There is no peripheral edema. No clubbing, no cyanosis. Peripheral pulses are intact. - Labs CBC & Chem 7: 02/08/20 06:28 02/08/20 06:28 Labs: Abnormal Lab Results - Last 24 Hours (Table) 02/07/20 02/08/20 02/08/20 Range/Units 20:02 06:28 06:28 RBC 3.42 L (3.80-5.40) m/uL Hgb 9.3 L D (11.4-16.0) gm/dL Hct 29.6 L (34.0-46.0) % RDW 18.3 H (11.5-15.5) % Plt Count 63 L (150-450) k/uL POC Glucose (mg/dL) 103 H (75-99) mg/dL Total Bilirubin 2.1 H (0.2-1.3) mg/dL Total Protein 5.2 L (6.3-8.2) g/dL Albumin 3.1 L (3.5-5.0) g/dL 02/08/20 Range/Units 11:52 RBC (3.80-5.40) m/uL Hgb (11.4-16.0) gm/dL Hct (34.0-46.0) % RDW (11.5-15.5) % Plt Count (150-450) k/uL POC Glucose (mg/dL) 109 H (75-99) mg/dL Total Bilirubin (0.2-1.3) mg/dL Total Protein (6.3-8.2) g/dL Albumin (3.5-5.0) g/dL Assessment and Plan Assessment: 1 Generalized fatigue, weakness, diarrhea with secondary dehydration 2 Dyspnea secondary to acute exacerbation of diastolic congestive heart failure, severe pulmonary hypertension, severe tricuspid regurgitation 3 History of chronic and recurrent left-sided pleural effusion post multiple thoracentesis, status post Pleurx catheter placed in November 2019, minimal drainage in the past several weeks 4 History of non-Hodgkin's lymphoma/chronic lymphocytic leukemia maintained on Imbruvica 5 Chronic thrombocytopenia, currently 63,000 6 Chronic anemia, currently 9.3 7 Chronic atrial fibrillation 8 Diabetes mellitus 9 Hypertension 10 Hypothyroidism 11 Previous history of DVT and pulmonary embolism 12 History of macular degeneration 13 History of sick sinus syndrome post pacemaker insertion Plan: The patient was seen and evaluated by Dr. Izaguirre Chest x-ray, echocardiogram and labs reviewed Procalcitonin within normal limits Currently on Levaquin Echocardiogram with preserved left ventricular systolic function, severe pulmonary hypertension Minimal drainage from Pleurx, plan is to remove 02/19/20 We will continue to follow and make further recommendations based on her clinical status I, the cosigning physician, performed a history & physical examination of the patient. Lungs sounds with crackles in the posterior bases. Maintaining good O2 saturations in the 90s on room air. I discussed the assessment and plan of care with my nurse practitioner, Sandra Saravia. I attest to the above note as dictated by her.
--- NOTE | 2020-02-08 14:31 | P.PN ---
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 Laura back in 11/17/2019, patient has been having her catheter drained by the home healthcare nurse on a regular basis she was just seen on Sunday and not much fluid were able to drain from the catheter, patient contacted me on Sunday stated that she feels a bit dehydrated and she is a bit short of breath, she was drinking too much liquid after she developed to have a significant diarrhea 2 days prior to that thought to be due to her Imbruvica that she has been maintained on for the stage IV non-Hodgkin lymphoma, patient eventually decided come to the emergency room for evaluation of shortness breath and possible dehydration patient underwent chest x-ray in the ER that showed a right sided pleural effusion as well as left-sided perfusion possible infiltrate versus atelectasis, and mild cardio megaly, he shouldn't was admitted to the hospital she did receive a dose of Rocephin and dose of Zithromax thoracic surgery consultation was obtained from Dr. Laura as well as Pulmicort consultation from Dr. Pires, and the cardiology consultation for possible heart failure. 02/07: Patient kidneys to be somewhat short of breath today, she feels tachycardic with palpitation when she is moving around, she had an echocardiogram yesterday that showed normal ejection fraction 55-60% however severe pulmonary hypertension with RSVP of 79, with severe tricuspid regurgitation, applied ESTHER vinson today, discussed with her the chronic atrial fibrillation H her risk of stroke versus bleeding, and she knows that she is not a candidate for anticoagulation at this point in time, patient was seen by cardiology and Lasix was increased to 20 mg orally twice every day, ideally patient should go for right heart catheterization however because of her age and her comorbid issues was elected to treat her conservatively. Objective - Vital Signs Vital signs: Vital Signs Temp 97.6 F 02/08/20 07:24 Pulse 64 02/08/20 07:24 Resp 16 02/08/20 07:24 BP 137/78 02/08/20 07:24 Pulse Ox 92 L 02/08/20 07:24 Intake & Output 02/07/20 02/08/20 02/08/20 18:59 06:59 18:59 Intake Total 200 Balance 200 Intake: Oral 200 Other: Voiding Method Toilet # Voids 2 2 - Exam Review of Systems Constitutional: Reports anorexia, Reports fatigue, Reports weakness, Reports weight loss, Denies chronic headaches, Denies chronic pain Eyes: bilateral blurred vision, bilateral decreased vision, denies bulging eye Ears, nose, mouth and throat: Denies dysphagia, Denies neck lump, Denies sore throat Cardiovascular: Reports decreased exercise tolerance, Reports dyspnea on exertion, Reports shortness of breath, Denies chest pain, Denies lighthe adedness, Denies orthopnea, Denies rapid heart beat, Denies syncope Respiratory: Reports cough, Reports cough with sputum, Reports dyspnea, Denies congestion, Denies home oxygen, Denies sleep apnea, Denies snoring, Denies wheezing Gastrointestinal: Reports bloating, Reports loss of appetite, Denies abdominal pain, Denies BRBPR, Denies excessive gas, Denies heartburn, Denies melena, Denies nausea, Denies vomiting Genitourinary: Reports nocturia, Denies dysuria Menstruation: Reports postmenopausal Musculoskeletal: Denies myalgias Musculoskeletal: absent: ankle pain, ankle stiffness, ankle swelling, elbow pain, elbow stiffness, elbow swelling, foot pain, foot stiffness, foot swelling, hand pain, hand stiffness, hand swelling, hip pain, hip stiffness, hip swelling, knee pain, knee stiffness, knee swelling, shoulder pain, shoulder stiffness, s houlder swelling, wrist pain, wrist stiffness, wrist swelling Integumentary: Reports unusual bruising Neurological: Reports balance difficulties, Reports gait dysfunction, Reports weakness, Reports visual changes Psychiatric: Denies anxiety, Denies depression Endocrine: Denies fatigue, Denies weight change Physical examination: HEENT: Head is atraumatic, normocephalic, pupils were equal round reactive to light and accommodation, extraocular muscle movement were intact, sclera nonicteric conjunctiva was slightly pale, mucous membranes of the mouth are somewhat dry. Neck: Supple, no JVP, decreased carotid upstroke. Chest: Decreased breath sounds at bases, there is decreased tactile fremitus at the lower thirds of both lung garcia, there is a Pleurx catheter on the left side. Heart: First heart sound is depressed, second heart sound is normal, irregularly irregular, there is systolic ejection murmur 2/6 located in the left sternal border, there is permanent pacemaker located in the left upper precordium. Abdomen: Soft, full, nontender, positive bowel sounds. Extremities: Trace edema, no calf tenderness, dorsalis pedis +1 bilaterally. Neurologic examination: Patient is awake alert and oriented 3, cranial nerves III-12 appear grossly intact, muscle power 4 out of 5 in upper extremities 3 out of 5 in bilateral lower extremities, deep tendon reflexes were depressed bilaterally. - Labs CBC & Chem 7: 02/08/20 06:28 02/08/20 06:28 Labs: Abnormal Lab Results - Last 24 Hours (Table) 02/07/20 02/08/20 02/08/20 Range/Units 20:02 06:28 06:28 RBC 3.42 L (3.80-5.40) m/uL Hgb 9.3 L D (11.4-16.0) gm/dL Hct 29.6 L (34.0-46.0) % RDW 18.3 H (11.5-15.5) % Plt Count 63 L (150-450) k/uL POC Glucose (mg/dL) 103 H (75-99) mg/dL Total Bilirubin 2.1 H (0.2-1.3) mg/dL Total Protein 5.2 L (6.3-8.2) g/dL Albumin 3.1 L (3.5-5.0) g/dL 02/08/20 Range/Units 11:52 RBC (3.80-5.40) m/uL Hgb (11.4-16.0) gm/dL Hct (34.0-46.0) % RDW (11.5-15.5) % Plt Count (150-450) k/uL POC Glucose (mg/dL) 109 H (75-99) mg/dL Total Bilirubin (0.2-1.3) mg/dL Total Protein (6.3-8.2) g/dL Albumin (3.5-5.0) g/dL Assessment and Plan Assessment: Assessment and plan: 1. Bilateral pleural effusion right slightly more than left with possible atelectasis versus infiltrate. Continue patient on Levaquin 500 mg IV piggyback every 24 hours, patient currently not requiring oxygen at this point in time recheck her oxygenation with ablation patient is not hypoxemic. Patient already was seen in consultation by pulmonary as well as cardiology, recommendation to continue the current treatment plan. 2. Right-sided heart failure with severe pulmonary hypertension and severe tricuspid regurgitation. Continue patient on Lasix 20 mg orally twice every day increase metoprolol to 50 mg orally twice every day, discussed with cardiology that she is not a candidate for right heart catheterization at this point in time, we'll continue conservative management place the patient on monitor check her oxygenation with ambulation. 3. Recurrent left-sided malignant pleural effusion post multiple thoracentesis currently has a Pleurx catheter in place. Stable at this time. 4. Stage IV non-Hodgkin lymphoma. Continue patient on Imbruvica 280 mg orally once every day. 5. Chronic atrial fibrillation. Continue metoprolol 50 mg orally twice every day, patient is not a candidate for anticoagulation due to the risk of bleeding. 6. Diabetes mellitus type 2. We will continue patient on metformin 500 mg orally once every day, continue patient Accu-Chek before each meal and bedtime along with a slight scale insulin. 7. Hypertension and hypertensive cardiovascular disease. Continue patient on metoprolol 50 mg orally twice every day. 8. Hypothyroidism. Continue levothyroxine 75 g daily. 9. Hyponatremia. Could be related to hypovolemia monitor the patient CMP. 10. Anemia of chronic disease. Appears to be better at this time 11. History of PE and DVT, stable. 12. Macular degeneration. Continue eyedrops and vitamins. 13. Sick sinus syndrome Status post pacemaker. 14. DVT prophylaxis. SCDs and ESTHER vinson, heparin 5000 units subcutaneously every 12 hours. 15. GI prophylaxis. Protonix 40 mg orally once every day. 16. Hopefully home in the next 24 hours.
[2020-02-08 16:31] LABS: Glucose,Whole Blood 112 mg/dL (75-99)
[2020-02-08] MEDS: FUROSEMIDE 20 MG TAB PO SCH (17:13)
[2020-02-08] MEDS: SODIUM CHLORIDE 0.9% 1,000 ML IV SCH (17:14)
[2020-02-08 20:08] LABS: Glucose,Whole Blood 139 mg/dL (75-99)
[2020-02-08] MEDS: MAGNESIUM OXIDE 400 MG TAB PO SCH (20:26)
[2020-02-08] MEDS: FERROUS SULFATE 325 MG TAB PO SCH (20:26)
[2020-02-08] MEDS: MELATONIN 3 MG TABLET PO SCH (20:26)
[2020-02-08] MEDS ORDERED: METOPROLOL TARTRATE 50 MG TAB PO SCH (21:00)
[2020-02-09] MEDS: LEVOTHYROXINE 75 MCG TAB PO SCH (05:16)
[2020-02-09 07:09] LABS: Anisocytosis Slight; Basophils % (A) 1 %; Eosinophils % (A) 1 %; HCT 30.4 % (34.0-46.0); HGB 9.6 gm/dL (11.4-16.0); Hypochromasia Slight; Lymphocytes % (A) 24 %; MCH 26.9 pg (25.0-35.0); MCHC 31.6 g/dL (31.0-37.0); Mean Platelet Volume 8.5; Monocytes # (A) 0.3 k/uL (0-1.0); Monocytes % (A) 7 %; Neutrophils # (A) 2.6 k/uL (1.3-7.7); Neutrophils % (A) 66 %; RBC 3.57 m/uL (3.80-5.40); RDW 18.4 % (11.5-15.5); WBC 3.9 k/uL (3.8-10.6)
[2020-02-09 07:25] LABS: Platelet Count 62 k/uL (150-450)
[2020-02-09 07:26] LABS: Glucose,Whole Blood 96 mg/dL (75-99)
[2020-02-09 08:11] VITALS: BP 144/84; PULSE 58; RESP 16; TEMP 98
[2020-02-09] MEDS: INSULIN ASPART (NovoLOG) 100 UNIT/ML VIAL SQ SCH ×2 (08:14→12:16)
[2020-02-09] MEDS: METOPROLOL TARTRATE 50 MG TAB PO SCH (08:19)
[2020-02-09] MEDS: PANTOPRAZOLE 40 MG TABLET PO SCH (08:20)
[2020-02-09] MEDS: metFORMIN 500 MG TAB PO SCH (08:20)
[2020-02-09] MEDS: CYANOCOBALAMIN 500 MCG TAB PO SCH (08:20)
[2020-02-09] MEDS: CITALOPRAM HYDROBROMIDE 10 MG TAB PO SCH (08:21)
[2020-02-09] MEDS: MULTIVITAMINS, THERA 1 EACH TAB PO SCH (08:21)
[2020-02-09] MEDS: VIT A,C & E-LUTEIN-MINERALS 1 EACH TAB PO SCH (08:22)
[2020-02-09] MEDS: IBRUTINIB 280 MG PO SCH (08:23)
[2020-02-09] MEDS: HEPARIN SODIUM,PORCINE 5,000 UNIT/ML 1 ML VIAL SQ SCH (08:25)
[2020-02-09] MEDS: FUROSEMIDE 20 MG TAB PO SCH (08:27)
--- NOTE | 2020-02-09 08:28 | P.DS ---
Providers Date of admission: 02/06/20 17:59 Attending physician: Satish Pink Consults: 02/06/20 18:00 Consult Physician Routine Consulting Provider: Jenniffer Pires Consult Reason/Comments: Effusion, pneumonia Do you want consulting provider notified?: Yes Consult Physician Routine Consulting Provider: Kevin Laura Consult Reason/Comments: Left pleural effusion Do you want consulting provider notified?: Yes 02/08/20 07:44 Consult Physician Routine Consulting Provider: Linwood Gallagher Consult Reason/Comments: eval for chf Do you want consulting provider notified?: Yes 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 Laura back in 11/17/2019, patient has been having her catheter drained by the home healthcare nurse on a regular basis she was just seen on Sunday and not much fluid were able to drain from the catheter, patient contacted me on Sunday stated that she feels a bit dehydrated and she is a bit short of breath, she was drinking too much liquid after she developed to have a significant diarrhea 2 days prior to that thought to be due to her Imbruvica that she has been maintained on for the stage IV non-Hodgkin lymphoma, patient eventually decided come to the emergency room for evaluation of shortness breath and possible dehydration patient underwent chest x-ray in the ER that showed a right sided pleural effusion as well as left-sided perfusion possible infiltrate versus atelectasis, and mild cardio megaly, he shouldn't was admitted to the hospital she did receive a dose of Rocephin and dose of Zithromax thoracic surgery consultation was obtained from Dr. Laura as well as Pulmicort consultation from Dr. Pires, and the cardiology consultation for possible heart failure. 02/07: Patient kidneys to be somewhat short of breath today, she feels tachyca rdic with palpitation when she is moving around, she had an echocardiogram yesterday that showed normal ejection fraction 55-60% however severe pulmonary hypertension with RSVP of 79, with severe tricuspid regurgitation, applied ESTHER vinson today, discussed with her the chronic atrial fibrillation H her risk of stroke versus bleeding, and she knows that she is not a candidate for anticoagulation at this point in time, patient was seen by cardiology and Lasix was increased to 20 mg orally twice every day, ideally patient should go for right heart catheterization however because of her age and her comorbid issues was elected to treat her conservatively. Discharge diagnoses: 1. Bilateral pleural effusion right slightly more than left with possible atelectasis versus infiltrate. 2. Right-sided heart failure with severe pulmonary hypertension and severe tricuspid regurgitation. 3. Recurrent left-sided malignant pleural effusion post multiple thoracentesis currently has a Pleurx catheter in place. 4. Stage IV non-Hodgkin lymphoma. 5. Chronic atrial fibrillation. Continue metoprolol 50 mg orally twice every day. 6. Diabetes mellitus type 2. 7. Hypertension and hypertensive cardiovascular disease. 8. Hypothyroidism. 9. Hyponatremia. 10. Anemia of chronic disease. 11. History of PE and DVT, stable. 12. Macular degeneration. 13. Sick sinus syndrome Status post pacemaker. Patient Condition at Discharge: Stable Plan - Discharge Summary Discharge Rx Participant: No New Discharge Prescriptions: No Action Levothyroxine Sodium [Synthroid] 75 mcg PO DAILY Ergocalciferol (Vitamin D2) [Drisdol] 50,000 unit PO FR Vit C/E/Zn/Coppr/Lutein/Zeaxan [Preservision Areds 2 Softgel] 1 cap PO BID Furosemide [Lasix] 20 mg PO DAILY Acetaminophen Tab [Tylenol] 500 mg PO Q6HR PRN tab PRN Reason: Fever And/ Or Pain Citalopram Hydrobromide [CeleXA] 10 mg PO DAILY Multivit-Min/FA/Lycopen/Lutein [Centrum Silver Tablet] 1 tab PO DAILY Albuterol Sulfate [Proair Hfa] 2 puff INHALATION RT-TID PRN PRN Reason: Shortness Of Breath Diphenoxylate HCl/Atropine [Lomotil 2.5-0.025 mg Tablet] 1 tab PO BID PRN PRN Reason: Diarrhea Ibrutinib [Imbruvica] 280 mg PO DAILY Metoprolol Tartrate 50 mg PO DAILY metFORMIN HCL [Glucophage] 500 mg PO DAILY Ferrous Sulfate [Feosol] 325 mg PO HS Cyanocobalamin (Vitamin B-12) [Vitamin B-12] 1,000 mcg PO DAILY Metoprolol Tartrate [Lopressor] 25 mg PO HS Magnesium Oxide [Mag-Ox] 250 mg PO HS Discharge Medication List Ergocalciferol (Vitamin D2) [Drisdol] 50,000 unit PO FR 12/15/13 [History] Levothyroxine Sodium [Synthroid] 75 mcg PO DAILY 12/15/13 [History] Vit C/E/Zn/Coppr/Lutein/Zeaxan [Preservision Areds 2 Softgel] 1 cap PO BID 06/11/17 [History] Furosemide [Lasix] 20 mg PO DAILY 09/30/18 [History] Acetaminophen Tab [Tylenol] 500 mg PO Q6HR PRN tab 04/17/19 [Rx] Citalopram Hydrobromide [CeleXA] 10 mg PO DAILY 06/09/19 [History] Multivit-Min/FA/Lycopen/Lutein [Centrum Silver Tablet] 1 tab PO DAILY 11/03/19 [History] Albuterol Sulfate [Proair Hfa] 2 puff INHALATION RT-TID PRN 11/05/19 [History] Diphenoxylate HCl/Atropine [Lomotil 2.5-0.025 mg Tablet] 1 tab PO BID PRN 11/05/19 [History] Ibrutinib [Imbruvica] 280 mg PO DAILY 11/05/19 [History] Metoprolol Tartrate 50 mg PO DAILY 11/05/19 [History] Cyanocobalamin (Vitamin B-12) [Vitamin B-12] 1,000 mcg PO DAILY 02/06/20 [History] Ferrous Sulfate [Feosol] 325 mg PO HS 02/06/20 [History] Magnesium Oxide [Mag-Ox] 250 mg PO HS 02/06/20 [History] Metoprolol Tartrate [Lopressor] 25 mg PO HS 02/06/20 [History] metFORMIN HCL [Glucophage] 500 mg PO DAILY 02/06/20 [History] Follow up Appointment(s)/Referral(s): Satish Pink MD [Primary Care Provider] - 1-2 days
[2020-02-09 09:17] LABS: African American GFR (CKD) 65.7 (60.0-200.0); Albumin 3.6 g/dL (3.80-4.90); Anion Gap 7.3 mmol/L (4.00-12.00); BUN/Creat Ratio 17.78 Ratio (12.00-20.00); Calcium 8.6 mg/dL (8.7-10.3); Carbon Dioxide 26.7 mmol/L (21.6-31.8); Globulin 1.2 g/dL (1.6-3.3); Magnesium 1.7 mg/dL (1.5-2.4); Non-African American GFR(CKD) 56.7 (60.0-200.0); Potassium 3.8 mmol/L (3.5-5.5); Total Bilirubin 1.9 mg/dL (0.2-1.2); Total Protein 4.8 g/dL (6.2-8.2)
--- NOTE | 2020-02-09 10:31 | P.PN ---
Subjective Progress Note Date: 02/09/20 CHIEF COMPLAINT: weakness HISTORY OF PRESENT ILLNESS: Patient examined this morning at the bedside. She currently denies chest pain or pressure. Denies shortness of breath. Her lasix was increased to BID yesterday. She states she is going home today. Vital signs stable. PHYSICAL EXAM: VITAL SIGNS: Reviewed. GENERAL: Well-developed in no acute distress. NECK: Supple. No JVD or thyromegaly LUNGS: Respirations even and unlabored. Lungs diminished HEART: Irregular rate and rhythm. S1 and S2 heard. EXTREMITIES: Normal range of motion. No clubbing or cyanosis. Peripheral pulses intact. No lower extremity edema ASSESSMENT: Generalized weakness and fatigue Shortness of breath Bilateral pleural effusions Chronic persistent atrial fibrillation, not on fci anticoagulation History of permanent pacemaker insertion Non-Hodgkin's lymphoma PLAN: Patient is stable for discharge home today from a cardiac standpoint Follow up in the office with Dr. Amos Nurse practitioner note has been reviewed by physician. Signing provider agrees with the documented findings, assessment, and plan of care. Objective - Vital Signs Vital signs: Vital Signs Temp 98.0 F 02/09/20 07:00 Pulse 58 L 02/09/20 07:00 Resp 16 02/09/20 08:15 BP 144/84 02/09/20 07:00 Pulse Ox 95 02/09/20 07:00 Intake & Output 02/08/20 02/09/20 02/09/20 18:59 06:59 18:59 Intake Total 160 320 Output Total 5 Balance -5 160 320 Intake: Intake, IV Titration 160 Amount Sodium Chloride 0.9% 1, 160 000 ml @ 20 mls/hr IV . Q24H EDYTA Rx#:[id number] Oral 320 Output: Urine 5 Other: Voiding Method Toilet Toilet # Voids 1 - Labs CBC & Chem 7: 02/09/20 06:45 02/09/20 06:45 Labs: Abnormal Lab Results - Last 24 Hours (Table) 02/08/20 02/08/20 02/08/20 Range/Units 11:52 16:30 20:07 RBC (3.80-5.40) m/uL Hgb (11.4-16.0) gm/dL Hct (34.0-46.0) % RDW (11.5-15.5) % Plt Count (150-450) k/uL Est GFR (CKD-EPI)NonAf (60.0-200.0) POC Glucose (mg/dL) 109 H 112 H 139 H (75-99) mg/dL Calcium (8.7-10.3) mg/dL Total Bilirubin (0.2-1.2) mg/dL Total Protein (6.2-8.2) g/dL Albumin (3.80-4.90) g/dL Globulin (1.6-3.3) g/dL 02/09/20 02/09/20 Range/Units 06:45 06:45 RBC 3.57 L (3.80-5.40) m/uL Hgb 9.6 L (11.4-16.0) gm/dL Hct 30.4 L (34.0-46.0) % RDW 18.4 H (11.5-15.5) % Plt Count 62 L (150-450) k/uL Est GFR (CKD-EPI)NonAf 56.7 L (60.0-200.0) POC Glucose (mg/dL) (75-99) mg/dL Calcium 8.6 L (8.7-10.3) mg/dL Total Bilirubin 1.9 H (0.2-1.2) mg/dL Total Protein 4.8 L (6.2-8.2) g/dL Albumin 3.60 L (3.80-4.90) g/dL Globulin 1.2 L (1.6-3.3) g/dL
[2020-02-09 11:51] LABS: Glucose,Whole Blood 125 mg/dL (75-99)
[2020-02-09] MEDS ORDERED: LEVOFLOXACIN 250 MG TAB PO SCH (12:00)
[2020-02-09] MEDS: HYDROcodone/APAP 5-325MG 1 EACH TAB PO PRN (12:15)
[2020-02-13] MEDS ORDERED: ERGOCALCIFEROL 50,000 UNIT CAP PO SCH (09:00)
--- NOTE | 2020-03-12 15:27 | CONS ---
CONSULTATION ADDENDUM 02/07/2020 Patient was examined and I agree with the above findings from my Nurse Practitioner. MMODL / IJN: [id number] /
--- NOTE | 2020-03-22 14:48 | CONS ---
CONSULTATION DATE OF CONSULTATION: 02/07/20 Patient was examined and I agree with the above findings from my nurse practitioner. MMODL / IJN: [id number] / Job#: [id number]
== END 2020-02-09 13:34 | disposition home health service (06) | DRG 640 ==
LOC: EC 16:01 → 4SSUR 17:59
PROVIDERS: ADMIT Internal Medicine; ATTEND Internal Medicine
DX: E86.0 Dehydration (principal); I50.33 Acute on chronic diastolic (congestive) heart failure; C85.90 Non-Hodgkin lymphoma, unspecified, unspecified site; I48.21 Permanent atrial fibrillation; J91.0 Malignant pleural effusion; J98.11 Atelectasis; D63.8 Anemia in other chronic diseases classified elsewhere; D69.6 Thrombocytopenia, unspecified; E03.9 Hypothyroidism, unspecified; E11.9 Type 2 diabetes mellitus without complications; E87.1 Hypo-osmolality and hyponatremia; F32.9 Major depressive disorder, single episode, unspecified; H35.30 Unspecified macular degeneration; I11.0 Hypertensive heart disease with heart failure; I27.29 Other secondary pulmonary hypertension; R19.7 Diarrhea, unspecified; Z79.84 Long term (current) use of oral hypoglycemic drugs; Z79.890 Hormone replacement therapy; Z79.899 Other long term (current) drug therapy; Z80.0 Family history of malignant neoplasm of digestive organs; Z82.3 Family history of stroke; Z80.8 Family history of malignant neoplasm of other organs or systems; Z60.2 Problems related to living alone; I08.2 Rheumatic disorders of both aortic and tricuspid valves; Z82.49 Family history of ischemic heart disease and other diseases of the circulatory system; Z85.6 Personal history of leukemia; Z86.711 Personal history of pulmonary embolism; Z86.718 Personal history of other venous thrombosis and embolism; Z87.891 Personal history of nicotine dependence; Z90.710 Acquired absence of both cervix and uterus; Z95.0 Presence of cardiac pacemaker; Z96.653 Presence of artificial knee joint, bilateral; Z90.49 Acquired absence of other specified parts of digestive tract; Z98.49 Cataract extraction status, unspecified eye; Z86.79 Personal history of other diseases of the circulatory system; D47.2 Monoclonal gammopathy
CPT/HCPCS: 36415; 71046; 76604; 80053; 81001; 83605; 83735; 83880; 84145; 85025; 85610; 85730; 93005; 93306; 96374; 96375; 99285

== ENCOUNTER → 2020-02-12 | Outpatient (CLI) | payer MEDICARE ==
--- NOTE | 2020-02-12 19:55 | CT ---
EXAMINATION TYPE: CT abdomen pelvis w con DATE OF EXAM: 02/12/2020 COMPARISON: 10/17/2019 INDICATION: f/u lymphoma DLP: 854.1 mGycm, Automated exposure control for dose reduction was used. CONTRAST: 100 mL of Isovue 300. Study performed with Oral Contrast TECHNIQUE: Axial images were obtained from above the diaphragm to the pubic rami in the axial plane a t 5 mm thick sections. Reconstructed images are reviewed on the computer in the coronal plane. FINDINGS: Limited CT sections are obtained the lung bases. Small bilateral pleural effusions are present.. CT ABDOMEN: Liver: Normal Spleen: Splenomegaly is present. Mild inflammatory changes adjacent to the spleen Pancreas: Normal Adrenal glands: The adrenal glands are normal. Gallbladder: Absent Kidneys: No masses are evident. No hydronephrosis is present. No cysts are present. Delayed images were obtained through the kidneys, which remain unremarkable. Aorta: Vascular calcification is within the aorta. Inferior vena cava: Normal. CT PELVIS: Loops of bowel within the abdomen and pelvis are normal. There are loops of bowel which are incom pletely distended or lack oral contrast limiting their evaluation. Appendix: Normal as visualized. Urinary bladder: Normal. Genitourinary structures: Uterus and ovaries are not identified. Osseous structures: No suspicious lytic or sclerotic lesions. Degenerative changes are noted at the r ight hip and sacroiliac joints and facet degenerative changes are present. Lymph nodes: No enlarged lymphadenopathy is within the retrocaval region. Few small retrocaval lymph nodes remain present. No retrocrural adenopathy is evident. There is an enlarged left periaortic lymp h node measuring 1.6 x 2.2 cm this may be larger than comparison. Series 3 image 32 and additional [address] mph node is anterior to this location measuring 1.2 cm. A right inguinal lymph node measuring 1.2 cm is present which is diminished in size from prior study. Diffuse thickening within the mid mesentery previously identified is similar to prior study. IMPRESSIONS: 1. Couple of enlarging periaortic lymph nodes. 2. Diminished size of a right inguinal lymph node. 3. Splenomegaly. There may be some minimal perisplenic inflammatory changes well. 4. Small bilateral pleural effusions
== END | disposition home or self-care (01) ==
LOC: RADCTMAIN 12:53
PROVIDERS: ATTEND Internal Medicine Medical Oncology
DX: R59.1 Generalized enlarged lymph nodes (principal); I80.9 Phlebitis and thrombophlebitis of unspecified site; I26.99 Other pulmonary embolism without acute cor pulmonale; I83.90 Asymptomatic varicose veins of unspecified lower extremity; R16.1 Splenomegaly, not elsewhere classified; D64.9 Anemia, unspecified
CPT/HCPCS: 82565; 84520; 74177; 36415; Q9967

== ENCOUNTER → 2020-04-23 | Outpatient (CLI) | payer MEDICARE ==
[2020-04-24 04:21] LABS: Anisocytosis Slight; Basophils % (A) 1 %; Eosinophils # (A) 0.1 k/uL (0-0.7); Eosinophils % (A) 1 %; HCT 36.5 % (34.0-46.0); HGB 11.8 gm/dL (11.4-16.0); Hypochromasia Slight; Lymphocytes % (A) 21 %; MCH 29.2 pg (25.0-35.0); MCHC 32.2 g/dL (31.0-37.0); MCV 90.7 fL (80.0-100.0); Mean Platelet Volume 10.2; Monocytes # (A) 0.3 k/uL (0-1.0); Monocytes % (A) 7 %; Neutrophils # (A) 3.5 k/uL (1.3-7.7); Neutrophils % (A) 70 %; RBC 4.03 m/uL (3.80-5.40); RDW 16.2 % (11.5-15.5)
[2020-04-24 04:29] LABS: Platelet Count 56 k/uL (150-450)
[2020-04-24 05:48] LABS: Erythrocyte Sedimentation Rate 8 mm/hr (0-20)
== END | disposition home or self-care (01) ==
LOC: LABWHC1 16:10
PROVIDERS: ATTEND Internal Medicine
DX: I80.9 Phlebitis and thrombophlebitis of unspecified site (principal); D64.9 Anemia, unspecified; I83.90 Asymptomatic varicose veins of unspecified lower extremity; I26.99 Other pulmonary embolism without acute cor pulmonale
CPT/HCPCS: 36415; 80053; 83615; 85025; 85652

== ENCOUNTER → 2020-04-26 | Outpatient (CLI) | payer MEDICARE ==
[2020-04-26 21:37] LABS: African American GFR (CKD) 51.5 (60.0-200.0); Albumin 4.4 g/dL (3.80-4.90); Albumin/Globulin Ratio 2.75 (1.60-3.17); Anion Gap 10.6 mmol/L (4.00-12.00); BUN/Creat Ratio 28.18 Ratio (12.00-20.00); Calcium 9.3 mg/dL (8.7-10.3); Carbon Dioxide 28.4 mmol/L (21.6-31.8); Globulin 1.6 g/dL (1.6-3.3); Non-African American GFR(CKD) 44.5 (60.0-200.0); Potassium 4.1 mmol/L (3.5-5.5); Total Bilirubin 2.2 mg/dL (0.2-1.2)
== END | disposition home or self-care (01) ==
LOC: LABWHC1 14:02
PROVIDERS: ATTEND Internal Medicine Medical Oncology
DX: D64.9 Anemia, unspecified (principal); I80.9 Phlebitis and thrombophlebitis of unspecified site; I26.99 Other pulmonary embolism without acute cor pulmonale; I83.90 Asymptomatic varicose veins of unspecified lower extremity
CPT/HCPCS: 36415; 80053; 83615

== ENCOUNTER → 2020-07-02 | Outpatient (CLI) | payer MEDICARE ==
[2020-07-02 20:03] LABS: African American GFR (CKD) 51.5 (60.0-200.0); Albumin 4.4 g/dL (3.80-4.90); Albumin/Globulin Ratio 3.14 (1.60-3.17); Anion Gap 7.7 mmol/L (4.00-12.00); BUN/Creat Ratio 26.36 Ratio (12.00-20.00); Carbon Dioxide 29.3 mmol/L (21.6-31.8); Globulin 1.4 g/dL (1.6-3.3); LDL Cholesterol,Calculated 74.4 mg/dL (0.0-131.0); Magnesium 2.4 mg/dL (1.5-2.4); Non-African American GFR(CKD) 44.5 (60.0-200.0); Potassium 4.4 mmol/L (3.5-5.5); Total Bilirubin 2.7 mg/dL (0.2-1.2); Total Protein 5.8 g/dL (6.2-8.2); VLDL Calculation 15.6 mg/dL (5.00-40.00)
[2020-07-02 20:10] LABS: T4, Free (Free Thyroxine) 1.6 ng/dL (0.80-1.80)
[2020-07-02 20:18] LABS: Hemoglobin A1C 5.3 % (4.0-6.0)
[2020-07-03 01:41] LABS: Erythrocyte Sedimentation Rate 13 mm/Hr (0-30)
[2020-07-05 07:27] LABS: Basophils % (A) 0.6; Eosinophils % (A) 1.1
[2020-07-05 07:29] LABS: Lymphocytes % (A) 18.2; Neutrophils # (A) 3.97
[2020-07-05 07:30] LABS: Eosinophils # (A) 0.06; Lymphocytes # (A) 0.98; Monocytes # (A) 0.33; Monocytes % (A) 6.1; Neutrophils % (A) 73.6
[2020-07-05 07:31] LABS: Basophils # (A) 0.03
[2020-07-05 07:36] LABS: WBC 5.39
[2020-07-05 07:37] LABS: HCT 38.2; HGB 11.5; RBC 3.92
[2020-07-05 07:38] LABS: MCH 29.3; MCV 97.4
[2020-07-05 07:39] LABS: MCHC 30.1; RDW 16.5
[2020-07-05 07:40] LABS: Mean Platelet Volume 10.8; Platelet Count 57
== END | disposition home or self-care (01) ==
LOC: LABWHC1 12:06
PROVIDERS: ATTEND Nurse Practitioner
DX: D64.9 Anemia, unspecified (principal); I80.9 Phlebitis and thrombophlebitis of unspecified site; I26.99 Other pulmonary embolism without acute cor pulmonale; I83.90 Asymptomatic varicose veins of unspecified lower extremity; E11.9 Type 2 diabetes mellitus without complications; E78.2 Mixed hyperlipidemia
CPT/HCPCS: 36415; 80053; 80061; 82043; 82306; 82570; 83036; 83615; 83735; 84439; 84443; 85025; 85652

== ENCOUNTER → 2020-07-14 | Outpatient (CLI) | payer MEDICARE ==
[2020-07-14 20:16] LABS: Basophils # (A) 0.01 X 10*3/uL (0.00-0.10); Basophils % (A) 0.2 %; Eosinophils # (A) 0.02 X 10*3/uL (0.04-0.35); Eosinophils % (A) 0.4 %; HCT 34.6 % (37.2-46.3); HGB 10.8 g/dL (12.0-15.0); Lymphocytes # (A) 0.96 X 10*3/uL (0.90-5.00); Lymphocytes % (A) 19.5 %; MCH 29.5 pg (27.0-32.0); MCHC 31.2 g/dL (32.0-37.0); MCV 94.5 fL (80.0-97.0); Mean Platelet Volume 10.5 fL (9.5-12.2); Monocytes # (A) 0.39 X 10*3/uL (0.20-1.00); Monocytes % (A) 7.9 %; Neutrophils # (A) 3.53 X 10*3/uL (1.80-7.70); Neutrophils % (A) 71.6 %; Platelet Count 72 X 10*3/uL (140-440); RBC 3.66 X 10*6/uL (4.10-5.20); RDW 15.6 % (11.5-14.5); WBC 4.93 X 10*3/uL (4.50-10.00)
== END | disposition home or self-care (01) ==
LOC: LABWHC1 11:30
PROVIDERS: ATTEND Internal Medicine Medical Oncology
DX: D64.9 Anemia, unspecified (principal); I80.9 Phlebitis and thrombophlebitis of unspecified site; I26.09 Other pulmonary embolism with acute cor pulmonale; I83.90 Asymptomatic varicose veins of unspecified lower extremity
CPT/HCPCS: 36415; 82247; 85025

== ENCOUNTER → 2020-07-23 | Outpatient (CLI) | payer MEDICARE ==
[2020-07-23 19:24] LABS: HCT 35.9 % (37.2-46.3); HGB 11.2 g/dL (12.0-15.0); MCH 29.2 pg (27.0-32.0); MCHC 31.2 g/dL (32.0-37.0); MCV 93.5 fL (80.0-97.0); Mean Platelet Volume 10.2 fL (9.5-12.2); Platelet Count 98 X 10*3/uL (140-440); RBC 3.84 X 10*6/uL (4.10-5.20); RDW 15.9 % (11.5-14.5)
[2020-07-24 01:45] LABS: Total Bilirubin 2.2 mg/dL (0.3-1.2)
== END | disposition home or self-care (01) ==
LOC: LABWHC1 13:20
PROVIDERS: ATTEND Internal Medicine Medical Oncology
DX: E55.9 Vitamin D deficiency, unspecified (principal); D64.9 Anemia, unspecified; I80.9 Phlebitis and thrombophlebitis of unspecified site; M81.0 Age-related osteoporosis without current pathological fracture
CPT/HCPCS: 36415; 82247; 82306; 85027

== ENCOUNTER 2020-08-03 11:53 | Emergency (ER) | payer MEDICARE ==
[2020-08-03 12:12] LABS: Glucose,Whole Blood 174 mg/dL (75-99)
[2020-08-03 13:38] LABS: Appearance,Urine Clear (Clear); Bilirubin,Urine Negative (Negative); Blood,Urine Small (Negative); Color,Urine Light Yellow; Glucose,Urine (UA) Negative (Negative); Ketones,Urine Negative (Negative); Leukocyte Esterase,Urine Negative (Negative); Nitrite,Urine Negative (Negative); PH, Urine 5.5 (5.0-8.0); Protein,Urine Negative (Negative); RBC,Urine 5 /hpf (0-5); Specific Gravity,Urine 1.005 (1.001-1.035); Urobilinogen,Urine <2.0 mg/dL (<2.0); WBC,Urine <1 /hpf (0-5)
[2020-08-03] MEDS ORDERED: SODIUM CHLORIDE 0.9% 1,000 ML IV STA (14:25)
--- NOTE | 2020-08-03 14:38 | ED ---
General Adult HPI - General Chief complaint: Weakness Stated complaint: dehydration Time Seen by Provider: 08/03/20 14:02 Source: patient, RN notes reviewed Mode of arrival: wheelchair Limitations: no limitations - History of Present Illness Initial comments: 89-year-old female presents emergency Department with polyuria and polydipsia. She noted that she recently got blood work done approximately 1 week ago and her vitamin D was 120 which is toxic levels. She notes that since then she has been excessively thirsty and urinating quite frequently. She denied any other issues or complaints. Her primary care said she should come to the emergency room just encase to make sure she wasn't having hypercalcemia. She was lying in bed in no apparent distress or pain during the exam interview. She denied any flank pain, bone pain chest pain shortness of breath headache nausea vomiting diarrhea constipation fever fatigue chills. - Related Data Home Medications Medication Instructions Recorded Confirmed Levothyroxine Sodium [Synthroid] 75 mcg PO DAILY 12/15/13 08/03/20 Vit C/E/Zn/Coppr/Lutein/Zeaxan 1 cap PO BID 06/11/17 08/03/20 [Preservision Areds 2 Softgel] Cyanocobalamin (Vitamin B-12) 1,000 mcg PO DAILY 02/06/20 08/03/20 [Vitamin B-12] Ferrous Sulfate [Iron (65 MG 325 mg PO HS 02/06/20 08/03/20 Elemental)] metFORMIN HCL [Glucophage] 500 mg PO DAILY 02/06/20 08/03/20 Furosemide [Lasix] 40 mg PO DAILY 08/03/20 08/03/20 Magnesium Gluconate [Magonate] 500 mg PO DAILY 08/03/20 08/03/20 Metoprolol Tartrate [Lopressor] 25 mg PO HS 08/03/20 08/03/20 Metoprolol Tartrate [Lopressor] 50 mg PO DAILY 08/03/20 08/03/20 Mometasone Furoate 1 applic TOPICAL DAILY 08/03/20 08/03/20 Potassium Chloride ER [K-Dur 10] 10 meq PO DAILY 08/03/20 08/03/20 Allergies Allergy/AdvReac Type Severity Reaction Status Date / Time No Known Allergies Allergy Verified 08/03/20 14:34 Review of Systems ROS Statement: Those systems with pertinent positive or pertinent negative responses have been documented in the HPI. ROS Other: All systems not noted in ROS Statement are negative. 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 Varicose veins. Pleural effusion, recurrent. History of Any Multi-Drug Resistant Organisms: None Reported Past Surgical History: Bowel Resection, Cardiac Ablation, Section, Cholecystectomy, Hysterectomy, Orthopedic Surgery, Pacemaker Additional Past Surgical History / Comment(s): Colostomy, later reversal. Cardiac ablation x2. C-S x3, Repair left leg injury. 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 Cataracts. Bilateral knee replacements. Past Anesthesia/Blood Transfusion Reactions: No Reported Reaction Type of Cardiac Device: Permanent Pacemaker Device Placement Date:: 2015 Past Psychological History: Depression Smoking Status: Never smoker Past Alcohol Use History: Rare Past Drug Use History: None Reported - Past Family History Mother Family Medical History: Coronary Artery Disease (CAD), CVA/TIA Additional Family Medical History / Comment(s): age 83 of stroke Father Family Medical History: Cancer, Congestive Heart Failure (CHF) Additional Family Medical History / Comment(s): of cancer age 77 (colon cancer, bone cancer) Brother(s) Family Medical History: Congestive Heart Failure (CHF), CVA/TIA Additional Family Medical History / Comment(s): Patient had 1 brother that passed from a stroke. She does not have any sisters. Patient has 3 children 2 girls and one son. Son has history of hypertension. Other children have no major medical problems. General Exam Limitations: no limitations General appearance: alert, in no apparent distress Head exam: Present: atraumatic, normocephalic, normal inspection Eye exam: Present: normal appearance, PERRL, EOMI. Absent: scleral icterus, conjunctival injection, periorbital swelling ENT exam: Present: normal exam, mucous membranes moist Neck exam: Present: normal inspection. Absent: tenderness, meningismus, lymphadenopathy Respiratory exam: Present: normal lung sounds bilaterally. Absent: respiratory distress, wheezes, rales, rhonchi, stridor Cardiovascular Exam: Present: regular rate, normal rhythm, normal heart sounds. Absent: systolic murmur, diastolic murmur, rubs, gallop, clicks GI/Abdominal exam: Present: soft, normal bowel sounds. Absent: distended, tenderness, guarding, rebound, rigid Extremities exam: Present: normal inspection, full ROM, normal capillary refill. Absent: tenderness, pedal edema, joint swelling, calf tenderness Back exam: Present: normal inspection Neurological exam: Present: alert, oriented X3, CN II-XII intact Psychiatric exam: Present: normal affect, normal mood Skin exam: Present: warm, dry, intact, normal color. Absent: rash Course Vital Signs 08/03/20 12:08 Temperature 98.0 F Pulse Rate 70 Respiratory 16 Rate Blood Pressure 111/56 O2 Sat by Pulse 95 Oximetry EKG Findings - EKG Comments: EKG Findings:: Ventricular rate 63 bpm, QRS duration 84 ms, QT/QTc 416/4 ms, PRT axes */96/70. Demand pacemaker, interpretation is based on intrinsic rhythm. Atrial fibrillation with premature ventricular or aberrantly conducted complexes, anterior lateral infarct, age undetermined, ST and T-wave abnormality, consider inferior ischemia or digitalis effect, abnormal ECG. Medical Decision Making - Medical Decision Making 89-year-old female complaining of vitamin D toxicity. CMP, 1 L normal saline ordered. Patient had labs drawn approximately 1 week ago, did not show hypercalcemia. Labs unremarkable. Case discussed with Dr. Lara, patient can discharge home. - Lab Data Result diagrams: 08/03/20 14:50 Lab Results 08/03/20 08/03/20 08/03/20 Range/Units 12:10 13:16 14:50 Sodium 135 L (137-145) mmol/L Potassium 3.8 (3.5-5.1) mmol/L Chloride 96 L (98-107) mmol/L Carbon Dioxide 28 (22-30) mmol/L Anion Gap 11 mmol/L BUN 25 H (7-17) mg/dL Creatinine 0.88 (0.52-1.04) mg/dL Est GFR (CKD-EPI)AfAm 68 (>60 ml/min/1.73 sqM) Est GFR (CKD-EPI)NonAf 59 (>60 ml/min/1.73 sqM) Glucose 88 (74-99) mg/dL POC Glucose (mg/dL) 174 H (75-99) mg/dL POC Glu Laborer/Grade Check ID Litzy Berg Calcium 9.3 (8.4-10.2) mg/dL Total Bilirubin 1.7 H (0.2-1.3) mg/dL AST 41 H (14-36) U/L ALT 22 (4-34) U/L Alkaline Phosphatase 69 (38-126) U/L Total Protein 6.8 (6.3-8.2) g/dL Albumin 4.2 (3.5-5.0) g/dL Urine Color Light Yellow Urine Appearance Clear (Clear) Urine pH 5.5 (5.0-8.0) Ur Specific [place] 1.005 (1.001-1.035) Urine Protein Negative (Negative) Urine Glucose (UA) Negative (Negative) Urine Ketones Negative (Negative) Urine Blood Small H (Negative) Urine Nitrite Negative (Negative) Urine Bilirubin Negative (Negative) Urine Urobilinogen <2.0 (<2.0) mg/dL Ur Leukocyte Esterase Negative (Negative) Urine RBC 5 (0-5) /hpf Urine WBC <1 (0-5) /hpf - EKG Data -: EKG Interpreted by Me EKG Comments: Ventricular rate 63 bpm, QRS duration 84 ms, QT/QTc 416/4 ms, PRT axes */96/70 Demand pacemaker, interpretation is based on intrinsic rhythm. Atrial fibrillation with premature ventricular or aberrantly conducted complexes, anterior lateral infarct, age undetermined, ST and T-wave abnormality, consider inferior ischemia or digitalis effect, abnormal ECG. Disposition Clinical Impression: Hypervitaminosis D Disposition: HOME SELF-CARE Condition: Stable Instructions (If sedation given, give patient instructions): Hypercalcemia (ED) Additional Instructions: Please return to the Emergency Department if symptoms worsen or any other concerns. Continue to increase oral fluid intake. Must left the body process and rear- ended the access vitamin D on its own. Follow-up with primary care in 5-7 days. Is patient prescribed a controlled substance at d/c from ED?: No Referrals: Satish Pink MD [Primary Care Provider] - 1-2 days Time of Disposition: 15:14
[2020-08-03 15:03] LABS: Albumin 4.2 g/dL (3.5-5.0); Calcium 9.3 mg/dL (8.4-10.2); Potassium 3.8 mmol/L (3.5-5.1); Total Bilirubin 1.7 mg/dL (0.2-1.3); Total Protein 6.8 g/dL (6.3-8.2)
[2020-08-03 15:36] VITALS: BP 140/65; PULSE 61; RESP 18; TEMP 97.9
== END 2020-08-03 15:56 | disposition home or self-care (01) ==
LOC: EC 11:53
DX: E67.3 Hypervitaminosis D (principal); E11.36 Type 2 diabetes mellitus with diabetic cataract; I10 Essential (primary) hypertension; I48.91 Unspecified atrial fibrillation; Z79.51 Long term (current) use of inhaled steroids; Z79.84 Long term (current) use of oral hypoglycemic drugs; Z79.899 Other long term (current) drug therapy; Z86.711 Personal history of pulmonary embolism
CPT/HCPCS: 36415; 80053; 81001; 93005; 96360; 99285

== ENCOUNTER → 2020-09-03 | Outpatient (CLI) | payer MEDICARE ==
[2020-09-03 19:55] LABS: Hemoglobin A1C 5.9 % (4.0-6.0)
[2020-09-04 01:16] LABS: Chol/HDL Ratio 4.18; Magnesium 2.3 mg/dL (1.5-2.4)
[2020-09-04 01:25] LABS: T4, Free (Free Thyroxine) 1.5 ng/dL (0.80-1.80)
== END | disposition home or self-care (01) ==
LOC: LABWHC1 08:24
PROVIDERS: ATTEND Internal Medicine
DX: E78.2 Mixed hyperlipidemia (principal); E03.9 Hypothyroidism, unspecified; E67.3 Hypervitaminosis D; I10 Essential (primary) hypertension; E11.9 Type 2 diabetes mellitus without complications
CPT/HCPCS: 36415; 80061; 82306; 83036; 83735; 84439; 84443

== ENCOUNTER 2020-09-16 11:36 | Inpatient (IN) | payer MEDICARE ==
[2020-09-16 12:26] LABS: Anisocytosis Slight; Basophils % (A) 0 %; Eosinophils # (A) 0.1 k/uL (0-0.7); Eosinophils % (A) 1 %; HCT 36.1 % (34.0-46.0); HGB 11.8 gm/dL (11.4-16.0); Lymphocytes # (A) 1.4 k/uL (1.0-4.8); Lymphocytes % (A) 18 %; MCH 29.9 pg (25.0-35.0); MCHC 32.5 g/dL (31.0-37.0); Mean Platelet Volume 7.6; Monocytes # (A) 0.3 k/uL (0-1.0); Monocytes % (A) 4 %; Neutrophils # (A) 5.7 k/uL (1.3-7.7); Neutrophils % (A) 76 %; Platelet Count 104 k/uL (150-450); RBC 3.93 m/uL (3.80-5.40); WBC 7.6 k/uL (3.8-10.6)
--- NOTE | 2020-09-16 12:43 | XR ---
EXAMINATION TYPE: XR chest 2V DATE OF EXAM: 09/16/2020 CLINICAL HISTORY: difficulty breathing. TECHNIQUE: Frontal and lateral view of the chest. COMPARISON: 03/22/2020 FINDINGS: Left-sided dual-chamber pacemaker. Cardiomegaly. There is pulmonary vascular congestion an d small bilateral pleural effusion. Bibasilar airspace opacities. No pneumothorax. Decreased osseous mineralization. IMPRESSION: Cardiomegaly, pulmonary vascular congestion, and small bilateral pleural effusions. Findings likely r epresent CHF.
[2020-09-16 12:47] LABS: Albumin 3.8 g/dL (3.5-5.0); Calcium 9.1 mg/dL (8.4-10.2); Potassium 3.9 mmol/L (3.5-5.1); Total Bilirubin 1.9 mg/dL (0.2-1.3); Total Protein 6.3 g/dL (6.3-8.2)
--- NOTE | 2020-09-16 13:04 | ED ---
General Adult HPI - General Chief complaint: Shortness of Breath Stated complaint: SOB Time Seen by Provider: 09/16/20 11:45 Source: patient, RN notes reviewed, old records reviewed Mode of arrival: ambulatory Limitations: no limitations - History of Present Illness Initial comments: This is an 89-year-old female presents emergency Department complaining of difficulty breathing got worse since Sunday. Patient states she has a history of CHF as well as pleural effusions for which she had a shunt placed and states that hasn't been a problem in a while. But the difficulty breathing is getting progressively worse. Patient denies any fever chills or cough and states she is fully vaccinated from COVID. Patient denies any chest pain. Patient denies any lightheadedness or dizziness. Patient denies any abdominal pain patient denies nausea vomiting diarrhea. - Related Data Home Medications Medication Instructions Recorded Confirmed Levothyroxine Sodium [Synthroid] 75 mcg PO DAILY 12/15/13 09/16/20 Vit C/E/Zn/Coppr/Lutein/Zeaxan 1 cap PO BID 06/11/17 09/16/20 [Preservision Areds 2 Softgel] Cyanocobalamin (Vitamin B-12) 1,000 mcg PO DAILY 02/06/20 09/16/20 [Vitamin B-12] metFORMIN HCL [Glucophage] 500 mg PO DAILY 02/06/20 09/16/20 Furosemide [Lasix] 20 mg PO BID 08/03/20 09/16/20 Magnesium Gluconate [Magonate] 500 mg PO DAILY 08/03/20 09/16/20 Metoprolol Tartrate [Lopressor] 25 mg PO HS 08/03/20 09/16/20 Metoprolol Tartrate [Lopressor] 50 mg PO DAILY 08/03/20 09/16/20 Potassium Chloride ER [K-Dur 10] 10 meq PO DAILY 08/03/20 09/16/20 Citalopram Hydrobromide [CeleXA] 10 mg PO DAILY 09/16/20 09/16/20 Ibrutinib [Imbruvica] 280 mg PO DAILY 09/16/20 09/16/20 Multivit-Min/FA/Lycopen/Lutein 1 tab PO DAILY 09/16/20 09/16/20 [Centrum Silver Tablet] Allergies Allergy/AdvReac Type Severity Reaction Status Date / Time No Known Allergies Allergy Verified 09/16/20 13:02 Review of Systems ROS Statement: Those systems with pertinent positive or pertinent negative responses have been documented in the HPI. ROS Other: All systems not noted in ROS Statement are negative. 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 Varicose veins. Pleural effusion, recurrent. History of Any Multi-Drug Resistant Organisms: None Reported Past Surgical History: Bowel Resection, Cardiac Ablation, Section, Cholecystectomy, Hysterectomy, Orthopedic Surgery, Pacemaker Additional Past Surgical History / Comment(s): Colostomy, later reversal. Cardiac ablation x2. C-S x3, Repair left leg injury. 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 Cataracts. Bilateral knee replacements. Past Anesthesia/Blood Transfusion Reactions: No Reported Reaction Type of Cardiac Device: Permanent Pacemaker Device Placement Date:: 2015 Past Psychological History: Depression Smoking Status: Never smoker Past Alcohol Use History: Rare Past Drug Use History: None Reported - Past Family History Mother Family Medical History: Coronary Artery Disease (CAD), CVA/TIA Additional Family Medical History / Comment(s): age 83 of stroke Father Family Medical History: Cancer, Congestive Heart Failure (CHF) Additional Family Medical History / Comment(s): of cancer age 77 (colon cancer, bone cancer) Brother(s) Family Medical History: Congestive Heart Failure (CHF), CVA/TIA Additional Family Medical History / Comment(s): Patient had 1 brother that passed from a stroke. She does not have any sisters. Patient has 3 children 2 girls and one son. Son has history of hypertension. Other children have no major medical problems. General Exam - General Exam Comments Initial Comments: GENERAL: Patient is well-developed and well-nourished. Patient is nontoxic and well- hydrated and is in mild distress. ENT: Neck is soft and supple. No significant lymphadenopathy is noted. Oropharynx is clear. Moist mucous membranes. Neck has full range of motion without eliciting any pain. EYES: The sclera were anicteric and conjunctiva were pink and moist. Extraocular movements were intact and pupils were equal round and reactive to light. Eyelids were unremarkable. PULMONARY: Unlabored respirations. Good breath sounds bilaterally. No audible rales rhonchi or wheezing was noted. CARDIOVASCULAR: There is a regular rate and rhythm without any murmurs gallops or rubs. ABDOMEN: Soft and nontender with normal bowel sounds. Slight lower abdominal distention however the bladder scanner showed no urine. Area was nontender. SKIN: Skin is clear with no lesions or rashes and otherwise unremarkable. NEUROLOGIC: Patient is alert and oriented x3. Cranial nerves II through XII are grossly intact. Motor and sensory are also intact. Normal speech, volume and content. Symmetrical smile. MUSCULOSKELETAL: Normal extremities with adequate strength and full range of motion. LYMPHATICS: No significant lymphadenopathy is noted PSYCHIATRIC: Normal psychiatric evaluation. Limitations: no limitations Course Vital Signs 09/16/20 09/16/20 09/16/20 11:41 12:15 13:35 Temperature 97.7 F Pulse Rate 64 61 67 Respiratory 18 20 18 Rate Blood Pressure 134/63 114/84 109/60 O2 Sat by Pulse 93 L 94 L 97 Oximetry 09/16/20 15:05 Temperature Pulse Rate 72 Respiratory 18 Rate Blood Pressure 136/74 O2 Sat by Pulse 97 Oximetry Medical Decision Making - Medical Decision Making EKG shows atrial fibrillation with occasional paced ventricular complex at a rate of 74 bpm dresses 88 QT interval is 412 QTC is 457. Chest x-ray shows pulmonary edema with some pleural effusions. CT shows congestive heart failure and a small right-sided PE. I spoke with Dr. Pink he agreed to admit the patient admitted the patient wrote admitting orders. I consult to Dr. Pires and cardiology. I spoke with Dr. Pink about starting the patient on blood thinners and we were an agreement to hold off until Dr. Pires sees the patient because she is stable at this point time and she has a history of bleeding as well as having low platelets. - Lab Data Result diagrams: 09/16/20 12:07 09/16/20 12:07 Lab Results 09/16/20 09/16/20 09/16/20 Range/Units 12:07 12:07 12:07 WBC 7.6 (3.8-10.6) k/uL RBC 3.93 (3.80-5.40) m/uL Hgb 11.8 (11.4-16.0) gm/dL Hct 36.1 (34.0-46.0) % MCV 92.0 (80.0-100.0) fL MCH 29.9 (25.0-35.0) pg MCHC 32.5 (31.0-37.0) g/dL RDW 17.0 H (11.5-15.5) % Plt Count 104 L (150-450) k/uL MPV 7.6 Neutrophils % 76 % Lymphocytes % 18 % Monocytes % 4 % Eosinophils % 1 % Basophils % 0 % Neutrophils # 5.7 (1.3-7.7) k/uL Lymphocytes # 1.4 (1.0-4.8) k/uL Monocytes # 0.3 (0-1.0) k/uL Eosinophils # 0.1 (0-0.7) k/uL Basophils # 0.0 (0-0.2) k/uL Anisocytosis Slight ESR 14 (0-20) mm/hr PT 10.9 (9.0-12.0) sec INR 1.0 (<1.2) APTT 22.5 (22.0-30.0) sec D-Dimer 2.68 H (<0.60) mg/L FEU Sodium 130 L (137-145) mmol/L Potassium 3.9 (3.5-5.1) mmol/L Chloride 94 L (98-107) mmol/L Carbon Dioxide 24 (22-30) mmol/L Anion Gap 12 mmol/L BUN 20 H (7-17) mg/dL Creatinine 0.93 (0.52-1.04) mg/dL Est GFR (CKD-EPI)AfAm 64 (>60 ml/min/1.73 sqM) Est GFR (CKD-EPI)NonAf 55 (>60 ml/min/1.73 sqM) Glucose 142 H (74-99) mg/dL Lactic Ac Sepsis Rflx Plasma Lactic Acid Amanuel (0.7-2.0) mmol/L Calcium 9.1 (8.4-10.2) mg/dL Total Bilirubin 1.9 H (0.2-1.3) mg/dL AST 33 (14-36) U/L ALT 18 (4-34) U/L Alkaline Phosphatase 59 (38-126) U/L Lactate Dehydrogenase 522 (313-618) U/L Troponin I (0.000-0.034) ng/mL NT-Pro-B Natriuret Pep pg/mL Total Protein 6.3 (6.3-8.2) g/dL Albumin 3.8 (3.5-5.0) g/dL Coronavirus (PCR) (Not Detectd) 09/16/20 09/16/20 09/16/20 Range/Units 12:07 12:07 12:07 WBC (3.8-10.6) k/uL RBC (3.80-5.40) m/uL Hgb (11.4-16.0) gm/dL Hct (34.0-46.0) % MCV (80.0-100.0) fL MCH (25.0-35.0) pg MCHC (31.0-37.0) g/dL RDW (11.5-15.5) % Plt Count (150-450) k/uL MPV Neutrophils % % Lymphocytes % % Monocytes % % Eosinophils % % Basophils % % Neutrophils # (1.3-7.7) k/uL Lymphocytes # (1.0-4.8) k/uL Monocytes # (0-1.0) k/uL Eosinophils # (0-0.7) k/uL Basophils # (0-0.2) k/uL Anisocytosis ESR (0-20) mm/hr PT (9.0-12.0) sec INR (<1.2) APTT (22.0-30.0) sec D-Dimer (<0.60) mg/L FEU Sodium (137-145) mmol/L Potassium (3.5-5.1) mmol/L Chloride (98-107) mmol/L Carbon Dioxide (22-30) mmol/L Anion Gap mmol/L BUN (7-17) mg/dL Creatinine (0.52-1.04) mg/dL Est GFR (CKD-EPI)AfAm (>60 ml/min/1.73 sqM) Est GFR (CKD-EPI)NonAf (>60 ml/min/1.73 sqM) Glucose (74-99) mg/dL Lactic Ac Sepsis Rflx Plasma Lactic Acid Amanuel 2.3 H* (0.7-2.0) mmol/L Calcium (8.4-10.2) mg/dL Total Bilirubin (0.2-1.3) mg/dL AST (14-36) U/L ALT (4-34) U/L Alkaline Phosphatase (38-126) U/L Lactate Dehydrogenase (313-618) U/L Troponin I <0.012 (0.000-0.034) ng/mL NT-Pro-B Natriuret Pep 07784 pg/mL Total Protein (6.3-8.2) g/dL Albumin (3.5-5.0) g/dL Coronavirus (PCR) (Not Detectd) 09/16/20 09/16/20 Range/Units 12:51 13:09 WBC (3.8-10.6) k/uL RBC (3.80-5.40) m/uL Hgb (11.4-16.0) gm/dL Hct (34.0-46.0) % MCV (80.0-100.0) fL MCH (25.0-35.0) pg MCHC (31.0-37.0) g/dL RDW (11.5-15.5) % Plt Count (150-450) k/uL MPV Neutrophils % % Lymphocytes % % Monocytes % % Eosinophils % % Basophils % % Neutrophils # (1.3-7.7) k/uL Lymphocytes # (1.0-4.8) k/uL Monocytes # (0-1.0) k/uL Eosinophils # (0-0.7) k/uL Basophils # (0-0.2) k/uL Anisocytosis ESR (0-20) mm/hr PT (9.0-12.0) sec INR (<1.2) APTT (22.0-30.0) sec D-Dimer (<0.60) mg/L FEU Sodium (137-145) mmol/L Potassium (3.5-5.1) mmol/L Chloride (98-107) mmol/L Carbon Dioxide (22-30) mmol/L Anion Gap mmol/L BUN (7-17) mg/dL Creatinine (0.52-1.04) mg/dL Est GFR (CKD-EPI)AfAm (>60 ml/min/1.73 sqM) Est GFR (CKD-EPI)NonAf (>60 ml/min/1.73 sqM) Glucose (74-99) mg/dL Lactic Ac Sepsis Rflx Y Plasma Lactic Acid Amanuel (0.7-2.0) mmol/L Calcium (8.4-10.2) mg/dL Total Bilirubin (0.2-1.3) mg/dL AST (14-36) U/L ALT (4-34) U/L Alkaline Phosphatase (38-126) U/L Lactate Dehydrogenase (313-618) U/L Troponin I (0.000-0.034) ng/mL NT-Pro-B Natriuret Pep pg/mL Total Protein (6.3-8.2) g/dL Albumin (3.5-5.0) g/dL Coronavirus (PCR) Not Detected (Not Detectd) Critical Care Time Critical Care Time: Yes Total Critical Care Time: 35 Disposition Clinical Impression: Acute pulmonary edema, Pulmonary embolism, Pleural effusion, right Disposition: ADMITTED IP TO THIS HOSP Referrals: Satish Pink MD [Primary Care Provider] - 1-2 days Time of Disposition: 15:16
[2020-09-16 13:05] LABS: Partial Thromboplastin Time 22.5 sec (22.0-30.0); Prothrombin Time 10.9 sec (9.0-12.0)
[2020-09-16 13:16] LABS: D-Dimer 2.68 mg/L FEU (<0.60)
[2020-09-16 14:10] LABS: Erythrocyte Sedimentation Rate 14 mm/hr (0-20)
--- NOTE | 2020-09-16 15:17 | CT ---
EXAMINATION TYPE: CT chest angio for PE DATE OF EXAM: 09/16/2020 COMPARISON: Chest x-ray 09/16/2020 HISTORY: Shortness of breath. CT DLP: 360.3 mGycm Automated exposure control for dose reduction was used. CONTRAST: CT Chest for pulmonary embolism performed with with IV Contrast, patient injected with 80 mL of Isovu e 370. FINDINGS: LUNGS: There is bilateral consolidation, small left effusion and moderate right pleural effusion. No pneumothorax. Biapical pleural thickening with pleural-based apical calcification. Within the right u pper lobe branch on axial image 68 there is suspicion for a filling defect in suspicion for small acu te pulmonary embolism. MEDIASTINUM: There is reduced enhancement of a right upper lobe branch noted on axial image 68 and th erefore suspicion for pulmonary embolism. Atherosclerotic change aorta.. There are no greater than 1 cm hilar or mediastinal lymph nodes. Mild cardiomegaly. OTHER: Hypertrophic and degenerative change of the spine. Cardiac device and cardiac leads noted. IMPRESSION: 1. Correlate for CHF. 2. Findings suspicious for a small right upper lobe pulmonary acute embolism.
[2020-09-16] MEDS ORDERED: FUROSEMIDE 10 MG/ML 2 ML VIAL IV SCH (16:00)
[2020-09-16] MEDS: FUROSEMIDE 10 MG/ML 4 ML VIAL IV SCH (21:26)
[2020-09-16] MEDS: METOPROLOL TARTRATE 25 MG TAB PO SCH (21:26)
[2020-09-16] MEDS: VIT A,C & E-LUTEIN-MINERALS 1 EACH TAB PO SCH (21:26)
[2020-09-16] MEDS: ENOXAPARIN 80 MG/0.8 ML SYRINGE SQ SCH (21:26)
--- NOTE | 2020-09-16 21:29 | US ---
EXAMINATION TYPE: US venous doppler duplex LE DATE OF EXAM: 09/16/2020 8:14 PM COMPARISON: US CLINICAL HISTORY: PE/ possible DVT. PE/possible DVT per order. Swelling within the legs. Hx PE. SIDE PERFORMED: Bilateral TECHNIQUE: The lower extremity deep venous system is examined utilizing real time linear array sonog sheila with graded compression, doppler sonography and color-flow sonography. VESSELS IMAGED: Common Femoral Vein Deep Femoral Vein Greater Saphenous Vein * Femoral Vein Popliteal Vein Small Saphenous Vein * Proximal Calf Veins (* superficial vessels) Right Leg: No evidence of DVT in veins imaged at this time. Left Leg: Limited due to edema. No evidence of DVT in veins imaged at this time. Complex area seen wi thin the left popliteal fossa measuring 3.6 x 4.6 x 1.5 cm. IMPRESSION: There is left side popliteal cyst. No evidence of deep vein thrombosis in both legs.
[2020-09-17] MEDS: LEVOTHYROXINE 75 MCG TAB PO SCH (05:56)
[2020-09-17 07:09] LABS: Glucose,Whole Blood 96 mg/dL (75-99)
[2020-09-17] MEDS: FUROSEMIDE 10 MG/ML 4 ML VIAL IV SCH ×2 (07:37→20:36)
[2020-09-17] MEDS: METOPROLOL TARTRATE 50 MG TAB PO SCH (07:38)
[2020-09-17] MEDS: VIT A,C & E-LUTEIN-MINERALS 1 EACH TAB PO SCH ×2 (07:38→20:38)
[2020-09-17] MEDS: CYANOCOBALAMIN 500 MCG TAB PO SCH (07:38)
[2020-09-17] MEDS: MULTIVITAMINS, THERA 1 EACH TAB PO SCH (07:39)
[2020-09-17] MEDS: ENOXAPARIN 80 MG/0.8 ML SYRINGE SQ SCH ×2 (07:39→20:36)
[2020-09-17] MEDS ORDERED: POTASSIUM CHLORIDE ER 10 MEQ TAB.ER.PRT PO SCH (09:00)
[2020-09-17] MEDS ORDERED: Ibrutinib [Imbruvica] PO SCH (09:00)
[2020-09-17] MEDS ORDERED: MAGNESIUM OXIDE 400 MG TAB PO SCH (09:00)
[2020-09-17] MEDS: CITALOPRAM HYDROBROMIDE 10 MG TAB PO SCH (09:02)
[2020-09-17 09:44] LABS: Anisocytosis Slight; Basophils % (A) 0 %; Eosinophils # (A) 0.1 k/uL (0-0.7); Eosinophils % (A) 1 %; HCT 33.3 % (34.0-46.0); HGB 11.3 gm/dL (11.4-16.0); Lymphocytes # (A) 1.3 k/uL (1.0-4.8); Lymphocytes % (A) 21 %; MCH 31.3 pg (25.0-35.0); MCHC 33.8 g/dL (31.0-37.0); MCV 92.4 fL (80.0-100.0); Mean Platelet Volume 7.5; Monocytes # (A) 0.3 k/uL (0-1.0); Monocytes % (A) 4 %; Neutrophils # (A) 4.5 k/uL (1.3-7.7); Neutrophils % (A) 72 %; Platelet Count 104 k/uL (150-450); RDW 16.5 % (11.5-15.5); WBC 6.2 k/uL (3.8-10.6)
[2020-09-17 09:47] LABS: ALT 19 U/L (4-34); AST 37 U/L (14-36); African American GFR (CKD) 56 (>60 ml/min/1.73 sqM); Albumin 3.7 g/dL (3.5-5.0); Albumin/Globulin Ratio 1.5; Alkaline Phosphatase 54 U/L (38-126); Anion Gap 5 mmol/L; Blood Urea Nitrogen 21 mg/dL (7-17); Calcium 8.7 mg/dL (8.4-10.2); Carbon Dioxide 34 mmol/L (22-30); Chloride 96 mmol/L (98-107); Globulin 2.4 g/dL; Glucose 85 mg/dL (74-99); Magnesium 2.2 mg/dL (1.6-2.3); Non-African American GFR(CKD) 48 (>60 ml/min/1.73 sqM); Potassium 3.3 mmol/L (3.5-5.1); Sodium 135 mmol/L (137-145); Total Bilirubin 1.8 mg/dL (0.2-1.3); Total Protein 6.1 g/dL (6.3-8.2)
[2020-09-17 11:44] LABS: Glucose,Whole Blood 140 mg/dL (75-99)
--- NOTE | 2020-09-17 12:00 | ECHOF ---
Referral Reason:CHF/PE MEASUREMENTS -------- HEIGHT: 160.0 cm WEIGHT: 72.6 kg BP: 108/75 RVIDd: 3.9 cm (< 3.3) IVSd: 1.9 cm (0.6 - 1.1) LVIDd: 4.1 cm (3.9 - 5.3) LVPWd: 1.5 cm (0.6 - 1.1) IVSs: 2.0 cm LVIDs: 1.6 cm LVPWs: 2.0 cm LAESV Index (A-L): 30.65 ml/m Ao Diam: 2.6 cm (2.0 - 3.7) AV Cusp: 1.5 cm (1.5 - 2.6) MV EXCURSION: 17.027 mm (> 18.000) MV EF SLOPE: 60 mm/s (70 - 150) EPSS: 0.2 cm AV maxP.25 mmHg AV meanP.76 mmHg RAP: 5.00 mmHg RVSP: 102.54 mmHg TAPSE: 30.27 mm FINDINGS -------- Sinus rhythm. This was a technically adequate study. The left ventricular size is normal. There is severe concentric left ventricular hypertrophy. Ove rall left ventricular systolic function is normal with, an EF between 55 - 60 %. Left ventricular f illimg pressure cannot be estimated due to severe mitral annular calcification. The right ventricle is mild to moderately enlarged. LA is moderately dilated 34-39 ml/m2 The right atrium is moderately enlarged. Electronic pacemaker lead seen in the right atrial cavity. Interatrial and interventricular septum intact. There is moderate aortic valve sclerosis. There is mild aortic stenosis present. Peak/mean gradie nt across the Aortic Valve is 17.25mmHg / 8.76mmHg. Severe mitral annular calcification present. Moderate mitral regurgitation is present. Severe tricuspid regurgitation present. There is severe pulmonary hypertension. The right ventric ular systolic pressure, as measured by Doppler, is 102.54mmHg. There is no pulmonic regurgitation present. The aortic root size is normal. The inferior vena cava is mildly dilated. There is no pericardial effusion. CONCLUSIONS -------- 1. The left ventricular size is normal. 2. There is severe concentric left ventricular hypertrophy. 3. Overall left ventricular systolic function is normal with, an EF between 55 - 60 %. 4. Left ventricular fillimg pressure cannot be estimated due to severe mitral annular calcification. 5. The right ventricle is mild to moderately enlarged. 6. LA is moderately dilated 34-39 ml/m2 7. The right atrium is moderately enlarged. 8. There is moderate aortic valve sclerosis. 9. There is mild aortic stenosis present. 10. Peak/mean gradient across the Aortic Valve is 17.25mmHg / 8.76mmHg. 11. Severe mitral annular calcification present. 12. Moderate mitral regurgitation is present. 13. Severe tricuspid regurgitation present. 14. There is severe pulmonary hypertension. 15. The right ventricular systolic pressure, as measured by Doppler, is 102.54mmHg. 16. The inferior vena cava is mildly dilated. SILICA DRY PRESS HELPER: Saira Hidalgo RDCS
--- NOTE | 2020-09-17 12:12 | P.CRDCN ---
History of Present Illness Consult date: 09/17/20 History of present illness: HISTORY OF PRESENT ILLNESS: This is a 89 year old female with a past medical history significant for lymphoma, paroxysmal atrial fibrillation, hypertension, lymphoma, and previous nicotine dependence. Patient follows in the office with Dr. Amos. We have been asked to see the patient in consultation for pulmonary edema. Patient examined at the bedside. Patient states two weeks ago she hit her leg on a box. She rep orts increased lower extremity edema. She had a blister that developed on her leg and had increased pain to her leg. She had a visiting nurse who came to her house and recommended that she go see Dr. Pink. She called Dr. Pink who recommended she come to the hospital. Patient states she also had worsening shortness of breath. She states she would take 5-6 steps with her walker and then she would have to sit down to catch her breath. She states her breathing got progressively worse over the past few days as well. She reports calling the cardiology office on Sunday but did not receive a call back until the next day and they recommended she come to the ER as well. She states she couldnt get an appointment with Dr. Pires or Dr. Pink either so she decided to the come to the hospital on . She reports feeling better since being in the hospital. She states the oxygen has helped her shortness of breath. Her daughter at the bedside reports her oxygen sats were in the high 80s before the oxygen was applied. She also gives a history of shunt that was placed in the summer of 2019. She also has a history of a thoracentesis in 2019. Cytology of pleural effusion was positive for Lymphoma. She is currently on treatment for Lymphoma. EKG reveals atrial fibrillation with controlled ventricular rate Chest xray cardiomegaly, pulmonary vascular congestion, small bilateral pleural effusions. Laboratory data: WBC 6.2. Hemoglobin 11.3. Platelet count 104. Sodium 135. Potassium 3.3. BUN 21. Creatinine 1.03. Current home cardiac medications include metoprolol 50 mg in the morning and 25 mg at night and Lasix 20 mg twice a day Echocardiogram completed revealing ejection fraction 55-60%, moderate mitral regurgitation, severe tricuspid regurgitation, severe pulmonary hypertension Chest CTA: Correlate for CHF. Findings suspicious for a small right upper lobe pulmonary embolism Venous Doppler: No evidence of DVT bilaterally REVIEW OF SYSTEMS: At the time of my exam: CONSTITUTIONAL: Denies fever or chills. HEENT: Denies blurred vision, vision changes, or eye pain. Denies hemoptysis CARDIOVASCULAR: Denies chest pain. Denies orthopnea. Denies PND. Denies palpitations RESPIRATORY: Denies shortness of breath. GASTROINTESTINAL: Denies abdominal pain. Denies nausea or vomiting. HEMATOLOGIC: Denies bleeding disorders. GENITOURINARY: Denies any blood in urine. SKIN: Denies pruitis. Denies rash. PHYSICAL EXAM: VITAL SIGNS: Reviewed. GENERAL: Well-developed in no acute distress. HEENT: Head is normocephalic. Pupils are equal, round. Sclerae anicteric. Mucous membranes of the mouth are moist. Neck supple. No JVD or thyromegaly LUNGS: Respirations even and unlabored. Lungs diminished bilaterally. HEART: Irregular rate and rhythm. S1 and S2 heard. ABDOMEN: Soft. Nondistended. Nontender. EXTREMITIES: Normal range of motion. No clubbing or cyanosis. Peripheral pulses intact. Bilateral lower extremity edema with chronic skin discoloration and blister noted to left leg. NEUROLOGIC: Awake and alert. Oriented x 3. ASSESSMENT: Shortness of breath Acute pulmonary embolism Pleural effusions Acute exacerbation of chronic diastolic heart failure Valvular heart disease Severe pulmonary hypertension Lymphoma History of pacemaker insertion Paroxysmal atrial fibrillation PLAN: Continue current cardiac medications Patient currently anticoagulated with Lovenox. Recommend anticoagulation for history of atrial fibrillation. Was not on anticoagulation previously due to thrombocytopenia. Will defer anticoagulation decision to internal medicine and pulmonary. Await pulmonary evaluation Continue IV lasix Daily weights Accurate I&O Monitor kidney function Further recommendations pending patient course Nurse practitioner note has been reviewed by physician. Signing provider agrees with the documented findings, assessment, and plan of care. 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 Varicose veins. Pleural effusion, recurrent. History of Any Multi-Drug Resistant Organisms: None Reported Past Surgical History: Bowel Resection, Cardiac Ablation, Section, Cholecystectomy, Hysterectomy, Orthopedic Surgery, Pacemaker Additional Past Surgical History / Comment(s): Colostomy, later reversal. Cardiac ablation x2. C-S x3, Repair left leg injury. 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 Cataracts. Bilateral knee replacements. Past Anesthesia/Blood Transfusion Reactions: No Reported Reaction Type of Cardiac Device: Permanent Pacemaker Device Placement Date:: 2015 Past Psychological History: Depression Additional Psychological History / Comment(s): Pt resides alone. She uses a walker prn. She has a nebulizer. Smoking Status: Never smoker Past Alcohol Use History: Rare Additional Past Alcohol Use History / Comment(s): Smoker for 20 years, quit at age 40. No alcohol use in past year. Past Drug Use History: None Reported - Past Family History Mother Family Medical History: Coronary Artery Disease (CAD), CVA/TIA Additional Family Medical History / Comment(s): age 83 of stroke Father Family Medical History: Cancer, Congestive Heart Failure (CHF) Additional Family Medical History / Comment(s): of cancer age 77 (colon cancer, bone cancer) Brother(s) Family Medical History: Congestive Heart Failure (CHF), CVA/TIA Additional Family Medical History / Comment(s): Patient had 1 brother that passed from a stroke. She does not have any sisters. Patient has 3 children 2 girls and one son. Son has history of hypertension. Other children have no major medical problems. Medications and Allergies Home Medications Medication Instructions Recorded Confirmed Type Levothyroxine Sodium [Synthroid] 75 mcg PO DAILY 12/15/13 09/16/20 History Vit C/E/Zn/Coppr/Lutein/Zeaxan 1 cap PO BID 06/11/17 09/16/20 History [Preservision Areds 2 Softgel] Cyanocobalamin (Vitamin B-12) 1,000 mcg PO DAILY 02/06/20 09/16/20 History [Vitamin B-12] metFORMIN HCL [Glucophage] 500 mg PO DAILY 02/06/20 09/16/20 History Furosemide [Lasix] 20 mg PO BID 08/03/20 09/16/20 History Magnesium Gluconate [Magonate] 500 mg PO DAILY 08/03/20 09/16/20 History Metoprolol Tartrate [Lopressor] 25 mg PO HS 08/03/20 09/16/20 History Metoprolol Tartrate [Lopressor] 50 mg PO DAILY 08/03/20 09/16/20 History Potassium Chloride ER [K-Dur 10] 10 meq PO DAILY 08/03/20 09/16/20 History Citalopram Hydrobromide [CeleXA] 10 mg PO DAILY 09/16/20 09/16/20 History Ibrutinib [Imbruvica] 280 mg PO DAILY 09/16/20 09/16/20 History Multivit-Min/FA/Lycopen/Lutein 1 tab PO DAILY 09/16/20 09/16/20 History [Centrum Silver Tablet] Allergies Allergy/AdvReac Type Severity Reaction Status Date / Time No Known Allergies Allergy Verified 09/16/20 13:02 Physical Exam Vitals: Vital Signs Temp Pulse Pulse Resp BP BP Pulse Ox 09/17/20 07:56 97.8 F 64 16 104/63 98 09/17/20 01:21 98.3 F 62 16 108/75 100 09/16/20 19:07 98.3 F 61 18 125/80 98 09/16/20 17:34 97.7 F 74 16 128/76 97 09/16/20 16:45 98.0 F 61 18 123/67 95 09/16/20 15:05 72 18 136/74 97 09/16/20 13:35 67 18 109/60 97 09/16/20 12:15 61 20 114/84 94 L 09/16/20 11:41 97.7 F 64 18 134/63 93 L Intake and Output 09/16/20 09/17/20 09/17/20 22:59 06:59 14:59 Intake Total 236 Output Total 300 650 Balance -300 -650 236 Intake: Oral 236 Output: Urine 300 650 Other: Voiding Method Diaper Incontinent External Catheter # Voids 0 Weight 72.575 kg Results 09/17/20 08:39 09/17/20 08:39 Cardiac Enzymes 09/16/20 09/16/20 09/17/20 Range/Units 12:07 12:07 08:39 AST 33 37 H (14-36) U/L Lactate Dehydrogenase 522 (313-618) U/L Troponin I <0.012 (0.000-0.034) ng/mL Coagulation 09/16/20 Range/Units 12:07 PT 10.9 (9.0-12.0) sec APTT 22.5 (22.0-30.0) sec CBC 09/16/20 09/17/20 Range/Units 12:07 08:39 WBC 7.6 6.2 (3.8-10.6) k/uL RBC 3.93 3.60 L (3.80-5.40) m/uL Hgb 11.8 11.3 L (11.4-16.0) gm/dL Hct 36.1 33.3 L (34.0-46.0) % Plt Count 104 L 104 L (150-450) k/uL Comprehensive Metabolic Panel 09/16/20 09/17/20 Range/Units 12:07 08:39 Sodium 130 L 135 L (137-145) mmol/L Potassium 3.9 3.3 L (3.5-5.1) mmol/L Chloride 94 L 96 L (98-107) mmol/L Carbon Dioxide 24 34 H (22-30) mmol/L BUN 20 H 21 H (7-17) mg/dL Creatinine 0.93 1.03 (0.52-1.04) mg/dL Glucose 142 H 85 (74-99) mg/dL Calcium 9.1 8.7 (8.4-10.2) mg/dL AST 33 37 H (14-36) U/L ALT 18 19 (4-34) U/L Alkaline Phosphatase 59 54 (38-126) U/L Total Protein 6.3 6.1 L (6.3-8.2) g/dL Albumin 3.8 3.7 (3.5-5.0) g/dL Current Medications Generic Name Dose Route Start Last Admin Trade Name Freq PRN Reason Stop Dose Admin Citalopram Hydrobromide 10 mg 09/17/20 09:00 09/17/20 09:02 Citalopram Hydrobromide 10 Mg Tab PO 10 mg DAILY EDYTA Administration Cyanocobalamin 1,000 mcg 09/17/20 09:00 09/17/20 07:38 Cyanocobalamin 500 Mcg Tab PO 1,000 mcg DAILY EDYTA Administration Enoxaparin Sodium 70 mg 09/16/20 21:00 09/17/20 07:39 Enoxaparin 80 Mg/0.8 Ml Syringe SQ 70 mg Q12HR EYDTA Administration Furosemide 40 mg 09/16/20 21:00 09/17/20 07:37 Furosemide 10 Mg/Ml 4 Ml Vial IV 40 mg Q12HR EDYTA Administration Levothyroxine Sodium 75 mcg 09/17/20 06:30 09/17/20 05:56 Levothyroxine 75 Mcg Tab PO 75 mcg DAILY@0630 EDYTA Administration Magnesium Oxide 400 mg 09/17/20 21:00 Magnesium Oxide 400 Mg Tab PO HS EDYTA Metoprolol Tartrate 25 mg 09/16/20 21:00 09/16/20 21:26 Metoprolol Tartrate 25 Mg Tab PO 25 mg HS EDYTA Administration Metoprolol Tartrate 50 mg 09/17/20 09:00 09/17/20 07:38 Metoprolol Tartrate 50 Mg Tab PO 50 mg DAILY EDYTA Administration Multivitamins 1 each 09/17/20 09:00 09/17/20 07:39 Multivitamins, Thera 1 Each Tab PO 1 each DAILY EDYTA Administration Multivitamins/Minerals 1 each 09/16/20 21:00 09/17/20 07:38 Vit A,C & V-Vywoox-Etehzrpc 1 Each Tab PO 1 each BID EDYTA Administration Potassium Chloride 10 meq 09/17/20 21:00 Potassium Chloride Er 10 Meq Tab.Er.Prt PO HS EDYTA Intake and Output 09/16/20 09/17/20 09/17/20 22:59 06:59 14:59 Intake Total 236 Output Total 300 650 Balance -300 -650 236 Intake: Oral 236 Output: Urine 300 650 Other: Voiding Method Diaper Incontinent External Catheter # Voids 0 Weight 72.575 kg 09/17/20 08:39 09/17/20 08:39
[2020-09-17 13:59] VITALS: BMI 28.3
[2020-09-17] MEDS ORDERED: IPRATROPIUM-ALBUTEROL 3 ML NEB INHALATION PRN (15:04)
[2020-09-17] MEDS ORDERED: ACETAMINOPHEN TAB 325 MG TAB PO PRN (15:04)
--- NOTE | 2020-09-17 15:27 | US ---
EXAMINATION TYPE: US chest DATE OF EXAM: 09/17/2020 COMPARISON: CT CLINICAL HISTORY: pleural effusions, right greater than left. TECHNIQUE: Targeted ultrasound of the posterior lower bilateral hemithoraces EXAM MEASUREMENTS: Right Pleural Effusion pocket size: 7.1 cm Right skin surface to fluid distance: 1.9 cm Lung seen at 1.8 cm. Left Pleural Effusion pocket size: 1.4 cm Not marked Right side marked for possible thoracentesis outside the dept. Pulmonologists are able to review the images in the patient?s EMR. IMPRESSIONS: 1. Bilateral pleural effusions. This appears minimal on the left.
--- NOTE | 2020-09-17 16:18 | XR ---
EXAMINATION TYPE: XR chest 1V portable DATE OF EXAM: 09/17/2020 COMPARISON: 09/16/2020 INDICATION: Postthoracentesis TECHNIQUE: Single frontal view of the chest is obtained. FINDINGS: The heart size is normal. The pulmonary vasculature is normal. Bibasilar infiltrates are present. Minimal bilateral pleural effusions are present. No pneumothorax i s present post thoracentesis. Pacemaker overlies the left chest. IMPRESSION: 1. Minimal bilateral pleural effusions. 2. No pneumothorax postthoracentesis.
--- NOTE | 2020-09-17 16:20 | P.CNPUL ---
History of Present Illness Consult date: 09/17/20 Reason for consult: dyspnea, pleural effusion History of present illness: 89-year-old male patient, well-known to me, known history of CLL, known history of a recurrent left-sided pleural effusion post Pleurx catheter insertion and subsequent removal, coming into the hospital because of worsening shortness of breath. The patient had progressive increasing shortness of breath over the past 2 weeks. She had increased lower extremity edema. She contacted her primary care physician and she end up coming into the emergency department for w orsening shortness of breath. Her chest x-ray shows cardiomegaly and four- vessel congestion and right-sided pleural effusion. ProBNP level was 10,800. Troponin is 01. Normal renal function. D-dimer was at 2.68. COVID-19 testing was negative. White cell, 6.2 without any significant lymphocytosis, hemoglobin was 11.3 and the platelet was 104. CT angiogram of the chest was done and showed a questionable pulmonary embolism and the right upper lobe where there was a small filling defects. There was a moderate-sized right-sided pleural effusion. There was bilateral consolidation, small left-sided pleural effusion, no pneumothorax, biapical pleural thickening and pleural based apical calc ification was seen. Doppler of the lower extremity was negative. The echocardiogram showed severe pulmonary hypertension with a PA pressure above 100. Preserved LV function with an ejection fraction of 55%. There was moderate mitral regurgitation and mitral valve sclerosis, aortic valve sclerosi s. RV was moderately enlarged. Noted the patient has history of severe pulmonary hypertension and this has been noted on earlier echocardiograms. Review of Systems Constitutional: Reports fatigue, Reports poor appetite, Reports sweats, Reports weakness, Denies chills, Denies fever, Denies malaise Eyes: denies blurred vision, denies pain Ears, nose, mouth and throat: Denies dysphagia, Denies nasal congestion, Denies nasal discharge, Denies vertigo Cardiovascular: Reports decreased exercise tolerance, Reports dyspnea on exertion, Reports syncope, Denies chest pain, Denies edema, Denies leg edema, Denies shortness of breath Respiratory: Reports dyspnea, Denies cough, Denies cough with sputum, Denies excessive sputum, Denies hemoptysis, Denies home oxygen, Denies respiratory infections, Denies wheezing Gastrointestinal: Denies abdominal pain, Denies diarrhea, Denies nausea, Denies vomiting Genitourinary: Denies dysuria, Denies hematuria, Denies urgency, Denies urinary frequency Musculoskeletal: Reports muscle weakness, Denies frequent falls, Denies gait dysfunction, Denies myalgias, has increased lower extremity edema Integumentary: Denies pruritus, Denies rash, Denies wounds Neurological: Denies change in mentation, Denies change in speech, Denies numbness, Denies seizures, Denies weakness Psychiatric: Denies anxiety, Denies depression Endocrine: Denies fatigue, Denies weight change Past Medical History Past Medical History: Atrial Fibrillation, Cancer, Heart Failure, Deep Vein Thrombosis (DVT), Eye Disorder, Hypertension, Pulmonary Embolus (PE), Thyroid Disorder, Vascular Disorder Additional Past Medical History / Comment(s): 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 Varicose veins. Pleural effusion, recurrent. History of Any Multi-Drug Resistant Organisms: None Reported Past Surgical History: Bowel Resection, Cardiac Ablation, Section, Cholecystectomy, Hysterectomy, Orthopedic Surgery, Pacemaker Additional Past Surgical History / Comment(s): Colostomy, later reversal. Cardiac ablation x2. C-S x3, Repair left leg injury. 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 Cataracts. Bilateral knee replacements. Past Anesthesia/Blood Transfusion Reactions: No Reported Reaction Type of Cardiac Device: Permanent Pacemaker Device Placement Date:: 2015 Past Psychological History: Depression Additional Psychological History / Comment(s): Pt resides alone. She uses a walker prn. She has a nebulizer. Smoking Status: Never smoker Past Alcohol Use History: Rare Additional Past Alcohol Use History / Comment(s): Smoker for 20 years, quit at age 40. No alcohol use in past year. Past Drug Use History: None Reported - Past Family History Mother Family Medical History: Coronary Artery Disease (CAD), CVA/TIA Additional Family Medical History / Comment(s): age 83 of stroke Father Family Medical History: Cancer, Congestive Heart Failure (CHF) Additional Family Medical History / Comment(s): of cancer age 77 (colon cancer, bone cancer) Brother(s) Family Medical History: Congestive Heart Failure (CHF), CVA/TIA Additional Family Medical History / Comment(s): Patient had 1 brother that passed from a stroke. She does not have any sisters. Patient has 3 children 2 girls and one son. Son has history of hypertension. Other children have no major medical problems. Medications and Allergies Home Medications Medication Instructions Recorded Confirmed Type Levothyroxine Sodium [Synthroid] 75 mcg PO DAILY 12/15/13 09/16/20 History Vit C/E/Zn/Coppr/Lutein/Zeaxan 1 cap PO BID 06/11/17 09/16/20 History [Preservision Areds 2 Softgel] Cyanocobalamin (Vitamin B-12) 1,000 mcg PO DAILY 02/06/20 09/16/20 History [Vitamin B-12] metFORMIN HCL [Glucophage] 500 mg PO DAILY 02/06/20 09/16/20 History Furosemide [Lasix] 20 mg PO BID 08/03/20 09/16/20 History Magnesium Gluconate [Magonate] 500 mg PO DAILY 08/03/20 09/16/20 History Metoprolol Tartrate [Lopressor] 25 mg PO HS 08/03/20 09/16/20 History Metoprolol Tartrate [Lopressor] 50 mg PO DAILY 08/03/20 09/16/20 History Potassium Chloride ER [K-Dur 10] 10 meq PO DAILY 08/03/20 09/16/20 History Citalopram Hydrobromide [CeleXA] 10 mg PO DAILY 09/16/20 09/16/20 History Ibrutinib [Imbruvica] 280 mg PO DAILY 09/16/20 09/16/20 History Multivit-Min/FA/Lycopen/Lutein 1 tab PO DAILY 09/16/20 09/16/20 History [Centrum Silver Tablet] Allergies Allergy/AdvReac Type Severity Reaction Status Date / Time No Known Allergies Allergy Verified 09/16/20 13:02 Physical Exam Vitals: Vital Signs Temp Pulse Pulse Resp BP BP Pulse Ox 09/17/20 14:00 98.1 F 65 16 104/67 98 09/17/20 07:56 97.8 F 64 16 104/63 98 09/17/20 01:21 98.3 F 62 16 108/75 100 09/16/20 19:07 98.3 F 61 18 125/80 98 09/16/20 17:34 97.7 F 74 16 128/76 97 09/16/20 16:45 98.0 F 61 18 123/67 95 Intake and Output 09/17/20 09/17/20 09/17/20 06:59 14:59 22:59 Intake Total 708 Output Total 650 1000 Balance -650 708 -1000 Intake: Oral 708 Output: Urine 650 1000 Other: Weight 72.575 kg Gen: This is an 88-year-old obese female. She is resting on the ER stretcher. Dyspneic with minimal movement on stretcher. Daughter is at bedside. She is not using accessory muscles of breathing. She is able to speak in full sentences. Head exam was generally normal. There was no scleral icterus or corneal arcus. Mucous membranes were moist. Neck was supple and with jugular venous distension, thyromegaly, or carotid bruits. Carotids were easily palpable bilaterally. There was no adenopathy. LUNGS: Diminished breath sound bilaterally and the patient has absent breath on the right base and an additional dullness of percussion consistent with pleural effusion. HEART: Irregularly irregular rhythm. 3/6 murmur. There is accentuation of the second heart sound, the rhythm is sinus and the rate is regular and there is no tachycardia. ABDOMEN: Soft. Bowel sounds are present. No masses. No tenderness. EXTREMITIES: Trace pedal edema. No calf tenderness. Dorsalis pedis +2 bilaterally. NEUROLOGICAL: Patient is awake, alert and oriented x3. Cranial nerves 2 through 12 are grossly intact. Examination of the skin revealed no evidence of significant rashes, suspicious appearing nevi or other concerning lesions. Areas of bruising on the back Results - Laboratory Findings CBC and BMP: 09/17/20 08:39 09/17/20 08:39 PT/INR, D-dimer PT 10.9 sec (9.0-12.0) 09/16/20 12:07 INR 1.0 (<1.2) 09/16/20 12:07 D-Dimer 2.68 mg/L FEU (<0.60) H 09/16/20 12:07 Abnormal lab findings: Abnormal Labs 09/16/20 09/16/20 09/16/20 12:07 12:07 12:07 RBC Hgb Hct RDW 17.0 H Plt Count 104 L D-Dimer 2.68 H Sodium 130 L Potassium Chloride 94 L Carbon Dioxide BUN 20 H Glucose 142 H POC Glucose (mg/dL) Plasma Lactic Acid Amanuel Total Bilirubin 1.9 H AST Total Protein 09/16/20 09/17/20 09/17/20 12:07 08:39 08:39 RBC 3.60 L Hgb 11.3 L Hct 33.3 L RDW 16.5 H Plt Count 104 L D-Dimer Sodium 135 L Potassium 3.3 L Chloride 96 L Carbon Dioxide 34 H BUN 21 H Glucose POC Glucose (mg/dL) Plasma Lactic Acid Amanuel 2.3 H* Total Bilirubin 1.8 H AST 37 H Total Protein 6.1 L 09/17/20 11:43 RBC Hgb Hct RDW Plt Count D-Dimer Sodium Potassium Chloride Carbon Dioxide BUN Glucose POC Glucose (mg/dL) 140 H Plasma Lactic Acid Amanuel Total Bilirubin AST Total Protein - Diagnostic Findings Chest x-ray: image reviewed CT scan - chest: image reviewed Assessment and Plan Plan: 1 shortness of breath with signs of the Cyst heart failure. The patient also has developed a moderate-sized right-sided pleural effusion which is obviously a new finding. There is a small left pleural effusion and the patient has undergone previous Pleurx catheter insertion and subsequent removal on the left for recurrent effusion secondary to non-Hodgkin's lymphoma. 2 pulmonary embolisms suspected in the right upper lobe, d-dimer is mildly elevated. Patient will need anticoagulation. 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 Currently the patient on Lovenox. Recommended long-term and coagulation with a NOAC agent Wash the patient for any signs of bleeding Agree on diuretics and the patient is currently on IV Lasix 40 mg every 12 hours Echocardiogram was noted Cardiology consultation Resume medication will continue to follow We'll continue to follow
--- NOTE | 2020-09-17 16:23 | P.PCN ---
Date of Procedure: 09/17/20 Preoperative Diagnosis: Right-sided pleural effusion Postoperative Diagnosis: Right-sided pleural effusion Procedure(s) Performed: Thoracentesis Anesthesia: local Surgeon: Jenniffer Pires Pathology: other Condition: stable Disposition: same day Operative Findings: A time out was performed and the chest x-ray was reviewed, the appropriate side was confirmed and marked. My hands were washed immediately prior to the procedure. I wore a surgical cap, mask with protective eyewear, sterile gown and sterile gloves throughout the procedure. The patient was prepped and draped in a sterile manner using chlorhexidine scrub after the appropriate level was percussed and confirmed by ultrasound. 1% lidocaine was used to anesthesize the skin, subcutaneous tissue, superior aspect of the rib periosteum and parietal pleura. A finder needle was then introduced over the superior aspect of the rib to locate the pleural fluid; 2colored fluid was aspirated at a depth of approximately 2 cm. A 10-blade scalpel was used to yony the skin at the insertion site. The [id number]-[id number] needle was then introduced through the skin incision into the pleural space using negative aspiration pressure and the red colometric indicator to confirm appropriate positioning of the needle. The thoracentesis catheter was then threaded without difficulty. 500 ml of turbid colored fluid was removed without difficulty. The catheter was then removed. No immediate complications were noted during the procedure. A post-procedure chest x-ray is pending at the time of this note. The fluid will be sent for studies. Estimated blood loss is 0 cc
[2020-09-17 17:07] LABS: Glucose,Whole Blood 121 mg/dL (75-99)
[2020-09-17 17:52] LABS: Appearance,BF Cloudy; Nucleated Cells, Body Fluid 1200 /uL; RBC, Body Fluid 33950 /uL
[2020-09-17 17:57] LABS: Mononuclear WBC,Body Fluid 96 %; Polynuclear WBC,Body Fluid 4 %; Total Cells Counted,Body Fluid 100
[2020-09-17] MEDS: IPRATROPIUM-ALBUTEROL 3 ML NEB INHALATION SCH (20:36)
[2020-09-17] MEDS: MAGNESIUM OXIDE 400 MG TAB PO SCH (20:37)
[2020-09-17] MEDS: METOPROLOL TARTRATE 25 MG TAB PO SCH (20:37)
[2020-09-17] MEDS: POTASSIUM CHLORIDE ER 10 MEQ TAB.ER.PRT PO SCH (20:37)
[2020-09-17] MEDS: MELATONIN 3 MG TABLET PO SCH (20:37)
[2020-09-17 20:57] LABS: Glucose,Whole Blood 124 mg/dL (75-99)
[2020-09-18 05:45] LABS: Glucose, BF Source Pleural Fluid; Glucose, Body Fluid 126 mg/dL; LDH, Body Fluid Source Pleural Fluid
[2020-09-18] MEDS: LEVOTHYROXINE 75 MCG TAB PO SCH (06:16)
[2020-09-18 07:28] LABS: Glucose,Whole Blood 114 mg/dL (75-99)
[2020-09-18] MEDS: ENOXAPARIN 80 MG/0.8 ML SYRINGE SQ SCH ×2 (07:56→22:00)
[2020-09-18] MEDS: FUROSEMIDE 10 MG/ML 4 ML VIAL IV SCH ×2 (07:56→21:53)
[2020-09-18] MEDS: CYANOCOBALAMIN 500 MCG TAB PO SCH (07:57)
[2020-09-18] MEDS: METOPROLOL TARTRATE 50 MG TAB PO SCH (07:57)
[2020-09-18] MEDS: CITALOPRAM HYDROBROMIDE 10 MG TAB PO SCH (07:57)
[2020-09-18] MEDS: MULTIVITAMINS, THERA 1 EACH TAB PO SCH (07:57)
[2020-09-18] MEDS: VIT A,C & E-LUTEIN-MINERALS 1 EACH TAB PO SCH ×2 (07:57→22:46)
[2020-09-18] MEDS: IPRATROPIUM-ALBUTEROL 3 ML NEB INHALATION SCH ×3 (08:43→20:37)
--- NOTE | 2020-09-18 13:43 | P.PN ---
Subjective Progress Note Date: 09/18/20 Principal diagnosis: Systolic congestive heart failure 89-year-old male patient, well-known to me, known history of CLL, known history of a recurrent left-sided pleural effusion post Pleurx catheter insertion and subsequent removal, coming into the hospital because of worsening shortness of breath. The patient had progressive increasing shortness of breath over the past 2 weeks. She had increased lower extremity edema. She contacted her primary care physician and she end up coming into the emergency department for worsening shortness of breath. Her chest x-ray shows cardiomegaly and four- vessel congestion and right-sided pleural effusion. ProBNP level was 10,800. T roponin is 01. Normal renal function. D-dimer was at 2.68. COVID-19 testing was negative. White cell, 6.2 without any significant lymphocytosis, hemoglobin was 11.3 and the platelet was 104. CT angiogram of the chest was done and showed a questionable pulmonary embolism and the right upper lobe where there was a small filling defects. There was a moderate-sized right-sided pleural effusion. There was bilateral consolidation, small left-sided pleural effusion, no pneumothorax, biapical pleural thickening and pleural based apical calcification was seen. Doppler of the lower extremity was negative. The echocardiogram showed severe pulmonary hypertension with a PA pressure above 100. Preserved LV function with an ejection fraction of 55%. There was moderate mitral regurgitation and mitral valve sclerosis, aortic valve sclerosis. RV was moderately enlarged. Noted the patient has history of severe pulmonary hypertension and this has been noted on earlier echocardiograms. The patient is seen today 09/18/2020 in follow-up on the regular medical floor. She is currently sitting up in bed. Awake and alert in no acute distress. No worsening shortness of breath, cough or congestion. She did undergo a right- sided thoracentesis yesterday with 500 mL of yellow turbid fluid removed. Cultures and cytology pending. LDH 124. Protein 2.5. Transudate in nature. Echocardiogram revealed preserved left ventricular systolic function. There is severe pulmonary hypertension with an RVSP of 102 mmHg. Moderate aortic sclerosis. She remains on Lasix 40 mg IV every 12 hours. Lovenox 70 mg subcu every 12 hours. Continued on bronchodilators. She is maintaining O2 saturation 95% on room air. Objective - Vital Signs Vital signs: Vital Signs Temp 98.5 F 09/18/20 07:44 Pulse 60 09/18/20 12:13 Resp 20 09/18/20 07:44 BP 117/71 09/18/20 07:44 Pulse Ox 95 09/18/20 12:13 Intake & Output 09/17/20 09/18/20 09/18/20 18:59 06:59 18:59 Intake Total 944 400 Output Total 1400 900 Balance -456 -900 400 Weight 72.575 kg 67 kg Intake: Oral 944 400 Output: Urine 1400 900 Other: Voiding Method External Catheter External Catheter - Exam Gen: This is an 89-year-old obese female. She is resting comfortably in bed. She is not using accessory muscles of breathing. She is able to speak in full sentences. Head exam was generally normal. There was no scleral icterus or corneal arcus. Mucous membranes were moist. Neck was supple and with jugular venous distension, thyromegaly, or carotid bruits. Carotids were easily palpable bilaterally. There was no adenopathy. LUNGS: Diminished breath sound bilaterally and the patient has absent breath on the right base and an additional dullness of percussion consistent with pleural effusion. HEART: Irregularly irregular rhythm. 3/6 murmur. There is accentuation of the second heart sound, the rhythm is sinus and the rate is regular and there is no tachycardia. ABDOMEN: Soft. Bowel sounds are present. No masses. No tenderness. EXTREMITIES: Trace pedal edema. No calf tenderness. Dorsalis pedis +2 bilaterally. NEUROLOGICAL: Patient is awake, alert and oriented x3. Cranial nerves 2 through 12 are grossly intact. Examination of the skin revealed no evidence of significant rashes, suspicious appearing nevi or other concerning lesions. Areas of bruising on the back - Labs CBC & Chem 7: 09/17/20 08:39 09/17/20 08:39 Labs: Abnormal Lab Results - Last 24 Hours (Table) 09/17/20 09/17/20 09/18/20 Range/Units 17:06 20:48 07:24 POC Glucose (mg/dL) 121 H 124 H 114 H (75-99) mg/dL Microbiology - Last 24 Hours (Table) 09/17/20 03:28 Gram Stain - Preliminary Pleural Fluid Body Fluid Culture - Preliminary 09/17/20 03:28 Acid Fast Bacilli Culture - Preliminary Pleural Fluid 09/17/20 03:28 Fungal Culture - Preliminary Pleural Fluid Assessment and Plan Assessment: 1 shortness of breath with signs of diastolic heart failure. The patient also has developed a moderate-sized right-sided pleural effusion which is obviously a new finding. Status post right-sided thoracentesis with 500 mL of turbid yellow fluid removed. Cultures and cytology pending. There is a small left pleural effusion and the patient has undergone previous Pleurx catheter insertion and subsequent removal on the left for recurrent effusion secondary to non-Hodgkin's lymphoma. 2 pulmonary embolisms suspected in the right upper lobe, d-dimer is mildly elevated. Patient will need anticoagulation. 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
--- NOTE | 2020-09-18 16:48 | PN ---
PROGRESS NOTE Eulalia Snyder was admitted to the hospital with progressive shortness of breath with a right-sided pleural effusion and also had a significant abnormality on the D-dimer and CT angio revealed probability of a small, evident pulmonary embolism. Patient's anticoagulation has been initiated. The appropriate anticoagulant agent is being decided by Dr. Izaguirre and her pleating machine operator. She is resting comfortably on room air. O2 saturation is 95%. She remains in atrial fib, controlled rate. Physical exam revealed normal vital signs. No JVD. S1-S2 heard normally. Short systolic murmur noted. Lungs reveal diminished air entry. Abdomen is soft, nontender. Lower extremities reveal diminished pulses. Central nervous system grossly no focal deficits. This patient has multiple myeloma, there is a question of myelodysplastic disorder with thrombocytopenia and multiple other problems. She is currently on Imbruvica. I am recommending that the anticoagulant choice be decided by her pleating machine operator together with her primary care physician, Dr. Pink. Prognosis remains guarded. Given her high right-sided pressures, I will try a small dose of amlodipine 5 mg daily. Discussed my thoughts in detail with the patient. Vitals are stable. JVD is evident. S1-S2 heard normally. Short systolic murmur is audible at the base. Lungs revealed improved air entry, but diminished breath sounds both bases. Abdomen is soft. Lower extremities reveal diminished pulses. Central nervous system: No focal deficits but generalized weakness. MMODL / IJN: [id number] /
[2020-09-18 19:45] LABS: Anisocytosis Slight; Basophils % (A) 0 %; Eosinophils # (A) 0.1 k/uL (0-0.7); Eosinophils % (A) 1 %; HCT 30.7 % (34.0-46.0); HGB 10.6 gm/dL (11.4-16.0); Lymphocytes # (A) 1.4 k/uL (1.0-4.8); Lymphocytes % (A) 25 %; MCH 31.6 pg (25.0-35.0); MCHC 34.6 g/dL (31.0-37.0); MCV 91.5 fL (80.0-100.0); Mean Platelet Volume 7.7; Monocytes # (A) 0.3 k/uL (0-1.0); Monocytes % (A) 5 %; Neutrophils # (A) 3.8 k/uL (1.3-7.7); Neutrophils % (A) 67 %; RBC 3.36 m/uL (3.80-5.40); RDW 16.2 % (11.5-15.5); WBC 5.7 k/uL (3.8-10.6)
[2020-09-18 19:52] LABS: Platelet Count 97 k/uL (150-450)
[2020-09-18] MEDS: MELATONIN 3 MG TABLET PO SCH (21:53)
[2020-09-18] MEDS: LACTULOSE 20 GM/30 ML CUP PO SCH ×2 (21:53→22:22)
[2020-09-18] MEDS: MAGNESIUM OXIDE 400 MG TAB PO SCH (21:54)
[2020-09-18] MEDS: amLODIPine 5 MG TAB PO SCH (21:54)
[2020-09-18] MEDS: SENNOSIDES-DOCUSATE SODIUM 1 EACH TAB PO SCH (22:13)
[2020-09-18] MEDS: METOPROLOL TARTRATE 25 MG TAB PO SCH (22:14)
[2020-09-18] MEDS: POTASSIUM CHLORIDE ER 10 MEQ TAB.ER.PRT PO SCH (22:14)
[2020-09-19 02:12] LABS: Appearance,Urine Clear (Clear); Bacteria,Urine Rare /hpf; Bilirubin,Urine Negative (Negative); Blood,Urine Trace (Negative); Color,Urine Light Yellow; Glucose,Urine (UA) Negative (Negative); Ketones,Urine Negative (Negative); Leukocyte Esterase,Urine Negative (Negative); Mucus,Urine Rare /hpf; Nitrite,Urine Negative (Negative); Protein,Urine Negative (Negative); RBC,Urine 1 /hpf (0-5); Specific Gravity,Urine 1.006 (1.001-1.035); Urobilinogen,Urine <2.0 mg/dL (<2.0); WBC,Urine 1 /hpf (0-5)
[2020-09-19] MEDS: LEVOTHYROXINE 75 MCG TAB PO SCH (05:48)
[2020-09-19 07:12] LABS: Glucose,Whole Blood 109 mg/dL (75-99)
[2020-09-19] MEDS: IPRATROPIUM-ALBUTEROL 3 ML NEB INHALATION SCH ×3 (07:35→19:54)
[2020-09-19] MEDS: LACTULOSE 20 GM/30 ML CUP PO SCH ×2 (07:50→22:03)
[2020-09-19] MEDS: SENNOSIDES-DOCUSATE SODIUM 1 EACH TAB PO SCH ×2 (07:51→22:02)
[2020-09-19] MEDS: CITALOPRAM HYDROBROMIDE 10 MG TAB PO SCH (07:51)
[2020-09-19] MEDS: METOPROLOL TARTRATE 50 MG TAB PO SCH (07:51)
[2020-09-19] MEDS: FUROSEMIDE 10 MG/ML 4 ML VIAL IV SCH (07:51)
[2020-09-19] MEDS: MULTIVITAMINS, THERA 1 EACH TAB PO SCH (07:51)
[2020-09-19] MEDS: CYANOCOBALAMIN 500 MCG TAB PO SCH (07:51)
[2020-09-19] MEDS: VIT A,C & E-LUTEIN-MINERALS 1 EACH TAB PO SCH ×2 (07:51→22:02)
[2020-09-19] MEDS: ENOXAPARIN 80 MG/0.8 ML SYRINGE SQ SCH ×2 (07:52→22:02)
[2020-09-19 09:02] LABS: Basophils # (A) 0.02 X 10*3/uL (0.00-0.10); Basophils % (A) 0.4 %; Eosinophils # (A) 0.06 X 10*3/uL (0.04-0.35); Eosinophils % (A) 1.2 %; HCT 31.3 % (37.2-46.3); HGB 10.1 g/dL (12.0-15.0); Lymphocytes # (A) 1.53 X 10*3/uL (0.90-5.00); Lymphocytes % (A) 29.7 %; MCH 30.1 pg (27.0-32.0); MCHC 32.3 g/dL (32.0-37.0); MCV 93.2 fL (80.0-97.0); Mean Platelet Volume 9.5 fL (9.5-12.2); Monocytes # (A) 0.33 X 10*3/uL (0.20-1.00); Monocytes % (A) 6.4 %; Neutrophils # (A) 3.19 X 10*3/uL (1.80-7.70); Neutrophils % (A) 61.9 %; Platelet Count 90 X 10*3/uL (140-440); RBC 3.36 X 10*6/uL (4.10-5.20); RDW 16.5 % (11.5-14.5); WBC 5.15 X 10*3/uL (4.50-10.00)
[2020-09-19 09:40] LABS: African American GFR (CKD) 57.8 (60.0-200.0); Albumin 3.8 g/dL (3.80-4.90); Albumin/Globulin Ratio 2.38 (1.60-3.17); Anion Gap 9.2 mmol/L (4.00-12.00); Calcium 8.4 mg/dL (8.7-10.3); Carbon Dioxide 30.8 mmol/L (21.6-31.8); Globulin 1.6 g/dL (1.6-3.3); Magnesium 2.1 mg/dL (1.5-2.4); Non-African American GFR(CKD) 49.9 (60.0-200.0); Potassium 3.1 mmol/L (3.5-5.5); Total Bilirubin 2.4 mg/dL (0.2-1.2); Total Protein 5.4 g/dL (6.2-8.2)
--- NOTE | 2020-09-19 11:19 | P.HPIM ---
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 Valentín smith in 11/17/2019 patient was doing fine up until recently when she developed to have an increased shortness breath and increased swelling in both lower extremity for the past 2 weeks, associated with increased dyspnea on exertion, patient called her [facility]augh [facility] and she also took bringing her to the emergency room for evaluation she was supposed to come to see cardiology as an outpatient in a few days however she could not make it there and she ended up coming to the ER patient was found to have a significant acute diastolic heart failure, she had a chest x-ray that showed right-sided pleural effusion more than left-sided pleural effusion, she was started on IV diuretic in the form of Lasix 40 mg IV push every 12 hours, she underwent CTA of the chest that was positive for pulmonary embolism, she was started on Lovenox 70 mg subcutaneously every 12 hours, discussed her situation with her oncologist Dr. Perez at [facility] and she was agreement for Lovenox and switch to one of the Noac preferably Eliquis 5 mg orally twice every day for 10 days followed by 2.5 mg orally twice every day due to her increased risk of bleeding. REVIEW OF SYSTEMS: Constitutional: No documented fever, no chills, no night sweats. No weight jeff nge.Positive for weakness, positive for fatigue , no lethargy lethargy. No daytime sleepiness. HEENT: No headache. No blurred vision or double vision, no loss of vision. No loss of Hearing, no ringing in the ears, no dizziness. No nasal drainage or congestion. No epistaxis. No sore throat. Lungs: positive for shortness of breath, minimal dry cough, no sputum production. No wheezing. Reports dyspnea with activity. Cardiovascular: No chest pain, no lower extremity edema. No palpitations. No paroxysmal nocturnal dyspnea. No orthopnea. No lightheadedness or dizziness. No syncopal episodes. Abdominal: Reports no abdominal pain. No nausea, vomiting. No diarrhea. positive for constipation. No bloody or tarry stools reports loss of appetite. Genitourinary: No dysuria, increased frequency, urgency. No urinary retention. Musculoskeletal: No myalgias. positive for muscle weakness, positive for gait dysfunction, no frequent falls. No back pain. No neck pain. Integumentary: No wounds, left lrh with blood blister from trauma lesions. No rash or pruritus, positive for easy bruising, positive for change in nail. Neurologic: No aphasia. No facial droop. No change in mentation. No head injury. No headache. No paralysis. No paresthesia. Psychiatric: No depression. positive for anxiety. No mood swings. Endocrine: No abnormal blood sugars. No weight change. 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 Chronic diastolic heart failure. Severe pulmonary hypertension. anxiety. PAST SURGICAL HISTORY: Partial colectomy with colostomy placement and reversal. 3. 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 Bilateral total knee arthroplasty. Left leg repair. Cholecystectomy. Left Pleurx catheter placement and removal. Permanent pacemaker placement. SOCIAL HISTORY: She was a smoker for 20 years and quit at age 40. No alcohol use. She lives alone. She utilizes a walker as needed. She has a nebulizer. FAMILY HISTORY: Mother at age 83 from a stroke. Father at age 77 from colon cancer with metastatic disease to the bone with history of CHF. Patient had 1 brother that from a stroke. She does not have any sisters. Patient had 3 children, 2 girls and one son. Girls have no major medical problems. Son has history of hypertension. PHYSICAL EXAMINATION: General: This is an 89-year-old female who is laying down in bed in moderate distress. HEENT: Head is atraumatic, normocephalic, pupils were equal round reactive to light and recommendation, extraocular muscle movement were intact, sclera nonicteric, conjunctivae were pale, mucous membranes of the mouth are somewhat dry. Neck: Supple, no JVP, normal carotid upstroke bilaterally, no lymphadenopathy. Chest: Decreased breath sounds at the bases, decreased sexual fremitus on the right two thirds of the lung, positive for egophony, decreased tactile fremitus in the lower one third of the left lung, minimal chest wall tenderness minimal intercostal retractions. Heart: First heart sound is depressed, second heart sound is normal, irregularly irregular, there is systolic ejection murmur 2/6 located in the left sternal border, there is permanent pacemaker located in the left upper precordium. Abdomen: Soft, nontender, nondistended, positive bowel sounds, there is no hepatomegaly. Extremities: There is +2 edema no calf tenderness DP +2 bilaterally. Neurologic examination: Patient is awake alert and oriented X 3, cranial nerves II-12 appear grossly intact, muscle power 4 out of 5 in bilateral upper ex tremities and 5 out of 5 in bilateral lower extremities, deep tendon reflex is were depressed, Babinski's were flexor bilaterally. ASSESSMENT AND PLAN: 1. Acute hypoxic respiratory failure secondary to moderate size right pleural effusion as well as former embolism. Start the patient on Lovenox 70 mg subcutaneously every 12 hours, start the patient on Lasix 40 mg IV push every 12 hours, continue with oxygen support 2-3 nasal cannula, keep her oxygen saturations greater than 93% at all the time, pulmonary consultation, cardiology consultation, echocardiogram for evaluation of LV function, and for pulmonary hypertension, the plan is to to transition the patient to one of the NOAC likely Eliquis 5 minute gram twice every day for 10 days followed by 2.5 mg orally twice every day, and this was discussed with her oncologist, pulmonary consultation for thoracentesis of the right chest wall, rule out malignant effusion. 2. Recurrent left-sided malignant pleural effusion post multiple thoracentesis currently in the right side. Status post left Pleurx catheter placement and removal. 3. Stage IV non-Hodgkin lymphoma. Hold Imbruvica for now. 4. Chronic atrial fibrillation. Continue metoprolol 50 mg in the morning and 25 mg in the evening, continue Lovenox 70 mg subcutaneously every 12 hours. 5. Diabetes mellitus type 2. We will continue patient Accu-Chek before each meal and bedtime along with a slight scale insulin. 6. Hypertension and hypertensive cardiovascular disease. Continue patient on metoprolol 50 mg orally in the morning and 25 mg in the evening, start the patient on lisinopril 2.5 mg orally once every day. 7. Hypothyroidism. Continue levothyroxine 75 g daily. 8. Hyponatremia. Could be related to hypovolemia monitor the patient CMP. 9. Anemia of chronic disease. Appears to be better at this time 10. History of PE and DVT, stable, start anticoagulation. 11. Macular degeneration. Continue eyedrops and vitamins. 12. Sick sinus syndrome Status post pacemaker. 13. DVT prophylaxis. SCDs and ESTHER alisson, Lovenox 70 mg subcutaneousLy every 12 hours. 14. GI prophylaxis. Protonix 40 mg orally once every day. 15. Admit to inpatient. Estimate a length of stay 2 midnights. 16. Patient is full code. 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 Varicose veins. Pleural effusion, recurrent. History of Any Multi-Drug Resistant Organisms: None Reported Past Surgical History: Bowel Resection, Cardiac Ablation, Section, Cholecystectomy, Hysterectomy, Orthopedic Surgery, Pacemaker Additional Past Surgical History / Comment(s): Colostomy, later reversal. Cardiac ablation x2. C-S x3, Repair left leg injury. 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 Cataracts. Bilateral knee replacements. Past Anesthesia/Blood Transfusion Reactions: No Reported Reaction Type of Cardiac Device: Permanent Pacemaker Device Placement Date:: 2015 Past Psychological History: Depression Additional Psychological History / Comment(s): Pt resides alone. She uses a wa lker prn. She has a nebulizer. Smoking Status: Never smoker Past Alcohol Use History: Rare Additional Past Alcohol Use History / Comment(s): Smoker for 20 years, quit at age 40. No alcohol use in past year. Past Drug Use History: None Reported - Past Family History Mother Family Medical History: Coronary Artery Disease (CAD), CVA/TIA Additional Family Medical History / Comment(s): age 83 of stroke Father Family Medical History: Cancer, Congestive Heart Failure (CHF) Additional Family Medical History / Comment(s): of cancer age 77 (colon cancer, bone cancer) Brother(s) Family Medical History: Congestive Heart Failure (CHF), CVA/TIA Additional Family Medical History / Comment(s): Patient had 1 brother that passed from a stroke. She does not have any sisters. Patient has 3 children 2 girls and one son. Son has history of hypertension. Other children have no major medical problems. Medications and Allergies Home Medications Medication Instructions Recorded Confirmed Type Levothyroxine Sodium [Synthroid] 75 mcg PO DAILY 12/15/13 09/16/20 History Vit C/E/Zn/Coppr/Lutein/Zeaxan 1 cap PO BID 06/11/17 09/16/20 History [Preservision Areds 2 Softgel] Cyanocobalamin (Vitamin B-12) 1,000 mcg PO DAILY 02/06/20 09/16/20 History [Vitamin B-12] metFORMIN HCL [Glucophage] 500 mg PO DAILY 02/06/20 09/16/20 History Furosemide [Lasix] 20 mg PO BID 08/03/20 09/16/20 History Magnesium Gluconate [Magonate] 500 mg PO DAILY 08/03/20 09/16/20 History Metoprolol Tartrate [Lopressor] 25 mg PO HS 08/03/20 09/16/20 History Metoprolol Tartrate [Lopressor] 50 mg PO DAILY 08/03/20 09/16/20 History Potassium Chloride ER [K-Dur 10] 10 meq PO DAILY 08/03/20 09/16/20 History Citalopram Hydrobromide [CeleXA] 10 mg PO DAILY 09/16/20 09/16/20 History Ibrutinib [Imbruvica] 280 mg PO DAILY 09/16/20 09/16/20 History Multivit-Min/FA/Lycopen/Lutein 1 tab PO DAILY 09/16/20 09/16/20 History [Centrum Silver Tablet] Allergies Allergy/AdvReac Type Severity Reaction Status Date / Time No Known Allergies Allergy Verified 09/16/20 13:02 Physical Exam Vitals: Vital Signs Temp Pulse Pulse Resp BP BP Pulse Ox 09/16/20 17:34 97.7 F 74 16 128/76 97 09/16/20 16:45 98.0 F 61 18 123/67 95 09/16/20 15:05 72 18 136/74 97 09/16/20 13:35 67 18 109/60 97 09/16/20 12:15 61 20 114/84 94 L 09/16/20 11:41 97.7 F 64 18 134/63 93 L Intake and Output 09/16/20 09/16/20 09/16/20 06:59 14:59 22:59 Other: # Voids 0 Weight 74.389 kg 72.575 kg Results CBC & Chem 7: 09/19/20 06:15 09/19/20 06:15 Labs: Abnormal Lab Results - Last 24 Hours (Table) 09/16/20 09/16/20 09/16/20 Range/Units 12:07 12:07 12:07 RDW 17.0 H (11.5-15.5) % Plt Count 104 L (150-450) k/uL D-Dimer 2.68 H (<0.60) mg/L FEU Sodium 130 L (137-145) mmol/L Chloride 94 L (98-107) mmol/L BUN 20 H (7-17) mg/dL Glucose 142 H (74-99) mg/dL Plasma Lactic Acid Amanuel (0.7-2.0) mmol/L Total Bilirubin 1.9 H (0.2-1.3) mg/dL 09/16/20 Range/Units 12:07 RDW (11.5-15.5) % Plt Count (150-450) k/uL D-Dimer (<0.60) mg/L FEU Sodium (137-145) mmol/L Chloride (98-107) mmol/L BUN (7-17) mg/dL Glucose (74-99) mg/dL Plasma Lactic Acid Amanuel 2.3 H* (0.7-2.0) mmol/L Total Bilirubin (0.2-1.3) mg/dL Thrombosis Risk Factor Assmnt - Choose All That Apply Each Risk Factor Represents 3 Points: Age 75 years or older, History of DVT/PE Thrombosis Risk Factor Assessment Total Risk Factor Score: 6 Thrombosis Risk Factor Assessment Level: High Risk
--- NOTE | 2020-09-19 11:23 | P.PN ---
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 Laura back in 11/17/2019 patient was doing fine up until recently when she developed to have an increased shortness breath and increased swelling in both lower extremity for the past 2 weeks, associated with increased dyspnea on exertion, patient called her daughter and she also took bringing her to the emergency room for evaluation she was supposed to come to see cardiology as an outpatient in a few days however she could not make it there and she ended up coming to the ER patient was found to have a significant acute diastolic heart failure, she had a chest x-ray that showed right-sided pleural effusion more than left-sided pleural effusion, she was started on IV diuretic in the form of Lasix 40 mg IV push every 12 hours, she underwent CTA of the chest that was positive for pulmonary embolism, she was started on Lovenox 70 mg subcutaneously every 12 hours, discussed her situation with her oncologist Dr. Perez at [facility] and she was agreement for Lovenox and switch to one of the Noac preferably Eliquis 5 mg orally twice every day for 10 days followed by 2.5 mg orally twice every day due to her increased risk of bleeding. 09/18: Patient is sitting up in bed is feeling a bit better today, she continues to diurese very well, she is requiring less oxygen, she underwent thoracentesis of the right pleural effusion and she is doing much better since then, she continues to have some irritant cough, she has no hemoptysis, her son was at the bedside, he was concerned about her weakness, the plan is to be seen by physical therapy, and sent her to subacute rehab rotation likely at [facility], patient seems to be tolerating her to arrival, she will be transitioned into Eliquis 5 mg orally twice every day for 10 days followed by 2.5 mg orally twice every day for lifetime hopefully on Sunday. REVIEW OF SYSTEMS: Constitutional: No documented fever, no chills, no night sweats. No weight change.Positive for weakness, positive for fatigue , no lethargy lethargy. No daytime sleepiness. HEENT: No headache. No blurred vision or double vision, no loss of vision. No loss of Hearing, no ringing in the ears, no dizziness. No nasal drainage or congestion. No epistaxis. No sore throat. Lungs: positive for shortness of breath, minimal dry cough, no sputum production. No wheezing. Reports dyspnea with activity. Cardiovascular: No chest pain, no lower extremity edema. No palpitations. No paroxysmal nocturnal dyspnea. No orthopnea. No lightheadedness or dizziness. No syncopal episodes. Abdominal: Reports no abdominal pain. No nausea, vomiting. No diarrhea. positive for constipation. No bloody or tarry stools reports loss of appetite. Genitourinary: No dysuria, increased frequency, urgency. No urinary retention. Musculoskeletal: No myalgias. positive for muscle weakness, positive for gait dysfunction, no frequent falls. No back pain. No neck pain. Integumentary: No wounds, left lrh with blood blister from trauma lesions. No rash or pruritus, positive for easy bruising, positive for change in nail. Neurologic: No aphasia. No facial droop. No change in mentation. No head injury. No headache. No paralysis. No paresthesia. Psychiatric: No depression. positive for anxiety. No mood swings. Endocrine: No abnormal blood sugars. No weight change. PHYSICAL EXAMINATION: General: This is an 89-year-old female who is laying down in bed in moderate distress. HEENT: Head is atraumatic, normocephalic, pupils were equal round reactive to light and recommendation, extraocular muscle movement were intact, sclera nonicteric, conjunctivae were pale, mucous membranes of the mouth are somewhat dry. Neck: Supple, no JVP, normal carotid upstroke bilaterally, no lymphadenopathy. Chest: Decreased breath sounds at the bases, decreased sexual fremitus on the right two thirds of the lung, positive for egophony, decreased tactile fremitus in the lower one third of the left lung, minimal chest wall tenderness minimal intercostal retractions. Heart: First heart sound is depressed, second heart sound is normal, irregularly irregular, there is systolic ejection murmur 2/6 located in the left sternal border, there is permanent pacemaker located in the left upper precordium. Abdomen: Soft, nontender, nondistended, positive bowel sounds, there is no hepatomegaly. Extremities: There is +2 edema no calf tenderness DP +2 bilaterally. Neurologic examination: Patient is awake alert and oriented X 3, cranial nerves II-12 appear grossly intact, muscle power 4 out of 5 in bilateral upper extremities and 5 out of 5 in bilateral lower extremities, deep tendon reflex is were depressed, Babinski's were flexor bilaterally. ASSESSMENT AND PLAN: 1. Acute hypoxic respiratory failure secondary to moderate size right pleural effusion as well as pulmonary embolism. Start the patient on Lovenox 70 mg subcutaneously every 12 hours, start the patient on Lasix 40 mg IV push every 12 hours, continue with oxygen support 2-3 nasal cannula, keep her oxygen saturations greater than 93% at all the time, echocardiogram showed normal LV function with severe pulmonary hypertension the plan is to to transition the pat ient to one of the NOAC likely Eliquis 5 mg twice every day for 10 days followed by 2.5 mg orally twice every day, and this was discussed with her oncologist, pulmonary consultation for thoracentesis of the right chest wall, rule out malignant effusion. 2. Recurrent left-sided malignant pleural effusion post multiple thoracentesis currently in the right side. Status post left Pleurx catheter placement and removal. 3. Stage IV non-Hodgkin lymphoma. Hold Imbruvica for now. 4. Chronic atrial fibrillation. Continue metoprolol 50 mg in the morning and 25 mg in the evening, continue Lovenox 70 mg subcutaneously every 12 hours. 5. Diabetes mellitus type 2. We will continue patient Accu-Chek before each meal and bedtime along with a slight scale insulin. 6. Hypertension and hypertensive cardiovascular disease. Continue patient on metoprolol 50 mg orally in the morning and 25 mg in the evening, start the patient on lisinopril 2.5 mg orally once every day. 7. Hypothyroidism. Continue levothyroxine 75 g daily. 8. Hyponatremia. Could be related to hypovolemia monitor the patient CMP. 9. Anemia of chronic disease. Appears to be better at this time 10. History of PE and DVT, stable, start anticoagulation. 11. Macular degeneration. Continue eyedrops and vitamins. 12. Sick sinus syndrome Status post pacemaker. 13. DVT prophylaxis. SCDs and ESTHER hose, Lovenox 70 mg subcutaneousLy every 12 hours. 14. GI prophylaxis. Protonix 40 mg orally once every day. 15. Physical therapy evaluation for subacute rehabilitation. 16. 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 Objective - Vital Signs Vital signs: Vital Signs Temp 98.5 F 09/18/20 07:44 Pulse 60 09/18/20 12:13 Resp 20 09/18/20 07:44 BP 117/71 09/18/20 07:44 Pulse Ox 95 09/18/20 12:13 Intake & Output 09/17/20 09/18/20 09/18/20 18:59 06:59 18:59 Intake Total 944 400 Output Total 1400 900 Balance -456 -900 400 Weight 72.575 kg 67 kg Intake: Oral 944 400 Output: Urine 1400 900 Other: Voiding Method External Catheter External Catheter - Labs CBC & Chem 7: 09/19/20 06:15 09/19/20 06:15 Labs: Abnormal Lab Results - Last 24 Hours (Table) 09/17/20 09/17/20 09/18/20 Range/Units 17:06 20:48 07:24 POC Glucose (mg/dL) 121 H 124 H 114 H (75-99) mg/dL Microbiology - Last 24 Hours (Table) 09/17/20 03:28 Gram Stain - Preliminary Pleural Fluid Body Fluid Culture - Preliminary 09/17/20 03:28 Acid Fast Bacilli Culture - Preliminary Pleural Fluid 09/17/20 03:28 Fungal Culture - Preliminary Pleural Fluid
[2020-09-19] MEDS ORDERED: POTASSIUM CHLORIDE ER 20 MEQ TAB.ER PO STA (11:24)
--- NOTE | 2020-09-19 11:39 | P.PN ---
Subjective Progress Note Date: 09/19/20 89-year-old male patient, well-known to me, known history of CLL, known history of a recurrent left-sided pleural effusion post Pleurx catheter insertion and subsequent removal, coming into the hospital because of worsening shortness of breath. The patient had progressive increasing shortness of breath over the past 2 weeks. She had increased lower extremity edema. She contacted her primary care physician and she end up coming into the emergency department for worsening shortness of breath. Her chest x-ray shows cardiomegaly and four- vessel congestion and right-sided pleural effusion. ProBNP level was 10,800. Troponin is 01. Normal renal function. D-dimer was at 2.68. COVID-19 testing was negative. White cell, 6.2 without any significant lymphocytosis, hemoglobin was 11.3 and the platelet was 104. CT angiogram of the chest was done and showed a questionable pulmonary embolism and the right upper lobe where there was a small filling defects. There was a moderate-sized right-sided pleural effusion. There was bilateral consolidation, small left-sided pleural effusion, no pneumothorax, biapical pleural thickening and pleural based apical calcification was seen. Doppler of the lower extremity was negative. The echocardiogram showed severe pulmonary hypertension with a PA pressure above 100. Preserved LV function with an ejection fraction of 55%. There was moderate mitral regurgitation and mitral valve sclerosis, aortic valve sclerosis. RV was moderately enlarged. Noted the patient has history of severe pulmonary hypertension and this has been noted on earlier echocardiograms. The patient is seen today 09/18/2020 in follow-up on the regular medical floor. She is currently sitting up in bed. Awake and alert in no acute distress. No worsening shortness of breath, cough or congestion. She did undergo a right- sided thoracentesis yesterday with 500 mL of yellow turbid fluid removed. Cultures and cytology pending. LDH 124. Protein 2.5. Transudate in nature. Echocardiogram revealed preserved left ventricular systolic function. There is severe pulmonary hypertension with an RVSP of 102 mmHg. Moderate aortic sclerosis. She remains on Lasix 40 mg IV every 12 hours. Lovenox 70 mg subcu every 12 hours. Continued on bronchodilators. She is maintaining O2 saturation 95% on room air. 09/19/2020, the patient is feeling well. No specific complaints pages currently on room air oxygen. The pleural fluid is a transudate. She remains on Lasix 40 mg every 12 hours. Pleural fluid cytology still pending for now. In terms of anticoagulation, the patient has been On Lovenox and she can be transitioned to an oral anticoagulants and choice was left up to medicine on my understanding is that the medical team has already contacted the hematology oncology team taking care of this patient CLL to discuss the choice of anticoagulation. A new agent oral anticoagulants such as Xarelto or Eliquis should be reasonable and treatment of this patient. Objective - Vital Signs Vital signs: Vital Signs Temp 98.0 F 09/19/20 02:00 Pulse 68 09/19/20 11:12 Resp 16 09/19/20 11:12 BP 105/67 09/19/20 02:00 Pulse Ox 90 L 09/19/20 02:00 Intake & Output 09/18/20 09/19/20 09/19/20 18:59 06:59 18:59 Intake Total 400 120 Output Total 700 Balance -300 120 Weight 66.4 kg Intake: Oral 400 120 Output: Urine 700 Other: Voiding Method External Catheter External Catheter - Exam - Exam Gen: This is an 89-year-old obese female. She is resting comfortably in bed. She is not using accessory muscles of breathing. She is able to speak in full sentences. Head exam was generally normal. There was no scleral icterus or corneal arcus. Mucous membranes were moist. Neck was supple and with jugular venous distension, thyromegaly, or carotid bruits. Carotids were easily palpable bilaterally. There was no adenopathy. LUNGS: Diminished breath sound bilaterally and the patient has absent breath on the right base and an additional dullness of percussion consistent with pleural effusion. HEART: Irregularly irregular rhythm. 3/6 murmur. There is accentuation of the second heart sound, the rhythm is sinus and the rate is regular and there is no tachycardia. ABDOMEN: Soft. Bowel sounds are present. No masses. No tenderness. EXTREMITIES: Trace pedal edema. No calf tenderness. Dorsalis pedis +2 bilaterally. NEUROLOGICAL: Patient is awake, alert and oriented x3. Cranial nerves 2 through 12 are grossly intact. Examination of the skin revealed no evidence of significant rashes, suspicious appearing nevi or other concerning lesions. Areas of bruising on the back - Labs CBC & Chem 7: 09/19/20 06:15 09/19/20 06:15 Labs: Abnormal Lab Results - Last 24 Hours (Table) 09/18/20 09/19/20 09/19/20 Range/Units 19:06 02:00 06:15 RBC 3.36 L 3.36 L (3.80-5.40) m/uL Hgb 10.6 L 10.1 L (11.4-16.0) gm/dL Hct 30.7 L 31.3 L (34.0-46.0) % RDW 16.2 H 16.5 H (11.5-15.5) % Plt Count 97 L 90 L (150-450) k/uL Sodium (135-145) mmol/L Potassium (3.5-5.5) mmol/L Chloride (96-109) mmol/L Est GFR (CKD-EPI)AfAm (60.0-200.0) Est GFR (CKD-EPI)NonAf (60.0-200.0) BUN/Creatinine Ratio (12.00-20.00) Ratio POC Glucose (mg/dL) (75-99) mg/dL Calcium (8.7-10.3) mg/dL Total Bilirubin (0.2-1.2) mg/dL Total Protein (6.2-8.2) g/dL Urine Blood Trace H (Negative) Urine Bacteria Rare H (None) /hpf Urine Mucus Rare H (None) /hpf 09/19/20 09/19/20 Range/Units 06:15 07:11 RBC (3.80-5.40) m/uL Hgb (11.4-16.0) gm/dL Hct (34.0-46.0) % RDW (11.5-15.5) % Plt Count (150-450) k/uL Sodium 134 L (135-145) mmol/L Potassium 3.1 L (3.5-5.5) mmol/L Chloride 94 L (96-109) mmol/L Est GFR (CKD-EPI)AfAm 57.8 L (60.0-200.0) Est GFR (CKD-EPI)NonAf 49.9 L (60.0-200.0) BUN/Creatinine Ratio 23.00 H (12.00-20.00) Ratio POC Glucose (mg/dL) 109 H (75-99) mg/dL Calcium 8.4 L (8.7-10.3) mg/dL Total Bilirubin 2.4 H (0.2-1.2) mg/dL Total Protein 5.4 L (6.2-8.2) g/dL Urine Blood (Negative) Urine Bacteria (None) /hpf Urine Mucus (None) /hpf Microbiology - Last 24 Hours (Table) 09/17/20 03:28 Acid Fast Bacilli Smear - Final Pleural Fluid Acid Fast Bacilli Culture - Preliminary 09/17/20 03:28 Gram Stain - Preliminary Pleural Fluid Body Fluid Culture - Preliminary Assessment and Plan Plan: 1 shortness of breath with signs of the congestion heart failure. The patient also has developed a moderate-sized right-sided pleural effusion which is obviously a new finding. There is a small left pleural effusion and the patient has undergone previous Pleurx catheter insertion and subsequent removal on the left for recurrent effusion secondary to non-Hodgkin's lymphoma. The patient underwent thoracentesis of the right lung. The right-sided pleural fluid is a transudate. The patient was treated with diuretics. The patient is feeling much better and she is currently on room air oxygen. She is still on Lovenox. 2 pulmonary embolisms suspected in the right upper lobe, d-dimer is mildly elev ated. Patient will need anticoagulation. 3 history of recurrent left-sided pleural effusion requiring Pleurx catheter insertion and subsequent removal and this fluid was attributed to non-Hodgkin's lymphomae 4 history of non-Hodgkin's lymphoma/chronic lymphocytic leukemia maintained on Imbruvica 4 chronic thrombocytopenia 5 chronic anemia 6 chronic atrial fibrillation 7 diabetes mellitus 8 hypertension 9 hypothyroidism 10 previous history of DVT and pulmonary embolism 11 history of macular degeneration 12 history of sick sinus syndrome post pacemaker insertion 13 valvular heart disease with moderate degree of mitral regurgitation 14 severe pulmonary hypertension with PA pressures are above 100 plan Change Lasix to 40 mg by mouth twice a day Anticoagulation is recommended. Currently the patient on Lovenox. Recommended long-term and coagulation with a NOAC agent. Again, my understanding is that the choice of anticoagulant was already discussed between the medical team and the digital coordinator. I will leave it up to them to transition this patient on oral anticoagulants. Recommend watching this patient for any signs of bleeding Echocardiogram was noted Cardiology consultation Awaiting the final pleural fluid cytology Discharge planning We'll continue to follow
[2020-09-19] MEDS: SPIRONOLACTONE 25 MG TAB PO SCH (12:44)
[2020-09-19] MEDS ORDERED: IOPAMIDOL CONTRAST (ORAL USE) VIAL PO PRN ×2 (13:09→14:33)
--- NOTE | 2020-09-19 14:49 | PN ---
PROGRESS NOTE Mrs. Snyder is doing well today. Feels better. Breathing is easier. The thoracentesis fluid data suggests more of a trans rate. We are waiting for the cytology, which I think is more pertinent in this regard. She is less short of breath today. She is hypokalemic. Vitals are stable. JVD is 2 cm. No carotid bruit. S1-S2 heard normally. Short systolic murmur is audible. Lungs reveal improved air entry. Abdomen is soft. Lower extremities reveal diminished pulses. Central nervous system grossly within normal limits. FINAL IMPRESSION: This patient has a type B lymphoma, history of multiple myeloma in the past. She has persistent atrial fibrillation with sick sinus syndrome and a previous pacemaker. She has significant pulmonary hypertension. RECOMMENDATIONS: I am recommending that we anticoagulate the patient and Dr. Pink will make arrangements for anticoagulation. For now, we will continue current medical regimen and supplement potassium and see how she does. I will see her as needed during the hospitalization. MMODL / IJN: [id number] /
--- NOTE | 2020-09-19 16:01 | CT ---
EXAMINATION TYPE: CT abdomen pelvis w con DATE OF EXAM: 09/19/2020 COMPARISON: 02/12/2020 HISTORY: Constipation and generalized abdominal pain. History of lymphoma CT DLP: 923.9 mGycm Automated exposure control for dose reduction was used. TECHNIQUE: Helical acquisition of images was performed from the lung bases through the pelvis. CONTRAST: Performed with Oral Contrast and with IV Contrast, patient injected with 80ml mL of Isovue 300. FINDINGS: As on the prior study there are bilateral pleural effusions, small on the left and moderate on the ri ght. There is stable compared to previous. There are surgical absence of the gallbladder.. There is no biliary ductal dilatation. There is marked splenomegaly chest increased in size in the interval. The pancreas adrenal glands are normal. There are multiple proximal small bowel loops which are poorly distended with contrast and given the presence of adequate contrast within the stomach and in the colon, findings raise the question of wa ll thickening in these loops of bowel possibly secondary to lymphomatous infiltration. Again a periaortic lymph node is identified which is approximately 2.2 cm in size is stable. There is no free intraperitoneal air or fluid. The kidneys excrete contrast promptly and symmetrically and there is no solid renal mass or hydroneph rosis. The caliber of the abdominal aorta is normal. The osseous structures and soft tissues are unremarkable IMPRESSION: 1. Bilateral pleural effusions stable compared to the prior study. Small left effusion and moderate r ight effusion. 2. Collection of proximal small bowel loops centrally within the abdomen in which bowel wall thickeni ng is not excluded. 3. Marked splenomegaly which has increased in the interval since prior study. 4. Stable retroperitoneal lymph nodes. 5. No bowel obstruction, free air or free fluid.
[2020-09-19] MEDS: FUROSEMIDE 40 MG TAB PO SCH (17:10)
[2020-09-19] MEDS: MELATONIN 3 MG TABLET PO SCH (22:00)
[2020-09-19] MEDS: MAGNESIUM OXIDE 400 MG TAB PO SCH (22:01)
[2020-09-19] MEDS: amLODIPine 5 MG TAB PO SCH (22:01)
[2020-09-19] MEDS: METOPROLOL TARTRATE 25 MG TAB PO SCH (22:01)
[2020-09-19] MEDS: POTASSIUM CHLORIDE ER 10 MEQ TAB.ER.PRT PO SCH (22:38)
[2020-09-20] MEDS: LEVOTHYROXINE 75 MCG TAB PO SCH (05:44)
[2020-09-20] MEDS: IPRATROPIUM-ALBUTEROL 3 ML NEB INHALATION SCH ×3 (08:09→20:42)
[2020-09-20] MEDS: METOPROLOL TARTRATE 50 MG TAB PO SCH (08:49)
[2020-09-20] MEDS: CYANOCOBALAMIN 500 MCG TAB PO SCH (08:49)
[2020-09-20] MEDS: VIT A,C & E-LUTEIN-MINERALS 1 EACH TAB PO SCH ×2 (08:49→22:39)
[2020-09-20] MEDS: SENNOSIDES-DOCUSATE SODIUM 1 EACH TAB PO SCH ×2 (08:49→22:40)
[2020-09-20] MEDS: CITALOPRAM HYDROBROMIDE 10 MG TAB PO SCH (08:49)
[2020-09-20] MEDS: FUROSEMIDE 40 MG TAB PO SCH ×2 (08:50→16:06)
[2020-09-20] MEDS: SPIRONOLACTONE 25 MG TAB PO SCH (08:50)
[2020-09-20] MEDS: MULTIVITAMINS, THERA 1 EACH TAB PO SCH (08:50)
[2020-09-20] MEDS: ENOXAPARIN 80 MG/0.8 ML SYRINGE SQ SCH (08:50)
[2020-09-20] MEDS: LACTULOSE 20 GM/30 ML CUP PO SCH ×2 (08:50→22:40)
[2020-09-20 10:20] LABS: Basophils # (A) 0.01 X 10*3/uL (0.00-0.10); Basophils % (A) 0.2 %; HCT 31.7 % (37.2-46.3); HGB 10.1 g/dL (12.0-15.0); Lymphocytes # (A) 1.49 X 10*3/uL (0.90-5.00); Lymphocytes % (A) 30.2 %; MCH 29.6 pg (27.0-32.0); MCHC 31.9 g/dL (32.0-37.0); Mean Platelet Volume 9.2 fL (9.5-12.2); Monocytes # (A) 0.37 X 10*3/uL (0.20-1.00); Monocytes % (A) 7.5 %; Neutrophils # (A) 2.95 X 10*3/uL (1.80-7.70); Neutrophils % (A) 59.7 %; Platelet Count 92 X 10*3/uL (140-440); RBC 3.41 X 10*6/uL (4.10-5.20); RDW 16.5 % (11.5-14.5); WBC 4.94 X 10*3/uL (4.50-10.00)
[2020-09-20 10:45] LABS: African American GFR (CKD) 57.8 (60.0-200.0); Albumin 3.8 g/dL (3.80-4.90); Albumin/Globulin Ratio 2.38 (1.60-3.17); Anion Gap 9.5 mmol/L (4.00-12.00); Calcium 8.3 mg/dL (8.7-10.3); Carbon Dioxide 30.5 mmol/L (21.6-31.8); Globulin 1.6 g/dL (1.6-3.3); Non-African American GFR(CKD) 49.9 (60.0-200.0); Potassium 3.8 mmol/L (3.5-5.5); Total Bilirubin 2.2 mg/dL (0.2-1.2); Total Protein 5.4 g/dL (6.2-8.2)
[2020-09-20 17:12] LABS: Glucose,Whole Blood 159 mg/dL (75-99)
--- NOTE | 2020-09-20 18:24 | P.PN ---
Subjective Progress Note Date: 09/20/20 Principal diagnosis: Shortness of breath 89-year-old male patient, well-known to me, known history of CLL, known history of a recurrent left-sided pleural effusion post Pleurx catheter insertion and subsequent removal, coming into the hospital because of worsening shortness of b reath. The patient had progressive increasing shortness of breath over the past 2 weeks. She had increased lower extremity edema. She contacted her primary care physician and she end up coming into the emergency department for worsening shortness of breath. Her chest x-ray shows cardiomegaly and four-vessel congestion and right-sided pleural effusion. ProBNP level was 10,800. Troponin is 01. Normal renal function. D-dimer was at 2.68. COVID-19 testing was negative. White cell, 6.2 without any significant lymphocytosis, hemoglobin was 11.3 and the platelet was 104. CT angiogram of the chest was done and showed a questionable pulmonary embolism and the right upper lobe where there was a small filling defects. There was a moderate-sized right-sided pleural effusion. There was bilateral consolidation, small left-sided pleural effusion, no pneumothorax, biapical pleural thickening and pleural based apical calcification was seen. Doppler of the lower extremity was negative. The echocardiogram showed severe pulmonary hypertension with a PA pressure above 100. Preserved LV function with an ejection fraction of 55%. There was moderate mitral regurgitation and mitral valve sclerosis, aortic valve sclerosis. RV was moderately enlarged. Noted the patient has history of severe pulmonary hypertension and this has been noted on earlier echocardiograms. The patient is seen today 09/18/2020 in follow-up on the regular medical floor. She is currently sitting up in bed. Awake and alert in no acute distress. No worsening shortness of breath, cough or congestion. She did undergo a right- sided thoracentesis yesterday with 500 mL of yellow turbid fluid removed. Cultures and cytology pending. LDH 124. Protein 2.5. Transudate in nature. Echocardiogram revealed preserved left ventricular systolic function. There is severe pulmonary hypertension with an RVSP of 102 mmHg. Moderate aortic sclerosis. She remains on Lasix 40 mg IV every 12 hours. Lovenox 70 mg subcu every 12 hours. Continued on bronchodilators. She is maintaining O2 saturation 95% on room air. 09/19/2020, the patient is feeling well. No specific complaints pages currently on room air oxygen. The pleural fluid is a transudate. She remains on Lasix 40 mg every 12 hours. Pleural fluid cytology still pending for now. In terms of anticoagulation, the patient has been On Lovenox and she can be transitioned to an oral anticoagulants and choice was left up to medicine on my understanding is that the medical team has already contacted the hematology oncology team taking care of this patient CLL to discuss the choice of anticoagulation. A new agent oral anticoagulants such as Xarelto or Eliquis should be reasonable and treatment of this patient. On 09/20/2020 patient seen in follow-up on medical surgical floor. She is resting comfortably in bed, she is currently on room air, her pulse ox is 91%, she is afebrile, hemodynamically she is stable, she denies any specific complaints, she is status post right-sided thoracentesis and pleural fluid analysis showed transudate of fluid consistent with acute exacerbation of CHF. She is breathing easier, she denies any chest discomfort, she has been started on oral anticoagulation in the form of Eliquis for pulmonary embolism. She has been diuresed, her diuretics have been placed on hold. Today's labs have been reviewed, with mental, is 4.9, hemoglobin is 10.1, sodium is 135, potassium 3.8, chloride is 95, B1 is 20 creatinine is 1. Objective - Vital Signs Vital signs: Vital Signs Temp 98.4 F 09/20/20 15:23 Pulse 65 09/20/20 15:23 Resp 16 09/20/20 15:23 BP 100/62 09/20/20 15:23 Pulse Ox 91 L 09/20/20 15:23 Intake & Output 09/19/20 09/20/20 09/20/20 18:59 06:59 18:59 Intake Total 320 Balance 320 Weight 66.5 kg Intake: Oral 320 Other: Voiding Method External Catheter # Voids 3 # Bowel Movements 3 - Exam GENERAL EXAM: Alert, very pleasant, 89-year-old white female, on room air, with a pulse ox of 91%, comfortable in no apparent distress. HEAD: Normocephalic/atraumatic. EYES: Normal reaction of pupils, equal size. Conjunctiva pink, sclera white. NOSE: Clear with pink turbinates. THROAT: No erythema or exudates. NECK: No masses, no JVD, no thyroid enlargement, no adenopathy. CHEST: No chest wall deformity. Symmetrical expansion. LUNGS: Equal air entry with no crackles, wheeze, rhonchi or dullness. CVS: Regular rate and rhythm, normal S1 and S2, no gallops, no murmurs, no rubs ABDOMEN: Soft, nontender. No hepatosplenomegaly, normal bowel sounds, no guarding or rigidity. EXTREMITIES: No clubbing, no edema, no cyanosis, 2+ pulses and upper and lower extremities. MUSCULOSKELETAL: Muscle strength and tone normal. SPINE: No scoliosis or deformity SKIN: No rashes CENTRAL NERVOUS SYSTEM: Alert and oriented -3. No focal deficits, tone is normal in all 4 extremities. PSYCHIATRIC: Alert and oriented -3. Appropriate affect. Intact judgment and insight. - Labs CBC & Chem 7: 09/20/20 07:04 09/20/20 07:04 Labs: Abnormal Lab Results - Last 24 Hours (Table) 09/20/20 09/20/20 09/20/20 Range/Units 07:04 07:04 17:08 RBC 3.41 L (4.10-5.20) X 10*6/uL Hgb 10.1 L (12.0-15.0) g/dL Hct 31.7 L (37.2-46.3) % MCHC 31.9 L (32.0-37.0) g/dL RDW 16.5 H (11.5-14.5) % Plt Count 92 L (140-440) X 10*3/uL MPV 9.2 L (9.5-12.2) fL Chloride 95 L (96-109) mmol/L Est GFR (CKD-EPI)AfAm 57.8 L (60.0-200.0) Est GFR (CKD-EPI)NonAf 49.9 L (60.0-200.0) POC Glucose (mg/dL) 159 H (75-99) mg/dL Calcium 8.3 L (8.7-10.3) mg/dL Total Bilirubin 2.2 H (0.2-1.2) mg/dL AST 37 H (13-35) U/L Total Protein 5.4 L (6.2-8.2) g/dL Microbiology - Last 24 Hours (Table) 09/17/20 03:28 Gram Stain - Preliminary Pleural Fluid Body Fluid Culture - Preliminary Assessment and Plan Plan: Assessment: 1 shortness of breath with signs of the congestion heart failure. The patient also has developed a moderate-sized right-sided pleural effusion which is obviously a new finding. There is a small left pleural effusion and the patient has undergone previous Pleurx catheter insertion and subsequent removal on the left for recurrent effusion secondary to non-Hodgkin's lymphoma. The patient underwent thoracentesis of the right lung. The right-sided pleural fluid is a transudate. The patient was treated with diuretics. The patient is feeling much better and she is currently on room air oxygen. Patient has been started on Eliquis 2 pulmonary embolisms suspected in the right upper lobe, d-dimer is mildly elevated. Patient will need anticoagulation. 3 history of recurrent left-sided pleural effusion requiring Pleurx catheter insertion and subsequent removal and this fluid was attributed to non-Hodgkin's lymphomae 4 history of non-Hodgkin's lymphoma/chronic lymphocytic leukemia maintained on I mbruvica 4 chronic thrombocytopenia 5 chronic anemia 6 chronic atrial fibrillation 7 diabetes mellitus 8 hypertension 9 hypothyroidism 10 previous history of DVT and pulmonary embolism 11 history of macular degeneration 12 history of sick sinus syndrome post pacemaker insertion 13 valvular heart disease with moderate degree of mitral regurgitation 14 severe pulmonary hypertension with PA pressures are above 100 Plan: Patient's breathing is stable and improving Diuretics per cardiology and primary care service Patient is status post right-sided thoracentesis, pleural fluid analysis showed transudate of fluid consistent with acute exacerbation of CHF She has been started on Eliquis No complaints of chest discomfort or worsening dyspnea Vital signs are stable Pulmonary service will sign off in follow-up on his needed basis I performed a history & physical examination of the patient and discussed their management with my nurse practitioner, Kristan Castillo. I reviewed the nurse practitioner's note and agree with the documented findings and plan of care. Lung sounds are positive for diminished breath sounds The findings and the impression was discussed with the patient. I attest to the documentation by the nurse practitioner. Time with Patient: Less than 30
[2020-09-20 20:42] LABS: Glucose,Whole Blood 118 mg/dL (75-99)
[2020-09-20] MEDS: METOPROLOL TARTRATE 25 MG TAB PO SCH (22:36)
[2020-09-20] MEDS: APIXABAN 5 MG TAB PO SCH (22:36)
[2020-09-20] MEDS: amLODIPine 5 MG TAB PO SCH (22:37)
[2020-09-20] MEDS: MAGNESIUM OXIDE 400 MG TAB PO SCH (22:37)
[2020-09-20] MEDS: POTASSIUM CHLORIDE ER 10 MEQ TAB.ER.PRT PO SCH (23:09)
[2020-09-20] MEDS: MELATONIN 3 MG TABLET PO SCH (23:12)
[2020-09-21 06:52] LABS: Glucose,Whole Blood 97 mg/dL (75-99)
[2020-09-21] MEDS: LEVOTHYROXINE 75 MCG TAB PO SCH (07:14)
[2020-09-21] MEDS: IPRATROPIUM-ALBUTEROL 3 ML NEB INHALATION SCH ×2 (07:30→11:45)
[2020-09-21] MEDS: MULTIVITAMINS, THERA 1 EACH TAB PO SCH (07:50)
[2020-09-21] MEDS: SPIRONOLACTONE 25 MG TAB PO SCH (07:50)
[2020-09-21] MEDS: CYANOCOBALAMIN 500 MCG TAB PO SCH (07:50)
[2020-09-21] MEDS: METOPROLOL TARTRATE 50 MG TAB PO SCH (07:50)
[2020-09-21] MEDS: APIXABAN 5 MG TAB PO SCH (07:50)
[2020-09-21] MEDS: FUROSEMIDE 40 MG TAB PO SCH ×2 (07:51→15:09)
[2020-09-21] MEDS: CITALOPRAM HYDROBROMIDE 10 MG TAB PO SCH (07:51)
[2020-09-21] MEDS: LACTULOSE 20 GM/30 ML CUP PO SCH (07:52)
[2020-09-21] MEDS: SENNOSIDES-DOCUSATE SODIUM 1 EACH TAB PO SCH (07:52)
[2020-09-21] MEDS: VIT A,C & E-LUTEIN-MINERALS 1 EACH TAB PO SCH (07:52)
[2020-09-21 09:51] VITALS: RESP 16; TEMP 98.1
[2020-09-21 11:45] VITALS: BP 148/80
[2020-09-21 11:57] VITALS: PULSE 66
[2020-09-21 11:59] LABS: Glucose,Whole Blood 94 mg/dL (75-99)
[2020-09-21 12:40] LABS: Anisocytosis Slight; Basophils % (A) 1 %; Eosinophils # (A) 0.1 k/uL (0-0.7); Eosinophils % (A) 2 %; HCT 33.9 % (34.0-46.0); Hypochromasia Slight; Lymphocytes # (A) 1.4 k/uL (1.0-4.8); Lymphocytes % (A) 25 %; MCH 30.1 pg (25.0-35.0); MCHC 32.5 g/dL (31.0-37.0); MCV 92.5 fL (80.0-100.0); Mean Platelet Volume 8.2; Monocytes # (A) 0.3 k/uL (0-1.0); Monocytes % (A) 5 %; Neutrophils # (A) 3.6 k/uL (1.3-7.7); Neutrophils % (A) 65 %; RBC 3.67 m/uL (3.80-5.40); RDW 16.2 % (11.5-15.5); WBC 5.5 k/uL (3.8-10.6)
[2020-09-21 12:45] LABS: Platelet Count 96 k/uL (150-450)
[2020-09-21 12:57] LABS: ALT 27 U/L (4-34); AST 44 U/L (14-36); African American GFR (CKD) 60 (>60 ml/min/1.73 sqM); Albumin 3.6 g/dL (3.5-5.0); Albumin/Globulin Ratio 1.5; Alkaline Phosphatase 59 U/L (38-126); Anion Gap 7 mmol/L; Blood Urea Nitrogen 19 mg/dL (7-17); Calcium 8.7 mg/dL (8.4-10.2); Carbon Dioxide 30 mmol/L (22-30); Chloride 92 mmol/L (98-107); Globulin 2.4 g/dL; Glucose 109 mg/dL (74-99); Non-African American GFR(CKD) 52 (>60 ml/min/1.73 sqM); Potassium 4.3 mmol/L (3.5-5.1); Sodium 129 mmol/L (137-145); Total Bilirubin 2.2 mg/dL (0.2-1.3)
--- NOTE | 2020-09-21 15:43 | P.DS ---
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 Valentín smith in 11/17/2019 patient was doing fine up until recently when she developed to have an increased shortness breath and increased swelling in both lower extremity for the past 2 weeks, associated with increased dyspnea on exertion, patient called her daughter and she also took bringing her to the emergency room for evaluation she was supposed to come to see cardiology as an outpatient in a few days however she could not make it there and she ended up coming to the ER patient was found to have a significant acute diastolic heart failure, she had a chest x-ray that showed right-sided pleural effusion more than left-sided pleural effusion, she was started on IV diuretic in the form of Lasix 40 mg IV push every 12 hours, she underwent CTA of the chest that was positive for pulmonary embolism, she was started on Lovenox 70 mg subcutaneously every 12 hours, discussed her situation with her oncologist Dr. Perez at [facility] and she was agreement for Lovenox and switch to one of the Noac preferably Eliquis 5 mg orally twice every day for 10 days followed by 2.5 mg orally twice every day due to her increased risk of bleeding. 09/18: Patient is sitting up in bed is feeling a bit better today, she continues to diurese very well, she is requiring less oxygen, she underwent thoracentesis of the right pleural effusion and she is doing much better since then, she continues to have some irritant cough, she has no hemoptysis, her son was at the bedside, he was concerned about her weakness, the plan is to be seen by physical therapy, and sent her to subacute rehab rotation likely at [facility], patient seems to be tolerating her to arrival, she will be transitioned into Eliquis 5 mg orally twice every day for 10 days followed by 2.5 mg orally twice every day for lifetime hopefully on Sunday. 09/19: Patient sitting up in bed she is feeling a lot better today, she is not requiring oxygen, she continues to be on Lovenox 70 mg subcu every 12 hours we will switch her to oral Eliquis 5 mg orally twice every day tomorrow morning for 10 days, then 2.5 mg orally twice every day for lifetime, physical therapy evaluation tomorrow morning, patient will likely require subacute rehabilitation, labs reviewed, 09/20: Patient is doing better she is sitting up in bed in upper distress no chest pain or sores breath, she is tolerating treatment very well, she switched to oral Eliquis 5 mg orally twice every day, continue with blood pressure monitoring, continue low-salt diet, follow-up with the patient, likely she will be discharged to either [facility] tomorrow morning. PHYSICAL EXAMINATION: General: This is an 89-year-old female who is laying down in bed in moderate distress. HEENT: Head is atraumatic, normocephalic, pupils were equal round reactive to light and recommendation, extraocular muscle movement were intact, sclera nonicteric, conjunctivae were pale, mucous membranes of the mouth are somewhat dry. Neck: Supple, no JVP, normal carotid upstroke bilaterally, no lymphadenopathy. Chest: Decreased breath sounds at the bases, decreased sexual fremitus on the right two thirds of the lung, positive for egophony, decreased tactile fremitus in the lower one third of the left lung, minimal chest wall tenderness minimal intercostal retractions. Heart: First heart sound is depressed, second heart sound is normal, irregularly irregular, there is systolic ejection murmur 2/6 located in the left sternal border, there is permanent pacemaker located in the left upper precordium. Abdomen: Soft, nontender, nondistended, positive bowel sounds, there is no hepatomegaly. Extremities: There is +2 edema no calf tenderness DP +2 bilaterally. Neurologic examination: Patient is awake alert and oriented X 3, cranial nerves II-12 appear grossly intact, muscle power 4 out of 5 in bilateral upper extremities and 5 out of 5 in bilateral lower extremities, deep tendon reflex is were depressed, Babinski's were flexor bilaterally. ASSESSMENT AND PLAN: 1. Acute hypoxic respiratory failure secondary to moderate size right pleural effusion as well as pulmonary embolism. 2. Recurrent left-sided malignant pleural effusion post multiple thoracentesis currently in the right side 3. Stage IV non-Hodgkin lymphoma. 4. Chronic atrial fibrillation. 5. Diabetes mellitus type 2. 6. Hypertension and hypertensive cardiovascular disease. 7. Hypothyroidism. 8. Hyponatremia. 9. Anemia of chronic disease. 10. History of PE and DVT. 11. Macular degeneration. 12. Sick sinus syndrome Status post pacemaker. . Patient Condition at Discharge: Fair Plan - Discharge Summary Discharge Rx Participant: No New Discharge Prescriptions: New Spironolactone [Aldactone] 25 mg PO DAILY tab Apixaban [Eliquis] 5 mg PO BID tab Furosemide [Lasix] 40 mg PO BID@0900,1600 tab lisinopriL [Zestril] 2.5 mg PO DAILY tab Ipratropium-Albuterol Nebulize [Duoneb 0.5 mg-3 mg/3 ml Soln] 3 ml INHALATION RT-TID ml Melatonin 6 mg PO HS tablet amLODIPine [Norvasc] 5 mg PO HS tab Sennosides-Docusate Sodium [Senokot-S] 1 each PO BID tab Acetaminophen Tab [Tylenol] 650 mg PO Q6HR PRN tab PRN Reason: Fever And/ Or Pain Continue Levothyroxine Sodium [Synthroid] 75 mcg PO DAILY Vit C/E/Zn/Coppr/Lutein/Zeaxan [Preservision Areds 2 Softgel] 1 cap PO BID metFORMIN HCL [Glucophage] 500 mg PO DAILY Cyanocobalamin (Vitamin B-12) [Vitamin B-12] 1,000 mcg PO DAILY Furosemide [Lasix] 20 mg PO BID Magnesium Gluconate [Magonate] 500 mg PO DAILY Metoprolol Tartrate [Lopressor] 50 mg PO DAILY Potassium Chloride ER [K-Dur 10] 10 meq PO DAILY Metoprolol Tartrate [Lopressor] 25 mg PO HS Citalopram Hydrobromide [CeleXA] 10 mg PO DAILY Multivit-Min/FA/Lycopen/Lutein [Centrum Silver Tablet] 1 tab PO DAILY Discontinued Ibrutinib [Imbruvica] 280 mg PO DAILY Discharge Medication List Levothyroxine Sodium [Synthroid] 75 mcg PO DAILY 12/15/13 [History] Vit C/E/Zn/Coppr/Lutein/Zeaxan [Preservision Areds 2 Softgel] 1 cap PO BID 06/11/17 [History] Cyanocobalamin (Vitamin B-12) [Vitamin B-12] 1,000 mcg PO DAILY 02/06/20 [History] metFORMIN HCL [Glucophage] 500 mg PO DAILY 02/06/20 [History] Furosemide [Lasix] 20 mg PO BID 08/03/20 [History] Magnesium Gluconate [Magonate] 500 mg PO DAILY 08/03/20 [History] Metoprolol Tartrate [Lopressor] 25 mg PO HS 08/03/20 [History] Metoprolol Tartrate [Lopressor] 50 mg PO DAILY 08/03/20 [History] Potassium Chloride ER [K-Dur 10] 10 meq PO DAILY 08/03/20 [History] Citalopram Hydrobromide [CeleXA] 10 mg PO DAILY 09/16/20 [History] Multivit-Min/FA/Lycopen/Lutein [Centrum Silver Tablet] 1 tab PO DAILY 09/16/20 [History] Acetaminophen Tab [Tylenol] 650 mg PO Q6HR PRN tab 09/21/20 [Rx] Apixaban [Eliquis] 5 mg PO BID tab 09/21/20 [Rx] Furosemide [Lasix] 40 mg PO BID@0900,1600 tab 09/21/20 [Rx] Ipratropium-Albuterol Nebulize [Duoneb 0.5 mg-3 mg/3 ml Soln] 3 ml INHALATION RT-TID ml 09/21/20 [Rx] Melatonin 6 mg PO HS tablet 09/21/20 [Rx] Sennosides-Docusate Sodium [Senokot-S] 1 each PO BID tab 09/21/20 [Rx] Spironolactone [Aldactone] 25 mg PO DAILY tab 09/21/20 [Rx] amLODIPine [Norvasc] 5 mg PO HS tab 09/21/20 [Rx] lisinopriL [Zestril] 2.5 mg PO DAILY tab 09/21/20 [Rx] Follow up Appointment(s)/Referral(s): Satish Pink MD [Primary Care Provider] - 1-2 days [facility] Visiting Nurse, [NON-STAFF] - As Needed Discharge Disposition: TRANSFER TO SNF/ECF
--- NOTE | 2020-09-22 16:49 | P.PN ---
Subjective Progress Note Date: 09/19/20 HISTORY OF PRESENT ILLNESS: This is an 89-year-old female patient of [employer] 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 Laura back in 11/17/2019 patient was doing fine up until recently when she developed to have an increased shortness breath and increased swelling in both lower extremity for the past 2 weeks, associated with increased dyspnea on exertion, patient called her daughter and she also took bringing her to the emergency room for evaluation she was supposed to come to see cardiology as an outpatient in a few days however she could not make it there and she ended up coming to the ER patient was found to have a significant acute diastolic heart failure, she had a chest x-ray that showed right-sided pleural effusion more than left-sided pleural effusion, she was started on IV diuretic in the form of Lasix 40 mg IV push every 12 hours, she underwent CTA of the chest that was positive for pulmonary embolism, she was started on Lovenox 70 mg subcutaneously every 12 hours, discussed her situation with her oncologist Dr. Perez at [facility] and she was agreement for Lovenox and switch to one of the Noac preferably Eliquis 5 mg orally twice every day for 10 days followed by 2.5 mg orally twice every day due to her increased risk of bleeding. 09/18: Patient is sitting up in bed is feeling a bit better today, she continues to diurese very well, she is requiring less oxygen, she underwent thoracentesis of the right pleural effusion and she is doing much better since then, she continues to have some irritant cough, she has no hemoptysis, her son was at the bedside, he was concerned about her weakness, the plan is to be seen by physical therapy, and sent her to subacute rehab rotation likely at [facility], patient seems to be tolerating her to arrival, she will be transitioned into Eliquis 5 mg orally twice every day for 10 days followed by 2.5 mg orally twice every day for lifetime hopefully on Sunday. 09/19: Patient sitting up in bed she is feeling a lot better today, she is not requiring oxygen, she continues to be on Lovenox 70 mg subcu every 12 hours we will switch her to oral Eliquis 5 mg orally twice every day tomorrow morning for 10 days, then 2.5 mg orally twice every day for lifetime, physical therapy evaluation tomorrow morning, patient will likely require subacute rehabilitation, labs reviewed, REVIEW OF SYSTEMS: Constitutional: No documented fever, no chills, no night sweats. No weight change.Positive for weakness, positive for fatigue , no lethargy lethargy. No daytime sleepiness. HEENT: No headache. No blurred vision or double vision, no loss of vision. No loss of Hearing, no ringing in the ears, no dizziness. No nasal drainage or congestion. No epistaxis. No sore throat. Lungs: positive for shortness of breath, minimal dry cough, no sputum production. No wheezing. Reports dyspnea with activity. Cardiovascular: No chest pain, no lower extremity edema. No palpitations. No paroxysmal nocturnal dyspnea. No orthopnea. No lightheadedness or dizziness. No syncopal episodes. Abdominal: Reports no abdominal pain. No nausea, vomiting. No diarrhea. positive for constipation. No bloody or tarry stools reports loss of appetite. Genitourinary: No dysuria, increased frequency, urgency. No urinary retention. Musculoskeletal: No myalgias. positive for muscle weakness, positive for gait dysfunction, no frequent falls. No back pain. No neck pain. Integumentary: No wounds, left lrh with blood blister from trauma lesions. No rash or pruritus, positive for easy bruising, positive for change in nail. Neurologic: No aphasia. No facial droop. No change in mentation. No head injury. No headache. No paralysis. No paresthesia. Psychiatric: No depression. positive for anxiety. No mood swings. Endocrine: No abnormal blood sugars. No weight change. PHYSICAL EXAMINATION: General: This is an 89-year-old female who is laying down in bed in moderate distress. HEENT: Head is atraumatic, normocephalic, pupils were equal round reactive to light and recommendation, extraocular muscle movement were intact, sclera nonicteric, conjunctivae were pale, mucous membranes of the mouth are somewhat dry. Neck: Supple, no JVP, normal carotid upstroke bilaterally, no lymphadenopathy. Chest: Decreased breath sounds at the bases, decreased sexual fremitus on the right two thirds of the lung, positive for egophony, decreased tactile fremitus in the lower one third of the left lung, minimal chest wall tenderness minimal intercostal retractions. Heart: First heart sound is depressed, second heart sound is normal, irregularly irregular, there is systolic ejection murmur 2/6 located in the left sternal border, there is permanent pacemaker located in the left upper precordium. Abdomen: Soft, nontender, nondistended, positive bowel sounds, there is no hepatomegaly. Extremities: There is +2 edema no calf tenderness DP +2 bilaterally. Neurologic examination: Patient is awake alert and oriented X 3, cranial nerves II-12 appear grossly intact, muscle power 4 out of 5 in bilateral upper extremities and 5 out of 5 in bilateral lower extremities, deep tendon reflex is were depressed, Babinski's were flexor bilaterally. ASSESSMENT AND PLAN: 1. Acute hypoxic respiratory failure secondary to moderate size right pleural effusion as well as pulmonary embolism. Start the patient on Lovenox 70 mg subcutaneously every 12 hours, start the patient on Lasix 40 mg IV push every 12 hours, continue with oxygen support 2-3 nasal cannula, keep her oxygen saturations greater than 93% at all the time, echocardiogram showed normal LV function with severe pulmonary hypertension the plan is to to transition the patient to one of the NOAC likely Eliquis 5 mg twice every day for 10 days followed by 2.5 mg orally twice every day, and this was discussed with her oncologist, pulmonary consultation for thoracentesis of the right chest wall, rule out malignant effusion. 2. Recurrent left-sided malignant pleural effusion post multiple thoracentesis currently in the right side. Status post left Pleurx catheter placement and removal. 3. Stage IV non-Hodgkin lymphoma. Hold Imbruvica for now. 4. Chronic atrial fibrillation. Continue metoprolol 50 mg in the morning and 25 mg in the evening, continue Lovenox 70 mg subcutaneously every 12 hours. 5. Diabetes mellitus type 2. We will continue patient Accu-Chek before each meal and bedtime along with a slight scale insulin. 6. Hypertension and hypertensive cardiovascular disease. Continue patient on metoprolol 50 mg orally in the morning and 25 mg in the evening, start the patient on lisinopril 2.5 mg orally once every day. 7. Hypothyroidism. Continue levothyroxine 75 g daily. 8. Hyponatremia. Could be related to hypovolemia monitor the patient CMP. 9. Anemia of chronic disease. Appears to be better at this time 10. History of PE and DVT, stable, start anticoagulation. 11. Macular degeneration. Continue eyedrops and vitamins. 12. Sick sinus syndrome Status post pacemaker. 13. DVT prophylaxis. SCDs and ESTHER alisson, Lovenox 70 mg subcutaneousLy every 12 hours. 14. GI prophylaxis. Protonix 40 mg orally once every day. 15. Physical therapy evaluation for subacute rehabilitation. 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 Objective - Vital Signs Vital signs: Vital Signs Temp 98.0 F 09/19/20 02:00 Pulse 68 09/19/20 11:12 Resp 16 09/19/20 11:12 BP 105/67 09/19/20 02:00 Pulse Ox 90 L 09/19/20 02:00 Intake & Output 09/18/20 09/19/20 09/19/20 18:59 06:59 18:59 Intake Total 400 120 Output Total 700 Balance -300 120 Weight 66.4 kg Intake: Oral 400 120 Output: Urine 700 Other: Voiding Method External Catheter External Catheter - Labs CBC & Chem 7: 09/19/20 06:15 09/19/20 06:15 Labs: Abnormal Lab Results - Last 24 Hours (Table) 09/18/20 09/19/20 09/19/20 Range/Units 19:06 02:00 06:15 RBC 3.36 L 3.36 L (3.80-5.40) m/uL Hgb 10.6 L 10.1 L (11.4-16.0) gm/dL Hct 30.7 L 31.3 L (34.0-46.0) % RDW 16.2 H 16.5 H (11.5-15.5) % Plt Count 97 L 90 L (150-450) k/uL Sodium (135-145) mmol/L Potassium (3.5-5.5) mmol/L Chloride (96-109) mmol/L Est GFR (CKD-EPI)AfAm (60.0-200.0) Est GFR (CKD-EPI)NonAf (60.0-200.0) BUN/Creatinine Ratio (12.00-20.00) Ratio POC Glucose (mg/dL) (75-99) mg/dL Calcium (8.7-10.3) mg/dL Total Bilirubin (0.2-1.2) mg/dL Total Protein (6.2-8.2) g/dL Urine Blood Trace H (Negative) Urine Bacteria Rare H (None) /hpf Urine Mucus Rare H (None) /hpf 09/19/20 09/19/20 Range/Units 06:15 07:11 RBC (3.80-5.40) m/uL Hgb (11.4-16.0) gm/dL Hct (34.0-46.0) % RDW (11.5-15.5) % Plt Count (150-450) k/uL Sodium 134 L (135-145) mmol/L Potassium 3.1 L (3.5-5.5) mmol/L Chloride 94 L (96-109) mmol/L Est GFR (CKD-EPI)AfAm 57.8 L (60.0-200.0) Est GFR (CKD-EPI)NonAf 49.9 L (60.0-200.0) BUN/Creatinine Ratio 23.00 H (12.00-20.00) Ratio POC Glucose (mg/dL) 109 H (75-99) mg/dL Calcium 8.4 L (8.7-10.3) mg/dL Total Bilirubin 2.4 H (0.2-1.2) mg/dL Total Protein 5.4 L (6.2-8.2) g/dL Urine Blood (Negative) Urine Bacteria (None) /hpf Urine Mucus (None) /hpf Microbiology - Last 24 Hours (Table) 09/17/20 03:28 Acid Fast Bacilli Smear - Final Pleural Fluid Acid Fast Bacilli Culture - Preliminary 09/17/20 03:28 Gram Stain - Preliminary Pleural Fluid Body Fluid Culture - Preliminary
--- NOTE | 2020-09-22 16:54 | P.PN ---
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 after she had a significant hemothorax at that time it was elected for the patient to go for a Pleurx catheter that was placed by Dr. Laura back in 11/17/2019 patient was doing fine up until recently when she developed to have an increased shortness breath and increased swelling in both lower extremity for the past 2 weeks, associated with increased dyspnea on exertion, patient called her daughter and she also took bringing her to the emergency room for evaluation she was supposed to come to see cardiology as an outpatient in a few days however she could not make it there and she ended up coming to the ER patient was found to have a significant acute diastolic heart failure, she had a chest x-ray that showed right-sided pleural effusion more than left-sided pleural effusion, she was started on IV diuretic in the form of Lasix 40 mg IV push every 12 hours, she underwent CTA of the chest that was positive for pulmonary embolism, she was started on Lovenox 70 mg subcutaneously every 12 hours, discussed her situation with her oncologist Dr. Perez at [facility] and she was agreement for Lovenox and switch to one of the Noac preferably Eliquis 5 mg orally twice every day for 10 days followed by 2.5 mg orally twice every day due to her increased risk of bleeding. 09/18: Patient is sitting up in bed is feeling a bit better today, she continues to diurese very well, she is requiring less oxygen, she underwent thoracentesis of the right pleural effusion and she is doing much better since then, she continues to have some irritant cough, she has no hemoptysis, her son was at the bedside, he was concerned about her weakness, the plan is to be seen by physical therapy, and sent her to subacute rehab rotation likely at [facility], patient seems to be tolerating her to arrival, she will be transitioned into Eliquis 5 mg orally twice every day for 10 days followed by 2.5 mg orally twice every day for lifetime hopefully on Sunday. 09/19: Patient sitting up in bed she is feeling a lot better today, she is not requiring oxygen, she continues to be on Lovenox 70 mg subcu every 12 hours we will switch her to oral Eliquis 5 mg orally twice every day tomorrow morning for 10 days, then 2.5 mg orally twice every day for lifetime, physical therapy evaluation tomorrow morning, patient will likely require subacute rehabilitation, labs reviewed, 09/20:Patient is sitting up in bed in no apparent distress, she is feeling better today, no chest pain , less shortness of breath, has had several loose bowel movements, no abdominal pain, nausea, or vomiting, doing better, still require some assistance but is pretty functional, no new issues, her daughter was at the bed side and she was in agreement to transfer her to [facility] on the [place] for short term sub acute rehab, she will stay off Imbruvica meanwhile. REVIEW OF SYSTEMS: Constitutional: No documented fever, no chills, no night sweats. No weight change.Positive for weakness, positive for fatigue , no lethargy lethargy. No d aytime sleepiness. HEENT: No headache. No blurred vision or double vision, no loss of vision. No loss of Hearing, no ringing in the ears, no dizziness. No nasal drainage or congestion. No epistaxis. No sore throat. Lungs: positive for shortness of breath, minimal dry cough, no sputum production . No wheezing. Reports dyspnea with activity. Cardiovascular: No chest pain, no lower extremity edema. No palpitations. No paroxysmal nocturnal dyspnea. No orthopnea. No lightheadedness or dizziness. No syncopal episodes. Abdominal: Reports no abdominal pain. No nausea, vomiting. No diarrhea. positive for constipation. No bloody or tarry stools reports loss of appetite. Genitourinary: No dysuria, increased frequency, urgency. No urinary retention. Musculoskeletal: No myalgias. positive for muscle weakness, positive for gait dysfunction, no frequent falls. No back pain. No neck pain. Integumentary: No wounds, left lrh with blood blister from trauma lesions. No rash or pruritus, positive for easy bruising, positive for change in nail. Neurologic: No aphasia. No facial droop. No change in mentation. No head injury. No headache. No paralysis. No paresthesia. Psychiatric: No depression. positive for anxiety. No mood swings. Endocrine: No abnormal blood sugars. No weight change. PHYSICAL EXAMINATION: General: This is an 89-year-old female who is laying down in bed in moderate distress. HEENT: Head is atraumatic, normocephalic, pupils were equal round reactive to light and recommendation, extraocular muscle movement were intact, sclera nonicteric, conjunctivae were pale, mucous membranes of the mouth are somewhat dry. Neck: Supple, no JVP, normal carotid upstroke bilaterally, no lymphadenopathy. Chest: Decreased breath sounds at the bases, decreased sexual fremitus on the right two thirds of the lung, positive for egophony, decreased tactile fremitus in the lower one third of the left lung, minimal chest wall tenderness minimal intercostal retractions. Heart: First heart sound is depressed, second heart sound is normal, irregularly irregular, there is systolic ejection murmur 2/6 located in the left sternal border, there is permanent pacemaker located in the left upper precordium. Abdomen: Soft, nontender, nondistended, positive bowel sounds, there is no hepatomegaly. Extremities: There is +2 edema no calf tenderness DP +2 bilaterally. Neurologic examination: Patient is awake alert and oriented X 3, cranial nerves II-12 appear grossly intact, muscle power 4 out of 5 in bilateral upper extremities and 5 out of 5 in bilateral lower extremities, deep tendon reflex is were depressed, Babinski's were flexor bilaterally. ASSESSMENT AND PLAN: 1. Acute hypoxic respiratory failure secondary to moderate size right pleural effusion as well as pulmonary embolism. Start the patient on Lovenox 70 mg subcutaneously every 12 hours, start the patient on Lasix 40 mg IV push every 12 hours, continue with oxygen support 2-3 nasal cannula, keep her oxygen saturations greater than 93% at all the time, echocardiogram showed normal LV function with severe pulmonary hypertension the plan is to to transition the patient to one of the NOAC likely Eliquis 5 mg twice every day for 10 days followed by 2.5 mg orally twice every day, and this was discussed with her oncologist, pulmonary consultation for thoracentesis of the right chest wall, r ule out malignant effusion. 2. Recurrent left-sided malignant pleural effusion post multiple thoracentesis currently in the right side. Status post left Pleurx catheter placement and removal. 3. Stage IV non-Hodgkin lymphoma. Hold Imbruvica for now. 4. Chronic atrial fibrillation. Continue metoprolol 50 mg in the morning and 25 mg in the evening, continue Lovenox 70 mg subcutaneously every 12 hours. 5. Diabetes mellitus type 2. We will continue patient Accu-Chek before each meal and bedtime along with a slight scale insulin. 6. Hypertension and hypertensive cardiovascular disease. Continue patient on metoprolol 50 mg orally in the morning and 25 mg in the evening, start the patient on lisinopril 2.5 mg orally once every day. 7. Hypothyroidism. Continue levothyroxine 75 g daily. 8. Hyponatremia. Could be related to hypovolemia monitor the patient CMP. 9. Anemia of chronic disease. Appears to be better at this time 10. History of PE and DVT, stable, start anticoagulation. 11. Macular degeneration. Continue eyedrops and vitamins. 12. Sick sinus syndrome Status post pacemaker. 13. DVT prophylaxis. SCDs and ESTHER vinson, Lovenox 70 mg subcutaneousLy every 12 hours. 14. GI prophylaxis. Protonix 40 mg orally once every day. 15. OK to transfer to [facility] on the [place] . Objective - Vital Signs Vital signs: Vital Signs Temp 98.3 F 09/20/20 07:42 Pulse 68 09/20/20 12:03 Resp 16 09/20/20 08:00 BP 106/60 09/20/20 07:42 Pulse Ox 100 09/20/20 07:42 Intake & Output 09/19/20 09/20/20 09/20/20 18:59 06:59 18:59 Intake Total 320 Balance 320 Weight 66.5 kg Intake: Oral 320 Other: Voiding Method External Catheter # Voids 3 # Bowel Movements 3 - Labs CBC & Chem 7: 09/21/20 12:22 09/21/20 12:22 Labs: Abnormal Lab Results - Last 24 Hours (Table) 09/20/20 09/20/20 Range/Units 07:04 07:04 RBC 3.41 L (4.10-5.20) X 10*6/uL Hgb 10.1 L (12.0-15.0) g/dL Hct 31.7 L (37.2-46.3) % MCHC 31.9 L (32.0-37.0) g/dL RDW 16.5 H (11.5-14.5) % Plt Count 92 L (140-440) X 10*3/uL MPV 9.2 L (9.5-12.2) fL Chloride 95 L (96-109) mmol/L Est GFR (CKD-EPI)AfAm 57.8 L (60.0-200.0) Est GFR (CKD-EPI)NonAf 49.9 L (60.0-200.0) Calcium 8.3 L (8.7-10.3) mg/dL Total Bilirubin 2.2 H (0.2-1.2) mg/dL AST 37 H (13-35) U/L Total Protein 5.4 L (6.2-8.2) g/dL Microbiology - Last 24 Hours (Table) 09/17/20 03:28 Gram Stain - Preliminary Pleural Fluid Body Fluid Culture - Preliminary
== END 2020-09-21 15:55 | DRG 291 ==
LOC: EC 11:36 → 4SSUR 15:21
PROVIDERS: ADMIT Internal Medicine; ATTEND Internal Medicine
PROC: 0W993ZZ Drainage of Right Pleural Cavity, Percutaneous Approach (ICD-10-PCS; principal; 2020-09-17)
DX: I11.0 Hypertensive heart disease with heart failure (principal); I26.99 Other pulmonary embolism without acute cor pulmonale; J96.01 Acute respiratory failure with hypoxia; C85.90 Non-Hodgkin lymphoma, unspecified, unspecified site; E87.1 Hypo-osmolality and hyponatremia; I48.19 Other persistent atrial fibrillation; J91.0 Malignant pleural effusion; C91.10 Chronic lymphocytic leukemia of B-cell type not having achieved remission; C90.01 Multiple myeloma in remission; I50.43 Acute on chronic combined systolic (congestive) and diastolic (congestive) heart failure; E11.9 Type 2 diabetes mellitus without complications; E03.9 Hypothyroidism, unspecified; D63.8 Anemia in other chronic diseases classified elsewhere; Z86.711 Personal history of pulmonary embolism; Z86.718 Personal history of other venous thrombosis and embolism; Z95.0 Presence of cardiac pacemaker; H35.30 Unspecified macular degeneration; E87.6 Hypokalemia; I27.20 Pulmonary hypertension, unspecified; Z79.84 Long term (current) use of oral hypoglycemic drugs; Z82.49 Family history of ischemic heart disease and other diseases of the circulatory system; Z82.3 Family history of stroke; Z90.49 Acquired absence of other specified parts of digestive tract; Z87.891 Personal history of nicotine dependence; Z20.822 Contact with and (suspected) exposure to COVID-19; I08.0 Rheumatic disorders of both mitral and aortic valves; D69.6 Thrombocytopenia, unspecified; Z79.890 Hormone replacement therapy; Z92.21 Personal history of antineoplastic chemotherapy; Z80.0 Family history of malignant neoplasm of digestive organs; F32.9 Major depressive disorder, single episode, unspecified; Z90.710 Acquired absence of both cervix and uterus; Z96.653 Presence of artificial knee joint, bilateral; Z79.899 Other long term (current) drug therapy
CPT/HCPCS: 36415; 51798; 71045; 71046; 71275; 74177; 76604; 80053; 81001; 82945; 83605; 83615; 83735; 83880; 84157; 84484; 85025; 85379; 85610; 85652; 85730; 87070; 87102; 87116; 87205; 87206; 87252; 87496; 87498; 87502; 87529; 87634; 87635; 87798; 88108; 88305; 89050; 93005; 93306; 93970; 94640; 94760; 99291